=== PATIENT | female | born 1955 | race Caucasian/White ===

== ENCOUNTER 2018-01-30 14:08 | Observation (INO) | payer MEDICAID, SELFPAY ==
[2018-01-30] VITALS (10 sets, daily range): BP systolic 97–158; BP diastolic 57–87; PULSE 70–83; RESP 11–22; TEMP 36.6–36.7; O2SAT 92–98; BMI 33.7; BMI 33.8; BMI 35.2
--- NOTE | 2018-01-30 14:24 | EKG12_ITS ---
Test Reason : Blood Pressure : / mmHG Vent. Rate : 083 BPM Atrial Rate : 083 BPM P-R Int : 176 ms QRS Dur : 090 ms QT Int : 398 ms P-R-T Axes : 061 019 003 degrees QTc Int : 467 ms Normal sinus rhythm Normal ECG Confirmed by CESAR GRUBER, SHARAD ([id number]), restaurant expeditor TISHA SHIPMAN ([id number]) on 02/01/2018 3:20:39 PM Referred By: Symone Griffin Confirmed By:SHARAD GUERRERO MD
--- NOTE | 2018-01-30 14:24 | RAD_ITS ---
STUDY: X-RAY CHEST REASON FOR EXAM: Female, 62 years old. Chest pain. Shortness of breath. TECHNIQUE: Single AP portable view of the chest. COMPARISON: None. FINDINGS: EKG electrodes are seen. The lungs are clear and expanded. Scattered calcified granulomas. There is no demonstrated pleural abnormality. Normal size heart. Normal mediastinum and zion. Normal visualized pulmonary arteries. Normal visualized aortic arch and descending thoracic aorta. There are degenerative changes of the visualized thoracic spine. The patient is status post right reverse shoulder replacement. There is no demonstrated abnormality of the visualized soft tissue structures of the upper abdomen. RAD/Chest 1 View (Portable) IMPRESSION: No acute abnormality is seen. Electronically Signed: Royer Yan MD at 15:07 EDT Tel [phone], Service support ,
[2018-01-30] MEDS: Aspirin 81 MG TAB.CHEW 324 MG PO (14:51)
[2018-01-30] MEDS: Ondansetron 4 MG/2 ML Vial IV (15:17)
[2018-01-30] MEDS: 0.9% Normal Saline 1,000 ML 150 ML IV (15:18)
--- NOTE | 2018-01-30 15:31 | EKG12_ITS ---
Test Reason : CP Blood Pressure : / mmHG Vent. Rate : 079 BPM Atrial Rate : 079 BPM P-R Int : 160 ms QRS Dur : 088 ms QT Int : 390 ms P-R-T Axes : 056 025 006 degrees QTc Int : 447 ms Normal sinus rhythm Normal ECG Confirmed by CESAR GRUBER, SHARAD ([id number]), newspaper editor TISHA SHIPMAN ([id number]) on 02/01/2018 3:23:19 PM Referred By: Symone Griffin Confirmed By:SHARAD GUERRERO MD
[2018-01-30 16:04] LABS: Absolute Lymphocyte Count 2.32 X10^3/ul (0.83-4.51); Absolute Neutrophil Count 4.9 X10^3/uL (2.0-7.7); Basophil# 0.02 X10^3/uL; Basophil% 0.3 % (0-1); Eosinophil# 0.22 X10^3/uL; Eosinophils% 2.8 % (0-5); Hematocrit 37.4 % (37-47); Hemoglobin 11.3 g/dl (12.0-15.0); Lymphocyte # 2.32 X10^3/ul (4.0); Lymphocyte % 29.1 % (19-41); Mean Corp Hgb Conc 30.2 g/gl (32-36); Mean Corpuscular Hgb 26.4 pg (27.0-32.0); Mean Corpuscular Volume 87.4 fL (81-99); Mean Platelet Vol. 9.5 fl (6.2-12.0); Monocyte# 0.51 X10^3/uL; Monocyte% 6.4 % (0-10); Neutrophil # 4.87 X10^3/uL (2.7-7.7); Neutrophil % 61.1 % (47-70); POSITIVE COUNT NO; POSITIVE DIFFERENTIAL NO; POSITIVE MORPHOLOGY NO; Platelet Count 269 K/mm3 (150-450); RBC Distribution Width CV 16.4 % (11.6-14.6); RBC Distribution Width SD 52.2 fl (35.1-43.9); Red Blood Count 4.28 M/mm3 (4.2-5.4)
[2018-01-30 16:24] LABS: Anion Gap 6 (5-15); BUN 13 mg/dL (7-18); BUN/Creat Ratio 16.3 RATIO (10-20); Calcium,Total 8.4 mg/dL (8.5-10.1); Chloride 107 mmol/L (98-107); EST Glomerular Filtration Rate 77 mL/min (>60); Est Glom Filt Rate - Afr Amer 93 mL/min (>60); Glucose 88 mg/dL (74-106); Potassium 3.5 mmol/L (3.5-5.1); Sodium Level 141 mmol/L (136-145)
--- NOTE | 2018-01-30 17:05 | EKG12_ITS ---
Test Reason : Blood Pressure : / mmHG Vent. Rate : 076 BPM Atrial Rate : 076 BPM P-R Int : 170 ms QRS Dur : 088 ms QT Int : 406 ms P-R-T Axes : 053 019 012 degrees QTc Int : 456 ms Normal sinus rhythm Normal ECG Confirmed by CESAR GRUBER, SHARAD ([id number]), editorial specialist TISHA SHIPMAN ([id number]) on 02/01/2018 3:23:37 PM Referred By: Symone Griffin Confirmed By:SHARAD GUERRERO MD
--- NOTE | 2018-01-30 17:15 | ED.VISSUMM ---
- ER Visit Summary Date of Service: 01/30/18 Chief Complaint: Chest pain History of Present Illness: The patient is a 62 F who moved here from [place] approximately 1 month ago and is at [facility]. She is not established a local primary care physician. Her director of promotions in [place] was Dr. Hartmann. Patient reports that approximately 30 minutes ago while down in the first floor the hospital she developed a left-sided chest pressure and sharpness. She reports pain is 10 out of 10 at worst 910 currently. Is worsened by exertion or movement of her arm. She relieved by nothing. Reports made her nauseated, short of breath, diaphoretic. Patient is a poor informant. States this is similar when she has had an OH in the past. She reports that she last had a heart catheterization several years ago and that she did not require any stents. She states her last stress test was approximately 1 year ago. Physical Examination: Vitals: Stable. Afebrile. General: Well-nourished and well-developed. Head: Normocephalic atraumatic. Neck: Supple, no lymphadenopathy. No JVD. Nontender. Cardiovascular: Regular rate and rhythm. No murmurs. Respiratory: No respiratory distress. Clear to auscultation bilaterally. Abdominal: Soft, nontender, nondistended, normal bowel sounds. No guarding, rebound, or peritoneal signs. Back: Nontender. Extremities: Nontender, no edema. Skin: Normal color, no rash. Neurologic: Alert and oriented ?3. Cranial nerves II through XII are intact. Normal strength and sensation. Psych: Normal affect. Test Results: EKG is sinus at 79 with no ischemic changes. There is no old EKG for comparison. Repeat EKG is unchanged. Troponin is negative. Chem-7 is more for calcium of 8.4. CBC is marked for hemoglobin 11.3. Chest x-ray shows no acute disease. Emergency Department Course and Treatment: Patient is treated with aspirin and morphine. She is resting comfortably. She continues to complain of pain. Treatment Plan: Patient's pain is very atypical. I discussed the possibility of three-hour enzymes and discharge and the patient is very uncomfortable with this. Unfortunately, I do not have her old records to show with the heart catheter the recent stress test showed. Because of this she was discussed with Dr. Sebastian and will be admitted to the hospital for further relation and treatment. Disposition: Admitted in stable condition Impression: 1. Atypical chest pain. 2. JIMBO score of 1. This note was generated with [employer]endo dictation software. It may contain incorrect words, spelling, and punctuation that were not noted in review of the chart prior to signing ED Disposition - Plan for ED Patient: Chief Complaint: Chest Pain Referrals: Care Physician,No Primary [Primary Care Provider] -
--- NOTE | 2018-01-30 17:20 | ED.DCSUM_ITS ---
- ER Visit Summary Date of Service: 01/30/18 Chief Complaint: Chest pain History of Present Illness: The patient is a 62 F who moved here from [place] approximately 1 month ago and is at [facility]. She is not established a local primary care physician. Her activity therapist in [place] was Dr. Hartmann. Patient reports that approximately 30 minutes ago while down in the first floor the hospital she developed a left-sided chest pressure and sharpness. She reports pain is 10 out of 10 at worst 910 currently. Is worsened by exertion or movement of her arm. She relieved by nothing. Reports made her nauseated, short of breath, diaphoretic. Patient is a poor informant. States this is similar when she has had an MS in the past. She reports that she last had a heart catheterization several years ago and that she did not require any stents. She states her last stress test was approximately 1 year ago. Physical Examination: Vitals: Stable. Afebrile. General: Well-nourished and well-developed. Head: Normocephalic atraumatic. Neck: Supple, no lymphadenopathy. No JVD. Nontender. Cardiovascular: Regular rate and rhythm. No murmurs. Respiratory: No respiratory distress. Clear to auscultation bilaterally. Abdominal: Soft, nontender, nondistended, normal bowel sounds. No guarding, rebound, or peritoneal signs. Back: Nontender. Extremities: Nontender, no edema. Skin: Normal color, no rash. Neurologic: Alert and oriented ?3. Cranial nerves II through XII are intact. Normal strength and sensation. Psych: Normal affect. Test Results: EKG is sinus at 79 with no ischemic changes. There is no old EKG for comparison. Repeat EKG is unchanged. Troponin is negative. Chem-7 is more for calcium of 8.4. CBC is marked for hemoglobin 11.3. Chest x-ray shows no acute disease. Emergency Department Course and Treatment: Patient is treated with aspirin and morphine. She is resting comfortably. She continues to complain of pain. Treatment Plan: Patient's pain is very atypical. I discussed the possibility of three-hour enzymes and discharge and the patient is very uncomfortable with this. Unfortunately, I do not have her old records to show with the heart catheter the recent stress test showed. Because of this she was discussed with Dr. Sebastian and will be admitted to the hospital for further relation and treatment. Disposition: Admitted in stable condition Impression: 1. Atypical chest pain. 2. JIMBO score of 1. This note was generated with [place] ([employer]) dictation software. It may contain incorrect words, spelling, and punctuation that were not noted in review of the chart prior to signing ED Disposition - Plan for ED Patient: Chief Complaint: Chest Pain Referrals: Care Physician,No Primary [Primary Care Provider] -
--- NOTE | 2018-01-30 17:49 | HP.PCM_ITS ---
Problem List (1) Diabetes mellitus type 2 Status: Chronic (2) Atypical chest pain Status: Acute (3) History of [place] (myocardial infarction) Status: Chronic (4) Hypertension Status: Chronic (5) Anxiety and depression Status: Chronic (6) Chronic pain syndrome Status: Chronic (7) Dyslipidemia Status: Acute History of Present Illness Date of Admission: 01/30/18 Chief Complaint: Chest pain today The patient is a 62 year old F with history of multiple comorbidities as mentioned above had chest pain for which rapid response was called in afternoon today at registration counter. Patient complaint of sharp left-sided chest pain with radiation to left arm and finger with tingling sensation and neck and back. Patient also has some shortness of breath at that time. She still complaining of chest pain. Patient did not had cardiac STENT. Patient's ruby rails developer currently is Dr. Hartmann. Patient claims that she has [place] in 2007 2013 for which she had cardiac cath but no stent was placed. Patient also had stress test in [facility] about a year ago. She had 3 EKGs done in the ER and all are normal sinus rhythm with no ischemic changes. Patient complaint of pain over chest, neck and back and asking for IV morphine. Chest x-ray does not show acute disease. Past Medical History Past Medical History (Chronic Problems): Chronic Problems Diabetes mellitus type 2 (Chronic) History of [place] (myocardial infarction) (Chronic) Hypertension (Chronic) Anxiety and depression (Chronic) Chronic pain syndrome (Chronic) Allergies Penicillins Allergy (Verified 01/30/18 14:12) Rash Sulfa (Sulfonamide Antibiotics) Allergy (Verified 01/30/18 14:12) Rash Home Medications: Ambulatory Orders Medication Instructions Recorded ALPRAZolam [Xanax] 0.5 mg PO TID 01/30/18 Albuterol Inhaler [Ventolin Hfa 2 puff INHALATION Q6H PRN PRN 01/30/18 (SP)] Amlodipine [Norvasc] 5 mg PO DAILY 01/30/18 Aspirin [Aspirin, Baby] 81 mg PO DAILY@0800 01/30/18 Aspirin/Acetaminophen/Caffeine 1 each PO TID PRN PRN 01/30/18 [Excedrin Migraine Caplet] Atorvastatin Calcium [Lipitor] 20 mg PO QHS 01/30/18 B Complex with Vitamin C 1 tab PO DAILY 01/30/18 [B-Complex with C] BusPIRone [Buspar] 15 mg PO TID 01/30/18 Cetirizine HCl [All Day Allergy] 10 mg PO DAILY 01/30/18 Dicyclomine HCl [Bentyl] 10 mg PO 4X/DAY 01/30/18 Docusate Sodium [Colace] 100 mg PO DAILY PRN PRN 01/30/18 Duloxetine HCl 60 mg PO QHS 01/30/18 Estrogens, Conjugated [Premarin] 1 dose VAGINAL MOWEFR 01/30/18 Famotidine [Pepcid] 20 mg PO QHS 01/30/18 Ferrous Sulfate [Iron] 325 mg PO BID 01/30/18 Fluticasone 0.05% [Flonase Nasal 1 spray NASAL QHS 01/30/18 Denio] Gabapentin [Neurontin] 600 mg PO TID 01/30/18 Guaifenesin Dm [Robitussin Dm] 10 ml PO Q6H PRN PRN 01/30/18 Isosorbide Mononitrate [Isosorbide 120 mg PO DAILY 01/30/18 Mononitrate ER] Magnesium Oxide [Mag-Ox 400] 400 mg PO DAILY 01/30/18 Metformin HCl 1,000 mg PO BID 01/30/18 Metoprolol Succinate [Toprol Xl] 50 mg PO DAILY 01/30/18 Multivitamin [Multiple Vitamins] 1 each PO DAILY 01/30/18 Nitroglycerin [Nitrostat] 0.4 mg SL PRN PRN 01/30/18 Ondansetron HCl [Zofran] 4 mg PO Q4H PRN PRN 01/30/18 Prazosin HCl 3 mg PO QHS 01/30/18 ProMETHAzine [Phenergan] 25 mg PO Q6H PRN PRN 01/30/18 Pyridoxine HCl [Vitamin B-6] 100 mg PO DAILY 01/30/18 Quetiapine Fumarate [Seroquel] 200 mg PO QHS 01/30/18 Ropinirole HCl [Requip] 1 mg PO QHS 01/30/18 Sucralfate [Carafate] 1 gm PO 4X/DAY 01/30/18 Tiotropium [place] [Spiriva 18 MCG] 1 puff INHALATION DAILY 01/30/18 Topiramate [Topamax] 25 mg PO BID 03/12/18 TraMADol [Ultram (G)] 50 mg PO BID PRN PRN 01/30/18 Smoking Status: Former smoker - *Family History Paternal History Items: No pertinent history Review of Systems Constitutional: Denies: Chills, Fever, Weight Change HEENT: Denies: Head Aches, Sinus Congestion, Sinus Drainage Cardiovascular: Reports: Chest Pain. Denies: Palpitations Respiratory: Reports: Shortness of Breath. Denies: Cough, Shortness of breath at rest, Sputum production Gastrointestinal: Denies: Abdominal Pain, Nausea, Vomiting Genitourinary: Denies: Dysuria Musculoskeletal: Reports: Back Pain, Joint Pain, Joint stiffness, Joint swelling , Shoulder Pain. Denies: Joint Tenderness Skin: Denies: Rash, Wounds Neurological: Denies: Numbness, Tingling, Focal weakness Psychiatric: Reports: Anxiety, Depression. Denies: Homicidal Ideations, Suicidal Ideations Hematologic/ Lymphatic: Denies: Easy Bruising, Easy Bleeding VTE Information - Inpt Only VTE Present on Admission: No VTE Mechan Device Prophylaxis: SCD's VTE Pharm Prophylaxis ordered?: Yes Patient Problems: Active and Suspected Problems Atypical chest pain (Acute) Dyslipidemia (Acute) - Physical Exam General: Alert, Oriented x3, Cooperative HEENT: Atraumatic, PERRLA, EOMI, Normocephalic Neck: Supple, No JVD, Negative Carotid Bruits Lungs: Clear to auscultation, No rhonchi, No wheeze, No rales, Diminished Cardiovascular: Regular rate, Regular Rhythm, Normal S1, Normal S2, No murmurs Abdomen: Bowel Sounds Present, Soft, Non Tender, Non-Distended Extremities: No edema, Capillary Refill Less than 3 Seconds Skin: No rashes, No breakdown Musculoskeletal: No Tenderness to Palpation of Joints or Extremities, Arthritic Changes, Muscle Wasting Neurological: Cranial nerves II-XII grossly intact Psych/Mental Status: Normal Affect, Appropriate Vital Signs Temp Pulse Resp BP Pulse Ox 98.1 F 82 18 120/76 92 01/30/18 14:09 01/30/18 14:09 01/30/18 14:09 01/30/18 14:01/30/18 14:49 Oxygen Flow Rate (L/min) 2 Oxygen Delivery Method Nasal Cannula Weight: 173 lb Body Mass Index (BMI) 33.7 Laboratory Tests Past 24 Hrs 01/30/18 01/30/1801/30/18 15:57 15:57 17:25 WBC 8.0 RBC 4.28 Hgb 11.3 L Hct 37.4 MCV 87.4 MCH 26.4 L MCHC 30.2 L RDW 16.4 H RDW Differential 52.2 H Plt Count 269 MPV 9.5 Immature Gran % (Auto) 0.300 Neut % (Auto) 61.1 Lymph % (Auto) 29.1 Cobb % (Auto) 6.4 Eos % (Auto) 2.8 Baso % (Auto) 0.3 Absolute Neuts (auto) 4.9 Absolute Lymphs (auto) 2.32 Total Counted Not Reportable Sodium 141 Potassium 3.5 Chloride 107 Carbon Dioxide 28.0 Anion Gap 6 BUN 13 Creatinine 0.80 Estim Creat Clear Calc 51.70 Est GFR (MDRD) Af Amer 93 Est GFR (MDRD) Non-Af 77 BUN/Creatinine Ratio 16.3 Glucose 88 Calcium 8.4 L Troponin I < 0.02 Pending Assessment/Plan Active and Suspected Problems Atypical chest pain (Acute) Dyslipidemia (Acute) The patient is a 62 year old F with history of multiple comorbidities as mentioned above had chest pain for which rapid response was called in afternoon today at registration counter for her appointment with Dr. Griffin for chronic pain over back, neck and shoulder.. Patient complaint of sharp left-sided chest pain with radiation to left arm and finger with tingling sensation and neck and back. Patient also has some shortness of breath at that time. She still complaining of chest pain. Patient did not had cardiac STENT. Patient's ruby rails developer currently is Dr. Hartmann. Patient claims that she has [place] in 2007 2013 for which she had cardiac cath but no stent was placed. Patient also had stress test in [facility] about a year ago. She had 3 EKGs done in the ER and all are normal sinus rhythm with no ischemic changes. Patient complaint of pain over chest, neck and back and asking for IV morphine. Chest x-ray does not show acute disease. 1. Atypical chest pain with low suspicion of unstable angina: Chest pain is reproducible. Patient is being admitted on the PCU with ACS protocol. Serial cardiac enzymes. Lexiscan nuclear stress test tomorrow morning. Continue home medication including baby aspirin, Toprol XL, statin and isosorbide mononitrate. Nitroglycerin ointment as needed for chest pain. 2. History of [place], possible coronary artery disease: Patient does not have medical record over here. We will try to get old cardiac cath from [facility] and a stress test report. 3. Diabetes mellitus type II: On Accu-Chek before meals and at bedtime cover with NovoLog sliding scale. A1c tomorrow a.m. 4. COPD: Continue Spiriva and Advair. Albuterol inhaler as needed. 5. 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 This note was generated with [email or web address] software. Every effort was made to ensure accuracy, however computerized mannequin refinisher mistakes may persist. Code Visit OBSV E&M: 77521 Initial observation care L3
[2018-01-30 19:32] LABS: BNP,B-Type NATRIURETIC PEPTIDE 62.7 pg/mL (0-100)
[2018-01-30 20:31] LABS: Bedside Glucose 95 mg/dL (70-110)
[2018-01-30] MEDS: guaiFENesin Dm 10 ML UDC PO (20:53)
[2018-01-30] MEDS: Famotidine 20 MG Tablet PO (20:54)
[2018-01-30] MEDS: Sucralfate 1 GM Tablet PO (20:56)
[2018-01-30] MEDS: Atorvastatin Calcium 20 MG Tablet PO (20:56)
[2018-01-30] MEDS: Dicyclomine 10 MG Capsule PO (20:58)
[2018-01-30] MEDS: DULoxetine Hcl 60 MG Capsule PO (20:58)
[2018-01-30] MEDS: Pramipexole Di-HCl 0.5 MG Tablet PO (20:59)
[2018-01-30] MEDS: Doxazosin 1 MG Tablet 2.5 MG PO (20:59)
[2018-01-30] MEDS: QUEtiapine 100 MG Tablet 200 MG PO (21:00)
[2018-01-30] MEDS: Fluticasone 0.05% 1 SPRAY NASAL.SRY NASAL (21:00)
[2018-01-30] MEDS: Topiramate 25 MG Tablet PO (21:00)
[2018-01-30] MEDS: ALPRAZolam 0.5 MG Tablet PO (21:02)
[2018-01-30] MEDS: 0.9% Normal Saline 1,000 ML 75 ML IV (21:06)
[2018-01-30] MEDS: Ipratropium/Albuterol Sulfate 3 ML AMPUL.NEB INHALATION (22:21)
[2018-01-30] MEDS: Ketorolac 15 MG/ML Vial IV (22:54)
--- NOTE | 2018-01-30 23:13 | CPS ---
pt was painful, ended treatment early and did not want to finish it. RN notified of pain.
[2018-01-31] VITALS (8 sets, daily range): BP systolic 110–117; BP diastolic 70–84; PULSE 73–85; RESP 14–16; TEMP 36.9–37; O2SAT 86–97
--- NOTE | 2018-01-31 04:00 | EKG12_ITS ---
Test Reason : AM EKG Blood Pressure : / mmHG Vent. Rate : 073 BPM Atrial Rate : 073 BPM P-R Int : 176 ms QRS Dur : 090 ms QT Int : 430 ms P-R-T Axes : 062 021 -04 degrees QTc Int : 473 ms Normal sinus rhythm Normal ECG When compared with ECG of 30-JAN-2018 17:13, MANUAL COMPARISON REQUIRED, DATA IS UNCONFIRMED Confirmed by CESAR GRUBER, SHARAD ([id number]), news copy editor TISHA SHIPMAN ([id number]) on 02/03/2018 1:54:29 PM Referred By: DR PATRICK Confirmed By:SHARAD GUERRERO MD
[2018-01-31 04:28] LABS: Hematocrit 35.5 % (37-47); Hemoglobin 10.8 g/dl (12.0-15.0); Mean Corp Hgb Conc 30.4 g/gl (32-36); Mean Corpuscular Hgb 27.5 pg (27.0-32.0); Mean Corpuscular Volume 90.3 fL (81-99); Mean Platelet Vol. 9.6 fl (6.2-12.0); Platelet Count 257 K/mm3 (150-450); RBC Distribution Width CV 16.2 % (11.6-14.6); RBC Distribution Width SD 53.2 fl (35.1-43.9); Red Blood Count 3.93 M/mm3 (4.2-5.4); White Blood Count 6.6 K/mm3 (4.4-11.0)
[2018-01-31 04:33] LABS: International Normalized Ratio 1.3; Prothrombin Time (Protime)PT. 15.8 SECONDS (11.7-14.9)
[2018-01-31 04:34] LABS: Partial Thromboplast Time 31.2 Seconds (24.1-36.2)
[2018-01-31 04:39] LABS: Scan Indicated on CBC? Y/N NO
[2018-01-31 04:55] LABS: Anion Gap 10 (5-15); BUN 15 mg/dL (7-18); BUN/Creat Ratio 17.9 RATIO (10-20); Calcium,Total 8.5 mg/dL (8.5-10.1); Chloride 108 mmol/L (98-107); Cholesterol 93 mg/dL (200); Creatinine, Serum 0.84 mg/dL (0.55-1.02); EST Glomerular Filtration Rate 73 mL/min (>60); Est Glom Filt Rate - Afr Amer 88 mL/min (>60); Glucose 120 mg/dL (74-106); High Density Lipoprotein 23 mg/dL; Potassium 3.7 mmol/L (3.5-5.1); Sodium Level 144 mmol/L (136-145); Thyroid Stim Hormone (TSH) 0.98 uIU/mL (0.358-3.74); Triglycerides 184 mg/dL; Very Low Density Lipoprotein 37 mg/dL (5-40)
[2018-01-31] MEDS: Aspirin E.C. 81 MG Tablet PO (05:45)
[2018-01-31 06:01] LABS: Bedside Glucose 124 mg/dL (70-110)
[2018-01-31 07:06] LABS: Hemoglobin A1c 6.2 % (4.2-6.3)
[2018-01-31] MEDS: ALPRAZolam 0.5 MG Tablet PO ×2 (09:00→14:17)
[2018-01-31] MEDS: Sucralfate 1 GM Tablet PO ×2 (09:02→11:51)
[2018-01-31] MEDS: guaiFENesin Dm 10 ML UDC PO (09:02)
[2018-01-31] MEDS: Dicyclomine 10 MG Capsule PO ×2 (09:02→14:17)
[2018-01-31] MEDS: Gabapentin 600 MG Tablet PO ×2 (09:03→11:51)
--- NOTE | 2018-01-31 11:50 | NURSING ---
Patient agreeable to take 0800 and 1000 medications at this time. patient was previously refusing due to pain and nausea which she was medicated for. Patient denies other needs at this time.
[2018-01-31] MEDS: Topiramate 25 MG Tablet PO (11:52)
[2018-01-31] MEDS: Metoprolol(XL)Succ 50 MG Tablet PO (11:52)
[2018-01-31] MEDS: Ferrous Sulfate 325 MG Tablet PO (11:52)
[2018-01-31] MEDS: amLODIPine 5 MG Tablet PO (11:52)
[2018-01-31] MEDS: Magnesium Oxide 400 MG Tablet PO (11:52)
[2018-01-31] MEDS: Vitamin B Comp W-C Capsule 1 CAP PO (11:53)
[2018-01-31] MEDS: Acetaminophen/Butalbital/Caffe 1 Tablet PO (12:05)
[2018-01-31 12:20] LABS: Bedside Glucose 126 mg/dL (70-110)
--- NOTE | 2018-01-31 12:40 | CASEMGMT ---
SW received a voice mail from patient asking SW to stop by her room. SW went to patient's room and she said she is at [facility] assisted living. She said she does not like it there and wants to go somewhere else. She said she told her manager ecommerce from [facility]. His name is Deng. LATOSHA explained to her that LATOSHA is not going to be able to get her to a different assisted living and that this would have to go through her case reviewer. LATOSHA told her that LATOSHA will call Deng and let him know her concerns. She said when she is ready for d/c she will need a ride back. LATOSHA called [facility] and left a message on the coverage line asking to have Deng call LATOSHA. [facility] but no [facility] was available. [facility] [place]. Chela AGUILAR MSW
--- NOTE | 2018-01-31 12:44 | STRESSREP ---
Stress Test Report Pharmacologic myocardial perfusion stress test. 62-year-old lady with a history of chest pain. Stress protocol: Resting EKG demonstrates normal sinus rhythm with a rate of 81 bpm normal intervals are noted resting blood pressure is 122/80 mmHg. 0.4 mg of adenosine was infused per usual protocol followed by rapid intravenous saline flush injection. Continuous EKG monitoring was performed. At rest there were no ST or T-wave changes noted suggest abnormal flow reserve and at peak infusion no ST or T-wave changes were noted suggest abnormal flow reserve. The resting blood pressure was 122/80 mmHg and a final blood pressure 116/78 mmHg. Myocardial perfusion protocol: 14.1 mCi of technetium 99m sestamibi was injected at rest. 0.4 mg of adenosine was infused per usual protocol. At peak infusion 42.2 mCi of technetium 99m sestamibi was injected. Stress images were obtained. Stress and rest images were reconstructed and compared in the short axis vertical long and horizontal long axis. Gated images were also obtained. Perfusion SPECT analysis: Review of the stress images demonstrate normal uptake of tracer noted in all areas of the myocardium. The resting images similarly demonstrate normal uptake of tracer noted in all areas of the myocardium. No areas of reversibility are noted suggest ischemia. No previous infarct is noted. Gated SPECT analysis: The gated ejection fraction is noted to be 71%. No wall motion abnormalities are present. Conclusion: Normal pharmacologic myocardial perfusion stress test. Preserved ejection fraction.
--- NOTE | 2018-01-31 13:18 | PCM.DC.SUM ---
Discharge Date and Diagnosis Date of Admission: 01/30/18 Date of Discharge: 01/31/18 - Primary Discharge Diagnosis Active and Suspected Problems Atypical chest pain; most probably from chronic musculoskeletal pain - Secondary Discharge Diagnosis Chronic Problems Diabetes mellitus type 2 (Chronic) History of IN (myocardial infarction) (Chronic) Hypertension (Chronic) Anxiety and depression (Chronic) Chronic pain syndrome (Chronic) Hospital Course and Treatment Imaging Results: 01/31/18 05:55 Nuclear Stress Test - Chemical [NM] AM (NON MEDS) Summary of Care Provided: [] The patient is a 62 year old F with history of multiple comorbidities as mentioned above had chest pain for which rapid response was called in afternoon today at registration counter for her appointment with Dr. Griffin for chronic pain over back, neck and shoulder.. Patient complaint of sharp left-sided chest pain with radiation to left arm and finger with tingling sensation and neck and back. Patient also has some shortness of breath at that time. She still complaining of chest pain. Patient did not had cardiac STENT. Patient's domestic helper currently is Dr. Hartmann. Patient claims that she has IN in 2007 2013 for which she had cardiac cath but no stent was placed. Patient also had stress test in [facility] about a year ago. She had 3 EKGs done in the ER and all are normal sinus rhythm with no ischemic changes. Patient has chronic pain over chest, neck and back and asking for IV morphine. Chest x-ray does not show acute disease. General: Alert, Oriented x3, Cooperative HEENT: Atraumatic, PERRLA, EOMI, Normocephalic Neck: Supple, No JVD, Negative Carotid Bruits Lungs: Clear to auscultation, No rhonchi, No wheeze, No rales, Diminished Cardiovascular: Regular rate, Regular Rhythm, Normal S1, Normal S2, No murmurs Abdomen: Bowel Sounds Present, Soft, Non Tender, Non-Distended Extremities: No edema, Capillary Refill Less than 3 Seconds Skin: No rashes, No breakdown Musculoskeletal: No Tenderness to Palpation of Joints or Extremities, Arthritic Changes, Muscle Wasting Neurological: Cranial nerves II-XII grossly intact Psych/Mental Status: Normal Affect, Appropriate 1. Atypical chest pain; most probably from chronic musculoskeletal pain: Chest pain is reproducible. Patient was admitted on the PCU with ACS protocol. Serial cardiac enzymes came negative. Lexiscan nuclear stress was done and negative for stress-induced ischemia. No previous infarct noted. Continue home medication including baby aspirin, Toprol XL, statin and isosorbide mononitrate. Nitroglycerin ointment as needed for chest pain. 2. History of IN, possible coronary artery disease: On the Lexiscan myocardial perfusion test, there was no previous infarct noted. 3. Diabetes mellitus type II: On Accu-Chek before meals and at bedtime cover with NovoLog sliding scale. A1c tomorrow 6.2. Glucose is controlled well. 4. COPD: Continue Spiriva and Advair. Albuterol inhaler as needed. 5. 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 Discharge follow-up instructions completed. Stress test and imaging test and blood test discussed with the patient. Patient was advised to follow-up with PCP in Dr. Hernández, pain management doctor. This note was generated with Curb Call dictation software. Every effort was made to ensure accuracy, however computerized loom repairer mistakes may persist. Discharge Activity: May Not Drive Home Medications: Medications to take at Discharge ALPRAZolam [Xanax] 0.5 mg PO TID 01/30/18 Albuterol Inhaler [Ventolin Hfa] 2 puff INHALATION Q6H PRN PRN 01/30/18 Amlodipine [Norvasc] 5 mg PO DAILY 01/30/18 Aspirin [Aspirin, Baby] 81 mg PO DAILY@0800 01/30/18 Aspirin/Acetaminophen/Caffeine [Excedrin Migraine Caplet] 1 each PO TID PRN PRN 01/30/18 B Complex with Vitamin C [B-Complex with C] 1 tab PO DAILY 01/30/18 BusPIRone [Buspar] 15 mg PO TID 01/30/18 Dicyclomine HCl [Bentyl] 10 mg PO 4X/DAY 01/30/18 Docusate Sodium [Colace] 100 mg PO DAILY PRN PRN 01/30/18 Duloxetine HCl 60 mg PO QHS 01/30/18 Estrogens, Conjugated [Premarin] 1 dose VAGINAL MOWEFR 01/30/18 Famotidine [Pepcid] 20 mg PO QHS 01/30/18 Ferrous Sulfate [Iron] 325 mg PO BID 01/30/18 Fluticasone 0.05% [Flonase Nasal [place]] 1 spray NASAL QHS 01/30/18 Gabapentin [Neurontin] 600 mg PO DAILY 01/30/18 Guaifenesin Dm [Robitussin Dm] 10 ml PO Q6H PRN PRN 01/30/18 Isosorbide Mononitrate [Isosorbide Mononitrate ER] 120 mg PO DAILY 01/30/18 Magnesium Oxide [Mag-Ox 400] 400 mg PO DAILY 01/30/18 Metformin HCl 1,000 mg PO BID 01/30/18 Metoprolol Succinate [Toprol Xl] 50 mg PO DAILY 01/30/18 Multivitamin [Multiple Vitamins] 1 each PO DAILY 01/30/18 Nitroglycerin [Nitrostat] 0.4 mg SL PRN PRN 01/30/18 Ondansetron HCl [Zofran] 4 mg PO Q4H PRN PRN 01/30/18 Prazosin HCl 3 mg PO QHS 01/30/18 ProMETHAzine [Phenergan] 25 mg PO Q6H PRN PRN 01/30/18 Pyridoxine HCl [Vitamin B-6] 100 mg PO DAILY 01/30/18 Quetiapine Fumarate [Seroquel] 200 mg PO QHS 01/30/18 Ropinirole HCl [Requip] 1 mg PO QHS 01/30/18 Sucralfate [Carafate] 1 gm PO 4X/DAY 01/30/18 Tiotropium [place] [Spiriva 18 MCG] 1 puff INHALATION DAILY 01/30/18 Topiramate [Topamax] 25 mg PO BID 01/30/18 TraMADol [Ultram] 50 mg PO BID PRN PRN 01/30/18 Atorvastatin Calcium [Lipitor] 40 mg PO QHS #0 01/31/18 Cetirizine HCl [All Day Allergy] 10 mg PO DAILY PRN PRN #0 01/31/18 Primary Care Physician: Care Physician,No Primary [Primary Care Provider] - Please follow up with your Primary Care Physician in: [place] 2 weeks Please Follow Up With: Symone Griffin MD When: in 2 weeks Meaningful Use Info Meaningful Use Diagnoses (Choose all that apply): None applicable Code Visit OBSV E&M: 62177 Observation care discharge
[2018-01-31] MEDS: Ipratropium/Albuterol Sulfate 3 ML AMPUL.NEB INHALATION (13:41)
--- NOTE | 2018-01-31 13:43 | CASEMGMT ---
LATOSHA spoke with Sophia at [facility]. SW let her know patient will be returning today. LATOSHA asked if she would like SW to call back when a time has been set up. She said that is not necessary. LATOSHA then received a call from Shweta at [facility]. LATOSHA let her know patient will be returning today and will be on O2. She said that is fine. Once O2 is delivered LATOSHA will work on setting up transportation. Chela AGUILAR MSW
--- NOTE | 2018-01-31 13:45 | CASEMGMT ---
Addendum entered by Paula Mata 01/31/18 15:16: This RN CM received a call from [facility] and they are asking for oxygen script to be faxed so that they can set up for pt. This RN CM advised them that oxygen has already been set up for pt through [facility] and pt with be coming with information regarding concentrator set up, voice understanding. Mika GARCIA CM Original Note: Per Dimple GARCIA, pt qualified for home oxygen. This RN CM to room to speak with pt regarding DME preference and pt states no preference at this time. Pt informs this RN CM about circumstances that led her to be staying at [facility]. Emotional support provided. Pt states that she is in contact with her CM through Medicaid and this RN CM encouraged her to continue to f/u with him for any concerns, voices understanding. Referral to Iveth at [facility] for home oxygen at this time, voices understanding. Referral to be faxed to [facility]. Mika GARCIA CM
--- NOTE | 2018-01-31 14:06 | CASEMGMT ---
LATOSHA called [facility] and arranged for patient to get picked up at 3p via wc van. LATOSHA notified RN, manager animation, and patient. LATOSHA also let patient know SW has a call in to [facility]. Plan: d/c back to [facility] MSW
--- NOTE | 2018-01-31 14:48 | CASEMGMT ---
LATOSHA received a call from Deng at [facility]. LATOSHA let him know that patient is unhappy at [facility]. LATOSHA told him that LATOSHA told patient that LATOSHA will not be able to arrange for her to go somewhere else at d/c and she will have to follow up with Deng. LATOSHA told him she is being picked up at 3p and is now on oxygen. Plan: d/c back to [facility] RN CM set up home O2 through [employer]. Chela AGUILAR REPAIR DEPARTMENT MANAGER
== END 2018-01-31 15:12 | disposition home or self-care (01) ==
LOC: ED 16:58 → PCU 18:11
PROVIDERS: Admitting Provider Internal Medicine; Emergency Provider Emergency Medicine; Visit Provider Internal Medicine
DX: R07.89 Other chest pain (principal); R06.02 Shortness of breath; I25.2 Old myocardial infarction; R11.0 Nausea; E11.9 Type 2 diabetes mellitus without complications; I10 Essential (primary) hypertension; F41.9 Anxiety disorder, unspecified; F32.9 Major depressive disorder, single episode, unspecified; E78.5 Hyperlipidemia, unspecified; J96.11 Chronic respiratory failure with hypoxia; J44.9 Chronic obstructive pulmonary disease, unspecified; G89.4 Chronic pain syndrome; Z79.899 Other long term (current) drug therapy; Z79.82 Long term (current) use of aspirin; Z79.84 Long term (current) use of oral hypoglycemic drugs; Z79.51 Long term (current) use of inhaled steroids; Z87.891 Personal history of nicotine dependence
CPT/HCPCS: 36415; 71045; 78452; 80048; 80061; 82962; 83036; 83880; 84443; 84484; 85025; 85027; 85610; 85730; 93005; 93017; 94640; 96361; 96374; 96375; 99218; 99285; A9500; J7030; A4216; G0378; J2405; J2785

== ENCOUNTER 2018-09-14 11:04 | Emergency (ER) | payer MEDICAID, SELFPAY ==
[2018-09-14 11:05] VITALS: BP 123/80; PULSE 74; PULSE 77; RESP 18; TEMP 36.3; O2SAT 94; BMI 36.3
--- NOTE | 2018-09-14 11:31 | EKG12_ITS ---
Test Reason : Blood Pressure : / mmHG Vent. Rate : 073 BPM Atrial Rate : 073 BPM P-R Int : 160 ms QRS Dur : 090 ms QT Int : 414 ms P-R-T Axes : 059 030 001 degrees QTc Int : 456 ms Normal sinus rhythm Nonspecific T wave abnormality Abnormal ECG Confirmed by ZOILA DAUGHERTY ([id number]), editor department TISHA SHIPMAN ([id number] on 09/19/2018 8:57:32 AM Referred By: MARY Confirmed By:ZOILA DAUGHERTY
[2018-09-14 11:50] LABS: Absolute Lymphocyte Count 2.67 X10^3/ul (0.83-4.51); Absolute Neutrophil Count 3.6 X10^3/uL (2.0-7.7); Basophil# 0.02 X10^3/uL; Basophil% 0.3 % (0-1); Eosinophil# 0.23 X10^3/uL; Eosinophils% 3.3 % (0-5); Hematocrit 39.1 % (37-47); Hemoglobin 12.1 g/dl (12.0-15.0); Lymphocyte # 2.67 X10^3/ul (4.0); Lymphocyte % 38.5 % (19-41); Mean Corp Hgb Conc 30.9 g/gl (32-36); Mean Corpuscular Volume 93.8 fL (81-99); Mean Platelet Vol. 10.3 fl (6.2-12.0); Monocyte# 0.37 X10^3/uL; Monocyte% 5.3 % (0-10); Neutrophil # 3.63 X10^3/uL (2.7-7.7); Neutrophil % 52.3 % (47-70); POSITIVE COUNT NO; POSITIVE DIFFERENTIAL NO; POSITIVE MORPHOLOGY NO; Platelet Count 212 K/mm3 (150-450); RBC Distribution Width CV 14.4 % (11.6-14.6); RBC Distribution Width SD 48.8 fl (35.1-43.9); Red Blood Count 4.17 M/mm3 (4.2-5.4); White Blood Count 6.9 K/mm3 (4.4-11.0)
[2018-09-14 12:06] LABS: Anion Gap 4 (5-15); BUN 19 mg/dL (7-18); Chloride 106 mmol/L (98-107); Creatinine, Serum 0.95 mg/dL (0.55-1.02); EST Glomerular Filtration Rate 63 mL/min (>60); Est Glom Filt Rate - Afr Amer 76 mL/min (>60); Estimated Creatinine Clearance 42.97 ml/min; Glucose 89 mg/dL (74-106); Potassium 3.9 mmol/L (3.5-5.1); Sodium Level 142 mmol/L (136-145)
[2018-09-14] MEDS: Metoclopramide 10 MG/2 ML Vial 5 MG IV (12:08)
[2018-09-14 12:09] VITALS: BP 101/64; PULSE 80
--- NOTE | 2018-09-14 12:13 | ED.RN ---
PT STATES I NEED SOMETHING FOR PAIN AND NAUSEA. DR HERNANDEZ MADE AWARE, DR HERNANDEZ REPORTS THE NITRO IS TO ATTEMPT TO HELP WITH PAIN AND THAT THE PT WOULD NOT BE GETTING PHENERGAN. PT INFORMED OF PLAN OF CARE
[2018-09-14 12:26] VITALS: BP 98/63; PULSE 78
--- NOTE | 2018-09-14 12:27 | ED.RN ---
DR HERNANDEZ ALSO REPORTS THAT HE IS NOT GOING TO TREAT THE PT WITH MORPHINE FOR PAIN. PT MADE AWARE. PT STATES THE NITRO NEVER DOES ANYTHING FOR ME I JUST DON'T UNDERSTAND WHY I CAN'T JUST GET PAIN MEDICATION. AND THAT ZOFRAN NEVER WORKS EITHER, AND I ALWAYS GET THAT PHENERGAN. PT AGAIN INFORMED THAT SHE WOULD NOT BE RECEIVING THOSE TWO MEDICATIONS AT THIS TIME SHE THEN STATES WHAT IF I TAKE SOME OF THE NITRO AND IT DOESN'T WORK, THEN CAN I GET IT. I INFORMED PT THAT AT THIS POINT DR HERNANDEZ STATED THAT HE IS NOT GOING TO PRESCRIBE MORPHINE OR PHENERGAN.
[2018-09-14 12:30] VITALS: BP 98/63; PULSE 91; RESP 18; O2SAT 94
--- NOTE | 2018-09-14 12:47 | RAD_ITS ---
STUDY: X-RAY CHEST REASON FOR EXAM: Female, 63 years old. Chest pain with radiation to the left arm and jaw. TECHNIQUE: Single AP portable view of the chest. COMPARISON: Comparison is made with prior examination dated January 30, 2018. FINDINGS: EKG electrodes are seen. Mild degree of vascular congestion. Mild increased markings at the left lung base suggestive of scarring. Scattered calcified granulomas. There is no demonstrated pleural abnormality. Normal size heart. Normal mediastinum and zion. Normal visualized pulmonary arteries. There is atherosclerotic tortuosity of the aortic arch and descending thoracic aorta. There are diffuse degenerative changes of the visualized thoracic spine. The patient is status post right reverse shoulder replacement. There is no demonstrated abnormality of the visualized soft tissue structures of the upper abdomen. RAD/Chest 1 View (Portable) IMPRESSION: Findings suggestive of a mild degree of vascular congestion. Mild left basilar scarring. Electronically Signed: Royer Yan MD at 13:31 EDT Tel [phone], Service support ,
[2018-09-14 13:30] VITALS: BP 103/68; PULSE 79; RESP 14; O2SAT 98
[2018-09-14] MEDS: Ketorolac 15 MG/ML Vial IV (13:37)
--- NOTE | 2018-09-14 14:33 | ED.DCSUM_ITS ---
- ER Visit Summary Date of Service: 09/14/18 Chief Complaint: Chest pain History of Present Illness: The patient is a 63 F who presents with chest pain that started several hours prior to presentation. Pain started at rest. She describes as sharp dull tightness that was very mild in her chest and reported agonizing pain in her left upper extremity. It is not similar to the pain she had with reported ND. Matter fact, she states she had 2 MIs never required angioplasty, stenting or bypass surgery. Review of her records from the nursing facility indicates she has no history of coronary disease or ND. She also reports sore throat, dyspnea and nausea. She reports 2-3 pillow orthopnea, which is chronic. She denies fever, chills or night sweats. She denies weight gain or weight loss. She denies ocular, visual or auditory symptoms. She denies food intolerance. She denies back pain, flank pain or urologic symptoms. Physical Examination: Vital signs noted and normal. She is not hypoxic nor is she febrile. BMI is 36. Head is atraumatic normocephalic. Pupils are equal round reactive. Extraocular muscles are intact. TMs are pearly white with landmarks noted. Nares patent with no drainage. Posterior pharynx without erythema or exudate. Uvula is midline. There is no dysphonia or dysphasia. Trachea is midline. There is no stridor with auscultation of the neck. Heart is regular without murmur, gallop or rub. S1 and S2 are normal. Lungs are clear to auscultation with good movement of air bilaterally. There is reproducible chest pain. Abdomen is soft nontender. There is no palpable cell mass abdominal bruit. Lower extremity exam reveals 2-3+ edema, which is chronic. Difficult to assess pulses. There is no asymmetry, discoloration, leg vein distention, palpable coarseness on the distal recent deep venous system. Neuro exam is nonfocal. Please read written note. Test Results: EKG with pain reveals a sinus rhythm rate of 73 with mild abnormality noted in lead III. There is no prior for comparison. Portable chest x-ray reveals normal cardiac silhouette and mediastinum and osseous structures. Radiologist felt there was mild congestion. There is no curly B lines nor is or an effusion. Inspiratory volume is limited. CBC normal. Basic metabolic panel unremarkable. Troponin less than 0.015. Emergency Department Course and Treatment: Nitroglycerin was ordered. She refused. She specifically requested morphine and Phenergan IV. She was informed by me before I left the room that she would not receive this. The nurse informed me that she declined the nitroglycerin and requested specifically morphine and Phenergan. She was informed that she would not receive morphine or Phenergan. She then informed the nurse if she agreed to take the nitroglycerin could she received morphine and Phenergan. She is informed that I am not bartering with her and that she would not receive morphine or Phenergan. Treatment Plan: With no documented history to support diagnosis of coronary disease and the fact the patient specifically asked for morphine and Phenergan and refused nitroglycerin then attempted to negotiate to obtain morphine and Phenergan it is my opinion that this does not represent cardiac disease. Disposition: Discharge to nursing facility Impression: 1. Chest pain of unknown etiology 2. History of type 2 diabetes 3. History hypertension 4. History of hypercholesterolemia This note was generated with ScoreStreak dictation software. It may contain incorrect words, spelling, and punctuation that were not noted in review of the chart prior to signing ED Disposition - Plan for ED Patient: Disposition: Home or Assisted Living Chief Complaint: Chest Pain Instructions: ED Chest Pain Atypical Unkn Cause Referrals: Care Physician,No Primary [Primary Care Provider] - 3-5 Days if not improving
[2018-09-14 14:38] VITALS: BP 118/73; PULSE 80; RESP 16; O2SAT 97
== END 2018-09-14 15:53 | disposition home or self-care (01) ==
PROVIDERS: Emergency Provider Emergency Medicine
DX: R07.9 Chest pain, unspecified (principal); E11.9 Type 2 diabetes mellitus without complications; I10 Essential (primary) hypertension; E78.00 Pure hypercholesterolemia, unspecified; E66.9 Obesity, unspecified; Z68.36 Body mass index [BMI] 36.0-36.9, adult; R11.0 Nausea; R06.00 Dyspnea, unspecified; J02.9 Acute pharyngitis, unspecified; I25.10 Atherosclerotic heart disease of native coronary artery without angina pectoris
CPT/HCPCS: 71045; 80048; 84484; 85025; 93005; 96374; 96375; 99285; J7030; A4216

== ENCOUNTER → 2018-09-19 10:58 | Outpatient (CLI) | payer MEDICAID, SELFPAY ==
--- NOTE | 2018-09-19 11:03 | RAD_ITS ---
STUDY: X-RAY - CERVICAL SPINE REASON FOR EXAM: Female, 63 years old. CHRONIC NECK PAIN, NO RECENT INJURIES TECHNIQUE: 4 view(s) of the cervical spine were obtained. COMPARISON: None FINDINGS: Normal cervical lordosis. There is minimal multi-level endplate spondylosis. There is multi-level degenerative disc disease with multilevel disc space narrowing. The soft tissue structures are unremarkable. RAD/Cerv Spine 2 or 3 Views IMPRESSION: Minimal degenerative changes of the spine. Electronically Signed: Savanna Andersen MD at 8:44 EDT Tel , Service support ,
== END ==
PROVIDERS: Referring Provider Anesthesiology Pain Medicine; Visit Provider Anesthesiology Pain Medicine
DX: M54.2 Cervicalgia (principal)
CPT/HCPCS: 72040

== ENCOUNTER 2018-10-13 15:01 | Emergency (ER) | payer MEDICAID, SELFPAY ==
[2018-10-13] VITALS (9 sets, daily range): BP systolic 104–126; BP diastolic 61–88; PULSE 81–91; RESP 13–16; TEMP 36.6; O2SAT 90–98; BMI 35.9
--- NOTE | 2018-10-13 15:02 | ED.RN ---
PT ADMITS TO CONSTANT SUICIDAL THOUGHT THE PAST SEVERAL DAYS. HAS PLAN OF CUTTING HERSELF WITH KNIFE, HAS KNIVES BACK IN ROOM AT [facility]. PT HAS ATTEMPTED TO COMMIT SUICIDE BY THROWING HERSELF IN FRONT OF A CAR. PT RESIDES AT [facility], NOT HAPPY WITH LIVING SITUATION. THIS RN REMAINS WITH PT UNTIL 1:1 SITTER ASSIGNED AND IN ROOM.
--- NOTE | 2018-10-13 15:18 | EKG12_ITS ---
Test Reason : OTHER Blood Pressure : / mmHG Vent. Rate : 082 BPM Atrial Rate : 082 BPM P-R Int : 172 ms QRS Dur : 086 ms QT Int : 386 ms P-R-T Axes : 058 021 000 degrees QTc Int : 450 ms Normal sinus rhythm Normal ECG Confirmed by SHARAD GUERRERO MD ([id number]), video editor MAGALI JARQUIN ([id number]) on 10/16/2018 9:29:02 AM Referred By: ALF Confirmed By:SHARAD GUERRERO MD
--- NOTE | 2018-10-13 15:24 | ED.VISSUMM ---
- ER Visit Summary Date of Service: 10/13/18 Chief Complaint: Suicidal ideation, chest pain History of Present Illness: The patient is a 63 F who reports increased depression over the past 2 days secondary to the holidays. She is a plan to cut her wrist with a knife. She was last hospitalized for suicidal ideation approximate 5 years ago. Patient is also complaining of chest pain, worse with movement and deep breath with some radiation down her left arm. She states her pain is been constant over the past 24 hours and is worse with movement. She reports mild shortness of breath. She does have history of 2 prior MIs. The most recent was in 2011. She does not have any cardiac stents. Physical Examination: Vital signs are unremarkable. Patient sitting upright in bed no acute distress. Head and neck examination is unremarkable. Heart is regular rate and rhythm. Lung sounds are clear. She has reproducible anterior chest wall tenderness. There is no crepitus. Abdomen is soft and nontender. Extremity examination reveals strong pulses throughout. She has reproducible muscular tenderness throughout the left arm, but none noted to the right arm. Psychiatric evaluation reveals depressed affect with continued suicidal thoughts. Test Results: EKG is sinus 82 with no sign of acute ischemia. Portable chest x-ray shows mild vascular congestion. CBC and chemistry studies grossly unremarkable. LFTs reveal alk phos of 144, otherwise normal. Troponin is negative. D-dimer is unremarkable. Tox screen is positive for benzos. EtOH is negative. Emergency Department Course and Treatment: Patient received 3 baby aspirin on arrival as she already taken 81 mg this morning. She was given a dose of morphine and Zofran. On repeat evaluation patient is resting comfortably. I advised her that her cardiac evaluation is unremarkable and that with reproducible chest pain and arm pain, I feel this is musculoskeletal in nature. She states that she still feels suicidal. Patient was seen by staff from the counseling center. At this time we are anticipating transfer. Patient's normal evening medications were given to her. She did complain of worsening chest pain again. Repeat EKG is unchanged. Repeat troponin also remains unchanged. She is given Toradol for pain. I advised her that I could not continue to give her narcotics other than what she is prescribed on a regular basis. Treatment Plan: [] Disposition: Transfer Impression: 1. Chest wall pain 2. Suicidal ideation This note was generated with Intepat IP Servicesation software. It may contain incorrect words, spelling, and punctuation that were not noted in review of the chart prior to signing ED Disposition - Plan for ED Patient: Chief Complaint: Suicidal Referrals: Care Physician,No Primary [Primary Care Provider] -
--- NOTE | 2018-10-13 15:35 | RAD_ITS ---
STUDY: X-RAY CHEST REASON FOR EXAM: Female, 63 years old. Chest pain and nausea. TECHNIQUE: Single AP portable view of the chest. COMPARISON: Comparison is made with prior study September 14, 2018. FINDINGS: EKG electrodes are seen. There is a mild degree of vascular congestion. There is no demonstrated pleural abnormality. Normal size heart. Normal mediastinum and zion. Normal visualized pulmonary arteries. There is atherosclerotic tortuosity of the aortic arch and descending thoracic aorta. Normal visualized thoracic spine. Prior left shoulder replacement. There is no demonstrated abnormality of the visualized soft tissue structures of the upper abdomen. RAD/Chest 1 View (Portable) IMPRESSION: Findings in keeping with mild vascular congestion. Electronically Signed: Royer Yan MD at 15:51 EST Tel [phone], Service support ,
[2018-10-13] MEDS: Aspirin 81 MG TAB.CHEW 243 MG PO (15:46)
[2018-10-13] MEDS: 0.9% Normal Saline 1,000 ML 150 ML IV (15:47)
[2018-10-13 15:51] LABS: Absolute Lymphocyte Count 2.67 X10^3/ul (0.83-4.51); Absolute Neutrophil Count 4.3 X10^3/uL (2.0-7.7); Basophil# 0.02 X10^3/uL; Basophil% 0.3 % (0-1); Eosinophils% 2.6 % (0-5); Hematocrit 40.8 % (37-47); Hemoglobin 12.9 g/dl (12.0-15.0); Lymphocyte # 2.67 X10^3/ul (4.0); Lymphocyte % 34.9 % (19-41); Mean Corp Hgb Conc 31.6 g/gl (32-36); Mean Corpuscular Hgb 30.1 pg (27.0-32.0); Mean Corpuscular Volume 95.1 fL (81-99); Mean Platelet Vol. 10.3 fl (6.2-12.0); Monocyte# 0.38 X10^3/uL; Neutrophil # 4.33 X10^3/uL (2.7-7.7); Neutrophil % 56.7 % (47-70); Platelet Count 270 K/mm3 (150-450); RBC Distribution Width CV 14.5 % (11.6-14.6); RBC Distribution Width SD 48.5 fl (35.1-43.9); Red Blood Count 4.29 M/mm3 (4.2-5.4); White Blood Count 7.6 K/mm3 (4.4-11.0)
[2018-10-13 15:52] LABS: POSITIVE COUNT NO; POSITIVE DIFFERENTIAL NO; POSITIVE MORPHOLOGY NO
[2018-10-13 16:06] LABS: D-Dimer Quantitative (DVT/PE) 0.28 FEU/ug/m (0.27-0.49)
[2018-10-13] MEDS: Morphine 4 MG/ML Syringe IV (16:07)
[2018-10-13] MEDS: Ondansetron 4 MG/2 ML Vial IV ×2 (16:07→23:25)
[2018-10-13 16:15] LABS: AST(SGOT) 24 U/L (15-37); Alanine Aminotransfer ALT/SGPT 34 U/L (13-56); Albumin, Serum 3.9 g/dL (3.2-5.0); Alkaline Phosphatase 144 U/L (45-117); Anion Gap 8 (5-15); BUN 23 mg/dL (7-18); BUN/Creat Ratio 22.1 RATIO (10-20); Calcium,Total 9.1 mg/dL (8.5-10.1); Chloride 101 mmol/L (98-107); Creatinine, Serum 1.04 mg/dL (0.55-1.02); EST Glomerular Filtration Rate 57 mL/min (>60); Est Glom Filt Rate - Afr Amer 69 mL/min (>60); Estimated Creatinine Clearance 69.65 ml/min; Globulin 3.7 g/dL (2.2-4.2); Glucose 94 mg/dL (74-106); Potassium 3.8 mmol/L (3.5-5.1); Protein, Total 7.6 g/dL (6.4-8.2); Sodium Level 139 mmol/L (136-145)
[2018-10-13 16:43] LABS: Alcohol, Blood (Medical)-Serum < 3.0 mg/dL
--- NOTE | 2018-10-13 16:47 | ED.RN ---
[facility] NOTIFIED OF PT'S PRESENCE IN ER AND NEED FOR EVALUATION
[2018-10-13 17:03] LABS: Amphetamine Urine VISTA NEGATIVE (<1000 ng/mL); Barbiturate Urine VISTA NEGATIVE (< 200 ng/mL); Benzodiazepine Urine VISTA POSITIVE (< 200 ng/mL); Cocaine Urine VISTA NEGATIVE (< 300 ng/mL); Ecstacy Urine VISTA NEGATIVE (< 500 ng/mL); Methadone Urine VISTA NEGATIVE (< 300 ng/mL); PCP Urine VISTA NEGATIVE (< 25 ng/mL); THC Urine VISTA NEGATIVE (< 50 ng/mL); Vista UDS pH Range 6
--- NOTE | 2018-10-13 18:25 | ED.RN ---
CRISIS IS IN WITH THE PT
[2018-10-13] MEDS: Famotidine 20 MG Tablet PO (21:17)
[2018-10-13] MEDS: oxyCODONE 5 MG Tablet PO (21:17)
[2018-10-13] MEDS: ALPRAZolam 0.5 MG Tablet PO (21:59)
[2018-10-13] MEDS: Gabapentin 600 MG Tablet PO (22:00)
[2018-10-13] MEDS: Atorvastatin Calcium 20 MG Tablet PO (22:00)
[2018-10-13] MEDS: Sucralfate 1 GM Tablet PO (22:00)
[2018-10-13] MEDS: Topiramate 25 MG Tablet PO (22:00)
[2018-10-13] MEDS: metFORMIN HCl 1,000 MG Tablet 1000 MG PO (22:00)
[2018-10-13] MEDS: QUEtiapine 100 MG Tablet 200 MG PO (22:00)
[2018-10-13] MEDS: Pramipexole Di-HCl 0.5 MG Tablet PO (22:01)
[2018-10-13] MEDS: MELATONIN 10 MG TABLET 5 MG PO (22:01)
--- NOTE | 2018-10-13 23:54 | EKG12_ITS ---
Test Reason : CHEST PAIN Blood Pressure : / mmHG Vent. Rate : 098 BPM Atrial Rate : 098 BPM P-R Int : 164 ms QRS Dur : 082 ms QT Int : 364 ms P-R-T Axes : 069 043 -08 degrees QTc Int : 464 ms Normal sinus rhythm Normal ECG Confirmed by CESAR GRUBER, SHARAD ([id number]), staff editor MAGALI JARQUIN ([id number]) on 10/16/2018 2:15:15 PM Referred By: TERRANCE Confirmed By:SHARAD GUERRERO MD
[2018-10-14] VITALS (12 sets, daily range): BP systolic 104–151; BP diastolic 64–94; PULSE 79–95; RESP 11–18; TEMP 36.8; O2SAT 94–105
--- NOTE | 2018-10-14 00:15 | ED.RN ---
PT COMPLAINS OF CHEST PAIN AGAIN, MD NOTIFIED, EKG, CARDIAC ENZYMES ORDERED AGAIN.
[2018-10-14] MEDS: Ketorolac 15 MG/ML Vial IV (00:18)
[2018-10-14] MEDS: DiphenhydrAMINE 50 MG/ML Syringe 25 MG IV (01:24)
--- NOTE | 2018-10-14 07:31 | ED.RN ---
PT RESTING EYES CLOSED ON MONITOR, SITTER IN ROOM, MEAL AVAILABLE WHEN AWAKE.
[2018-10-14] MEDS: Ondansetron 4 MG/2 ML Vial IV ×2 (11:59→19:05)
--- NOTE | 2018-10-14 12:05 | ED.RN ---
pt complained of chest pain, physician advised, medication given repeat ecg done.
[2018-10-14] MEDS: Acetaminophen 500 MG Tablet 1000 MG PO (12:20)
--- NOTE | 2018-10-14 12:24 | EKG12_ITS ---
Test Reason : CP Blood Pressure : / mmHG Vent. Rate : 080 BPM Atrial Rate : 080 BPM P-R Int : 176 ms QRS Dur : 086 ms QT Int : 384 ms P-R-T Axes : 064 024 005 degrees QTc Int : 442 ms Normal sinus rhythm Normal ECG Confirmed by CESAR GRUBER, SHARAD ([id number]), production editor MAGALI JARQUIN ([id number]) on 10/16/2018 9:23:29 AM Referred By: SYDNEY Confirmed By:SHARAD GUERRERO MD
[2018-10-14] MEDS: proMETHazine 25 MG/ML Syringe 6.25 MG IV (13:46)
[2018-10-14] MEDS: Gabapentin 600 MG Tablet PO (15:52)
[2018-10-14] MEDS: Topiramate 25 MG Tablet PO (15:52)
[2018-10-14] MEDS: metFORMIN HCl 1,000 MG Tablet 1000 MG PO (15:52)
[2018-10-14] MEDS: Sucralfate 1 GM Tablet PO (15:53)
[2018-10-14] MEDS: oxyCODONE 5 MG Tablet PO (15:57)
[2018-10-14] MEDS: Famotidine 20 MG Tablet PO (15:57)
--- NOTE | 2018-10-14 17:04 | NURSING ---
ACCEPTED AT [facility]. CANNOT GIVE REPORT TIL 190. CAN'T ARRIVE BEFORE 1999
--- NOTE | 2018-10-14 17:47 | NURSING ---
CALLED [facility] FOR TRANSPORT. THEY WILL ARRIVE ABOUT 1929
== END 2018-10-14 19:18 ==
LOC: ED 15:43
PROVIDERS: Emergency Provider Emergency Medicine
DX: R07.89 Other chest pain (principal); R45.851 Suicidal ideations; F32.9 Major depressive disorder, single episode, unspecified; R06.00 Dyspnea, unspecified; E11.9 Type 2 diabetes mellitus without complications; I25.10 Atherosclerotic heart disease of native coronary artery without angina pectoris; I10 Essential (primary) hypertension; E78.00 Pure hypercholesterolemia, unspecified; I25.2 Old myocardial infarction
CPT/HCPCS: 71045; 80048; 80076; 80307; 80320; 84484; 85025; 85379; 93005; 96361; 96374; 96375; 96376; 99285; J7030; A4216; G0480; J2405

== ENCOUNTER 2018-11-05 00:10 | Emergency (ER) | payer MEDICAID, SELFPAY ==
[2018-10-13 15:01] VITALS: BMI 35.9
[2018-11-05] VITALS (8 sets, daily range): BP systolic 121–151; BP diastolic 78–93; PULSE 81–90; RESP 10–15; TEMP 36.4; O2SAT 92–98; BMI 33.9
--- NOTE | 2018-11-05 00:23 | ED.RN ---
CALLED FOR EKG, PULLED OLD EKGS FOR
--- NOTE | 2018-11-05 00:39 | CT_ITS ---
STUDY: CTA CHEST REASON FOR EXAM: Female, 63 years old. Chest pain radiating to left arm RADIATION DOSAGE (If Supplied By Facility): CTDIvol = ( 14.3 ) mGy, DLP = ( 882.29 ) mGycm TECHNIQUE: The examination was performed with the intravenous administration of 100ML ml of Isovue 370 contrast material. Post-processing of the angiographic images was performed, with multiplanar reformation and 3D reconstruction. Individualized dose optimization techniques were used for this CT. COMPARISON: None. FINDINGS: 14 mm partially calcified right thyroid nodule. Normal enhancement of the main pulmonary artery and right and left pulmonary arteries. Normal enhancement of the bilateral peripheral pulmonary arteries. There is no demonstrated pulmonary embolism. Normal thoracic aorta and visualized great vessels. There is no demonstrated aortic dissection. Normal heart and pericardium. Normal mediastinum. Normal hilar regions. Normal visualized trachea and bronchi. Mild left lower lobe alveolitis. Normal pleura. Normal chest wall structures. Right shoulder arthroplasty. Remote T12 compression deformity. CT/CTA Chest W/WO Contrast IMPRESSION: No pulmonary embolus. Mild left lower lobe alveolitis. Right thyroid nodule. Consider ultrasound follow-up. Electronically Signed: Obie Gaytan MD at 2:07 EST Tel , Service support ,
--- NOTE | 2018-11-05 00:39 | EKG12_ITS ---
Test Reason : CP Blood Pressure : / mmHG Vent. Rate : 089 BPM Atrial Rate : 089 BPM P-R Int : 144 ms QRS Dur : 088 ms QT Int : 370 ms P-R-T Axes : 070 024 018 degrees QTc Int : 450 ms Normal sinus rhythm Normal ECG Confirmed by CESAR GRUBER, SHARAD ([id number]), art editor TISHA SHIPMAN ([id number]) on 11/08/2018 3:29:01 PM Referred By: SILVESTRE Confirmed By:SHARAD GUERRERO MD
--- NOTE | 2018-11-05 00:40 | CT_ITS ---
CT ANGIOGRAM OF THE ABDOMEN WITH CONTRAST HISTORY: Chest pain radiating to left arm with back pain COMPARISON: None Technique: Axial CT angiogram images of the abdomen was performed after IV contrast administration of [ 100 ]cc of [ Isovue-370 ] followed by sagittal and coronal reconstructions. 3-D postprocessing was performed. Individualized dose optimization techniques were used for this CT. FINDINGS: There is no evidence of abdominal aortic dissection, occlusion, aneurysm, or stenosis. The abdominal aortic branch vessels are patent. Iliac arteries are patent. Liver, spleen, adrenal glands, kidneys, pancreas, and gallbladder are unremarkable. Constipation. Degenerative lumbar changes. CT/CTA Abdomen W/WO Contrast IMPRESSION: No evidence of abdominal aortic dissection. Electronically Signed: Obie Gaytan MD at 2:19 EST Tel , Service support ,
[2018-11-05 00:52] LABS: Absolute Lymphocyte Count 3.14 X10^3/ul (0.83-4.51); Absolute Neutrophil Count 8.9 X10^3/uL (2.0-7.7); Basophil# 0.05 X10^3/uL; Basophil% 0.4 % (0-1); Eosinophil# 0.07 X10^3/uL; Eosinophils% 0.5 % (0-5); Hematocrit 39.9 % (37-47); Lymphocyte # 3.14 X10^3/ul (4.0); Lymphocyte % 23.7 % (19-41); Mean Corp Hgb Conc 32.6 g/gl (32-36); Mean Corpuscular Hgb 30.1 pg (27.0-32.0); Mean Corpuscular Volume 92.4 fL (81-99); Mean Platelet Vol. 9.7 fl (6.2-12.0); Monocyte# 0.93 X10^3/uL; Neutrophil # 8.87 X10^3/uL (2.7-7.7); POSITIVE COUNT NO; POSITIVE DIFFERENTIAL NO; POSITIVE MORPHOLOGY NO; Platelet Count 299 K/mm3 (150-450); RBC Distribution Width SD 49.4 fl (35.1-43.9); Red Blood Count 4.32 M/mm3 (4.2-5.4); White Blood Count 13.3 K/mm3 (4.4-11.0)
[2018-11-05 01:05] LABS: Anion Gap 10 (5-15); BUN 27 mg/dL (7-18); BUN/Creat Ratio 24.8 RATIO (10-20); Calcium,Total 8.6 mg/dL (8.5-10.1); Chloride 105 mmol/L (98-107); Creatinine, Serum 1.09 mg/dL (0.55-1.02); EST Glomerular Filtration Rate 54 mL/min (>60); Est Glom Filt Rate - Afr Amer 65 mL/min (>60); Estimated Creatinine Clearance 62.73 ml/min; Glucose 154 mg/dL (74-106); Potassium 4.1 mmol/L (3.5-5.1); Sodium Level 136 mmol/L (136-145)
[2018-11-05] MEDS: Metoclopramide 10 MG/2 ML Vial IV (01:14)
[2018-11-05] MEDS: Morphine 4 MG/ML Syringe IV (01:15)
--- NOTE | 2018-11-05 03:06 | ED.VISSUMM ---
- ER Visit Summary Date of Service: 11/05/18 Chief Complaint: Chest pain History of Present Illness: The patient is a 63 F who presents with chest pain. She has had multiple visits for similar symptoms. She had a normal stress in January of this year. She states that about an hour before presentation she developed sharp mid chest pain and that it also feels like someone sitting on my chest. She complains of pain radiating to the back, down the left arm, into the jaw, and also pain in the left leg. She reports nausea without vomiting. She feels short of breath. No diaphoresis. She complains of feeling weak. Physical Examination: Afebrile vitals are normal Moist mucous membranes Skin warm and dry Heart regular rate and rhythm Lungs clear Abdomen soft nontender Extremities nontender with no edema 2+ radial and 2+ dorsalis pedis pulses which are symmetric Test Results: EKG shows normal sinus rhythm at a rate of 89. CTA of the chest and abdomen shows no dissection no pulmonary embolism there is a right thyroid nodule and mild left lower lobe alveolitis. Labs are notable for white blood cell count of 13.3. Troponin is negative. Emergency Department Course and Treatment: Patient reports prior history of [place] however this is not been verified on any records we have been able to obtain previously. He has had multiple prior normal stress test. She has never had any cardiac intervention such as bypass or stents. Although she complains of pain into the jaw and down the arm she has negative troponin and a normal EKG. She also reports cough. She has evidence of pneumonia on CT as well as a leukocytosis so I feel this is likely the cause of her pain. She was given a prescription for Levaquin and discharged home. Treatment Plan: [] Disposition: Discharge Impression: Community acquired pneumonia Chest pain This note was generated with [employer] dictation software. It may contain incorrect words, spelling, and punctuation that were not noted in review of the chart prior to signing ED Disposition - Plan for ED Patient: Chief Complaint: Chest Pain Referrals: Care Physician,No Primary [Primary Care Provider] -
--- NOTE | 2018-11-05 03:12 | ED.DCSUM_ITS ---
- ER Visit Summary Date of Service: 11/05/18 Chief Complaint: Chest pain History of Present Illness: The patient is a 63 F who presents with chest pain. She has had multiple visits for similar symptoms. She had a normal stress in January of this year. She states that about an hour before presentation she d eveloped sharp mid chest pain and that it also feels like someone sitting on my chest. She complains of pain radiating to the back, down the left arm, into the jaw, and also pain in the left leg. She reports nausea without vomiting. She feels short of breath. No diaphoresis. She complains of feeling weak. Physical Examination: Afebrile vitals are normal Moist mucous membranes Skin warm and dry Heart regular rate and rhythm Lungs clear Abdomen soft nontender Extremities nontender with no edema 2+ radial and 2+ dorsalis pedis pulses which are symmetric Test Results: EKG shows normal sinus rhythm at a rate of 89. CTA of the chest and abdomen shows no dissection no pulmonary embolism there is a right thyroid nodule and mild left lower lobe alveolitis. Labs are notable for white blood cell count of 13.3. Troponin is negative. Emergency Department Course and Treatment: Patient reports prior history of [place] however this is not been verified on any records we have been able to obtain previously. He has had multiple prior normal stress test. She has never had any cardiac intervention such as bypass or stents. Although she complains of pain into the jaw and down the arm she has negative troponin and a normal EKG. She also reports cough. She has evidence of pneumonia on CT as well as a leuk ocytosis so I feel this is likely the cause of her pain. She was given a prescription for Levaquin and discharged home. Treatment Plan: [] Disposition: Discharge Impression: Community acquired pneumonia Chest pain This note was generated with [employer] dictation software. It may contain incorrect words, spelling, and punctuation that were not noted in review of the chart prior to signing ED Disposition - Plan for ED Patient: Chief Complaint: Chest Pain Referrals: Care Physician,No Primary [Primary Care Provider] -
--- NOTE | 2018-11-05 03:12 | ED.DEP ---
ED Disposition - Plan for ED Patient: Chief Complaint: Chest Pain Instructions: ED Pneumonia Adult Prescriptions: levoFLOXacin tablet [Levaquin] 500 mg PO DAILY #7 tab Referrals: Care Physician,No Primary [Primary Care Provider] -
--- NOTE | 2018-11-05 07:45 | ED.RN ---
CONTINUING TO WAIT FOR TRANSPORTATION FOR PT.
--- NOTE | 2018-11-05 07:50 | NURSING ---
[facility]
--- NOTE | 2018-11-05 11:06 | NURSING ---
RADHA SAUNDERS, CALLED ASKING FOR DISCHARGE PAPERS WITH A DIAGNOSIS. I FAXED LABS, CT RESULTS AND DISCHARGE PAPERS [id number], [id number]. DIDN'T GO THROUGH. CALLED AND TALKED TO FLORIDALMA, USED A DIFFERENT NUMBER. FAXED AT [phone]. DIDN'T GO THROUGH.
== END 2018-11-05 08:30 | disposition home or self-care (01) ==
PROVIDERS: Emergency Provider Emergency Medicine
DX: J18.9 Pneumonia, unspecified organism (principal); R07.9 Chest pain, unspecified; E04.1 Nontoxic single thyroid nodule; K21.9 Gastro-esophageal reflux disease without esophagitis; E11.9 Type 2 diabetes mellitus without complications; I10 Essential (primary) hypertension; E78.00 Pure hypercholesterolemia, unspecified; J44.9 Chronic obstructive pulmonary disease, unspecified
CPT/HCPCS: 71275; 74175; 80048; 84484; 85025; 93005; 96372; 96374; 96375; 99285; Q9967; A4216

== ENCOUNTER → 2019-02-22 14:59 | Outpatient (CLI) | payer MEDICAID, SELFPAY ==
[2018-11-05 00:11] VITALS: BMI 33.9
--- NOTE | 2019-02-22 15:05 | RAD_ITS ---
STUDY: X-RAY - CERVICAL SPINE REASON FOR EXAM: Female, 63 years old. neck pain TECHNIQUE: 3 view(s) of the lumbar spine were obtained. COMPARISON: September 19, 2019 FINDINGS: Normal cervical lordosis. There is multi-level endplate spondylosis. There is multi-level degenerative disc disease with multilevel disc space narrowing. The soft tissue structures are unremarkable. RAD/Cerv Spine 2 or 3 Views IMPRESSION: Degenerative changes of the spine. Electronically Signed: Savanna Andersen MD at 8:28 EDT Tel , Service support ,
== END ==
PROVIDERS: Referring Provider Anesthesiology Pain Medicine; Visit Provider Anesthesiology Pain Medicine
DX: M54.2 Cervicalgia (principal)
CPT/HCPCS: 72040

== ENCOUNTER → 2019-03-27 11:47 | Outpatient (CLI) | payer MEDICAID, SELFPAY ==
[2018-11-05 00:11] VITALS: BMI 33.9
--- NOTE | 2019-03-27 11:52 | RAD_ITS ---
STUDY: X-RAY - RIGHT KNEE REASON FOR EXAM: Female, 63 years old. Right knee pain TECHNIQUE: 2 view(s) of the knee. COMPARISON: None. FINDINGS: Femoral intramedullary carissa is noted without evidence of hardware failure. Moderate medial compartment degenerative change with joint space height loss. Mild osteophytosis of the patellofemoral and lateral compartments. No significant joint effusion. No acute findings RAD/Knee 1 or 2 Views IMPRESSION: Degenerative changes as above Electronically Signed: Carlos Brantley DO at 11:42 EDT Tel , Service support ,
--- NOTE | 2019-03-27 12:02 | RAD_ITS ---
STUDY: X-RAY - LEFT KNEE REASON FOR EXAM: Female, 63 years old. Knee pain TECHNIQUE: 2 view(s) of the knee. COMPARISON: None. FINDINGS: Left knee arthroplasty is noted with tibial and femoral hardware shaft. No evidence of acute fracture or dislocation. Diffuse demineralization is noted. Hardware appears intact. RAD/Knee 1 or 2 Views IMPRESSION: Postsurgical changes without acute findings Electronically Signed: Carlos Brantley DO at 11:41 EDT Tel , Service support ,
== END ==
PROVIDERS: Referring Provider Anesthesiology Pain Medicine; Visit Provider Anesthesiology Pain Medicine
DX: M25.569 Pain in unspecified knee (principal)
CPT/HCPCS: 73560

== ENCOUNTER 2019-04-10 18:18 | Emergency (ER) | payer MEDICAID, SELFPAY ==
[2018-11-05 00:11] VITALS: BMI 33.9
[2019-04-10 18:19] VITALS: BP 107/72; PULSE 85; RESP 18; TEMP 36.6; O2SAT 96; BMI 37.6
--- NOTE | 2019-04-10 18:51 | EKG12_ITS ---
Test Reason : MHC Blood Pressure : / mmHG Vent. Rate : 083 BPM Atrial Rate : 083 BPM P-R Int : 160 ms QRS Dur : 092 ms QT Int : 410 ms P-R-T Axes : 057 016 022 degrees QTc Int : 481 ms Normal sinus rhythm Normal ECG Confirmed by ZOILA DAUGHERTY ([id number]), editor continuity and script MANISHA VELASCO ([id number]) on 04/19/2019 9:29:53 AM Referred By: MARKY Confirmed By:ZOILA DAUGHERTY
--- NOTE | 2019-04-10 19:09 | RAD_ITS ---
STUDY: X-RAY CHEST REASON FOR EXAM: Female, 63 years old. Chest pain. TECHNIQUE: Single AP portable view of the chest. COMPARISON: October 13, 2018. FINDINGS: The lungs are clear and expanded. There is no demonstrated pleural abnormality. Normal size heart. Normal mediastinum and zion. Normal visualized pulmonary arteries. There is atherosclerotic calcification of the aortic arch with tortuosity. There are degenerative changes and mild dextroscoliosis of the thoracic spine. Stable right artificial shoulder. There is no demonstrated abnormality of the visualized soft tissue structures of the upper abdomen. RAD/Chest 1 View (Portable) IMPRESSION: No acute cardiopulmonary disease. Electronically Signed: Km Maldonado DO at 19:35 EDT Tel [phone], Service support ,
--- NOTE | 2019-04-10 19:25 | ED.VISSUMM ---
- ER Visit Summary Date of Service: 04/10/19 Chief Complaint: Suicidal ideation History of Present Illness: The patient is a 63 F presenting with suicidal ideation. Patient states she has been depressed and suicidal for the past 2 days. She saw a counselor today who referred her to the ED. She says she has not been eating or sleeping well. She states her daughter is not talking to her and this is making her upset. She has plan to cut herself. She also states she has been having constant chest pain since yesterday. This is worsened with coughing. She denies other complaints. Physical Examination: Vitals are stable. Patient is afebrile. Alert no acute distress. HEENT exam is unremarkable. Neck is supple. Lungs are clear and equal bilaterally. Heart is regular rate and rhythm. Abdomen is soft nontender nondistended. Extremities are unremarkable. Skin is warm and dry. No focal neurologic deficit. Depressed affect, suicidal ideation Remainder of exam is unremarkable. Emergency Department Course and Treatment: EKG is sinus rate of 83 with no acute ischemic changes. Chest x-ray shows no acute process. CBC, chemistries unremarkable other than potassium 3.4, BUN 22. Troponin is negative. Delta troponin negative. Tox positive for benzos. Alcohol negative. Discussed with the counseling center for evaluation. Disposition: Transfer Impression: Suicidal ideation, atypical chest pain This note was generated with [employer] dictation software. It may contain incorrect words, spelling, and punctuation that were not noted in review of the chart prior to signing ED Disposition - Plan for ED Patient: Disposition: Home or Assisted Living Referrals: Care Physician,No Primary [Primary Care Provider] -
[2019-04-10 19:37] LABS: Absolute Lymphocyte Count 3.14 X10^3/ul (0.83-4.51); Absolute Neutrophil Count 5.9 X10^3/uL (2.0-7.7); Basophil# 0.04 X10^3/uL; Basophil% 0.4 % (0-1); Eosinophil# 0.16 X10^3/uL; Eosinophils% 1.6 % (0-5); Hematocrit 40.9 % (37-47); Hemoglobin 13.2 g/dl (12.0-15.0); Lymphocyte # 3.14 X10^3/ul (4.0); Lymphocyte % 31.5 % (19-41); Mean Corp Hgb Conc 32.3 g/gl (32-36); Mean Corpuscular Hgb 29.2 pg (27.0-32.0); Mean Corpuscular Volume 90.5 fL (81-99); Monocyte# 0.59 X10^3/uL; Monocyte% 5.9 % (0-10); Neutrophil # 5.86 X10^3/uL (2.7-7.7); Neutrophil % 58.7 % (47-70); Platelet Count 268 K/mm3 (150-450); RBC Distribution Width CV 14.5 % (11.6-14.6); RBC Distribution Width SD 47.1 fl (35.1-43.9); Red Blood Count 4.52 M/mm3 (4.2-5.4)
[2019-04-10 19:39] VITALS: PULSE 83; RESP 14
[2019-04-10 19:43] LABS: POSITIVE COUNT NO; POSITIVE DIFFERENTIAL NO; POSITIVE MORPHOLOGY NO
[2019-04-10 19:54] LABS: Anion Gap 7 (5-15); BUN 22 mg/dL (7-18); BUN/Creat Ratio 22.7 RATIO (10-20); Chloride 103 mmol/L (98-107); Creatinine, Serum 0.97 mg/dL (0.55-1.02); EST Glomerular Filtration Rate 61 mL/min (>60); Est Glom Filt Rate - Afr Amer 74 mL/min (>60); Estimated Creatinine Clearance 75.52 ml/min; Glucose 118 mg/dL (74-106); Potassium 3.4 mmol/L (3.5-5.1); Sodium Level 137 mmol/L (136-145)
[2019-04-10 20:00] VITALS: RESP 14
[2019-04-10 20:04] LABS: Alcohol, Blood (Medical)-Serum < 3.0 mg/dL
[2019-04-10 20:16] LABS: Amphetamine Urine VISTA NEGATIVE (<1000 ng/mL); Barbiturate Urine VISTA NEGATIVE (< 200 ng/mL); Benzodiazepine Urine VISTA POSITIVE (< 200 ng/mL); Cocaine Urine VISTA NEGATIVE (< 300 ng/mL); Ecstacy Urine VISTA NEGATIVE (< 500 ng/mL); Methadone Urine VISTA NEGATIVE (< 300 ng/mL); PCP Urine VISTA NEGATIVE (< 25 ng/mL); THC Urine VISTA NEGATIVE (< 50 ng/mL); Vista UDS pH Range 5
[2019-04-10] MEDS: Aspirin 325 MG Tablet PO (20:33)
[2019-04-10 22:04] VITALS: BP 91/60; PULSE 91; O2SAT 94
--- NOTE | 2019-04-10 22:22 | ED.RN ---
report called to ibis, nurse at [facility]. ibis aware that transport will not be til in the morning.
--- NOTE | 2019-04-10 22:34 | ED.RN ---
spoke with sally, nurse at [facility], informed her that transport will be at [facility].
--- NOTE | 2019-04-10 22:50 | ED.RN ---
spoke to lab regarding stat results of the troponin, per Dr. Olmstead.
[2019-04-10 23:28] VITALS: BP 108/56; PULSE 87; RESP 12; O2SAT 99
== END 2019-04-10 23:30 | disposition home or self-care (01) ==
LOC: ED 19:25
PROVIDERS: Emergency Provider Emergency Medicine
DX: R45.851 Suicidal ideations (principal); R07.89 Other chest pain; F32.9 Major depressive disorder, single episode, unspecified; F41.9 Anxiety disorder, unspecified; I50.9 Heart failure, unspecified
CPT/HCPCS: 71045; 80048; 80307; 80320; 84484; 85025; 93005; 99285; G0480

== ENCOUNTER 2019-05-03 22:26 | Emergency (ER) | payer MEDICAID, SELFPAY ==
[2019-05-03 22:27] VITALS: BP 134/94; PULSE 94; RESP 10; TEMP 36.8; O2SAT 97; BMI 39.4
--- NOTE | 2019-05-03 22:50 | ED.RN ---
RN CALLED FOR EKG, PULLED OLD EKGS FOR
--- NOTE | 2019-05-03 23:00 | RAD_ITS ---
STUDY: X-RAY CHEST REASON FOR EXAM: Female, 63 years old. Chest pain TECHNIQUE: Frontal and lateral views of the chest. COMPARISON: 04/10/2019 FINDINGS: The lungs are clear and expanded. There is no demonstrated pleural abnormality. Stable cardiomediastinal silhouette. Normal mediastinum and zion. Normal visualized pulmonary arteries. Normal visualized aortic arch and descending thoracic aorta. Remote lower thoracic compression deformity. Right shoulder arthroplasty. There is no demonstrated abnormality of the visualized soft tissue structures of the upper abdomen. RAD/Chest PA and Lateral IMPRESSION: No acute pulmonary findings. Electronically Signed: Obie Gaytan MD at 23:36 EDT Tel , Service support ,
--- NOTE | 2019-05-03 23:00 | EKG12_ITS ---
Test Reason : CP Blood Pressure : / mmHG Vent. Rate : 091 BPM Atrial Rate : 091 BPM P-R Int : 162 ms QRS Dur : 090 ms QT Int : 390 ms P-R-T Axes : 053 022 003 degrees QTc Int : 479 ms Normal sinus rhythm T wave abnormality, consider inferior ischemia Prolonged QT Abnormal ECG Confirmed by ZULEIKA LORENZANA ([id number]), commercial production editor JANE BURGOS ([id number]) on 05/07/2019 1:13:58 PM Referred By: Confirmed By:ANNALEE LORENZANA
[2019-05-03 23:12] LABS: Absolute Lymphocyte Count 2.81 X10^3/ul (0.83-4.51); Absolute Neutrophil Count 5.3 X10^3/uL (2.0-7.7); Basophil# 0.01 X10^3/uL; Basophil% 0.1 % (0-1); Eosinophil# 0.19 X10^3/uL; Hematocrit 39.8 % (37-47); Hemoglobin 12.6 g/dl (12.0-15.0); Lymphocyte # 2.81 X10^3/ul (4.0); Mean Corp Hgb Conc 31.7 g/gl (32-36); Mean Corpuscular Hgb 29.7 pg (27.0-32.0); Mean Corpuscular Volume 93.9 fL (81-99); Mean Platelet Vol. 10.4 fl (6.2-12.0); Monocyte# 0.98 X10^3/uL; Monocyte% 10.5 % (0-10); Neutrophil # 5.26 X10^3/uL (2.7-7.7); Neutrophil % 56.2 % (47-70); Platelet Count 210 K/mm3 (150-450); RBC Distribution Width CV 15.3 % (11.6-14.6); Red Blood Count 4.24 M/mm3 (4.2-5.4); White Blood Count 9.4 K/mm3 (4.4-11.0)
[2019-05-03 23:13] LABS: POSITIVE COUNT NO; POSITIVE DIFFERENTIAL NO; POSITIVE MORPHOLOGY NO
[2019-05-03 23:14] LABS: Mucous, Urine 0 SEEN /hpf (<or=2+); Red Blood Cells-Urine 0 SEEN /hpf (0-5)
[2019-05-03 23:16] LABS: Color, Urine Yellow (Yellow); Glucose, Dipstick Normal (Normal); Ketone-Dipstick Negative (Negative); Leukocyte Esterase-Dipstick 100 /ul (Negative); Nitrite-Dipstick Negative (Negative); Occult Blood-Urine Negative /ul (Negative); Protein-Dipstick Negative (Negative); Urine Bilirubin Dipstick Negative (Negative); Urine Clarity Sl. Cloudy (Clear); Urine Urobilinogen Normal (Normal)
[2019-05-03 23:22] LABS: Bacteria RARE /hpf (None Seen); White Blood Cells 0-5 SEEN /hpf (0-5)
[2019-05-03 23:23] LABS: Squamous Epithelial Cells - UA 0 SEEN /hpf (5-10)
[2019-05-03 23:26] LABS: Anion Gap 5 (5-15); BUN 16 mg/dL (7-18); BUN/Creat Ratio 13.8 RATIO (10-20); Calcium,Total 8.9 mg/dL (8.5-10.1); Chloride 104 mmol/L (98-107); Creatinine, Serum 1.16 mg/dL (0.55-1.02); EST Glomerular Filtration Rate 50 mL/min (>60); Est Glom Filt Rate - Afr Amer 60 mL/min (>60); Estimated Creatinine Clearance 66.21 ml/min; Glucose 124 mg/dL (74-106); Potassium 3.3 mmol/L (3.5-5.1); Sodium Level 136 mmol/L (136-145)
[2019-05-03] MEDS: Ondansetron ODT 4 MG Tablet PO (23:29)
[2019-05-03] MEDS: Acetaminophen 500 MG Tablet 1000 MG PO (23:35)
--- NOTE | 2019-05-03 23:39 | ED.VISSUMM ---
- ER Visit Summary Date of Service: 05/03/19 Chief Complaint: Multiple complaints History of Present Illness: The patient is a 63 F who presents with multiple complaints. She complains of chest pain which began suddenly about 7 hours ago. She also reports for the last week she has had intermittent nausea and vomiting. She also complains of headache and neck pain which began about a week ago and she is Rl been seen at [place] for this. She also has had a hoarse voice. She was recently started on Levaquin by her primary care physician for her hoarse voice and a chronic cough of one year. She also complains of fatigue and sleeping more. She also complains of dysuria. Patient reports that the pain is in her mid left chest with radiation down her left arm. Physical Examination: Afebrile vitals normal Most mucous membranes Heart regular rate and rhythm Lungs are clear Abdomen soft Alert Patient is slightly anxious Test Results: EKG shows sinus rhythm rate of 91. There is diffuse flattening with slight inversions in the inferior leads this is unchanged from prior. CBC BMP troponin notable only for potassium 3.3. Urinalysis shows 100 leukocyte esterase but no WBCs. This was sent for culture. Emergency Department Course and Treatment: Patient was repeatedly requesting pain medications. She states aspirin and nitroglycerin did not help her chest pain. She was also given Tylenol which she states will not help. She told the nurse that only Dilaudid helps. I explained to her on multiple occasions I did not see an indication for narcotic analgesics. Patient's work-up is unremarkable. She has undergone previous evaluations for chest pain with negative work-up. She complains of 7 hours of pain with an unchanged EKG and negative troponin. I do not believe this is due to cardiac ischemia. She was advised to follow-up with her primary care physician and was discharged home. Treatment Plan: [] Disposition: Discharge Impression: Chest pain Dysuria Sore throat Vomiting This note was generated with [employer] dictation software. It may contain incorrect words, spelling, and punctuation that were not noted in review of the chart prior to signing ED Disposition - Plan for ED Patient: Referrals: Care Physician,No Primary [Primary Care Provider] -
--- NOTE | 2019-05-03 23:42 | ED.DEP ---
ED Disposition - Plan for ED Patient: Instructions: ED Chest Pain NonCardiac Referrals: Care Physician,No Primary [Primary Care Provider] -
[2019-05-03 23:57] VITALS: BP 113/72
== END 2019-05-04 00:16 | disposition skilled nursing facility (03) ==
LOC: ED 23:04
PROVIDERS: Emergency Provider Emergency Medicine
DX: R07.9 Chest pain, unspecified (principal); J02.9 Acute pharyngitis, unspecified; R30.0 Dysuria; R11.2 Nausea with vomiting, unspecified; R51 Headache; R05 Cough; R49.0 Dysphonia; E11.9 Type 2 diabetes mellitus without complications; I10 Essential (primary) hypertension; E78.00 Pure hypercholesterolemia, unspecified
CPT/HCPCS: 71046; 80048; 81001; 84484; 85025; 87086; 87088; 93005; 99285; A4216

== ENCOUNTER 2019-05-11 18:33 | Emergency (ER) | payer MEDICAID, SELFPAY ==
[2019-05-11 18:35] VITALS: BP 135/79; PULSE 94; RESP 18; TEMP 37; O2SAT 96; BMI 39.9
--- NOTE | 2019-05-11 18:53 | EKG12_ITS ---
Test Reason : CP Blood Pressure : / mmHG Vent. Rate : 092 BPM Atrial Rate : 092 BPM P-R Int : 164 ms QRS Dur : 086 ms QT Int : 376 ms P-R-T Axes : 059 023 015 degrees QTc Int : 464 ms Normal sinus rhythm Normal ECG Confirmed by ZOILA DAUGHERTY ([id number]), online content editor JANE BURGOS ([id number]) on 05/16/2019 2:06:42 PM Referred By: DR GRIMES Confirmed By:ZOILA DAUGHERTY
--- NOTE | 2019-05-11 19:02 | RAD_ITS ---
STUDY: X-RAY CHEST REASON FOR EXAM: Female, 63 years old. Chest pain nausea TECHNIQUE: Frontal view of the chest was performed COMPARISON: 03 May 2019 FINDINGS: The lungs are clear and expanded. There is no demonstrated pleural abnormality. Normal size heart. Normal mediastinum and zion. Normal visualized pulmonary arteries. Normal visualized aortic arch and descending thoracic aorta. Normal visualized thoracic spine. There is remote right reverse total shoulder arthroplasty. There is no demonstrated abnormality of the visualized soft tissue structures of the upper abdomen. RAD/Chest 1 View (Portable) IMPRESSION: Normal x-ray examination of the chest. Electronically Signed: Jac aPn, at 19:27 EDT Tel , Service support ,
[2019-05-11 19:38] VITALS: BP 140/76; PULSE 90; RESP 16
[2019-05-11] MEDS: Aspirin 81 MG TAB.CHEW 324 MG PO (19:44)
[2019-05-11] MEDS: Metoclopramide 10 MG/2 ML Vial 5 MG IV ×2 (19:44→20:54)
[2019-05-11] MEDS: DiphenhydrAMINE 50 MG/ML Syringe 12.5 MG IV ×2 (19:44→20:55)
[2019-05-11 19:48] LABS: Absolute Lymphocyte Count 2.75 X10^3/ul (0.83-4.51); Absolute Neutrophil Count 4.5 X10^3/uL (2.0-7.7); Basophil# 0.03 X10^3/uL; Basophil% 0.3 % (0-1); Eosinophil# 0.18 X10^3/uL; Eosinophils% 2.1 % (0-5); Hematocrit 38.8 % (37-47); Hemoglobin 12.2 g/dl (12.0-15.0); Lymphocyte # 2.75 X10^3/ul (4.0); Mean Corp Hgb Conc 31.4 g/gl (32-36); Mean Corpuscular Hgb 29.3 pg (27.0-32.0); Mean Corpuscular Volume 93.3 fL (81-99); Mean Platelet Vol. 9.8 fl (6.2-12.0); Monocyte# 0.88 X10^3/uL; Monocyte% 10.2 % (0-10); Neutrophil # 4.54 X10^3/uL (2.7-7.7); Platelet Count 233 K/mm3 (150-450); RBC Distribution Width CV 15.2 % (11.6-14.6); RBC Distribution Width SD 50.3 fl (35.1-43.9); Red Blood Count 4.16 M/mm3 (4.2-5.4); White Blood Count 8.6 K/mm3 (4.4-11.0)
[2019-05-11 19:49] LABS: Differential Indicated SCAN CRITERIA MET; POSITIVE COUNT YES; POSITIVE DIFFERENTIAL NO; POSITIVE MORPHOLOGY YES
[2019-05-11 20:22] VITALS: BP 102/62; PULSE 88; RESP 12; O2SAT 97
[2019-05-11 20:25] LABS: Anion Gap 6 (5-15); BUN 10 mg/dL (7-18); BUN/Creat Ratio 10.3 RATIO (10-20); Calcium,Total 8.9 mg/dL (8.5-10.1); Chloride 102 mmol/L (98-107); Creatinine, Serum 0.97 mg/dL (0.55-1.02); EST Glomerular Filtration Rate 61 mL/min (>60); Est Glom Filt Rate - Afr Amer 74 mL/min (>60); Estimated Creatinine Clearance 80.29 ml/min; Glucose 101 mg/dL (74-106); Potassium 3.5 mmol/L (3.5-5.1); Sodium Level 138 mmol/L (136-145)
[2019-05-11 20:47] LABS: International Normalized Ratio 1.2; Prothrombin Time (Protime)PT. 14.9 SECONDS (11.7-14.9)
[2019-05-11 20:51] LABS: Anisocytosis 1+; Macrocytosis 1+; Platelet Estimate ADEQUATE (ADEQ)
[2019-05-11 20:51] LABS: BNP,B-Type NATRIURETIC PEPTIDE 62.3 pg/mL (0-100)
[2019-05-11] MEDS: Morphine 4 MG/ML Syringe IV (20:55)
[2019-05-11] MEDS: 0.9% Normal Saline 1,000 ML 15 ML IV (20:55)
[2019-05-11 21:02] VITALS: BP 119/74; PULSE 96; RESP 14; O2SAT 95
--- NOTE | 2019-05-11 21:49 | ED.RN ---
ATTEMPTED TO CALL DAUGHTER PER PT REQUEST, NO ANSWER
[2019-05-11 22:23] VITALS: BP 117/72; PULSE 91; RESP 14; O2SAT 95
--- NOTE | 2019-05-11 22:31 | ED.DCSUM_ITS ---
- ER Visit Summary Date of Service: 05/11/19 Chief Complaint: Chest pain History of Present Illness: The patient is a 63 F who presents with multiple complaints. She reports chest pain is been ongoing for at least a couple days but reported got worse an hour before arrival. She is complaining of abdominal pain, nausea, vomiting, shortness of breath. She has had a recent cough. She is complaining of bilateral leg swelling and was recently started on Lasix. Patient does have cardiac history with prior coronary disease and ID. She does not have stents. 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 Physical Examination: Vital signs unremarkable. Patient sitting upright in bed no acute distress. Heart is regular rate and rhythm. Lung sounds are clear. No reducible chest wall tenderness. Abdomen is soft and nontender. Active bowel sounds are noted throughout. Lower extremity edema is noted at 3+ and symmetric. No calf tenderness. No sign of cellulitis. Test Results: EKG is sinus at 92 with no sign of acute ischemia. Portable chest x-ray normal. CBC and chemistry studies normal. Troponin negative. BNP is 62. Emergency Department Course and Treatment: Patient received aspirin, Reglan, Benadryl on arrival. She then did receive a dose of morphine. Patient asked multiple times for pain medication. I did review her prior records. She was seen in the ER last week with the same symptoms and was noted to have multiple request for pain medication at that time as well. At this time this appears to be chronic ongoing symptoms with no acute changes noted in her blood work. She will be discharged back to her ECF and is referred to cardiology for follow-up. Treatment Plan: [] Disposition: Discharge Impression: Chronic chest pain This note was generated with [employer] dictation software. It may contain incorrect words, spelling, and punctuation that were not noted in review of the chart prior to signing ED Disposition - Plan for ED Patient: Disposition: Home or Assisted Living Instructions: CHEST PAIN, Uncertain Cause Prescriptions: Metoclopramide [Reglan] 10 mg PO 4X/DAY PRN #20 tab PRN Reason: Nausea Prescription Printed Referrals: Fidel Tipton MD [STAFF PHYSICIAN] - As Needed
[2019-05-11 23:00] VITALS: BP 116/66; PULSE 89; RESP 16; O2SAT 95
--- NOTE | 2019-05-11 23:15 | ED.RN ---
REPORT CALLED TO [facility]. PT AWAITING RIDE TO [facility].
--- NOTE | 2019-05-11 23:31 | ED.RN ---
BILATERAL LOWER EXTREMITIES WRAPPED WITH TERESA WRAPS VERBAL ORDER FROM DR. GRIMES.
[2019-05-14 14:25] LABS: Pathologist Review Reviewed
== END 2019-05-11 23:33 | disposition home or self-care (01) ==
PROVIDERS: Emergency Provider Emergency Medicine
DX: G89.29 Other chronic pain (principal); R07.9 Chest pain, unspecified; R60.0 Localized edema; R19.7 Diarrhea, unspecified; R11.0 Nausea; I25.10 Atherosclerotic heart disease of native coronary artery without angina pectoris; E11.9 Type 2 diabetes mellitus without complications; K21.9 Gastro-esophageal reflux disease without esophagitis; I10 Essential (primary) hypertension; E78.00 Pure hypercholesterolemia, unspecified; I50.9 Heart failure, unspecified; J44.9 Chronic obstructive pulmonary disease, unspecified; I25.2 Old myocardial infarction; Z86.73 Personal history of transient ischemic attack (TIA), and cerebral infarction without residual deficits; F41.9 Anxiety disorder, unspecified; F32.9 Major depressive disorder, single episode, unspecified
CPT/HCPCS: 36415; 71045; 80048; 83880; 84484; 85025; 85610; 93005; 96361; 96374; 96375; 96376; 99285; J7030; A4216

== ENCOUNTER 2019-06-03 16:47 | Emergency (ER) | payer MEDICAID, SELFPAY ==
[2019-06-03 16:48] VITALS: BP 133/70; PULSE 88; RESP 18; TEMP 37.1; O2SAT 96; BMI 38.9
--- NOTE | 2019-06-03 17:00 | RAD_ITS ---
HISTORY:CHEST PAIN THAT STARTED 45 MINUTES AGO. HX OF OR IN 2012, COPD, CHF, ASTHMA CHEST PAIN THAT STARTED 45 MINUTES AGO. HX OF OR IN 2012, COPD, CHF, ASTHMA EXAM: XR Chest 1 View: COMPARISON: May 11, 2019 FINDINGS: # of images incl. paperwork: 1 LINES/DEVICES: None. LUNGS: Minimal right basilar atelectasis. No consolidation, edema or effusion. No pneumothorax. MEDIASTINUM AND CARDIOVASCULAR STRUCTURES: Cardiac silhouette not enlarged. BONES AND SOFT TISSUES: Right reverse total shoulder arthroplasty RAD/Chest 1 View (Portable) IMPRESSION: Right basilar atelectasis Right reverse total shoulder arthroplasty at 1717 Reported and signed by: Alfreda Xavier DO Electronically Signed: Alfreda Xavier DO at 17:16 EDT Tel , Service support ,
--- NOTE | 2019-06-03 17:00 | EKG12_ITS ---
Test Reason : CP Blood Pressure : / mmHG Vent. Rate : 080 BPM Atrial Rate : 080 BPM P-R Int : 158 ms QRS Dur : 080 ms QT Int : 372 ms P-R-T Axes : 065 021 006 degrees QTc Int : 429 ms Normal sinus rhythm Nonspecific ST and T wave abnormality Abnormal ECG Confirmed by CESAR GRUBER, SHARAD ([id number]), production editor JANE BURGOS ([id number]) on 06/05/2019 1:53:56 PM Referred By: STEVE Confirmed By:SHARAD GUERRERO MD
--- NOTE | 2019-06-03 17:10 | ED.DCSUM_ITS ---
History of Present Illness Chief Complaint: Chest Pain Detail of Chief Complaint: Chest pain Informant: Patient Onset: Today Context: Sudden Onset Timing: Continuous Quality: Sharp Location: Mid chest Current Severity: Moderate Maximum Severity: Moderate Worsened by: Movement Relieved by: Nothing Associated Symptoms: Nausea, diaphoresis, shortness of breath and radiation to left jaw and left Narrative: Patient is a 63-year-old woman who has multiple risk factors for coronary disease and history of coronary disease well as chronic pain who presents with midsternal sharp discomfort associated with nausea, dyspnea, diaphoresis and radiation to the left side of her jaw and left upper extremity. Onset 45 minutes prior to presentation. She received aspirin in route. She states this is similar to the pain she had when she had an VA in 2012. She denies fever, chills night sweats. Denies ocular, visual auditory symptoms. She denies leg pain, swelling or discoloration. She denies history of PE or DVT. Prior similar symptoms: Yes Recent Illness/Hospitalization: Yes - Past Medical History (1) Atypical chest pain Status: Acute (2) Dyslipidemia Status: Acute (3) Anxiety and depression Status: Chronic (4) Chronic pain syndrome Status: Chronic (5) Diabetes mellitus type 2 Status: Chronic (6) History of VA (myocardial infarction) Status: Chronic (7) Hypertension Status: Chronic Past Medical History - Allergies and Home Meds Allergies/Adverse Reactions: Allergies Penicillins Allergy (Verified 06/03/19 16:52) Rash Sulfa (Sulfonamide Antibiotics) Allergy (Verified 06/03/19 16:52) Rash Primary Care Physician: Care Physician,No Primary [Primary Care Provider] - Prior records reviewed: Yes Lives: Alone Smoking Status: Never smoker Alcohol: None - Family History Paternal Family History: Reports: No pertinent history Review of Systems General: Denies: Chills, Fever, Sweats Eyes: Denies: Visual changes - bilaterally, Blurred Vision - bilaterally, Diplopia ENT: Denies: Bilateral ear pain, Rhinorrhea, Sore throat Cardiovascular: Reports: Chest pain. Denies: Palpitations, Heart racing Respiratory: Reports: Dyspnea. Denies: Cough, Dyspnea on exertion, Orthopnea, Paroxysmal nocturnal dyspnea Gastrointestinal: Reports: Nausea. Denies: Abdominal pain, Vomiting, Diarrhea, Melena, Hematochezia Genitourinary: Denies: Dysuria, Hematuria, Frequency Musculoskeletal: Denies: Back pain, Extremity Pain Skin: Denies: Rash, Wounds Neurological: Denies: Headache, Weakness, Numbness Hematologic: Denies: Easy bruising, Easy bleeding Allergy: Denies: Uticaria, Swelling of the mouth Physical Exam Vital Signs/Narrative: Vital Signs Temp Pulse Resp BP Pulse Ox 06/03/19 16:48 98.7 F 88 18 133/70 H 96 Inital Vital Signs reviewed: Yes General: Well nourished, Well developed, No Acute Distress Head: Normocephalic, Atraumatic Eyes: Perrl, EOMI ENT: Moist mucous membranes, No rhinorrhea Neck: Supple, Nontender Cardiovascular: Regular rate, Regular rhythm, No murmurs, Normal S1, Normal S2 Respiratory: No distress, CTA bilaterally, Chest nontender Abdomen: Soft, Nontender, Nondistended, Normal bowel sounds Back: Nontender, Normal Inspection Extremities: Nontender, No edema, - - There is no asymmetry, swelling, discoloration, leg vein distention, palpable cords or tenderness along the distribution of the deep venous system. Skin: Normal color, No rash Neurological: Alert, Oriented x3, Cranial nerves II-XII grossly intact, Normal Strength, Normal Sensation Psychological: Normal affect, Normal Mood Diagnostic/Tx/Re-eval Impressions Chest X-Ray 06/03/19 17:00 IMPRESSION: Right basilar atelectasis Right reverse total shoulder arthroplasty at 1717 Reported and signed by: Alfreda Xavier DO Electronically Signed: Alfreda Xavier DO at 17:16 EDT Tel , Service support , 06/03/19 17:00 Chest 1 View (Portable) [RAD] Stat Laboratory Results 06/03/19 06/03/19 06/03/19 17:30 17:30 19:55 WBC 8.5 RBC 4.02 L Hgb 11.8 L Hct 37.8 MCV 94.0 MCH 29.4 MCHC 31.2 L RDW 14.4 RDW Differential 49.6 H Plt Count 247 MPV 10.3 Immature Gran % (Auto) 0.400 Neut % (Auto) 56.1 Lymph % (Auto) 31.6 [place] % (Auto) 7.7 Eos % (Auto) 4.0 Baso % (Auto) 0.2 Absolute Neuts (auto) 4.7 Absolute Lymphs (auto) 2.67 Total Counted Not Reportable Sodium 140 Potassium 3.4 L Chloride 102 Carbon Dioxide 32.0 Anion Gap 6 BUN 13 Creatinine 1.07 H Estim Creat Clear Calc 70.77 Est GFR (MDRD) Af Amer 66 Est GFR (MDRD) Non-Af 55 L BUN/Creatinine Ratio 12.1 Glucose 102 Calcium 9.3 Troponin I < 0.015 < 0.015 - Rhythm Strip Rhythm Strip: Sinus Rhythm Rate: 77 Ectopy: None - EKG Initial EKG Interpretation: Sinus Rhythm - Ventricular rate is 80. Computer is reading ossific ST-T wave changes represent artifact. AL interval is 158 ms. QRS durations 80 ms. QT is 372 ms. [place] is normal. Follow-up EKG Interpretation: Sinus Rhythm - EKG is unchanged from initial. This performed at approximately 1999. - Medical Decision Making Chest pain order set was initiated. Since patient received aspirin prior to arrival the aspirin portion of the orders that was discontinued. Because she reports pain similar to when she had an VA and has associated symptoms will treat with nitroglycerin. With 2 normal EKGs, a delta of troponin of 0 will discharge to home to follow-up with her doctor. Patient does have known history of coronary disease. However she has had multiple visits for chest pain of unknown etiology. ED Disposition - Plan for ED Patient: Disposition: Home or Assisted Living Diagnosis: Central chest pain, Anxiety and depression, Diabetes mellitus type 2, History of VA (myocardial infarction), Chronic pain syndrome, Atypical chest pain Instructions: CHEST PAIN, Uncertain Cause Referrals: Care Physician,No Primary [Primary Care Provider] - 3-5 Days
[2019-06-03 17:38] VITALS: BP 117/92; PULSE 84; RESP 16; O2SAT 97
[2019-06-03] MEDS: Nitroglycerin SL (ED/IMG/CATH) 0.4 MG TABLET SUBLINGUAL ×2 (17:40→17:51)
[2019-06-03 17:49] VITALS: BP 116/64; PULSE 86; RESP 16; O2SAT 94
[2019-06-03 17:56] LABS: Absolute Lymphocyte Count 2.67 X10^3/ul (0.83-4.51); Absolute Neutrophil Count 4.7 X10^3/uL (2.0-7.7); Basophil# 0.02 X10^3/uL; Basophil% 0.2 % (0-1); Eosinophil# 0.34 X10^3/uL; Hematocrit 37.8 % (37-47); Hemoglobin 11.8 g/dl (12.0-15.0); Lymphocyte # 2.67 X10^3/ul (4.0); Lymphocyte % 31.6 % (19-41); Mean Corp Hgb Conc 31.2 g/gl (32-36); Mean Corpuscular Hgb 29.4 pg (27.0-32.0); Mean Platelet Vol. 10.3 fl (6.2-12.0); Monocyte# 0.65 X10^3/uL; Monocyte% 7.7 % (0-10); Neutrophil # 4.74 X10^3/uL (2.7-7.7); Neutrophil % 56.1 % (47-70); Platelet Count 247 K/mm3 (150-450); RBC Distribution Width CV 14.4 % (11.6-14.6); RBC Distribution Width SD 49.6 fl (35.1-43.9); Red Blood Count 4.02 M/mm3 (4.2-5.4); White Blood Count 8.5 K/mm3 (4.4-11.0)
[2019-06-03 17:57] LABS: POSITIVE COUNT NO; POSITIVE DIFFERENTIAL NO; POSITIVE MORPHOLOGY NO
[2019-06-03] MEDS: Ondansetron ODT 4 MG Tablet PO ×2 (18:05→19:51)
--- NOTE | 2019-06-03 18:05 | ED.RN ---
PT REFUSED 3/3 NTG SL AND STATES IT JUST DOESN'T WORK. MD HERNANDEZ NOTIFIED.
[2019-06-03 18:13] LABS: Anion Gap 6 (5-15); BUN 13 mg/dL (7-18); BUN/Creat Ratio 12.1 RATIO (10-20); Calcium,Total 9.3 mg/dL (8.5-10.1); Chloride 102 mmol/L (98-107); Creatinine, Serum 1.07 mg/dL (0.55-1.02); EST Glomerular Filtration Rate 55 mL/min (>60); Est Glom Filt Rate - Afr Amer 66 mL/min (>60); Estimated Creatinine Clearance 70.77 ml/min; Glucose 102 mg/dL (74-106); Potassium 3.4 mmol/L (3.5-5.1); Sodium Level 140 mmol/L (136-145)
[2019-06-03 18:22] VITALS: BP 123/86; PULSE 88; RESP 16; O2SAT 93
--- NOTE | 2019-06-03 18:22 | ED.RN ---
PT REFUSING TYLENOL FOR PAIN STATES IT'S NOT GOING TO WORK MD HERNANDEZ NOTIFIED.
[2019-06-03] MEDS: Acetaminophen 325 MG Tablet 650 MG PO (19:31)
[2019-06-03 19:32] VITALS: BP 118/77; PULSE 86; RESP 15; O2SAT 94
--- NOTE | 2019-06-03 20:04 | EKG12_ITS ---
Test Reason : CP Blood Pressure : / mmHG Vent. Rate : 086 BPM Atrial Rate : 086 BPM P-R Int : 174 ms QRS Dur : 084 ms QT Int : 390 ms P-R-T Axes : 063 023 007 degrees QTc Int : 466 ms Normal sinus rhythm Nonspecific T wave abnormality Abnormal ECG Confirmed by CESAR GRUBER, SHARAD ([id number]), associate editor JANE BURGOS ([id number]) on 06/05/2019 1:57:48 PM Referred By: STEVE Confirmed By:SHARAD GUERRERO MD
[2019-06-03 20:56] VITALS: BP 109/71; PULSE 89; PULSE 90; RESP 17; O2SAT 95; O2SAT 98
== END 2019-06-03 21:51 | disposition home or self-care (01) ==
PROVIDERS: Emergency Provider Emergency Medicine
DX: R07.89 Other chest pain (principal); F41.9 Anxiety disorder, unspecified; F32.9 Major depressive disorder, single episode, unspecified; E11.9 Type 2 diabetes mellitus without complications; I25.2 Old myocardial infarction; G89.4 Chronic pain syndrome; E78.5 Hyperlipidemia, unspecified; I10 Essential (primary) hypertension; J98.11 Atelectasis; I25.10 Atherosclerotic heart disease of native coronary artery without angina pectoris; Z79.84 Long term (current) use of oral hypoglycemic drugs; Z79.899 Other long term (current) drug therapy
CPT/HCPCS: 71045; 80048; 84484; 85025; 93005; 99285; A4216

== ENCOUNTER 2019-06-05 13:28 | Emergency (ER) | payer MEDICAID, SELFPAY ==
[2019-06-05 13:30] VITALS: BP 104/75; PULSE 89; RESP 18; TEMP 36.6; O2SAT 95; BMI 38.2
--- NOTE | 2019-06-05 13:56 | ED.VIS.GEN ---
History of Present Illness Chief Complaint: Weakness Informant: Patient Onset: - - Possibly couple days Timing: Intermittent Quality: Sleepy Location: Not applicable Current Severity: Mild Maximum Severity: Moderate Worsened by: Nothing to patient's knowledge Relieved by: Nothing Associated Symptoms: Continued chest pain since June 03, sleepiness, and generalized weakness Narrative: Patient is a 63-year-old woman who was seen on June 03 and had 2 normal EKGs and 2 normal troponins who was discharged home. She states she has had persistent pain since the . She was sent to the emergency room because a visiting nurse practitioner noted her blood pressure was low and concerned because of her voice. Her voice is normally raspy. She does complain of urinary symptoms. She denies fever or chills. She denies shortness of breath, dyspnea on exertion, orthopnea or PND. She does have a cough. The cough is nonproductive. She denies history of obstructive sleep apnea. She has no other complaints. Prior similar symptoms: Yes Recent Illness/Hospitalization: Yes - Past Medical History (1) Atypical chest pain Status: Acute (2) Dyslipidemia Status: Acute (3) Anxiety and depression Status: Chronic (4) Diabetes mellitus type 2 Status: Chronic (5) History of [place] (myocardial infarction) Status: Chronic (6) Hypertension Status: Chronic Past Medical History - Allergies and Home Meds Allergies/Adverse Reactions: Allergies Penicillins Allergy (Verified 06/05/19 13:38) Rash Sulfa (Sulfonamide Antibiotics) Allergy (Verified 06/05/19 13:38) Rash Primary Care Physician: Care Physician,No Primary [Primary Care Provider] - Prior records reviewed: Yes Past Medical History: None Lives: Alone Smoking Status: Never smoker Alcohol: None - Family History Paternal Family History: Reports: No pertinent history Review of Systems General: Reports: Malaise. Denies: Chills, Fever, Sweats Eyes: Denies: Visual changes - bilaterally, Blurred Vision - bilaterally, Diplopia ENT: Denies: Rhinorrhea, Sore throat Cardiovascular: Reports: Chest pain Respiratory: Denies: Dyspnea, Cough, Dyspnea on exertion Gastrointestinal: Denies: Abdominal pain, Nausea, Vomiting, Diarrhea, Melena, Hematochezia Genitourinary: Denies: Dysuria, Hematuria, Frequency Musculoskeletal: Denies: Myalgias, Arthralgias, Neck pain, Back pain, Extremity Pain Skin: Denies: Rash, Abscess, Abrasions, Wounds Neurological: Reports: Weakness. Denies: Headache, Numbness Psych: Reports: Depression, Anxiety Endocrine: Denies: Polyuria, Polydipsia Hematologic: Denies: Easy bruising, Easy bleeding Physical Exam Vital Signs/Narrative: Vital Signs Temp Pulse Resp BP Pulse Ox 06/05/19 13:30 97.8 F 89 18 104/75 95 Inital Vital Signs reviewed: Yes General: Well nourished, Well developed, No Acute Distress Head: Normocephalic, Atraumatic Eyes: Perrl, EOMI ENT: Moist mucous membranes, No rhinorrhea Neck: Supple, Nontender, No lymphadenopathy, No JVD, - - When the patient breathes out slowly or rapidly there is no abnormal breath sounds noted in the anterior neck. When she breathes out slowly there is a rumbling sound noted. Trachea is midline. Cardiovascular: Regular rate, Regular rhythm, No murmurs, Normal S1, Normal S2 Respiratory: No distress, CTA bilaterally, Chest nontender Abdomen: Soft, Nontender, Nondistended, Normal bowel sounds Back: Nontender, Normal Inspection Extremities: Nontender, No edema Skin: Normal color, No rash. Negative for: Cyanosis, Diaphoresis, Jaundice, No Trauma Neurological: Alert, Oriented x3, Cranial nerves II-XII grossly intact, Normal Strength, Normal Sensation, Normal DTR Psychological: Normal affect, Normal Mood Diagnostic/Tx/Re-eval Laboratory Results 06/05/19 06/05/19 06/05/19 15:19 15:19 15:25 WBC 7.5 RBC 4.02 L Hgb 12.0 Hct 39.1 MCV 97.3 MCH 29.9 MCHC 30.7 L RDW Std Deviation 50.3 H RDW Coeff of [place]et 14.0 Plt Count 211 MPV 10.5 Immature Gran % (Auto) 0.700 Neut % (Auto) 58.8 Lymph % (Auto) 28.2 [place] % (Auto) 7.0 Eos % (Auto) 4.8 Baso % (Auto) 0.5 Absolute Neuts (auto) 4.4 Absolute Lymphs (auto) 2.11 Absolute Nucleated RBC 0.00 Nucleated RBC % 0 Sodium 142 Potassium 3.9 Chloride 107 Carbon Dioxide 32.0 Anion Gap 3 L BUN 14 Creatinine 1.02 Estim Creat Clear Calc 72.92 Est GFR (MDRD) Af Amer 70 Est GFR (MDRD) Non-Af 58 L BUN/Creatinine Ratio 13.7 Glucose 86 Calcium 8.8 Urine Color Yellow Urine Clarity Clear Urine pH 5.0 Ur Specific [place] 1.015 Urine Protein Negative Urine Glucose (UA) Normal Urine Ketones Negative Urine Occult Blood Negative Urine Nitrite Negative Urine Bilirubin Negative Urine Urobilinogen Normal Ur Leukocyte Esterase 25 H - Medical Decision Making Is on continuous O2. Saturation 94%. She is alert oriented. She is no different than she was on June 03 when I last saw her. Because she complains of urinary symptoms UA was obtained. Because is concerned she is not able to give a clean-catch specimen a straight cath was ordered. CBC was ordered to assess for anemia. CBC is unremarkable. Elect light panel is unremarkable with a normal CO2. UA is unremarkable. Patient has not been hypotensive during her stay. There is no similar change since prior visit when I examined her. ED Disposition - Plan for ED Patient: Disposition: Home or Assisted Living Diagnosis: Generalized weakness, History of type 2 diabetes mellitus, History of hypertension Referrals: Care Physician,No Primary [Primary Care Provider] - Additional Instructions: Follow-up with your doctor as needed.
[2019-06-05 15:28] VITALS: BP 100/62; PULSE 88; RESP 16; O2SAT 93
[2019-06-05 15:29] LABS: Absolute Lymphocyte Count 2.11 X10^3/uL (0.83-4.51); Absolute Neutrophil Count 4.4 X10^3/uL (2.0-7.7); Basophil# 0.04 X10^3/uL; Basophil% 0.5 % (0-1); Eosinophil# 0.36 X10^3/uL; Eosinophils% 4.8 % (0-5); Hematocrit 39.1 % (37-47); Lymphocyte # 2.11 X10^3/ul (4.0); Lymphocyte % 28.2 % (19-41); Mean Corp Hgb Conc 30.7 g/dL (32-36); Mean Corpuscular Hgb 29.9 pg (27.0-32.0); Mean Corpuscular Volume 97.3 fL (81-99); Mean Platelet Vol. 10.5 fl (6.2-12.0); Monocyte# 0.52 X10^3/uL; NRBC Flagged by Analyzer 0 % (0-5); Neutrophil # 4.39 X10^3/uL (2.7-7.7); Neutrophil % 58.8 % (47-70); Platelet Count 211 K/mm3 (150-450); RBC Distribution Width SD 50.3 fl (35.1-43.9); Red Blood Count 4.02 M/mm3 (4.2-5.4); White Blood Count 7.5 K/mm3 (4.4-11.0)
[2019-06-05 15:36] LABS: Bacteria 0 SEEN /hpf (None Seen); Mucous, Urine 0 SEEN /hpf (<or=2+); Red Blood Cells-Urine 0 SEEN /hpf (0-5); White Blood Cells 0 SEEN /hpf (0-5)
[2019-06-05 15:40] LABS: Color, Urine Yellow (Yellow); Glucose, Dipstick Normal (Normal); Ketone-Dipstick Negative (Negative); Leukocyte Esterase-Dipstick 25 /ul (Negative); Nitrite-Dipstick Negative (Negative); Occult Blood-Urine Negative /ul (Negative); Protein-Dipstick Negative (Negative); Specific Gravity, Urine 1.015 (1.002-1.030); Urine Bilirubin Dipstick Negative (Negative); Urine Clarity Clear (Clear); Urine Urobilinogen Normal (Normal)
[2019-06-05 15:42] LABS: Anion Gap 3 (5-15); BUN 14 mg/dL (7-18); BUN/Creat Ratio 13.7 RATIO (10-20); Calcium,Total 8.8 mg/dL (8.5-10.1); Chloride 107 mmol/L (98-107); Creatinine, Serum 1.02 mg/dL (0.55-1.02); EST Glomerular Filtration Rate 58 mL/min (>60); Est Glom Filt Rate - Afr Amer 70 mL/min (>60); Estimated Creatinine Clearance 72.92 ml/min; Glucose 86 mg/dL (74-106); Potassium 3.9 mmol/L (3.5-5.1); Sodium Level 142 mmol/L (136-145)
--- NOTE | 2019-06-05 15:53 | EKG12_ITS ---
Test Reason : CP Blood Pressure : / mmHG Vent. Rate : 083 BPM Atrial Rate : 083 BPM P-R Int : 152 ms QRS Dur : 074 ms QT Int : 374 ms P-R-T Axes : 063 022 -14 degrees QTc Int : 439 ms Normal sinus rhythm Nonspecific ST and T wave abnormality Abnormal ECG Confirmed by IRENA GRUBER, KINGS ([id number]), editor trade journal TISHA SHIPMAN ([id number] on 06/07/2019 1:32:59 PM Referred By: MARY Confirmed By:KINGS OSBORN MD
--- NOTE | 2019-06-05 16:06 | ED.VISSUMM ---
- ER Visit Summary Date of Service: 06/05/19 Chief Complaint: [] History of Present Illness: The patient is a 63 F [] Physical Examination: [] Test Results: [] Emergency Department Course and Treatment: [] Treatment Plan: [] Disposition: [] Impression: [] This note was generated with [employer] dictation software. It may contain incorrect words, spelling, and punctuation that were not noted in review of the chart prior to signing ED Disposition - Plan for ED Patient: Disposition: Home or Assisted Living Diagnosis: Generalized weakness, History of type 2 diabetes mellitus, History of hypertension Instructions: WEAKNESS, Unk Cause Referrals: Care Physician,No Primary [Primary Care Provider] - Additional Instructions: Follow-up with your doctor as needed.
[2019-06-05 16:36] LABS: Hyaline Cast 0-5 SEEN /lpf (0-5)
[2019-06-05 16:37] LABS: Squamous Epithelial Cells - UA 0-5 SEEN /hpf (5-10)
[2019-06-05 16:57] VITALS: BP 95/71; PULSE 81; RESP 16; O2SAT 95
--- NOTE | 2019-06-05 17:08 | CM.ED ---
Addendum entered by Mena Bailey 06/05/19 19:44: Phone call was also placed to [facility] inquiring about further support for patient. Voicemail left. Original Note: Social Work Referral: Discharge Planning. Informant: Dr. Darnell. Met with patient in room. Patient reporting to currently live at the assisted living apartments in [facility]. Patient reporting to have a case manage through [facility]. Patient stating to have no concerns with returning to home and to have aides that can assist patient if needed. Patient reporting to want admitted to the hospital for the night. This director social welfare explaining that per Dr. Darnell patient does not meet criteria for admission to the hospital. Patient voicing understanding but still wanting to be placed. This director social welfare communicating that this director social welfare is not a doctor and is not able to admit patient but can look into options for further support in the community. Patient denies any needs. Amy Bailey MSW, JEFF
== END 2019-06-05 17:35 | disposition home or self-care (01) ==
PROVIDERS: Emergency Provider Emergency Medicine
DX: R53.1 Weakness (principal); E11.9 Type 2 diabetes mellitus without complications; I10 Essential (primary) hypertension; R05 Cough; R07.9 Chest pain, unspecified; E78.5 Hyperlipidemia, unspecified; F32.9 Major depressive disorder, single episode, unspecified; F41.9 Anxiety disorder, unspecified; I25.2 Old myocardial infarction; Z79.84 Long term (current) use of oral hypoglycemic drugs; Z79.899 Other long term (current) drug therapy
CPT/HCPCS: 36415; 80048; 81001; 85025; 93005; 99285; P9612; A4216

== ENCOUNTER 2019-06-10 10:51 | Observation (INO) | payer MEDICAID, SELFPAY ==
[2019-06-10] VITALS (12 sets, daily range): BP systolic 112–177; BP diastolic 71–97; PULSE 86–97; RESP 13–19; TEMP 36.1–37.4; O2SAT 94–97; BMI 38.9; BMI 36.8; BMI 36.9
--- NOTE | 2019-06-10 11:08 | CT_ITS ---
STUDY: CT BRAIN WITHOUT CONTRAST REASON FOR EXAM: Female, 63 years old. Fall RADIATION DOSAGE (If Supplied By Facility): CTDIvol = ( 44.99 ) mGy, DLP = ( 762.36 ) mGycm TECHNIQUE: Transaxial CT imaging of the brain was performed without administration of intravenous contrast material. Individualized dose optimization techniques were used for this CT. COMPARISON: None. FINDINGS: There is no acute bleed or infarct. There are normal white matter tracts. The ventricles are normal in configuration. There is no hydrocephalus. The visualized paranasal sinuses are clear. The mastoid air cells are well aerated. There is no skull fracture. CT/Brain/Head without Contrast IMPRESSION: No acute intracranial abnormality. Electronically Signed: Maverick Mendoza, at 12:11 EDT Tel , Service support ,
--- NOTE | 2019-06-10 11:08 | CT_ITS ---
STUDY: CT CERVICAL SPINE WITHOUT CONTRAST REASON FOR EXAM: Female, 63 years old. Fall RADIATION DOSAGE (If Supplied By Facility): CTDIvol = ( 25.91 ) mGy, DLP = ( 522.55 ) mGycm TECHNIQUE: High resolution transaxial imaging was performed without contrast material. Sagittal and coronal images were reconstructed. Individualized dose optimization techniques were used for this CT. COMPARISON: None available. FINDINGS: There is no evidence of fracture or dislocation in the cervical spine. The dens is intact. There is straightening of the normal cervical lordosis which may be due to paraspinal muscle spasm or may be positional in nature. The vertebral body heights and disc spaces are well-maintained. There are mild degenerative changes noted with disc space narrowing. This is most pronounced at C6/7. The visualized paraspinal soft tissues are within normal limits. CT/Spine Cervical without Contras IMPRESSION: No fracture or dislocation in the cervical spine. Mild degenerative change. Straightening of the normal cervical lordosis which may be due to paraspinal muscle spasm or may be positional in nature. Electronically Signed: Maverick Mendoza, at 12:16 EDT Tel , Service support ,
--- NOTE | 2019-06-10 11:08 | EKG12_ITS ---
Test Reason : Blood Pressure : / mmHG Vent. Rate : 091 BPM Atrial Rate : 091 BPM P-R Int : 158 ms QRS Dur : 092 ms QT Int : 404 ms P-R-T Axes : 062 023 007 degrees QTc Int : 496 ms Normal sinus rhythm Nonspecific ST abnormality Prolonged QT Abnormal ECG Confirmed by CESAR GRUBER, SHARAD ([id number]), scientific editor JANE BURGOS ([id number]) on 06/12/2019 1:45:42 PM Referred By: SIMON Confirmed By:SHARAD GUERRERO MD
[2019-06-10] MEDS: Ondansetron 4 MG/2 ML Vial IV (11:34)
[2019-06-10] MEDS: Morphine 4 MG/ML Syringe IV ×2 (11:34→13:30)
[2019-06-10 11:42] LABS: Absolute Lymphocyte Count 1.45 X10^3/uL (0.83-4.51); Absolute Neutrophil Count 9.5 X10^3/uL (2.0-7.7); Basophil# 0.04 X10^3/uL; Basophil% 0.3 % (0-1); Eosinophil# 0.18 X10^3/uL; Eosinophils% 1.5 % (0-5); Hematocrit 44.8 % (37-47); Hemoglobin 13.7 g/dL (12.0-15.0); Lymphocyte # 1.45 X10^3/ul (4.0); Lymphocyte % 11.9 % (19-41); Mean Corp Hgb Conc 30.6 g/dL (32-36); Mean Corpuscular Hgb 29.1 pg (27.0-32.0); Mean Corpuscular Volume 95.1 fL (81-99); Mean Platelet Vol. 10.5 fl (6.2-12.0); Monocyte% 7.4 % (0-10); NRBC Flagged by Analyzer 0 % (0-5); Neutrophil # 9.53 X10^3/uL (2.7-7.7); Neutrophil % 78.2 % (47-70); Platelet Count 209 K/mm3 (150-450); RBC Distribution Width CV 14.2 % (11.6-14.6); RBC Distribution Width SD 49.8 fl (35.1-43.9); Red Blood Count 4.71 M/mm3 (4.2-5.4); White Blood Count 12.2 K/mm3 (4.4-11.0)
--- NOTE | 2019-06-10 11:52 | RAD_ITS ---
STUDY: X-RAY CHEST REASON FOR EXAM: Female, 63 years old. Cough TECHNIQUE: Frontal and lateral views of the chest COMPARISON: 06/03/2019 FINDINGS: The lungs are clear. There are no pleural effusions. There is no pneumothorax. The heart is normal in size. There are stable postsurgical changes from prior right shoulder reverse arthroplasty. RAD/Chest PA and Lateral IMPRESSION: No acute thoracic pathology. Electronically Signed: Maverick Mendoza, at 12:23 EDT Tel , Service support ,
--- NOTE | 2019-06-10 11:52 | RAD_ITS ---
STUDY: X-RAY - LEFT ELBOW REASON FOR EXAM: Female, 63 years old. Fall. Pain. TECHNIQUE: 3 view(s) of the elbow. COMPARISON: None. FINDINGS: There is no evidence of fracture or dislocation. There are no significant degenerative changes. There are no radiodense foreign bodies. RAD/Elbow min 3 Views IMPRESSION: No fracture or dislocation. Electronically Signed: Maverick Mendoza, at 12:22 EDT Tel , Service support ,
--- NOTE | 2019-06-10 11:52 | RAD_ITS ---
STUDY: X-RAY - PELVIS AND LEFT HIP REASON FOR EXAM: Female, 63 years old. Fall. Pain. TECHNIQUE: 3 views of the pelvis and left hip. COMPARISON: None. FINDINGS: There is a right sided hip screw in place. There is an intramedullary carissa noted in the left mid to distal femur which is not fully visualized on this exam. There is no acute fracture or dislocation in the pelvis or left hip. There are mild degenerative changes in the left hip. RAD/HIP, UNI W/ Pelvis 2-3 Views IMPRESSION: No fracture or dislocation in the pelvis or left hip. Mild degenerative change. Electronically Signed: Maverick Mendoza, at 12:21 EDT Tel , Service support ,
[2019-06-10 11:58] LABS: Anion Gap 5 (5-15); BUN 16 mg/dL (7-18); BUN/Creat Ratio 12.5 RATIO (10-20); Calcium,Total 9.1 mg/dL (8.5-10.1); Chloride 103 mmol/L (98-107); Creatinine, Serum 1.28 mg/dL (0.55-1.02); EST Glomerular Filtration Rate 45 mL/min (>60); Est Glom Filt Rate - Afr Amer 54 mL/min (>60); Estimated Creatinine Clearance 59.23 ml/min; Glucose 104 mg/dL (74-106); Potassium 3.8 mmol/L (3.5-5.1); Sodium Level 139 mmol/L (136-145)
[2019-06-10 13:36] LABS: Valproic Acid (Depakene) Level 23 ug/mL (50-100)
--- NOTE | 2019-06-10 14:10 | ED.VISSUMM ---
- ER Visit Summary Date of Service: 06/10/19 Chief Complaint: Fall History of Present Illness: The patient is a 63 F from [facility]. She is a poor informant. Per patient she fell today. She is unsure why she fell. She does report she had a blow to the head and loss of consciousness. She complains of neck pain that is 8 out of 10 in severity. She denies shoulder pain. She has back pain that is chronic and unchanged. She has left elbow pain that stated 10 severity. She has left hip pain that is 8 out of 10 in severity. On review of systems patient complains of a cough for a while. She denies any fever, chills, or shortness of breath. She has chest pain that she states began this morning. Says sharp pain that is 8/10 severity. It is increased with turning. This began prior to her fall. She also reports that she is been nauseated and vomited 3 times today and had 3 episodes of diarrhea today. No blood in either. No melena. She reports that she kind of has a headache. Physical Examination: Vitals: Stable. Afebrile. General: Well-nourished and well-developed. Head: Normocephalic atraumatic. Neck: Supple, no lymphadenopathy. No JVD. Moderate effusion on palpation over her entire C-spine. There is no point tenderness. She has full range of motion without any difficulty.. Cardiovascular: Regular rate and rhythm. No murmurs. Respiratory: No respiratory distress. Clear to auscultation bilaterally. Abdominal: Soft, nontender, nondistended, normal bowel sounds. No guarding, rebound, or peritoneal signs. Back: Mild effusion on palpation over her entire lumbar spine and paraspinous musculature in this region. She has a negative straight leg raise bilaterally.. Extremities: Nontender, mild tenderness palpation over the posterior surface of her left elbow. No soft tissue swelling or contusion. She is neurovascular intact distal this. Mild tenderness palpation of her left greater trochanter. No pain with internal/external rotation of her leg. She is neurovascular intact distal to this. Skin: Normal color, no rash. Neurologic: Alert and oriented ?3. Cranial nerves II through XII are intact. Normal strength and sensation. Psych: Normal affect. Test Results: EKG is sinus at [address] changes. Her QTC is 496. This is the only change from last week. Initial troponin is 0.088. This had always been less than 0.02 previously. Chem-7 shows a creatinine 1.28. Depakote level is 23. CBC shows a white count of 12.2 with 78 segmented neutrophils and 12 lymphocytes. Clinical Impression(s) from Imaging Studies Brain CT 06/10/19 11:08 IMPRESSION: No acute intracranial abnormality. Electronically Signed: Maverick Mendoza, at 12:11 EDT Tel , Service support , Cervical Spine CT 06/10/19 11:08 IMPRESSION: No fracture or dislocation in the cervical spine. Mild degenerative change. Straightening of the normal cervical lordosis which may be due to paraspinal muscle spasm or may be positional in nature. Electronically Signed: Maverick Mendoza, at 12:16 EDT Tel , Service support , Chest X-Ray 06/10/19 11:52 IMPRESSION: No acute thoracic pathology. Electronically Signed: Maverick Mendoza, at 12:23 EDT Tel , Service support , Elbow X-Ray 06/10/19 11:52 IMPRESSION: No fracture or dislocation. Electronically Signed: Maverick Mendoza, at 12:22 EDT Tel , Service support , Hip/Pelvis X-Ray 06/10/19 11:52 IMPRESSION: No fracture or dislocation in the pelvis or left hip. Mild degenerative change. Electronically Signed: Maverick Mendoza, at 12:21 EDT Tel , Service support , Emergency Department Course and Treatment: I did consider the possibility of a PE in this patient. She reports that she does have a history of DVT. However, again she is not a reliable informant. I wrote for a CTA of the chest. However, the IV infiltrated when the dye during the testing for the dye. We were unable to obtain an appropriate IV. She was given a dose of Lovenox subcu. She had a pain treated with morphine and Zofran IV. Treatment Plan: Patient was discussed with . She will be admitted to the hospital for further evaluation and treatment. Disposition: Admitted in improved condition. Impression: 1. Chest pain. 2. Indeterminate troponin. 3. Fall. This note was generated with [employer] dictation software. It may contain incorrect words, spelling, and punctuation that were not noted in review of the chart prior to signing ED Disposition - Plan for ED Patient: Referrals: Care Physician,No Primary [Primary Care Provider] -
[2019-06-10] MEDS: Enoxaparin 80 MG/0.8 ML Syringe SC (14:42)
--- NOTE | 2019-06-10 14:49 | HP.PCM_ITS ---
<Izzy Berman - Last Filed: 06/10/19 15:36> Problem List (1) Diabetes mellitus type 2 Status: Chronic (2) History of IN (myocardial infarction) Status: Chronic (3) Hypertension Status: Chronic (4) Anxiety and depression Status: Chronic (5) Chronic pain syndrome Status: Chronic (6) Dyslipidemia Status: Chronic History of Present Illness Date of Admission: 06/10/19 Chief Complaint: Fall, generalized pain. The patient is a 63 year old F who presents to the emergency room with multiple complaints. She reports she lives alone and fell at home today and now has significant generalized pain. She reports she was on the floor for a couple hours before she was able to get help. She reports she had dizziness prior to fall. Denies chest pain, increased shortness of breath. She reports her lower extremities are more swollen than normal with increased redness. Denies fever, chills. Denies recent illness. During exam patient asks multiple times for Compazine and states that ER will not give her any. She appears comfortable and does not appear to be nauseous or painful. Patient falls asleep during interview. She has somewhat of a poor historian. She has a past medical history of CAD, chronic hypoxic respiratory failure secondary to chronic COPD, hypertension, hyperlipidemia, chronic pain syndrome, anxiety, depression, type 2 diabetes mellitus, GERD. Past Medical History Past Medical History (Chronic Problems): Chronic Problems Diabetes mellitus type 2 (Chronic) History of IN (myocardial infarction) (Chronic) Hypertension (Chronic) Anxiety and depression (Chronic) Chronic pain syndrome (Chronic) Dyslipidemia (Chronic) Allergies Penicillins Allergy (Verified 06/10/19 10:53) Rash Sulfa (Sulfonamide Antibiotics) Allergy (Verified 06/10/19 10:53) Rash Home Medications: Ambulatory Orders Medication Instructions Recorded ALPRAZolam [Xanax] 0.5 mg PO TID 01/30/18 Tiotropium [place] [Spiriva 18 MCG] 1 puff INHALATION DAILY 01/30/18 Amlodipine Besylate 2.5 mg PO DAILY 04/10/19 Quetiapine Fumarate 200 mg PO QHS 04/10/19 Acetaminophen [Tylenol Arthritis] 650 mg PO BID 05/03/19 Carvedilol 6.25 mg PO BID 05/03/19 Cetirizine HCl [Zyrtec] 10 mg PO DAILY 05/03/19 Dicyclomine HCl 10 mg PO 4X/DAY 05/03/19 Pantoprazole Sodium [Protonix] 40 mg PO DAILY 05/03/19 Pregabalin [Lyrica] 75 mg PO BID 05/03/19 Quetiapine Fumarate 50 mg PO DAILY 05/03/19 Ropinirole HCl 1 mg PO QHS 05/03/19 Ascorbic Acid [Vitamin C] 500 mg PO DAILY 06/03/19 Atorvastatin Calcium [Lipitor] 20 mg PO QHS 06/03/19 Dextromethorphan HBr [Tussin Cough] 15 mg PO Q4H PRN PRN 06/03/19 Divalproex Sodium [Depakote 125 mg PO BID 06/03/19 Sprinkle] Fluticasone 0.05% [Flonase Nasal 1 spray NASAL QHS 06/03/19 [place]] Furosemide [Lasix] 20 mg PO DAILY 06/03/19 Guaifenesin [Mucinex] 600 mg PO BID 06/03/19 Ibuprofen 600 mg PO TID 06/03/19 Isosorbide Mononitrate [Imdur] 60 mg PO DAILY 06/03/19 [place]-3 Fatty Acids/Fish Oil [Fish 1 ea PO BID 06/03/19 Oil 1,000 mg Capsule] Polyethylene Glycol 3350 [Miralax] 17 gm PO DAILY 06/03/19 Acetaminophen [Tylenol] 650 mg PO Q4H PRN PRN 06/05/19 Oxycodone Myristate [Xtampza ER] 13.5 mg PO BID 06/05/19 Prazosin HCl 1 mg PO QHS 06/05/19 Prazosin HCl 2 mg PO QHS 06/05/19 Topiramate [Topamax] 50 mg PO BID 06/05/19 metFORMIN HCl [Glucophage] 500 mg PO BIDCM 06/05/19 Aspirin/Acetaminophen/Caffeine 1 ea PO Q4H PRN PRN 06/10/19 [Excedrin Migraine Caplet] Cholecalciferol (VIT D3) [Vitamin 1,000 unit PO DAILY 06/10/19 D] Magnesium Hydroxide [Milk Of 30 ml PO DAILY PRN PRN 06/10/19 Magnesia] Melatonin 3 mg PO QHS PRN PRN 06/10/19 Ondansetron [Zofran Odt] 4 mg PO Q6H PRN PRN 06/10/19 Surgical History: - - Right shoulder surgery, hysterectomy, appendectomy. 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 Maternal History Items: - - Denies known maternal medical history including cardiac history. Review of Systems Constitutional: Denies: Chills, Fever, Weight Change HEENT: Denies: Head Aches, Sinus Congestion, Sinus Drainage Cardiovascular: Reports: Syncope. Denies: Chest Pain, Palpitations Respiratory: Denies: Cough, Shortness of breath at rest, Sputum production Gastrointestinal: Denies: Abdominal Pain, Diarrhea, Nausea, Vomiting Genitourinary: Denies: Dysuria Musculoskeletal: Denies: Joint Pain, Joint Tenderness Skin: Reports: - - Multiple abrasions bilateral feet, left elbow abrasion.. Denies: Rash Neurological: Denies: Numbness, Tingling, Focal weakness Psychiatric: Reports: Anxiety, Depression. Denies: Homicidal Ideations, Suicidal Ideations Hematologic/ Lymphatic: Denies: Easy Bruising, Easy Bleeding VTE Information - Inpt Only VTE Present on Admission: No VTE Mechan Device Prophylaxis: None VTE Pharm Prophylaxis ordered?: Yes - Physical Exam General: Alert, Oriented x3, Cooperative HEENT: Atraumatic, PERRLA, EOMI, Normocephalic Neck: Supple, No JVD, Negative Carotid Bruits Lungs: Clear to auscultation, Diminished Cardiovascular: Regular rate, Regular Rhythm, Normal S1, Normal S2, No murmurs Abdomen: Bowel Sounds Present, Soft, Non Tender, Non-Distended, Obese Extremities: No clubbing, No cyanosis, Capillary Refill Less than 3 Seconds, Edema - Nonpitting bilateral lower extremities Skin: No rashes, No breakdown, - - Chronic skin changes bilateral lower extremities. Wounds bilateral feet, do not appear infected. Musculoskeletal: No Tenderness to Palpation of Joints or Extremities Neurological: Cranial nerves II-XII grossly intact, Neuro grossly intact Psych/Mental Status: Normal Affect, Appropriate Vital Signs Temp Pulse Resp BP Pulse Ox 97 F L 90 15 112/78 97 06/10/19 14:36 06/10/19 14:36 06/10/19 14:36 06/10/19 14:36 06/10/19 14:36 Oxygen Flow Rate (L/min) 2 Oxygen Delivery Method Nasal Cannula Weight: 186 lb 4.65 oz Body Mass Index (BMI) 38.9 Laboratory Tests Past 24 Hrs 06/10/19 06/10/19 06/10/19 11:30 11:30 12:15 WBC 12.2 H RBC 4.71 Hgb 13.7 Hct 44.8 MCV 95.1 MCH 29.1 MCHC 30.6 L RDW Std Deviation 49.8 H RDW Coeff of Liset 14.2 Plt Count 209 MPV 10.5 Immature Gran % (Auto) 0.700 Neut % (Auto) 78.2 H Lymph % (Auto) 11.9 L [place] % (Auto) 7.4 Eos % (Auto) 1.5 Baso % (Auto) 0.3 Absolute Neuts (auto) 9.5 H Absolute Lymphs (auto) 1.45 Absolute Nucleated RBC 0.00 Nucleated RBC % 0 Sodium 139 Potassium 3.8 Chloride 103 Carbon Dioxide 31.0 Anion Gap 5 BUN 16 Creatinine 1.28 H Estim Creat Clear Calc 59.23 Est GFR (MDRD) Af Amer 54 L Est GFR (MDRD) Non-Af 45 L BUN/Creatinine Ratio 12.5 Glucose 104 Calcium 9.1 Troponin I 0.088 H Valproic Acid 23 L Assessment/Plan 1. Syncope with fall, abnormal troponin-patient reports she felt dizzy and fell onto the ground, reports she passed out. Trend enzymes. EKG without ST-T changes. Obtain echocardiogram. Fall precautions. PT/OT. Cervical spine CT shows no fracture or dislocation. Brain CT shows no acute intracranial abnormality. Chest x-ray shows no acute thoracic pathology. Left elbow x-ray shows no fracture or dislocation. Hip and pelvis x-ray shows no fracture or dislocation. Patient denies chest pain, reports pain all over. CTA of chest initially ordered on admission however was not completed given no appropriate IV access. Will reevaluate in a.m. if CTA is necessary. 2. Type 2 diabetes mellitus-hold home oral regimen. Accu-Cheks before meals at bedtime with sliding scale insulin. Check hemoglobin A 1C. Prior hemoglobin A1c in 2018 6.2%. 3. CAD?-Unclear history. Normal stress test in 2018. Continue carvedilol, Imdur, statin. 4. Chronic hypoxic respiratory failure secondary to chronic COPD-no acute exacerbation. On baseline home O2. 5. Chronic kidney disease stage III-at baseline, trend BMP. 6. Hypertension-stable, continue home amlodipine, carvedilol, isosorbide, Lasix regimen. 7. Hyperlipidemia-continue statin. 8. Chronic pain syndrome-reports she follows with pain management. Continue PRN pain regimen. PT/OT. 9. Physical debility with fall prior to admission, unable to get herself up- PT/OT. Requesting SNF at discharge. Case management consult. DVT prophylaxis- Lovenox sc This patient was seen by ARMAAN Alfonso under the supervision of Dr. Bray. <Girish Bray F - Last Filed: 06/10/19 15:46> History of Present Illness The patient is a 63 year old F [] Past Medical History Allergies Penicillins Allergy (Verified 06/10/19 10:53) Rash Sulfa (Sulfonamide Antibiotics) Allergy (Verified 06/10/19 10:53) Rash - Physical Exam Vital Signs Temp Pulse Resp BP Pulse Ox 97 F L 89 14 137/71 H 97 06/10/19 14:36 06/10/19 15:00 06/10/19 15:00 06/10/19 15:00 06/10/19 15:00 Oxygen Flow Rate (L/min) 2 Oxygen Delivery Method Nasal Cannula Weight: 186 lb 4.65 oz Body Mass Index (BMI) 38.9 Laboratory Tests Past 24 Hrs 06/10/19 06/10/19 06/10/19 11:30 11:30 12:15 WBC 12.2 H RBC 4.71 Hgb 13.7 Hct 44.8 MCV 95.1 MCH 29.1 MCHC 30.6 L RDW Std Deviation 49.8 H RDW Coeff of Liset 14.2 Plt Count 209 MPV 10.5 Immature Gran % (Auto) 0.700 Neut % (Auto) 78.2 H Lymph % (Auto) 11.9 L [place] % (Auto) 7.4 Eos % (Auto) 1.5 Baso % (Auto) 0.3 Absolute Neuts (auto) 9.5 H Absolute Lymphs (auto) 1.45 Absolute Nucleated RBC 0.00 Nucleated RBC % 0 Sodium 139 Potassium 3.8 Chloride 103 Carbon Dioxide 31.0 Anion Gap 5 BUN 16 Creatinine 1.28 H Estim Creat Clear Calc 59.23 Est GFR (MDRD) Af Amer 54 L Est GFR (MDRD) Non-Af 45 L BUN/Creatinine Ratio 12.5 Glucose 104 Calcium 9.1 Troponin I 0.088 H Valproic Acid 23 L Code Visit Addendum: Dr. Bray I personally examined the patient and reviewed the chart. I agree with the above. 63-year-old female who today said that she passed out after feeling dizzy. She said that she fell onto the ground and has some elbow pain and just generalized pain. She comes to the ED fairly frequently and is usually discharged home because nothing abnormal is found, however today she did have an elevated troponin II 0.088 with an unremarkable EKG. CT scan of her brain was normal as were x-rays of her hip, pelvis, and elbow. Right now we will treat as an NSTEMI and consult cardiology for evaluation. She did have a normal stress in 2018 however she is morbidly obese with high blood pressure and cholesterol and therefore does have risk factors for cardiac event. She received therapeutic Lovenox in the ER as well as a loading dose of aspirin, she was given a loading dose of Plavix on admission. Also a CT of her chest was obtained to rule out a PE however her IV infiltrated. She is not complaining of significant amount of shortness of breath and therefore I do not think that this is a PE. However if it still a concern I would recommend a VQ scan in the morning. Inpatient E&M: 11867 Init Hosp L3
--- NOTE | 2019-06-10 15:35 | ECHOCS_ITS ---
Reason For Study: SYNCOPE Procedure This was a 2D Doppler, Color Flow transthoracic echocardiogram. Pt scanned supine. Exam performed portable in patient room. Left Ventricle Normal LV size. Left ventricular systolic function is normal. The estimated ejection fraction is 65 %. No regional wall motion abnormalities noted. Right Ventricle Normal RV size. Normal systolic function. Atria Normal left atrium. Normal right atrium. Mitral Valve Normal mitral valve. Tricuspid Valve Normal tricuspid valve. Mild tricuspid valve insufficiency. Pulmonary artery systolic pressure is 33 mmHg. Aortic Valve Normal aortic valve. Pulmonic Valve Normal pulmonic valve. Great Vessels Normal aortic root. The pulmonary artery is normal size. Normal inferior vena cava. Pericardium/Pleural No pericardial effusion. Medication Diluted definity 2ml given slow IV push to enhance endocardial definition. MMode/2D Measurements & Calculations RVDd: 3.3 cm Ao root diam: 2.6 cm LA dimension(2D): 3.9 cm Time Measurements MV dec time: 0.22 sec Doppler Measurements & Calculations MV E max adriano: 124.7 cm/sec Lat Peak E' Adriano: 8.2 cm/sec Med Peak E' Adriano: 7.7 cm/sec MV A max adriano: 90.1 cm/sec E/E' lat: 15.2 E/E' med: 16.2 MV E/A: 1.4 MV V2 max: 107.4 cm/sec Ao V2 max: 183.8 cm/sec LV V1 max: 149.6 cm/sec MV max P.6 mmHg Ao max P.5 mmHg LV V1 max P.0 mmHg MV V2 mean: 84.3 cm/sec Ao V2 mean: 132.0 cm/sec LV V1 mean P.6 mmHg MV mean P.0 mmHg Ao mean P.5 mmHg LV V1 mean: 123.3 cm/sec MV V2 VTI: 22.9 cm Ao V2 VTI: 33.3 cm LV V1 VTI: 30.3 cm TR max adriano: 270.8 cm/sec MV P1/2t-pr_phl: 80.9 msec TR max P.4 mmHg Interpretation Summary Normal LV size. Left ventricular systolic function is normal. The estimated ejection fraction is 65 %. Normal tricuspid valve. Pulmonary artery systolic pressure is 33 mmHg. Contrast injection was performed. Ordering Physician: Izzy Berman Performed By: Aretha Presley RDCS, RVT
--- NOTE | 2019-06-10 15:45 | EKG12_ITS ---
Test Reason : CP ADMISSION Blood Pressure : / mmHG Vent. Rate : 093 BPM Atrial Rate : 093 BPM P-R Int : 156 ms QRS Dur : 086 ms QT Int : 394 ms P-R-T Axes : 072 022 012 degrees QTc Int : 489 ms Normal sinus rhythm Nonspecific ST and T wave abnormality Abnormal ECG When compared with ECG of 10-JUN-2019 11:20, MANUAL COMPARISON REQUIRED, DATA IS UNCONFIRMED Confirmed by CESAR GRUBER, SHARAD ([id number]), news video editor JANE BURGOS ([id number]) on 06/12/2019 1:56:29 PM Referred By: CHEPE Confirmed By:SHARAD GUERRERO MD
[2019-06-10] MEDS: Clopidogrel Bisulfate 300 MG Tablet 600 MG PO (16:28)
[2019-06-10] MEDS: 0.9% Normal Saline 1,000 ML 75 ML IV (16:28)
[2019-06-10 16:46] LABS: Bedside Glucose 99 mg/dL (70-110)
[2019-06-10] MEDS: oxyCODONE CR 15 MG Tablet PO (21:18)
[2019-06-10] MEDS: Dicyclomine 10 MG Capsule PO (21:19)
[2019-06-10] MEDS: Atorvastatin Calcium 20 MG Tablet PO (21:19)
[2019-06-10] MEDS: Topiramate 50 MG Tablet PO (21:19)
[2019-06-10] MEDS: QUEtiapine 100 MG Tablet 200 MG PO (21:19)
[2019-06-10] MEDS: Carvedilol 6.25 MG Tablet PO (21:20)
[2019-06-10] MEDS: Doxazosin 1 MG Tablet 2.5 MG PO (21:20)
[2019-06-10] MEDS: Divalproex Sodium 125 MG SPRINKLE PO (21:21)
[2019-06-10] MEDS: Pramipexole Di-HCl 0.5 MG Tablet PO (21:21)
[2019-06-10 22:05] LABS: Bedside Glucose 144 mg/dL (70-110)
[2019-06-11] VITALS (15 sets, daily range): BP systolic 84–141; BP diastolic 45–79; PULSE 75–87; RESP 16–18; TEMP 36.7–37.4; O2SAT 92–96
[2019-06-11] MEDS: Pregabalin 75 MG Capsule PO ×3 (00:07→22:11)
[2019-06-11] MEDS: 0.9% Normal Saline 1,000 ML 75 ML IV (05:28)
[2019-06-11] MEDS: Dicyclomine 10 MG Capsule PO ×4 (05:30→22:12)
[2019-06-11 05:56] LABS: Absolute Lymphocyte Count 2.02 X10^3/uL (0.83-4.51); Absolute Neutrophil Count 3.2 X10^3/uL (2.0-7.7); Basophil# 0.03 X10^3/uL; Basophil% 0.5 % (0-1); Eosinophil# 0.17 X10^3/uL; Eosinophils% 2.8 % (0-5); Hematocrit 37.2 % (37-47); Hemoglobin 11.3 g/dL (12.0-15.0); Lymphocyte # 2.02 X10^3/ul (4.0); Lymphocyte % 33.7 % (19-41); Mean Corp Hgb Conc 30.4 g/dL (32-36); Mean Corpuscular Volume 95.6 fL (81-99); Mean Platelet Vol. 10.7 fl (6.2-12.0); Monocyte# 0.54 X10^3/uL; NRBC Flagged by Analyzer 0 % (0-5); Neutrophil # 3.19 X10^3/uL (2.7-7.7); Neutrophil % 53.3 % (47-70); Platelet Count 198 K/mm3 (150-450); RBC Distribution Width CV 14.7 % (11.6-14.6); RBC Distribution Width SD 51.7 fl (35.1-43.9); Red Blood Count 3.89 M/mm3 (4.2-5.4)
[2019-06-11 06:15] LABS: Anion Gap 8 (5-15); BUN 14 mg/dL (7-18); BUN/Creat Ratio 17.2 RATIO (10-20); Calcium,Total 8.1 mg/dL (8.5-10.1); Chloride 106 mmol/L (98-107); Creatinine, Serum 0.81 mg/dL (0.55-1.02); EST Glomerular Filtration Rate 75 mL/min (>60); Est Glom Filt Rate - Afr Amer 91 mL/min (>60); Estimated Creatinine Clearance 88.73 ml/min; Glucose 85 mg/dL (74-106); Potassium 3.2 mmol/L (3.5-5.1); Sodium Level 147 mmol/L (136-145)
--- NOTE | 2019-06-11 06:56 | PCM.CONS.C ---
Reason for Consult Date of Consultation: 06/11/19 Reason for Consultation: Abnormal cardiac enzymes History of Present Illness: The patient is a 63 year old F who presented to the emergency room with multiple complaints. She reports she lives alone and fell at home yesterday and now has significant generalized pain. She reports she was on the floor for a couple hours before she was able to get help. She reports she had dizziness prior to fall. Denies chest pain, increased shortness of breath. She reports her lower extremities are more swollen than normal with increased redness. Denies fever, chills. Denies recent illness. She appears comfortable and does not appear to be nauseous or painful. Patient falls asleep during interview. She has somewhat of a poor historian. She has a past medical history of CAD-she apparently had a cardiac catheterization in 2007 as well as 2013 but no significant obstructive disease was noted. In addition she has chronic hypoxic respiratory failure secondary to chronic COPD, hypertension, hyperlipidemia, chronic pain syndrome, anxiety, depression, type 2 diabetes mellitus, GERD. Cardiac enzymes were obtained and were noted to be mildly abnormal and cardiology was consulted. At the moment she has no specific complaints. Past Medical History Allergies/Adverse Reactions: Allergies Penicillins Allergy (Verified 06/10/19 10:53) Rash Sulfa (Sulfonamide Antibiotics) Allergy (Verified 06/10/19 10:53) Rash Home Medications: Ambulatory Orders Medication Instructions Recorded ALPRAZolam [Xanax] 0.5 mg PO TID 01/30/18 Tiotropium [place] [Spiriva 18 MCG] 1 puff INHALATION DAILY 01/30/18 Amlodipine Besylate 2.5 mg PO DAILY 04/10/19 Quetiapine Fumarate 200 mg PO QHS 04/10/19 Acetaminophen [Tylenol Arthritis] 650 mg PO BID 05/03/19 Carvedilol 6.25 mg PO BID 05/03/19 Cetirizine HCl [Zyrtec] 10 mg PO DAILY 05/03/19 Dicyclomine HCl 10 mg PO 4X/DAY 05/03/19 Pantoprazole Sodium [Protonix] 40 mg PO DAILY 05/03/19 Pregabalin [Lyrica] 75 mg PO BID 05/03/19 Quetiapine Fumarate 50 mg PO DAILY 05/03/19 Ropinirole HCl 1 mg PO QHS 05/03/19 Ascorbic Acid [Vitamin C] 500 mg PO DAILY 06/03/19 Atorvastatin Calcium [Lipitor] 20 mg PO QHS 06/03/19 Dextromethorphan HBr [Tussin Cough] 15 mg PO Q4H PRN PRN 06/03/19 Divalproex Sodium [Depakote 125 mg PO BID 06/03/19 [place]] Fluticasone 0.05% [Flonase Nasal 1 spray NASAL QHS 06/03/19 [place]] Furosemide [Lasix] 20 mg PO DAILY 06/03/19 Guaifenesin [Mucinex] 600 mg PO BID 06/03/19 Ibuprofen 600 mg PO TID 06/03/19 Isosorbide Mononitrate [Imdur] 60 mg PO DAILY 06/03/19 [place]-3 Fatty Acids/Fish Oil [Fish 1 ea PO BID 06/03/19 Oil 1,000 mg Capsule] Polyethylene Glycol 3350 [Miralax] 17 gm PO DAILY 06/03/19 Acetaminophen [Tylenol] 650 mg PO Q4H PRN PRN 06/05/19 Oxycodone Myristate [Xtampza ER] 13.5 mg PO BID 06/05/19 Prazosin HCl 1 mg PO QHS 06/05/19 Prazosin HCl 2 mg PO QHS 06/05/19 Topiramate [Topamax] 50 mg PO BID 06/05/19 metFORMIN HCl [Glucophage] 500 mg PO BIDCM 06/05/19 Aspirin/Acetaminophen/Caffeine 1 ea PO Q4H PRN PRN 06/10/19 [Excedrin Migraine Caplet] Cholecalciferol (VIT D3) [Vitamin 1,000 unit PO DAILY 06/10/19 D] Magnesium Hydroxide [Milk Of 30 ml PO DAILY PRN PRN 06/10/19 Magnesia] Melatonin 3 mg PO QHS PRN PRN 06/10/19 Ondansetron [Zofran Odt] 4 mg PO Q6H PRN PRN 06/10/19 Past Medical History (Chronic Problems): Chronic Problems Diabetes mellitus type 2 (Chronic) History of [place] (myocardial infarction) (Chronic) Hypertension (Chronic) Anxiety and depression (Chronic) Chronic pain syndrome (Chronic) Dyslipidemia (Chronic) Surgical History: - - Right shoulder surgery, hysterectomy, appendectomy. 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 Maternal History Items: - - Denies known maternal medical history including cardiac history. Lives: Alone Smoking Status: Former smoker Tobacco Use: Non-smoker Alcohol: None Drugs: None Review of Systems - Review of Systems General: Denies: Fever, Night Sweats, Fatigue HEENT: Denies: Vision Change Cardiovascular: Denies: Chest Discomfort, Shortness of Breath, Orthopnea, PND, Peripheral Edema, Palpitations, Lightheadedness, Dizziness, Near Syncope, Syncope Respiratory: Denies: Cough, Sputum Production, Hemoptysis Gastrointestinal: Denies: Hematemesis, Hematochezia, Melena Genitourinary: Denies: Dysuria, Hematuria Skin: Denies: Rash Neurological: Denies: Dizziness Psychiatric: Reports: Anxiety Endocrine: Denies: Unexplained Weight Loss Hematologic/ Lymphatic: Denies: Anemia Subjectve: Mildly confused lady in no distress Objective: Vital Signs Temp Pulse Resp BP Pulse Ox 98.4 F 83 16 141/79 H 95 06/11/19 02:30 06/11/19 02:55 06/11/19 02:30 06/11/19 02:30 06/11/19 02:30 Oxygen Flow Rate (L/min) 2 Oxygen Delivery Method Nasal Cannula Weight: 176 lb 9.444 oz Body Mass Index (BMI) 36.8 Intake and Output for Last 24 Hours 06/09/19 06/10/19 06/11/19 23:59 23:59 23:59 Intake Total 240 / 960 1127 / 1127 Output Total 600 / 600 Balance 240 / 960 527 / 527 General: Awake, Alert, Disoriented HEENT: PERRL, EOMI, Sclera Non Icteric Neck: Supple, Good ROM, No Lymph Node Enlargement Lungs: Clear to auscultation Cardiovascular: Regular Rhythm, Normal S1, Normal S2, No Murmurs, No Rubs, No Gallops Vascular: No Carotid Bruits, Normal Femoral Pulses, Normal Radial Pulses, Normal Dorsalis Pedal Pulse, Normal Posterior Tibial Pulses Abdomen: Bowel Sounds Present, Soft, Non Tender, No HSM, No Organomegaly Extremities: No Cyanosis, No Clubbing, No edema Musculoskeletal: No Erythema Skin: No Rashes Lymphatic: No Lymph Node Enlargement Neurological: No Focal Motor or Sensory Deficit Psych/Mental Status: Inappropriate 06/10/19 11:30: WBC 12.2 H, RBC 4.71, Hgb 13.7, Hct 44.8, MCV 95.1, MCH 29.1, MCHC 30.6 L, Plt Count 209, MPV 10.5, Immature Gran % (Auto) 0.700, Neut % (Auto) 78.2 H, Lymph % (Auto) 11.9 L, [place] % (Auto) 7.4, Eos % (Auto) 1.5, Baso % (Auto) 0.3, Absolute Neuts (auto) 9.5 H, Nucleated RBC % 0 06/10/19 11:30: Sodium 139, Potassium 3.8, Chloride 103, Carbon Dioxide 31.0, Anion Gap 5, BUN 16, Creatinine 1.28 H, Est GFR (MDRD) Af Amer 54 L, Est GFR (MDRD) Non-Af 45 L, BUN/Creatinine Ratio 12.5, Glucose 104, Calcium 9.1, Troponin I 0.088 H 06/10/19 19:18: Troponin I 0.047 H 06/10/19 23:00: Troponin I 0.031 06/11/19 05:17: WBC 6.0, RBC 3.89 L, Hgb 11.3 L, Hct 37.2, MCV 95.6, MCH 29.0, MCHC 30.4 L, Plt Count 198, MPV 10.7, Immature Gran % (Auto) 0.700, Neut % (Auto) 53.3, Lymph % (Auto) 33.7, [place] % (Auto) 9.0, Eos % (Auto) 2.8, Baso % (Auto) 0.5, Absolute Neuts (auto) 3.2, Nucleated RBC % 0 06/11/19 05:17: Sodium 147 H, Potassium 3.2 L, Chloride 106, Carbon Dioxide 33.0 H, Anion Gap 8, BUN 14, Creatinine 0.81, Est GFR (MDRD) Af Amer 91, Est GFR (MDRD) Non-Af 75, BUN/Creatinine Ratio 17.2, Glucose 85, Calcium 8.1 L Rhythm: EKG: Normal sinus rhythm with nonspecific ST-T wave changes ECHO: Pending Assessment/Plan 1. Abnormal cardiac enzymes Patient presents with nonspecific complaints and is noted to have abnormal cardiac enzymes. The exact etiology is unclear. She likely has underlying coronary disease and this may be secondary to a demand ischemia. Recommendations at this time will be to obtain an echocardiogram to assess left ventricular function as well as a myocardial perfusion stress test. Unless there is significant ischemia noted medical therapy would be pursued. It is unclear whether there is a previous history of coronary artery disease. She did have a stress test which was normal in 2018. 2. Hypertension Good control at this particular time no other changes will be made. Continue current medical therapy. 3. Lipidemia We will continue with medium intensity statin. Thank you for allowing me to participate in the care of your patient. Please don't hesitate to call if any issues arise
[2019-06-11 07:01] LABS: Bedside Glucose 92 mg/dL (70-110)
[2019-06-11] MEDS: oxyCODONE CR 15 MG Tablet PO ×2 (09:41→22:11)
--- NOTE | 2019-06-11 09:48 | CASEMGMT ---
Patient is from [facility]. Per chart she was asking for half-way placement. SW met with patient, introduced self and role at [facility]. Patient said she is afraid she will lose her apartment. SW told her she would not lose her apartment. She was very insistent she will lose her apartment. SW told her SW will check on this for her. Await therapy evaluations. SW called [facility] and left a voice mail requesting a return call. Chela CELAYA
--- NOTE | 2019-06-11 10:14 | CASEMGMT ---
RN came to and said patient wants to call [facility] about going back there at d/c. will make contact with [facility]. Chela AGUILAR MSW
[2019-06-11] MEDS: Ondansetron 4 MG/2 ML Vial IV ×2 (10:27→20:14)
[2019-06-11 10:53] LABS: CPK Total, Creatine Kinase 461 U/L (26-192)
--- NOTE | 2019-06-11 10:55 | CASEMGMT ---
LATOSHA received a call from [facility] with [facility] and she said their phone are down. She received the fax regarding patient. She said they just discharged her about a week ago. They can take her whenever she is ready. LATOSHA told them LATOSHA will let them know when she is ready for discharge. Chela AGUILAR MSW
--- NOTE | 2019-06-11 11:52 | PN_ITS ---
<Izzy Breman - Last Filed: 06/11/19 12:08> Subjective: Patient seen and examined. Complains of generalized pain and nausea. Reports sharp consistent chest pain. Denies associated shortness of breath or other symptoms. - Physical Exam General: Alert, Oriented x3, Cooperative HEENT: Atraumatic, PERRLA, EOMI, Normocephalic Oral: Dry Mucosa Neck: Supple, No JVD, Negative Carotid Bruits Lungs: Clear to auscultation, Diminished Cardiovascular: Regular rate, Regular Rhythm, Normal S1, Normal S2, No murmurs Abdomen: Bowel Sounds Present, Soft, Non Tender, Non-Distended Extremities: No clubbing, No cyanosis, Capillary Refill Less than 3 Seconds, Edema - Nonpitting bilateral lower extremities Skin: No rashes, No breakdown, - - Chronic skin changes bilateral lower extremities. Multiple abrasions bilateral feet. Musculoskeletal: No Tenderness to Palpation of Joints or Extremities Neurological: Cranial nerves II-XII grossly intact, Neuro grossly intact Psych/Mental Status: Appropriate, Anxious Vital Signs Temp Pulse Resp BP Pulse Ox 98.1 F 86 18 104/65 92 06/11/19 09:30 06/11/19 09:30 06/11/19 09:30 06/11/19 09:30 06/11/19 09:30 Oxygen Flow Rate (L/min) 3 Oxygen Delivery Method Nasal Cannula Weight: 176 lb 9.444 oz Body Mass Index (BMI) 36.8 Intake and Output for Last 24 Hours 06/09/19 06/10/19 06/11/19 23:59 23:59 23:59 Intake Total 240 / 960 1127 / 1127 Output Total 600 / 600 Balance 240 / 960 527 / 527 Laboratory Tests Past 24 Hrs 06/10/19 06/10/19 06/10/19 11:30 12:15 19:18 WBC RBC Hgb Hct MCV MCH MCHC RDW Std Deviation RDW Coeff of Liset Plt Count MPV Immature Gran % (Auto) Neut % (Auto) Lymph % (Auto) [place] % (Auto) Eos % (Auto) Baso % (Auto) Absolute Neuts (auto) Absolute Lymphs (auto) Absolute Nucleated RBC Nucleated RBC % Sodium 139 Potassium 3.8 Chloride 103 Carbon Dioxide 31.0 Anion Gap 5 BUN 16 Creatinine 1.28 H Estim Creat Clear Calc 59.23 Est GFR (MDRD) Af Amer 54 L Est GFR (MDRD) Non-Af 45 L BUN/Creatinine Ratio 12.5 Glucose 104 Calcium 9.1 Total Creatine Kinase Troponin I 0.088 H 0.047 H Valproic Acid 23 L 06/10/19 06/11/19 06/11/19 23:00 05:17 05:17 WBC 6.0 RBC 3.89 L Hgb 11.3 L Hct 37.2 MCV 95.6 MCH 29.0 MCHC 30.4 L RDW Std Deviation 51.7 H RDW Coeff of Liset 14.7 H Plt Count 198 MPV 10.7 Immature Gran % (Auto) 0.700 Neut % (Auto) 53.3 Lymph % (Auto) 33.7 [place] % (Auto) 9.0 Eos % (Auto) 2.8 Baso % (Auto) 0.5 Absolute Neuts (auto) 3.2 Absolute Lymphs (auto) 2.02 Absolute Nucleated RBC 0.00 Nucleated RBC % 0 Sodium 147 H Potassium 3.2 L Chloride 106 Carbon Dioxide 33.0 H Anion Gap 8 BUN 14 Creatinine 0.81 Estim Creat Clear Calc 88.73 Est GFR (MDRD) Af Amer 91 Est GFR (MDRD) Non-Af 75 BUN/Creatinine Ratio 17.2 Glucose 85 Calcium 8.1 L Total Creatine Kinase Troponin I 0.031 Valproic Acid 06/11/19 05:17 WBC RBC Hgb Hct MCV MCH MCHC RDW Std Deviation RDW Coeff of Liset Plt Count MPV Immature Gran % (Auto) Neut % (Auto) Lymph % (Auto) [place] % (Auto) Eos % (Auto) Baso % (Auto) Absolute Neuts (auto) Absolute Lymphs (auto) Absolute Nucleated RBC Nucleated RBC % Sodium Potassium Chloride Carbon Dioxide Anion Gap BUN Creatinine Estim Creat Clear Calc Est GFR (MDRD) Af Amer Est GFR (MDRD) Non-Af BUN/Creatinine Ratio Glucose Calcium Total Creatine Kinase 461 H Troponin I Valproic Acid POC Glucose 06/11/19 06/10/19 06/10/19 06:24 21:25 16:33 POC Glucose 92 144 H 99 Medical Necessity - Tobacco Use Smoking Status: Former smoker Tobacco Use: Non-smoker Assessment/Plan 1. Syncope with fall, abnormal troponin-patient reports she felt dizzy and fell onto the ground, reports she passed out. Enzymes did not trend. EKG without ST-T changes. Fall precautions. PT/OT. Cervical spine CT shows no fracture or dislocation. Brain CT shows no acute intracranial abnormality. Chest x-ray shows no acute thoracic pathology. Left elbow x-ray shows no fracture or dislocation. Hip and pelvis x-ray shows no fracture or dislocation. Patient reports pain all over. Cardiology consulted. To undergo nuclear stress test and echocardiogram. 2. Type 2 diabetes mellitus-hold home oral regimen. Accu-Cheks before meals at bedtime with sliding scale insulin. Check hemoglobin A1C. Prior hemoglobin A1c in 2018 6.2%. 3. CAD?-Unclear history. Normal stress test in 2018. Continue carvedilol, Imdur, statin. Repeat stress test ordered as noted above. 4. Mild rhabdomyolysis, traumatic secondary to #1-CK 460. DC further IV fluids. 5. Chronic kidney disease stage III-at baseline, trend BMP. 6. Hypertension-stable, continue home amlodipine, carvedilol, isosorbide, Lasix regimen. 7. Hyperlipidemia-continue statin. 8. Chronic pain syndrome-reports she follows with pain management. Continue PRN pain regimen. PT/OT. 9. Physical debility with fall prior to admission, unable to get herself up- PT/OT. Requesting SNF at discharge. Case management consult. 10. Chronic hypoxic respiratory failure secondary to chronic COPD-no acute exacerbation. On baseline home O2. DVT prophylaxis- Lovenox sc Discharge planning: Anticipate SNF pending pre-cert. This patient was seen by ARMAAN Alfonso under the supervision of Dr. Tejeda. <Pattie Tejeda - Last Filed: 06/11/19 15:25> - Physical Exam Vital Signs Temp Pulse Resp BP Pulse Ox 98.3 F 76 18 106/61 93 06/11/19 13:20 06/11/19 13:20 06/11/19 13:20 06/11/19 13:20 06/11/19 13:20 Oxygen Flow Rate (L/min) 3 Oxygen Delivery Method Nasal Cannula Weight: 80.1 kg Body Mass Index (BMI) 36.8 Intake and Output for Last 24 Hours 06/09/19 06/10/19 06/11/19 23:59 23:59 23:59 Intake Total 240 / 960 1458 / 1458 Output Total 600 / 600 Balance 240 / 960 858 / 858 Laboratory Tests Past 24 Hrs 06/10/19 06/10/19 06/11/19 19:18 23:00 05:17 WBC 6.0 RBC 3.89 L Hgb 11.3 L Hct 37.2 MCV 95.6 MCH 29.0 MCHC 30.4 L RDW Std Deviation 51.7 H RDW Coeff of Liset 14.7 H Plt Count 198 MPV 10.7 Immature Gran % (Auto) 0.700 Neut % (Auto) 53.3 Lymph % (Auto) 33.7 [place] % (Auto) 9.0 Eos % (Auto) 2.8 Baso % (Auto) 0.5 Absolute Neuts (auto) 3.2 Absolute Lymphs (auto) 2.02 Absolute Nucleated RBC 0.00 Nucleated RBC % 0 Sodium Potassium Chloride Carbon Dioxide Anion Gap BUN Creatinine Estim Creat Clear Calc Est GFR (MDRD) Af Amer Est GFR (MDRD) Non-Af BUN/Creatinine Ratio Glucose Hemoglobin A1c Calcium Total Creatine Kinase Troponin I 0.047 H 0.031 06/11/19 06/11/19 06/11/19 05:17 05:17 05:17 WBC RBC Hgb Hct MCV MCH MCHC RDW Std Deviation RDW Coeff of Liset Plt Count MPV Immature Gran % (Auto) Neut % (Auto) Lymph % (Auto) [place] % (Auto) Eos % (Auto) Baso % (Auto) Absolute Neuts (auto) Absolute Lymphs (auto) Absolute Nucleated RBC Nucleated RBC % Sodium 147 H Potassium 3.2 L Chloride 106 Carbon Dioxide 33.0 H Anion Gap 8 BUN 14 Creatinine 0.81 Estim Creat Clear Calc 88.73 Est GFR (MDRD) Af Amer 91 Est GFR (MDRD) Non-Af 75 BUN/Creatinine Ratio 17.2 Glucose 85 Hemoglobin A1c 6.1 Calcium 8.1 L Total Creatine Kinase 461 H Troponin I POC Glucose 06/11/19 06/11/19 06/10/19 12:58 06:24 21:25 POC Glucose 113 H 92 144 H 06/10/19 16:33 POC Glucose 99 Assessment/Plan This patient was seen in conjunction with Izzy Berman NP. I have i ndependently interviewed and examined the patient and reviewed pertinent historical, laboratory, and other data. Please refer to her note for patient's presentation, findings, and recommendations. Patient was seen and examined. She complains of persistent chest pain that is reproducible. Denied any dizziness or shortness of breath. Underwent stress test that was negative. No acute events overnight. Vitals were reviewed -stable Physical Exam: Gen: Obese, not pale, not jaundiced, alert oriented x3 CVS:HS I +II, regular, no murmurs RESP: Clinically clear to auscultation GI: BS present and normal, nontender, no palpable organs EXT:No edema ASSESSMENT: 1. Syncope/fall, likely secondary to component of polypharmacy 2. Elevated troponin likely secondary to demand ischemia/Type 2 NSTEMI, stress test negative 3. Type II DM 4. CKD stage III 5. Hypertension 6. Hyperlipidemia 7. Chronic pain syndrome 8. Chronic hypoxic respiratory failure secondary to COPD 9. Debility related to above Plan: We will discontinue amlodipine as blood pressures have been unable to actively low Decrease Xanax to 0.5 mg twice daily Discontinue melatonin Social work assisting with discharge to nursing home facility Code Visit Inpatient E&M: 94361 Subs Hosp L2
--- NOTE | 2019-06-11 12:56 | PCM.EXTCARCO ---
- Diet 06/11/19 08:31 Diet: Cardiac, carb controlled - Routine Orders/Code Status Enema Type: Fleetz Enema Frequency: Daily PRN Suppository Type: Dulcolax 10mg Suppository Frequency: Daily PRN O2 Liters per Minute: 2-3 O2 Frequency: Continuous Keep PO Greater than or Equal to (%): 90 Routine Lab Work: - - CBC, BMP Q Week - Wound(s) LEFT ELBOW Wound Type: Skin Tear - Suggestions for Active Care Change Position every (hours): 2 Times a day to sit in chair: 3 - Therapies Physical Therapy: Eval and Treat Occupational Therapy: Eval and Treat - Problem/Diagnosis (1) Diabetes mellitus type 2 Status: Chronic Current Visit: No (2) History of CO (myocardial infarction) Status: Chronic Current Visit: No (3) Hypertension Status: Chronic Current Visit: No (4) Anxiety and depression Status: Chronic Current Visit: No (5) Chronic pain syndrome Status: Chronic Current Visit: No (6) Dyslipidemia Status: Chronic Current Visit: No - Allergies/Procedures Done in Hospital Allergies/Adverse Reactions: Allergies Penicillins Allergy (Verified 06/10/19 10:53) Rash Sulfa (Sulfonamide Antibiotics) Allergy (Verified 06/10/19 10:53) Rash Procedures: 2-D Echocardiogram, Stress Test - Type of Care/Length of Stay Estimated LOS: Convalescent Care Less Than 30 days Type of Care Needed: Skilled Rehab Potential: Fair Prognosis: Fair - Additional Orders/Day of Discharge H&P will serve as current which was dated: 06/11/19 Day of Discharge: 06/12/19 - Follow Up Care Primary Care Physician: Care Physician,No Primary [Primary Care Provider] - Please follow up with your Primary Care Physician in: 1 Week Please Follow Up With: Andres Alcantar DO When: As scheduled, 06/25/2019
[2019-06-11 13:11] LABS: Bedside Glucose 113 mg/dL (70-110)
[2019-06-11 13:16] LABS: Hemoglobin A1c 6.1 % (4.2-6.3)
--- NOTE | 2019-06-11 13:17 | STRESSREP ---
Stress Test Report Pharmacologic myocardial perfusion stress test. 63-year-old lady with a history of abnormal troponin. Stress protocol: Resting EKG demonstrates normal sinus rhythm with a rate of 80 bpm normal intervals are noted resting blood pressures 100/60 meters of mercury. 0.4 mg of regadenoson was infused per usual protocol followed by rapid intravenous saline flush injection continuous EKG monitoring was performed. The maximum heart rate attained was 100 bpm which was 64% of maximum predicted heart rate and maximum workload was 1 metabolic equivalent. At rest there were no ST or T wave changes noted suggest abnormal flow reserve at peak infusion nonspecific ST-T wave changes were noted we do not suggest ischemia. No clinical angina was noted. The resting blood pressure was 100/60 mmHg. Myocardial perfusion protocol. 10.0 mCi of technetium 99m sestamibi was injected at rest. 0.4 mg of regadenoson was infused per usual protocol. At peak infusion 32.3 mCi of technetium 99m sestamibi was injected stress images were obtained stress and rest images were reconstructed and compared in the short axis vertical and horizontal long axis. Gated images were also obtained per Perfusion SPECT analysis: Review of the stress images demonstrate normal uptake of tracer noted in all areas of myocardium the resting images similarly demonstrate normal uptake of tracer noted in all areas of the myocardium. No obvious areas of reversibility are noted suggest ischemia. Gated SPECT analysis: Gated images could not be obtained. Conclusion: Normal pharmacologic myocardial perfusion stress test.
[2019-06-11] MEDS: Acetaminophen 325 MG Tablet 650 MG PO ×2 (13:26→20:12)
[2019-06-11] MEDS: amLODIPine 2.5 MG Tablet PO (13:27)
[2019-06-11] MEDS: Pantoprazole Sodium 40 MG Tablet PO (13:27)
[2019-06-11] MEDS: QUEtiapine 25 MG Tablet 50 MG PO (13:27)
[2019-06-11] MEDS: Carvedilol 6.25 MG Tablet PO (13:28)
[2019-06-11] MEDS: Loratadine 10 MG Tablet PO (13:28)
[2019-06-11] MEDS: Divalproex Sodium 125 MG SPRINKLE PO ×2 (13:28→22:16)
[2019-06-11] MEDS: Isosorbide Mononitrate 60 MG Tablet PO (13:29)
[2019-06-11] MEDS: Furosemide 20 MG Tablet PO (13:29)
[2019-06-11] MEDS: Topiramate 50 MG Tablet PO ×2 (13:29→22:13)
[2019-06-11] MEDS: Enoxaparin 40 MG/0.4 ML Syringe SC (13:30)
--- NOTE | 2019-06-11 13:50 | CASEMGMT ---
SW submitted all necessary information to [facility] in order to obtain a level of care. LATOSHA also spoke with Hope at [facility] and she said patient will not lose her apartment unless she is at [facility] longer than 90 days. SW will let patient know [facility] can take her and that she will not lose her apartment. Plan: [facility] under intermediate level of care pending receipt of level of care from [facility]. Chela AGUILAR MSW
[2019-06-11 16:30] LABS: Bedside Glucose 146 mg/dL (70-110)
[2019-06-11] MEDS: Lactated Ringers 1,000 ML 100 ML IV (17:05)
[2019-06-11] MEDS: 0.9% NaCl Peripheral Flush Adult/Peds IV (20:14)
[2019-06-11] MEDS: ALPRAZolam 0.5 MG Tablet PO (22:11)
[2019-06-11] MEDS: QUEtiapine 100 MG Tablet 200 MG PO (22:13)
[2019-06-11] MEDS: Atorvastatin Calcium 20 MG Tablet PO (22:15)
[2019-06-11] MEDS: Pramipexole Di-HCl 0.5 MG Tablet PO (22:16)
[2019-06-11] MEDS: Fluticasone 0.05% 1 SPRAY NASAL.SRY NASAL (22:18)
[2019-06-11 22:55] LABS: Bedside Glucose 114 mg/dL (70-110)
[2019-06-12] VITALS (8 sets, daily range): BP systolic 88–117; BP diastolic 55–65; PULSE 74–95; RESP 14–18; TEMP 36.9–37.8; O2SAT 90–95
[2019-06-12] MEDS: Lactated Ringers 1,000 ML 100 ML IV (03:30)
[2019-06-12 06:00] LABS: Hematocrit 35.6 % (37-47); Mean Corp Hgb Conc 30.9 g/dL (32-36); Mean Corpuscular Hgb 30.1 pg (27.0-32.0); Mean Corpuscular Volume 97.5 fL (81-99); Mean Platelet Vol. 10.8 fl (6.2-12.0); Platelet Count 187 K/mm3 (150-450); RBC Distribution Width CV 14.6 % (11.6-14.6); RBC Distribution Width SD 51.8 fl (35.1-43.9); Red Blood Count 3.65 M/mm3 (4.2-5.4); White Blood Count 5.7 K/mm3 (4.4-11.0)
[2019-06-12 06:21] LABS: Anion Gap 6 (5-15); BUN 12 mg/dL (7-18); BUN/Creat Ratio 16.5 RATIO (10-20); Calcium,Total 8.2 mg/dL (8.5-10.1); Chloride 107 mmol/L (98-107); Creatinine, Serum 0.73 mg/dL (0.55-1.02); EST Glomerular Filtration Rate 85 mL/min (>60); Est Glom Filt Rate - Afr Amer 103 mL/min (>60); Estimated Creatinine Clearance 98.45 ml/min; Glucose 86 mg/dL (74-106); Potassium 3.7 mmol/L (3.5-5.1); Sodium Level 145 mmol/L (136-145)
[2019-06-12] MEDS: Dicyclomine 10 MG Capsule PO (07:12)
[2019-06-12 07:20] LABS: Bedside Glucose 108 mg/dL (70-110)
[2019-06-12] MEDS: Ondansetron 4 MG/2 ML Vial IV (08:42)
[2019-06-12] MEDS: Acetaminophen 325 MG Tablet 650 MG PO (08:42)
[2019-06-12] MEDS: ALPRAZolam 0.5 MG Tablet PO (09:18)
[2019-06-12] MEDS: Enoxaparin 40 MG/0.4 ML Syringe SC (09:19)
[2019-06-12] MEDS: Topiramate 50 MG Tablet PO (09:19)
[2019-06-12] MEDS: Carvedilol 6.25 MG Tablet PO (09:19)
[2019-06-12] MEDS: Furosemide 20 MG Tablet PO (09:19)
[2019-06-12] MEDS: Pregabalin 75 MG Capsule PO (09:19)
[2019-06-12] MEDS: Loratadine 10 MG Tablet PO (09:19)
[2019-06-12] MEDS: Divalproex Sodium 125 MG SPRINKLE PO (09:19)
[2019-06-12] MEDS: Isosorbide Mononitrate 60 MG Tablet PO (09:19)
[2019-06-12] MEDS: QUEtiapine 25 MG Tablet 50 MG PO (09:19)
[2019-06-12] MEDS: oxyCODONE CR 15 MG Tablet PO (09:20)
--- NOTE | 2019-06-12 09:58 | CASEMGMT ---
Received level of care from [facility]. LATOSHA faxed orders to [facility] including level of care. Convalescent was completed on [facility]. Patient wanted to talk with LATOSHA. She said she thinks she will give it one more try at [facility]. LATOSHA told her the discharge plan has already been finalized according to what she originally asked for which is to go to [facility]. She said she needs her glasses and money her mom sent to her. LATOSHA told her SW will check with [facility] to see if they can bring her this stuff. LATOSHA spoke with Zulema at [facility] and Hope brought patient's glasses in yesterday and gave them to the nurse. After awhile we were able to figure out her glasses were dropped off at the [facility] front end [facility]. LATOSHA gave them to RN who then gave them to patient. They will bring her whatever else she needs later on today as they have meetings all morning. LATOSHA let patient know this information. LATOSHA called [facility] and arranged for patient to get picked up at 1030a via cot. LATOSHA notified RN, unit secretary, and patient. LATOSHA left a message for Melissa with [facility] on her cell phone as their regular phones are down. Plan: d/c to [facility] under intermediate level of care on a convalescent stay. [facility] transported her via cot as patient could not or would not stand and pivot or walk for staff. Chela AGUILAR MSW
--- NOTE | 2019-06-12 10:00 | NURSING ---
report called to [place]
--- NOTE | 2019-06-12 10:29 | PCM.DC.SUM ---
<Izzy Berman - Last Filed: 06/12/19 10:49> Discharge Date and Diagnosis Date of Admission: 06/10/19 Date of Discharge: 06/12/19 - Primary Discharge Diagnosis 1. Syncope with fall, abnormal troponin-ACS ruled out. 2. Type 2 diabetes mellitus 3. CAD 4. Mild rhabdomyolysis, traumatic secondary to #1 5. Chronic kidney disease stage III 6. Hypertension 7. Hyperlipidemia 8. Chronic pain syndrome 9. Physical debility with fall prior to admission 10. Chronic hypoxic respiratory failure secondary to chronic COPD 11. Anxiety 12. Polypharmacy - Secondary Discharge Diagnosis Chronic Problems Diabetes mellitus type 2 (Chronic) History of MN (myocardial infarction) (Chronic) Hypertension (Chronic) Anxiety and depression (Chronic) Chronic pain syndrome (Chronic) Dyslipidemia (Chronic) Hospital Course and Treatment Imaging Results: Diagnostic Data Brain CT 06/10/19 11:08 IMPRESSION: No acute intracranial abnormality. Electronically Signed: Maverick Mendoza, at 12:11 EDT Tel , Service support , Cervical Spine CT 06/10/19 11:08 IMPRESSION: No fracture or dislocation in the cervical spine. Mild degenerative change. Straightening of the normal cervical lordosis which may be due to paraspinal muscle spasm or may be positional in nature. Electronically Signed: Maverick Mendoza, at 12:16 EDT Tel , Service support , Chest X-Ray 06/10/19 11:52 IMPRESSION: No acute thoracic pathology. Electronically Signed: Maverick Mendoza, at 12:23 EDT Tel , Service support , Elbow X-Ray 06/10/19 11:52 IMPRESSION: No fracture or dislocation. Electronically Signed: Maverick Mendoza, at 12:22 EDT Tel , Service support , Hip/Pelvis X-Ray 06/10/19 11:52 IMPRESSION: No fracture or dislocation in the pelvis or left hip. Mild degenerative change. Electronically Signed: Maverick Mendoza, at 12:21 EDT Tel , Service support , Consultations 06/10/19 16:04 Consult: Onc/Wound/collateral clerk Routine Comment: Reason for Consult:: BL feet wounds Dr. Funez/Dr. Vazquez- Cardiology Operations: None Procedures: 2-D Echocardiogram, Stress test Summary of Care Provided: The patient is a 63 year old F admitted 06/10/2019 due to fall and generalized pain. 1. Syncope with fall, abnormal troponin-ACS ruled out. Patient reports she felt dizzy and fell onto the ground, reports she passed out. Enzymes did not trend. EKG without ST-T changes. Cervical spine CT shows no fracture or dislocation. Brain CT shows no acute intracranial abnormality. Chest x-ray shows no acute thoracic pathology. Left elbow x-ray shows no fracture or dislocation. Hip and pelvis x-ray shows no fracture or dislocation. Cardiology consulted. Echocardiogram showed an EF of 65%, pulmonary artery systolic pressure 33 mmHg. Patient underwent nuclear stress test which was negative for ischemia. Follow-up with primary care provider in 1 week. 2. Type 2 diabetes mellitus-continue home regimen. Hemoglobin A1c 6.1%. 3. CAD?-Unclear history. Normal stress test as noted above. Continue carvedilol, Imdur, statin. 4. Mild rhabdomyolysis, traumatic secondary to #1-CK 460. DC further IV fluids. 5. Chronic kidney disease stage III-at baseline. 6. Hypertension-stable, continue home amlodipine, carvedilol, isosorbide, Lasix regimen. 7. Hyperlipidemia-continue statin. 8. Chronic pain syndrome-reports she follows with pain management. 9. Physical debility with fall prior to admission, unable to get herself up-PT/OT. SNF at discharge. 10. Chronic hypoxic respiratory failure secondary to chronic COPD-no acute exacerbation. On baseline home O2. Patient follows with Dr. Alcantar, continue routine follow-up. 11. Anxiety-recommend slowly tapering off of benzodiazepines as this can be contributing to patient's falls. 12. Polypharmacy-patient is on many medications which can be contributed to frequent falls. Recommend reviewing list with primary care provider and reducing medications, tapering benzodiazepines and narcotic regimen. General: Alert, Oriented x3, Cooperative HEENT: Atraumatic, PERRLA, EOMI, Normocephalic Oral: Dry Mucosa Neck: Supple, No JVD, Negative Carotid Bruits Lungs: Clear to auscultation, Diminished Cardiovascular: Regular rate, Regular Rhythm, Normal S1, Normal S2, No murmurs Abdomen: Bowel Sounds Present, Soft, Non Tender, Non-Distended Extremities: No clubbing, No cyanosis, Capillary Refill Less than 3 Seconds, Edema - Nonpitting bilateral lower extremities Skin: No rashes, No breakdown, - - Chronic skin changes bilateral lower extremities. Multiple abrasions bilateral feet. Musculoskeletal: No Tenderness to Palpation of Joints or Extremities Neurological: Cranial nerves II-XII grossly intact, Neuro grossly intact Psych/Mental Status: Appropriate, Anxious Patient seen and examined prior to discharge. Physical assessment as noted above. Patient is stable for discharge with follow up recommendations as noted above. This patient was seen by ARMAAN Alfonso under the supervision of Dr. Tejeda. - Physical Exam Vital Signs Temp Pulse Resp BP Pulse Ox 100.1 F H 95 14 117/65 95 06/12/19 08:34 06/12/19 08:34 06/12/19 08:34 06/12/19 08:34 06/12/19 08:34 Oxygen Flow Rate (L/min) 3.5 Oxygen Delivery Method Nasal Cannula Weight: 176 lb 9.444 oz Body Mass Index (BMI) 36.8 Intake and Output for Last 24 Hours 06/10/19 06/11/19 06/12/19 23:59 23:59 23:59 Intake Total 240 / 960 1458 / 1458 1751 / 1751 Output Total 600 / 600 675 / 675 Balance 240 / 960 858 / 858 1076 / 1076 Laboratory Tests Past 24 Hrs 06/11/19 06/11/19 06/12/19 05:17 05:17 05:20 WBC 5.7 RBC 3.65 L Hgb 11.0 L Hct 35.6 L MCV 97.5 MCH 30.1 MCHC 30.9 L RDW Std Deviation 51.8 H RDW Coeff of Liset 14.6 Plt Count 187 MPV 10.8 Sodium Potassium Chloride Carbon Dioxide Anion Gap BUN Creatinine Estim Creat Clear Calc Est GFR (MDRD) Af Amer Est GFR (MDRD) Non-Af BUN/Creatinine Ratio Glucose Hemoglobin A1c 6.1 Calcium Total Creatine Kinase 461 H 06/12/19 05:20 WBC RBC Hgb Hct MCV MCH MCHC RDW Std Deviation RDW Coeff of Liset Plt Count MPV Sodium 145 Potassium 3.7 Chloride 107 Carbon Dioxide 32.0 Anion Gap 6 BUN 12 Creatinine 0.73 Estim Creat Clear Calc 98.45 Est GFR (MDRD) Af Amer 103 Est GFR (MDRD) Non-Af 85 BUN/Creatinine Ratio 16.5 Glucose 86 Hemoglobin A1c Calcium 8.2 L Total Creatine Kinase POC Glucose 06/12/19 06/11/19 06/11/19 07:13 22:23 16:04 POC Glucose 108 114 H 146 H 06/11/19 12:58 POC Glucose 113 H Home Medications: Medications to take at Discharge Tiotropium [place] [Spiriva 18 MCG] 1 puff INHALATION DAILY 01/30/18 Amlodipine Besylate 2.5 mg PO DAILY 04/10/19 Quetiapine Fumarate 200 mg PO QHS 04/10/19 Acetaminophen [Tylenol Arthritis] 650 mg PO BID 05/03/19 Carvedilol 6.25 mg PO BID 05/03/19 Cetirizine HCl [Zyrtec] 10 mg PO DAILY 05/03/19 Dicyclomine HCl 10 mg PO 4X/DAY 05/03/19 Pantoprazole Sodium [Protonix] 40 mg PO DAILY 05/03/19 Pregabalin [Lyrica] 75 mg PO BID 05/03/19 Quetiapine Fumarate 50 mg PO DAILY 05/03/19 Ropinirole HCl 1 mg PO QHS 05/03/19 Ascorbic Acid [Vitamin C] 500 mg PO DAILY 06/03/19 Atorvastatin Calcium [Lipitor] 20 mg PO QHS 06/03/19 Dextromethorphan HBr [Tussin Cough] 15 mg PO Q4H PRN PRN 06/03/19 Divalproex Sodium [Depakote Sprinkle] 125 mg PO BID 06/03/19 Fluticasone 0.05% [Flonase Nasal [place]] 1 spray NASAL QHS 06/03/19 Furosemide [Lasix] 20 mg PO DAILY 06/03/19 Guaifenesin [Mucinex] 600 mg PO BID 06/03/19 Ibuprofen 600 mg PO TID 06/03/19 Isosorbide Mononitrate [Imdur] 60 mg PO DAILY 06/03/19 Puposky-3 Fatty Acids/Fish Oil [Fish Oil 1,000 mg Capsule] 1 ea PO BID 06/03/19 Polyethylene Glycol 3350 [Miralax] 17 gm PO DAILY 06/03/19 Acetaminophen [Tylenol] 650 mg PO Q4H PRN PRN 06/05/19 Prazosin HCl 1 mg PO QHS 06/05/19 Prazosin HCl 2 mg PO QHS 06/05/19 Topiramate [Topamax] 50 mg PO BID 06/05/19 metFORMIN HCl [Glucophage] 500 mg PO BIDCM 06/05/19 Aspirin/Acetaminophen/Caffeine [Excedrin Migraine Caplet] 1 ea PO Q4H PRN PRN 06/10/19 Cholecalciferol (VIT D3) [Vitamin D3] 1,000 unit PO DAILY 06/10/19 Magnesium Hydroxide [Milk Of Magnesia] 30 ml PO DAILY PRN PRN 06/10/19 Melatonin 3 mg PO QHS PRN PRN 06/10/19 Ondansetron [Zofran Odt] 4 mg PO Q6H PRN PRN 06/10/19 ALPRAZolam [Xanax] 0.5 mg PO TID #6 tab 06/11/19 Oxycodone Myristate [Xtampza ER] 13.5 mg PO BID #4 cap.spr.12 06/11/19 Following Prescrptions Were Given to Patient: ALPRAZolam [Xanax] 0.5 mg PO TID #6 tab Prescription Printed Oxycodone Myristate [Xtampza ER] 13.5 mg PO BID #4 cap.spr.12 Prescription Printed Primary Care Physician: Care Physician,No Primary [Primary Care Provider] - Please follow up with your Primary Care Physician in: 1 Week Please Follow Up With: Andres Alcantar DO When: As scheduled, 06/25/2019 Disposition: Assisted facility Minutes spent on discharge:: 35 Patient Condition:: Stable Medical Necessity - Tobacco Use Smoking Status: Former smoker Tobacco Use: Non-smoker Meaningful Use Info Meaningful Use Diagnoses (Choose all that apply): None applicable <[place] - Last Filed: 06/13/19 07:29> Discharge Date and Diagnosis - Secondary Discharge Diagnosis Chronic Problems Diabetes mellitus type 2 (Chronic) History of MN (myocardial infarction) (Chronic) Hypertension (Chronic) Anxiety and depression (Chronic) Chronic pain syndrome (Chronic) Dyslipidemia (Chronic) Hospital Course and Treatment Consultations 06/10/19 16:04 Consult: Onc/Wound/collateral clerk Routine Comment: Reason for Consult:: BL feet wounds Summary of Care Provided: This patient was seen in conjunction with Izzy Berman NP. I have independently interviewed and examined the patient and reviewed pertinent historical, laboratory, and other data. Please refer to her note for patient's presentation, findings, and recommendations. 63-year-old female with multiple comorbidities who comes in after a fall and syncope. Patient admitting EKG showed no acute ST-T changes. Imaging of the head, neck, elbow, hip and pelvis showed no fractures or dislocation. Patient had a 2D echo done which showed an EF of 65%. She had slight elevation in her troponin and cardiology was consulted. Stress test was done and was unremarkable. She was seen by physical and occupational therapy and skilled for subacute care. On the day of discharge, patient denied any new complaints, she feels the same. She complains of multiple nonspecific symptoms. Physical Exam: Gen: Obese, comfortable, not pale, not jaundiced, alert oriented x3 CVS:HS I +II, regular, no murmurs RESP: CTA GI: BS present and normal, nontender, no palpable organs EXT:No edema ASSESSMENT: 1. Syncope/fall, likely secondary to component of polypharmacy 2. Elevated troponin likely secondary to demand ischemia/Type 2 NSTEMI, stress test negative 3. Type II DM 4. CKD stage III 5. Hypertension 6. Hyperlipidemia 7. Chronic pain syndrome 8. Chronic hypoxic respiratory failure secondary to COPD 9. Debility related to above - Physical Exam Vital Signs Temp Pulse Resp BP Pulse Ox 100.1 F H 95 14 117/65 95 06/12/19 08:34 06/12/19 08:34 06/12/19 08:34 06/12/19 08:34 06/12/19 08:34 Oxygen Flow Rate (L/min) 3.5 Oxygen Delivery Method Nasal Cannula Weight: 80.1 kg Body Mass Index (BMI) 36.8 Intake and Output for Last 24 Hours 06/11/19 06/12/19 06/13/19 23:59 23:59 23:59 Intake Total 1458 / 1458 1751 / 1751 Output Total 600 / 600 675 / 675 Balance 858 / 858 1076 / 1076 Code Visit Inpatient E&M: 88472 Disch Hosp
== END 2019-06-12 10:24 | disposition intermediate care facility (04) | DRG 204 ==
LOC: ED 11:41 → PCU 06-11 07:01
PROVIDERS: Internal Medicine; Nurse Practitioner Family; Admitting Provider Family Medicine; Emergency Provider Emergency Medicine; Visit Provider Student in an Organized Health Care Education/Training Program
DX: R55 Syncope and collapse (principal); J96.11 Chronic respiratory failure with hypoxia; E11.22 Type 2 diabetes mellitus with diabetic chronic kidney disease; T79.6XXA Traumatic ischemia of muscle, initial encounter; N18.3 Chronic kidney disease, stage 3 (moderate); T50.905A Adverse effect of unspecified drugs, medicaments and biological substances, initial encounter; E78.5 Hyperlipidemia, unspecified; G89.4 Chronic pain syndrome; R53.81 Other malaise; Z99.81 Dependence on supplemental oxygen; I25.10 Atherosclerotic heart disease of native coronary artery without angina pectoris; Z87.891 Personal history of nicotine dependence; W18.30XA Fall on same level, unspecified, initial encounter; Y92.099 Unspecified place in other non-institutional residence as the place of occurrence of the external cause; Z79.84 Long term (current) use of oral hypoglycemic drugs; I12.9 Hypertensive chronic kidney disease with stage 1 through stage 4 chronic kidney disease, or unspecified chronic kidney disease; F41.9 Anxiety disorder, unspecified; I25.2 Old myocardial infarction; R79.89 Other specified abnormal findings of blood chemistry; Z79.899 Other long term (current) drug therapy; Z79.51 Long term (current) use of inhaled steroids
CPT/HCPCS: 36415; 70450; 71046; 72125; 73080; 73502; 78452; 80048; 80164; 82550; 82962; 83036; 84484; 85025; 85027; 93005; 93017; 93306; 96372; 96374; 96375; 96376; 99218; 99285; A9500; J7030; J7120; Q9957; A4216; C8929; G0378; J2405; J2785

== ENCOUNTER 2019-06-26 17:53 | Emergency (ER) | payer MEDICAID, SELFPAY ==
[2019-06-25 07:48] VITALS: BMI 38.9
[2019-06-26 17:53] VITALS: BP 146/83; PULSE 89; RESP 14; TEMP 36.7; O2SAT 99; BMI 36.6
--- NOTE | 2019-06-26 17:59 | EKG12_ITS ---
Test Reason : CP Blood Pressure : / mmHG Vent. Rate : 078 BPM Atrial Rate : 078 BPM P-R Int : 168 ms QRS Dur : 088 ms QT Int : 400 ms P-R-T Axes : 061 024 015 degrees QTc Int : 456 ms Normal sinus rhythm Nonspecific T wave abnormality Abnormal ECG Confirmed by ZOILA DAUGHERTY ([id number]), editorial project manager MANISHA VELASCO ([id number]) on 07/02/2019 1:13:37 PM Referred By: CITLALY
[2019-06-26 18:00] VITALS: O2SAT 100
--- NOTE | 2019-06-26 18:00 | RAD_ITS ---
STUDY: X-RAY CHEST REASON FOR EXAM: Female, 63 years old. Chest pain TECHNIQUE: Frontal view of the chest COMPARISON: X-ray chest June 10, 2019 FINDINGS: The lungs are clear. There are no pleural effusions. There is no pneumothorax. The heart is normal in size. The visualized osseous structures are within normal limits. Right shoulder arthroplasty is in place. RAD/Chest 1 View (Portable) IMPRESSION: No acute thoracic pathology. Electronically Signed: Johan Gutierrez, at 18:20 EDT Tel , Service support ,
[2019-06-26 19:02] LABS: Anion Gap 8 (5-15); BUN 13 mg/dL (7-18); BUN/Creat Ratio 14.1 RATIO (10-20); Calcium,Total 9.2 mg/dL (8.5-10.1); Chloride 105 mmol/L (98-107); Creatinine, Serum 0.92 mg/dL (0.55-1.02); EST Glomerular Filtration Rate 65 mL/min (>60); Est Glom Filt Rate - Afr Amer 78 mL/min (>60); Estimated Creatinine Clearance 77.63 ml/min; Glucose 93 mg/dL (74-106); Potassium 3.4 mmol/L (3.5-5.1); Sodium Level 139 mmol/L (136-145)
[2019-06-26] MEDS: Ondansetron 4 MG/2 ML Vial IV (19:05)
[2019-06-26] MEDS: Nitroglycerin SL (ED/IMG/CATH) 0.4 MG TABLET SUBLINGUAL (19:15)
[2019-06-26 19:16] VITALS: BP 136/80; PULSE 92; RESP 18; O2SAT 99
[2019-06-26 19:21] VITALS: BP 109/78; PULSE 89; RESP 18; O2SAT 99
--- NOTE | 2019-06-26 19:23 | ED.RN ---
PT REFUSES ANY MORE NITRO STATES NITRO DOESN'T DO ANYTHING FOR ME AND NEITHER DOES ZOFRAN, ASK THE DOCTOR FOR MORPHINE AND PHENERGAN. DR. ORTEGA MADE AWARE, NO FURTHER ORDERS AT THIS TIME, WILL CONTINUE TO MONITOR THE PT.
[2019-06-26 19:24] LABS: Absolute Lymphocyte Count 2.46 X10^3/uL (0.83-4.51); Absolute Neutrophil Count 6.4 X10^3/uL (2.0-7.7); Basophil# 0.05 X10^3/uL; Basophil% 0.5 % (0-1); Eosinophil# 0.09 X10^3/uL; Eosinophils% 0.9 % (0-5); Hematocrit 40.1 % (37-47); Hemoglobin 12.8 g/dL (12.0-15.0); Lymphocyte # 2.46 X10^3/ul (4.0); Lymphocyte % 25.2 % (19-41); Mean Corp Hgb Conc 31.9 g/dL (32-36); Mean Corpuscular Volume 93.9 fL (81-99); Mean Platelet Vol. 10.1 fl (6.2-12.0); Monocyte# 0.69 X10^3/uL; Monocyte% 7.1 % (0-10); NRBC Flagged by Analyzer 0 % (0-5); Neutrophil % 65.7 % (47-70); Platelet Count 306 K/mm3 (150-450); RBC Distribution Width CV 14.3 % (11.6-14.6); RBC Distribution Width SD 48.5 fl (35.1-43.9); Red Blood Count 4.27 M/mm3 (4.2-5.4); White Blood Count 9.8 K/mm3 (4.4-11.0)
[2019-06-26 19:33] LABS: International Normalized Ratio 1.2; Prothrombin Time (Protime)PT. 14.9 SECONDS (11.7-14.9)
--- NOTE | 2019-06-26 19:46 | ED.RN ---
PT HAS CALLED OUT MULTIPLE TIMES FOR MEDICATIONS, DR. ORTEGA MADE AWARE NO FURTHER ORDERS AT THIS TIME. THIS NURSE EXPLAINED TO THE PT THAT THERE ARE NO ORDERS AT THIS TIME, REPOSITIONED PT, TURNED UP THE HEAT, GAVE BLANKETS, TURNED DOWN THE LIGHTS PER PT REQUEST. PT CONTINUES TO VOCALIZE DISPLEASURE. WILL CONTINUE TO MONITOR THE PT.
[2019-06-26 20:00] VITALS: BP 115/81; PULSE 90; RESP 16; O2SAT 98
--- NOTE | 2019-06-26 20:09 | ED.DCSUM_ITS ---
- ER Visit Summary Date of Service: 06/26/19 Chief Complaint: Chest pain History of Present Illness: The patient is a 63 F who presents with chest pain that began approxi-2 hours prior to arrival. Patient states the pain is over the left chest and radiates to her left arm and left leg. Patient states the pain is worse with movement and with deep breathing. Patient states nothing seems to help with the pain. Patient states she is out of her pain medication from her pain management physician and is not due for refill until 06/29/2019. Patient denies any nausea or vomiting. Patient does admit to some shortness of breath. Patient admits to subjective fevers and a cough. Patient states she is coughing up some yellow sputum. Patient does have a history of hypertension and diabetes. Physical Examination: Vital signs are stable. Patient is afebrile. Patient is in no acute distress. Oral mucosa is pink and moist. Neck is supple. Trachea is midline. There is no JVD noted. Heart was regular rate and rhythm. Lungs are clear and equal bilateral. Abdomen is soft. Bowel sounds are normal. There is no tenderness. There is no guarding noted. Skin is warm dry. Cranial nerves II through XII are intact. There are no focal motor or sensory deficits noted. The remaining physical exam is within normal limits. Test Results: EKG showed a normal sinus rhythm with a rate of 87. There are no acute ST or T wave changes noted. CBC, basic metabolic profile, and troponin were obtained and were normal. Portable chest x-ray does not show any acute cardiopulmonary process. Emergency Department Course and Treatment: Patient was given nitroglycerin and Zofran. Patient states she had no improvement of her symptoms with this. Patient was given 1 dose of morphine and Phenergan here. Patient was instructed to follow-up with her primary care physician in 2 to 3 days for reevaluation. Review of her recent stress test on 06/11/2019 showed that there was no ischemic changes. This was a normal stress test. Patient has a HEART score of 3. Patient was advised that this is low risk for acute cardiac event. Patient understood and was agreeable with the plan. Plan to the patient being discharged she stated to nursing staff that she was suicidal. Patient states that if she was discharged home she would go and cut her wrist. Crisis counselor was asked to evaluate the patient. She feels the patient would benefit from inpatient treatment. She is attempting to place the patient in a psychiatric facility. Disposition: Transfer to psychiatric facility Impression: 1. Depression with suicidal ideation 2. Chest pain of uncertain etiology This note was generated with [employer] dictation software. It may contain incorrect words, spelling, and punctuation that were not noted in review of the chart prior to signing ED Disposition - Plan for ED Patient: Disposition: Home or Assisted Living Diagnosis: Chest pain of uncertain etiology, Chronic pain syndrome, Depression with suicidal ideation Instructions: CHEST PAIN, Uncertain Cause
[2019-06-26] MEDS: proMETHazine 25 MG/ML Syringe 6.25 MG IV (20:15)
[2019-06-26] MEDS: Morphine 2 MG/ML Syringe IV ×2 (20:16→23:29)
--- NOTE | 2019-06-26 20:25 | ED.RN ---
PT STATED TO THIS NURSE THAT SHE IS SUICIDAL AND HAS A PLAN TO SLIT HER WRISTS AT THE GROUP HOME.
--- NOTE | 2019-06-26 20:38 | CM.ED ---
SOCIAL WORK UPDATED BY NURSING, PATIENT STATING SUICIDAL IDEATION. EXHAUSTER ENGINEER, LISA HERE TO EVALUATE PATIENT. SHAISTA SLAUGHTER, RAILWAY SIGNAL TECHNICIAN, SQL DATABASE DEVELOPER.
--- NOTE | 2019-06-26 20:39 | ED.RN ---
PER DR. ORTEGA [facility] WAS CALLED AND A SITTER IS AT BEDSIDE, SUICIDE PRECAUTIONS INITIATED AT 2019
--- NOTE | 2019-06-26 20:49 | ED.RN ---
PER DR. ORTEGA PT IS TO HAVE A SITTER NOW THAT SHE REPORTS SI. SITTER AT BEDSIDE. [facility] CONTACTED REGARDING PT NEEDING TO BE SEEN.
[2019-06-26 21:50] LABS: Amphetamine Urine VISTA NEGATIVE (<1000 ng/mL); Barbiturate Urine VISTA NEGATIVE (< 200 ng/mL); Benzodiazepine Urine VISTA POSITIVE (< 200 ng/mL); Cocaine Urine VISTA NEGATIVE (< 300 ng/mL); Ecstacy Urine VISTA NEGATIVE (< 500 ng/mL); Methadone Urine VISTA NEGATIVE (< 300 ng/mL); PCP Urine VISTA NEGATIVE (< 25 ng/mL); THC Urine VISTA NEGATIVE (< 50 ng/mL); Vista UDS pH Range 7
--- NOTE | 2019-06-26 21:50 | ED.RN ---
[facility] UPDATED ON PT STATUS.)
[2019-06-26 23:08] LABS: Bacteria 0 SEEN /hpf (None Seen); Mucous, Urine 0 SEEN /hpf (<or=2+); Red Blood Cells-Urine 0 SEEN /hpf (0-5); Squamous Epithelial Cells - UA 0 SEEN /hpf (5-10); White Blood Cells 0 SEEN /hpf (0-5)
[2019-06-26 23:11] LABS: Color, Urine Yellow (Yellow); Glucose, Dipstick Normal (Normal); Ketone-Dipstick Negative (Negative); Leukocyte Esterase-Dipstick Negative /ul (Negative); Nitrite-Dipstick Negative (Negative); Occult Blood-Urine Negative /ul (Negative); Protein-Dipstick Negative (Negative); Specific Gravity, Urine 1.005 (1.002-1.030); Urine Bilirubin Dipstick Negative (Negative); Urine Clarity Clear (Clear); Urine Urobilinogen Normal (Normal)
[2019-06-26] MEDS: Doxazosin 1 MG Tablet 2.5 MG PO (23:31)
[2019-06-26] MEDS: ALPRAZolam 0.5 MG Tablet PO (23:32)
[2019-06-26] MEDS: Pramipexole Di-HCl 0.5 MG Tablet PO (23:32)
[2019-06-26] MEDS: DiphenhydrAMINE 25 MG Capsule PO (23:32)
[2019-06-26] MEDS: QUEtiapine 100 MG Tablet PO (23:32)
[2019-06-26 23:34] VITALS: BP 132/73; PULSE 91; RESP 16; O2SAT 94
[2019-06-27] VITALS (18 sets, daily range): BP systolic 117–145; BP diastolic 45–88; PULSE 75–93; RESP 14–22; O2SAT 94–98
[2019-06-27] MEDS: Acetaminophen 500 MG Tablet 1000 MG PO (05:36)
[2019-06-27] MEDS: oxyCODONE 5 MG Tablet PO (06:05)
[2019-06-27] MEDS: ALPRAZolam 0.5 MG Tablet PO ×2 (06:05→23:48)
[2019-06-27] MEDS: Pregabalin 75 MG Capsule PO ×2 (06:05→22:47)
[2019-06-27] MEDS: Carvedilol 6.25 MG Tablet PO ×2 (07:33→17:35)
[2019-06-27] MEDS: Divalproex Sodium 125 MG SPRINKLE PO ×2 (07:33→17:35)
[2019-06-27] MEDS: metFORMIN HCl 500 MG Tablet PO ×2 (07:33→17:35)
[2019-06-27] MEDS: Ondansetron 4 MG/2 ML Vial IV ×3 (08:05→20:56)
--- NOTE | 2019-06-27 08:19 | ED.RN ---
PER AUGUSTO SCHMITT THEY ARE DECLINING PT DUE TO HER ACUITY LEVEL
--- NOTE | 2019-06-27 08:21 | NURSING ---
VITOR WITH [facility]IS AWARE THAT PT IS DECLINED AT [facility]
--- NOTE | 2019-06-27 09:36 | ED.RN ---
[facility] IS WAITING ON A RESPONSE FROM [facility]
[2019-06-27] MEDS: Isosorbide Mononitrate 60 MG Tablet PO (09:53)
[2019-06-27] MEDS: Furosemide 20 MG Tablet PO (09:53)
[2019-06-27] MEDS: Loratadine 10 MG Tablet PO (09:53)
[2019-06-27] MEDS: Pantoprazole Sodium 40 MG Tablet PO (09:53)
[2019-06-27] MEDS: Topiramate 50 MG Tablet PO ×2 (09:54→22:47)
[2019-06-27] MEDS: QUEtiapine 25 MG Tablet 50 MG PO (09:54)
[2019-06-27] MEDS: Morphine 4 MG/ML Syringe IV (09:55)
--- NOTE | 2019-06-27 10:37 | EKG12_ITS ---
Test Reason : CP Blood Pressure : / mmHG Vent. Rate : 087 BPM Atrial Rate : 087 BPM P-R Int : 154 ms QRS Dur : 090 ms QT Int : 382 ms P-R-T Axes : 061 034 033 degrees QTc Int : 459 ms Normal sinus rhythm Normal ECG Confirmed by ZOILA DAUGHERTY ([id number]), video effects editor MANISHA VELASCO ([id number]) on 07/02/2019 1:13:54 PM Referred By: KARISSA Confirmed By:ZOILA DAUGHERTY
--- NOTE | 2019-06-27 10:38 | ED.RN ---
PT WITH C/O PAIN TO CHEST, DR BOUCHER NOTIFIED, EKG ORDERED
[2019-06-27] MEDS: proMETHazine 25 MG/ML Syringe 12.5 MG IV (13:05)
[2019-06-27] MEDS: LORazepam 1 MG Tablet PO (14:13)
[2019-06-27 17:15] LABS: Bedside Glucose 117 mg/dL (70-110)
[2019-06-27] MEDS: Mag Hydrox/Al Hydrox/Simeth 30 ML UDC 15 ML PO (17:38)
--- NOTE | 2019-06-27 18:09 | ED.RN ---
PT CONTINUES TO YELL OUT AND C/O NEEDING PAIN MEDICATION. PT HAS BEEN EXPLAINED TO MANY TIMES SHE IS UNABLE TO HAVE PAIN MEDICATION AT THIS TIME.
[2019-06-27 20:18] LABS: Alcohol, Blood (Medical)-Serum < 3.0 mg/dL
[2019-06-27 20:19] LABS: AST(SGOT) 9 U/L (15-37); Alanine Aminotransfer ALT/SGPT 11 U/L (13-56); Albumin, Serum 3.1 g/dL (3.2-5.0); Alkaline Phosphatase 129 U/L (45-117); Bilirubin, Direct 0.09 mg/dL (0.00-0.30); Globulin 3.8 g/dL (2.2-4.2); Protein, Total 6.9 g/dL (6.4-8.2)
[2019-06-27] MEDS: Pramipexole Di-HCl 0.5 MG Tablet PO (22:47)
[2019-06-27] MEDS: Doxazosin 1 MG Tablet 2.5 MG PO (23:05)
--- NOTE | 2019-06-27 23:12 | ED.RN ---
PT REQUESTING IV BENADRYL AND DEMANDING OTHER NARCOTIC MEDICATIONS FROM THIS RN. PT EDUCATED THAT RNS ARE UNABLE TO ORDER MEDICATION. DR. BUNN INFORMED OF PT MANY REQUESTS VARIOUS MEDICATIONS. PT SHOUTING, HOW AM I GOING TO SLEEP TONIGHT I WANT IV BENADRLY AND WHERE ARE ALL MY OTHER PILLS. PT PLACED IN POSITION OF COMFORT. PRIMARY RN INFORMED OF PT REQUESTS.
[2019-06-27] MEDS: QUEtiapine 100 MG Tablet PO (23:48)
[2019-06-28] VITALS (18 sets, daily range): BP systolic 124–159; BP diastolic 74–89; PULSE 68–94; RESP 14–21; TEMP 36.7; O2SAT 92–98
[2019-06-28] MEDS: Carvedilol 6.25 MG Tablet PO ×2 (08:27→16:54)
[2019-06-28] MEDS: metFORMIN HCl 500 MG Tablet PO ×2 (08:27→16:54)
--- NOTE | 2019-06-28 08:37 | ED.RN ---
pt refuses depakote. wants pain medicine. aware she is not getting narcotics. offered to get irma
[2019-06-28] MEDS: Ibuprofen 200 MG Tablet 400 MG PO (08:44)
[2019-06-28] MEDS: Ondansetron ODT 4 MG Tablet PO (08:45)
--- NOTE | 2019-06-28 08:50 | ED.RN ---
iv dc'd.area red and slightly swollen. tolerated well
--- NOTE | 2019-06-28 09:53 | ED.RN ---
pt yelling at staff. pt adcised that yelling was not appropriate at any time towards staff. pt voices understanding. pt aware behavior will not be tolerated
--- NOTE | 2019-06-28 10:02 | ED.RN ---
pt given blistex and brush from purse. also given toothbrush and toothpaste to freshen up
--- NOTE | 2019-06-28 10:03 | NURSING ---
CALLED [facility], TALKED TO TRACEY. WAITING ON [facility]
--- NOTE | 2019-06-28 10:08 | NURSING ---
TYRONE WEBB, CALLED BACK. HE LEFT A MESSAGE ON [facility]'S PHONE. HE WILL STAY ON TOP OF IT.
--- NOTE | 2019-06-28 10:41 | ED.RN ---
pt complaines of chest pain. aware and believes may be anxiety related.ekg ordered. dr melton
--- NOTE | 2019-06-28 10:54 | EKG12_ITS ---
Test Reason : MHC Blood Pressure : / mmHG Vent. Rate : 083 BPM Atrial Rate : 083 BPM P-R Int : 158 ms QRS Dur : 092 ms QT Int : 396 ms P-R-T Axes : 063 018 015 degrees QTc Int : 465 ms Normal sinus rhythm Normal ECG Confirmed by ZOILA DAUGHERTY ([id number]), photograph editor MANISHA VELASCO ([id number]) on 07/02/2019 2:14:54 PM Referred By: ELIZABETH Confirmed By:ZOILA DAUGHERTY
[2019-06-28] MEDS: Pantoprazole Sodium 40 MG Tablet PO (11:02)
[2019-06-28] MEDS: Loratadine 10 MG Tablet PO (11:02)
[2019-06-28] MEDS: QUEtiapine 25 MG Tablet 50 MG PO (11:02)
[2019-06-28] MEDS: Pregabalin 75 MG Capsule PO ×2 (11:03→22:25)
[2019-06-28] MEDS: Furosemide 20 MG Tablet PO (11:03)
[2019-06-28] MEDS: Isosorbide Mononitrate 60 MG Tablet PO (11:03)
[2019-06-28] MEDS: Topiramate 50 MG Tablet PO ×2 (11:04→22:57)
--- NOTE | 2019-06-28 11:13 | ED.RN ---
VITOR FROM CRISIS CALLED AND INFORMED US THAT THE PT IS ACCEPTED AT [facility] BUT IS CURRENTLY ON A WAIT LIST FOR A ROOM AND IT IS UNKNOWN WHAT TIME SHE WILL HAVE A BED.
--- NOTE | 2019-06-28 11:27 | ED.RN ---
pt again yelling at staff. pt told again not to yell.ptaware if yelling again her remote will be taken away
--- NOTE | 2019-06-28 13:18 | ED.RN ---
pt sleeping. resp easy and unlabored. not woken yp
--- NOTE | 2019-06-28 15:04 | NURSING ---
CALLED [facility]. TALKED TO TRACEY. HE CALLED [facility], BUT GOT AN ANSWERING PHONE.
--- NOTE | 2019-06-28 15:16 | NURSING ---
TYRONE WEBB, SAID PATIENT WAS ACCEPTED ABOUT 1030 PER VITOR.
--- NOTE | 2019-06-28 15:17 | ED.RN ---
pt makes statement to this nurse that she is not suicidal anymore. 20 minutes later pt states to sitter that she just wants to . she is tired of life
[2019-06-28] MEDS: Mag Hydrox/Al Hydrox/Simeth 30 ML UDC 15 ML PO (15:19)
[2019-06-28] MEDS: Acetaminophen 325 MG Tablet 650 MG PO (15:19)
[2019-06-28] MEDS: Divalproex Sodium 125 MG SPRINKLE PO (16:54)
--- NOTE | 2019-06-28 17:38 | NURSING ---
CALLED [facility]. TALKED TO VITOR. TRACEY CALLED AT 1700 BEFORE HE LEFT. ALL THEY CAN DO IS LEAVE MESSAGES. THEY ARE NOT TALKING TO A REAL PERSON
--- NOTE | 2019-06-28 17:41 | NURSING ---
VITOR, [facility], CALLED. PATIENT IS ACCEPTED, BUT 4TH ON THE LIST. PROBABLY BE TOMORROW BEFORE TRANSFERRED
[2019-06-28] MEDS: guaiFENesin 10 ML UDC (200MG/10ML) PO (17:52)
[2019-06-28] MEDS: hydrOXYzine PAM 25 MG Capsule PO (20:18)
[2019-06-28] MEDS: Dicyclomine 10 MG Capsule 20 MG PO (20:18)
[2019-06-28] MEDS: QUEtiapine 100 MG Tablet PO (22:25)
[2019-06-28] MEDS: Doxazosin 1 MG Tablet 2.5 MG PO (22:25)
[2019-06-28] MEDS: Pramipexole Di-HCl 0.5 MG Tablet PO (22:25)
[2019-06-29] VITALS (7 sets, daily range): BP systolic 128–163; BP diastolic 77–91; PULSE 67–92; RESP 15–20; O2SAT 95–98
[2019-06-29] MEDS: Ibuprofen 200 MG Tablet 400 MG PO (05:05)
[2019-06-29] MEDS: Carvedilol 6.25 MG Tablet PO (08:38)
[2019-06-29] MEDS: metFORMIN HCl 500 MG Tablet PO (08:38)
== END 2019-06-29 08:41 ==
PROVIDERS: Emergency Medicine; Emergency Provider Emergency Medicine
DX: F32.9 Major depressive disorder, single episode, unspecified (principal); R07.9 Chest pain, unspecified; G89.4 Chronic pain syndrome; R45.851 Suicidal ideations; R05 Cough; I10 Essential (primary) hypertension; E11.9 Type 2 diabetes mellitus without complications; J44.9 Chronic obstructive pulmonary disease, unspecified
CPT/HCPCS: 36415; 71045; 80048; 80076; 80307; 80320; 81001; 82962; 84484; 85025; 85610; 93005; 96374; 96375; 96376; 99285; A4216; G0480; J2405

== ENCOUNTER 2019-07-09 23:16 | Emergency (ER) | payer MEDICARE, MEDICAID, SELFPAY ==
[2019-07-09 23:17] VITALS: BP 119/79; PULSE 92; RESP 18; TEMP 37; O2SAT 93; BMI 33.1
--- NOTE | 2019-07-09 23:35 | EKG12_ITS ---
Test Reason : CP Blood Pressure : / mmHG Vent. Rate : 088 BPM Atrial Rate : 088 BPM P-R Int : 158 ms QRS Dur : 088 ms QT Int : 384 ms P-R-T Axes : 052 019 040 degrees QTc Int : 464 ms Normal sinus rhythm Normal ECG Confirmed by IRENA GRUBER, KINGS ([id number]), editor producer MANISHA VELASCO ([id number]) on 07/12/2019 1:04:08 PM Referred By: CP Confirmed By:KIGNS OSBORN MD
--- NOTE | 2019-07-09 23:35 | ED.VIS.GEN ---
History of Present Illness Chief Complaint: Chest Pain Informant: Patient Narrative: Presents with chest pain for the last hour. She describes as substernal tightness. EMS gave her a dose of aspirin. Comes in for further evaluation. She has a history of frequent chest pain. She was recently just seen and ruled out. She has had a recent negative stress test as well. Patient stated she has some mild nausea. The similar complaints earlier in the month. She does have frequent visits for other related illness as well. - Past Medical History (1) Anxiety and depression Status: Chronic (2) Chronic pain syndrome Status: Chronic (3) Diabetes mellitus type 2 Status: Chronic (4) Dyslipidemia Status: Chronic (5) History of RI (myocardial infarction) Status: Chronic (6) Hypertension Status: Chronic Past Medical History - Allergies and Home Meds Allergies/Adverse Reactions: Allergies Penicillins Allergy (Verified 07/09/19 23:24) Rash Sulfa (Sulfonamide Antibiotics) Allergy (Verified 07/09/19 23:24) Rash Primary Care Physician: Care Physician,No Primary [Primary Care Provider] - Prior records reviewed: Yes Past Medical History: - - See problem list Surgical History: - - Right shoulder surgery, hysterectomy, appendectomy. Smoking Status: Never smoker Alcohol: None Drugs: None - Family History Paternal Family History: Reports: - - Denies known paternal medical history including cardiac history. Maternal Family History: Reports: - - Denies known maternal medical history including cardiac history. Review of Systems General: Denies: Chills, Fever, Sweats Eyes: Denies: Visual changes - bilaterally, Diplopia ENT: Denies: Rhinorrhea, Sore throat Cardiovascular: Reports: Chest pain. Denies: Palpitations Respiratory: Denies: Dyspnea, Cough, Dyspnea on exertion Gastrointestinal: Reports: Nausea, Vomiting. Denies: Abdominal pain, Diarrhea, Melena, Hematochezia Genitourinary: Denies: Dysuria, Hematuria, Frequency Musculoskeletal: Denies: Back pain, Extremity Pain Skin: Denies: Rash, Wounds Neurological: Denies: Headache, Weakness, Numbness Physical Exam Vital Signs/Narrative: Vital Signs Temp Pulse Resp BP Pulse Ox 07/09/19 23:17 98.6 F 92 18 119/79 93 General: Well nourished, Well developed, No Acute Distress Head: Normocephalic, Atraumatic Eyes: Perrl, EOMI ENT: Moist mucous membranes, No rhinorrhea Neck: Supple, Nontender Cardiovascular: Regular rate, Regular rhythm, No murmurs Respiratory: No distress, CTA bilaterally, Chest nontender Abdomen: Soft, Nontender, Nondistended, Normal bowel sounds Back: Nontender, Normal Inspection Extremities: Nontender, No edema Skin: Normal color, No rash Neurological: Alert, Oriented x3, Cranial nerves II-XII grossly intact, Normal Strength, Normal Sensation Psychological: Normal affect, Normal Mood Diagnostic/Tx/Re-eval - Medical Decision Making EKG showed normal sinus rhythm without acute ischemia. She given a dose of Phenergan. Asked repeatedly for education. I do not feel this is indicated at this time. She has oxycodone at the facility that she lives in. Troponin negative. At this time I do not feel the patient needs pain medicine. She is repeatedly asked for narcotics. I do not feel this is indicated. I do not think she is having acute coronary syndrome. I am concerned that she may be narcotic seeking. I feel she can be discharged to follow-up as an outpatient. I do not feel she needs chest x-ray or other work-up ED Disposition - Plan for ED Patient: Disposition: Home or Assisted Living Diagnosis: Chest pain at rest, Nausea Instructions: CHEST PAIN, NonCardiac Referrals: Care Physician,No Primary [Primary Care Provider] -
[2019-07-09] MEDS: proMETHazine 25 MG Tablet 12.5 MG PO (23:48)
[2019-07-10 00:17] VITALS: BP 103/61; PULSE 61; RESP 18; O2SAT 95
== END 2019-07-10 00:40 | disposition home or self-care (01) ==
PROVIDERS: Emergency Provider Emergency Medicine
DX: R07.9 Chest pain, unspecified (principal); R11.0 Nausea; Z88.2 Allergy status to sulfonamides; Z88.0 Allergy status to penicillin; I10 Essential (primary) hypertension; F41.9 Anxiety disorder, unspecified; F32.9 Major depressive disorder, single episode, unspecified; E11.9 Type 2 diabetes mellitus without complications; E78.5 Hyperlipidemia, unspecified; I25.2 Old myocardial infarction; G89.4 Chronic pain syndrome
CPT/HCPCS: 84484; 93005; 99284; A4216

== ENCOUNTER 2019-07-25 20:42 | Emergency (ER) | payer MEDICARE, MEDICAID, SELFPAY ==
[2019-07-18 11:29] VITALS: BMI 36.6
[2019-07-25 20:43] VITALS: BP 121/89; PULSE 84; RESP 13; TEMP 36.4; O2SAT 96; BMI 35.3
--- NOTE | 2019-07-25 21:01 | ED.RN ---
NIH completed on pt. notified Dr. Olmstead and Dr. Mcgill. No stroke team called that this time.
--- NOTE | 2019-07-25 21:02 | EKG12_ITS ---
Test Reason : CP Blood Pressure : / mmHG Vent. Rate : 076 BPM Atrial Rate : 076 BPM P-R Int : 164 ms QRS Dur : 086 ms QT Int : 398 ms P-R-T Axes : 053 015 016 degrees QTc Int : 447 ms Normal sinus rhythm Possible Left atrial enlargement Septal infarct , age undetermined Abnormal ECG Confirmed by ZOILA DAUGHERTY ([id number]), video effects editor JANE BURGOS ([id number]) on 07/30/2019 2:41:59 PM Referred By: Confirmed By:ZOILA DAUGHERTY
--- NOTE | 2019-07-25 21:04 | RAD_ITS ---
STUDY: X-RAY CHEST REASON FOR EXAM: Female, 64 years old. Chest pain TECHNIQUE: Single AP portable view of the chest. COMPARISON: 06/26/2019 FINDINGS: Right shoulder arthroplasty is stable The lungs are clear and expanded. There is no demonstrated pleural abnormality. Normal size heart. Normal mediastinum and izon. Normal visualized pulmonary arteries. Normal visualized aortic arch and descending thoracic aorta. Normal visualized thoracic spine. There is no demonstrated abnormality of the visualized soft tissue structures of the upper abdomen. RAD/Chest 1 View (Portable) IMPRESSION: Normal x-ray examination of the chest. Electronically Signed: Carlos Brantley DO at 21:41 EDT Tel , Service support ,
[2019-07-25 21:05] VITALS: BP 115/60; PULSE 84; RESP 12; O2SAT 95; O2SAT 96
[2019-07-25 21:06] LABS: Bedside Glucose 201 mg/dL (70-110)
[2019-07-25 21:12] LABS: Absolute Lymphocyte Count 1.48 X10^3/uL (0.83-4.51); Absolute Neutrophil Count 7.1 X10^3/uL (2.0-7.7); Basophil# 0.02 X10^3/uL; Basophil% 0.2 % (0-1); Eosinophil# 0.02 X10^3/uL; Eosinophils% 0.2 % (0-5); Hematocrit 37.8 % (37-47); Hemoglobin 11.6 g/dL (12.0-15.0); Lymphocyte # 1.48 X10^3/ul (4.0); Lymphocyte % 16.1 % (19-41); Mean Corp Hgb Conc 30.7 g/dL (32-36); Mean Corpuscular Hgb 29.1 pg (27.0-32.0); Mean Platelet Vol. 10.2 fl (6.2-12.0); Monocyte# 0.42 X10^3/uL; Monocyte% 4.6 % (0-10); NRBC Flagged by Analyzer 0 % (0-5); Neutrophil # 7.09 X10^3/uL (2.7-7.7); Neutrophil % 77.4 % (47-70); Platelet Count 348 K/mm3 (150-450); RBC Distribution Width CV 13.7 % (11.6-14.6); RBC Distribution Width SD 47.8 fl (35.1-43.9); Red Blood Count 3.98 M/mm3 (4.2-5.4); White Blood Count 9.2 K/mm3 (4.4-11.0)
[2019-07-25 21:20] LABS: International Normalized Ratio 1.2; Prothrombin Time (Protime)PT. 15.1 SECONDS (11.7-14.9)
[2019-07-25 21:21] LABS: Partial Thromboplast Time 30.7 Seconds (24.1-36.2)
[2019-07-25 21:30] LABS: Anion Gap 4 (5-15); BUN 16 mg/dL (7-18); BUN/Creat Ratio 14.2 RATIO (10-20); Calcium,Total 8.7 mg/dL (8.5-10.1); Chloride 102 mmol/L (98-107); Creatinine, Serum 1.13 mg/dL (0.55-1.02); EST Glomerular Filtration Rate 51 mL/min (>60); Est Glom Filt Rate - Afr Amer 62 mL/min (>60); Estimated Creatinine Clearance 60.06 ml/min; Glucose 196 mg/dL (74-106); Potassium 3.5 mmol/L (3.5-5.1); Sodium Level 138 mmol/L (136-145)
[2019-07-25 21:32] VITALS: BP 108/71; PULSE 83; RESP 12; O2SAT 95
--- NOTE | 2019-07-25 21:45 | CT_ITS ---
HISTORY:PT STATED WEAKNESS, HX OF TIA PT STATED WEAKNESS, HX OF TIA TECHNIQUE: Multiple axial images were obtained of the brain without intravenous contrast. A radiation dose optimization technique was used for this scan. IV Contrast dosage and agent: None. COMPARISON: June 10, 2019 FINDINGS: # of images incl. paperwork: 229 INFARCT: None HEMORRHAGE: None PARENCHYMAL ATTENUATION:Periventricular white matter low density compatible with. This is progressive when compared to the prior study MASS: None MIDLINE SHIFT: None BASAL CISTERNS: Patent VENTRICLES: Normal in size and configuration for age PARANASAL SINUSES:Mucosal thickeningin the right maxillary sinus similar to prior study MASTOID AIR CELLS: Clear ORBITS:No acute pathology CALVARIUM: No acute pathology OTHER TISSUES: No acute pathology ASPECTS Score for Acute Strokes: 10 CT/Brain/Head without Contrast IMPRESSION: No acute intracranial pathology. Chronic small vessel ischemic change If symptoms persist consider mri for further evaluation if clinically indicated. Individualized dose optimization techniques were used for this CT. at 2232 Reported and signed by: Alfreda Xavier DO Electronically Signed: Alfreda Xavier DO at 22:30 EDT Tel , Service support ,
[2019-07-25 22:02] VITALS: BP 106/90; PULSE 75; RESP 12; O2SAT 93
--- NOTE | 2019-07-25 22:32 | ED.RN ---
PER MARGARITA VENTURA TO D/C [facility] ASSESSMENT.
[2019-07-25] MEDS: proMETHazine 25 MG/ML Syringe 6.25 MG IV (22:37)
[2019-07-25] MEDS: Nitroglycerin SL (ED/IMG/CATH) 0.4 MG TABLET SUBLINGUAL (22:39)
--- NOTE | 2019-07-25 22:42 | ED.VISSUMM ---
- ER Visit Summary Date of Service: 07/25/19 Chief Complaint: Chest pain History of Present Illness: The patient is a 64 F who presents with chest pain that began today. Patient states the pain is sharp and over the left side of her chest. Patient states pain radiates to her left arm and into her left jaw. Patient also admits to an episode of right arm numbness and slurred speech proximately 2 hours prior to arrival. Patient states she had blurred vision with this. Patient states she has been dropping things with her right hand recently. Patient states she had a nerve block done yesterday of her lower lumbar area by Dr. Griffin. Patient does admit to some shortness of breath. Patient admits to some nausea and vomiting. Patient states she has chronic neck and back pain. Physical Examination: Vital signs are stable. Patient is afebrile. Patient is in no acute distress. Cranial nerves II through XII are intact. Strength is 5/5 bilaterally in the upper and lower extremities. There are no sensory deficits noted. Oral mucosa is pink and moist. Neck is supple. Trachea is midline. There is no JVD noted. Heart was regular rate and rhythm. Lungs are clear and equal bilaterally. Abdomen is soft and nontender. Test Results: EKG showed normal sinus rhythm with a rate of 76. There are no acute ST or T wave changes. CBC, basic metabolic profile, and troponin were obtained and were all within normal limits. CT scan of the brain was obtained. There is no acute intracranial abnormality. Portable chest x-ray does not show any acute cardiopulmonary process. Emergency Department Course and Treatment: Patient was ordered aspirin but she refused stating that she had already taken aspirin earlier today. Patient was given sublingual nitroglycerin. Patient had a normal stress test done on 06/11/2019. Her chest pain is unlikely to be cardiac given that she had a normal stress test 6 weeks ago and her EKG is unchanged. Patient was instructed to follow-up with her primary care physician in 3 to 5 days. Patient understood and was agreeable with the plan. All questions were answered. Disposition: Discharge home Impression: Chest pain This note was generated with [employer] dictation software. It may contain incorrect words, spelling, and punctuation that were not noted in review of the chart prior to signing ED Disposition - Plan for ED Patient: Disposition: Home or Assisted Living Diagnosis: Chest pain Instructions: CHEST PAIN, Uncertain Cause Referrals: Care Physician,No Primary [Primary Care Provider] -
--- NOTE | 2019-07-25 22:52 | ED.RN ---
REASSESSMENT OF PAIN AFTER 1 NITRO. PT WAS ASLEEP, BP 108/81, P 78. PT NOT AWAKEN.
[2019-07-25 22:57] VITALS: BP 121/93; PULSE 77; RESP 15
[2019-07-26] MEDS: Acetaminophen 500 MG Tablet 1000 MG PO (00:09)
== END 2019-07-26 00:27 | disposition home or self-care (01) ==
PROVIDERS: Emergency Provider Emergency Medicine
DX: R07.9 Chest pain, unspecified (principal); R20.0 Anesthesia of skin; R06.02 Shortness of breath; G89.29 Other chronic pain; M54.9 Dorsalgia, unspecified; M54.2 Cervicalgia; R11.2 Nausea with vomiting, unspecified; R47.81 Slurred speech; Z86.73 Personal history of transient ischemic attack (TIA), and cerebral infarction without residual deficits; E11.9 Type 2 diabetes mellitus without complications; J45.909 Unspecified asthma, uncomplicated
CPT/HCPCS: 70450; 71045; 80048; 82962; 84484; 85025; 85610; 85730; 93005; 99285; A4216

== ENCOUNTER 2019-08-18 20:19 | Emergency (ER) | payer MEDICARE, MEDICAID, SELFPAY ==
[2019-08-18 20:28] VITALS: BP 124/80; PULSE 80; RESP 16; TEMP 36.4; O2SAT 95; BMI 37.4
--- NOTE | 2019-08-18 20:52 | EKG12_ITS ---
Test Reason : CP Blood Pressure : / mmHG Vent. Rate : 078 BPM Atrial Rate : 078 BPM P-R Int : 160 ms QRS Dur : 096 ms QT Int : 414 ms P-R-T Axes : 058 025 024 degrees QTc Int : 471 ms Normal sinus rhythm Normal ECG Confirmed by IRENA GRUBER, KINGS ([id number]), assignment editor JANE BURGOS ([id number]) on 08/22/2019 12:11:52 PM Referred By: BB Confirmed By:KINGS OSBORN MD
--- NOTE | 2019-08-18 20:53 | RAD_ITS ---
STUDY: X-RAY CHEST REASON FOR EXAM: Female, 64 years old. Chest pain. TECHNIQUE: Single frontal view of the chest. COMPARISON: July 25, 2019 FINDINGS: There is no new focal consolidation. Normal size heart. Normal mediastinum and zion. Normal visualized pulmonary arteries. Normal visualized aortic arch and descending thoracic aorta. Normal visualized thoracic spine. There is a right shoulder arthroplasty in place. There is no demonstrated abnormality of the visualized soft tissue structures of the upper abdomen. RAD/Chest 1 View (Portable) IMPRESSION: No acute cardiopulmonary process. Electronically Signed: Susan Dunbar MD at 21:43 EDT Tel , Service support ,
[2019-08-18 21:33] LABS: Anion Gap 4 (5-15); BUN 14 mg/dL (7-18); BUN/Creat Ratio 15.6 RATIO (10-20); Calcium,Total 8.9 mg/dL (8.5-10.1); Chloride 105 mmol/L (98-107); EST Glomerular Filtration Rate 67 mL/min (>60); Est Glom Filt Rate - Afr Amer 81 mL/min (>60); Estimated Creatinine Clearance 79.88 ml/min; Glucose 153 mg/dL (74-106); Potassium 3.1 mmol/L (3.5-5.1); Sodium Level 141 mmol/L (136-145)
[2019-08-18 21:34] LABS: Absolute Lymphocyte Count 1.84 X10^3/uL (0.83-4.51); Absolute Neutrophil Count 4.5 X10^3/uL (2.0-7.7); Basophil# 0.04 X10^3/uL; Basophil% 0.6 % (0-1); Eosinophil# 0.21 X10^3/uL; Eosinophils% 2.9 % (0-5); Hematocrit 36.3 % (37-47); Lymphocyte # 1.84 X10^3/ul (4.0); Lymphocyte % 25.8 % (19-41); Mean Corp Hgb Conc 30.3 g/dL (32-36); Mean Corpuscular Hgb 28.6 pg (27.0-32.0); Mean Corpuscular Volume 94.3 fL (81-99); Mean Platelet Vol. 10.4 fl (6.2-12.0); Monocyte# 0.43 X10^3/uL; NRBC Flagged by Analyzer 0 % (0-5); Neutrophil # 4.54 X10^3/uL (2.7-7.7); Neutrophil % 63.9 % (47-70); Platelet Count 231 K/mm3 (150-450); RBC Distribution Width CV 14.3 % (11.6-14.6); RBC Distribution Width SD 49.1 fl (35.1-43.9); Red Blood Count 3.85 M/mm3 (4.2-5.4); White Blood Count 7.1 K/mm3 (4.4-11.0)
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
--- NOTE | 2019-08-18 22:00 | CM.ED ---
SOCIAL WORK CALL TO [facility] WHO REPORTS IS IN NETWORK WITH PATIENT'S INSURANCE SHE IS AGE 64. REQUESTING REFERRAL BE FAXED ONCE ALL LABS COMPLETED AND PATIENT IS MEDICALLY CLEARED. SHAISTA SLAUGHTER, BOBBIN LOOSE END FINDER, JACKSCREW WORKER.
[2019-08-18 22:02] LABS: Amphetamine Urine VISTA NEGATIVE (<1000 ng/mL); Barbiturate Urine VISTA NEGATIVE (< 200 ng/mL); Benzodiazepine Urine VISTA POSITIVE (< 200 ng/mL); Cocaine Urine VISTA NEGATIVE (< 300 ng/mL); Ecstacy Urine VISTA NEGATIVE (< 500 ng/mL); Methadone Urine VISTA NEGATIVE (< 300 ng/mL); PCP Urine VISTA NEGATIVE (< 25 ng/mL); THC Urine VISTA NEGATIVE (< 50 ng/mL); Vista UDS pH Range 7
--- NOTE | 2019-08-18 22:42 | ED.VISSUMM ---
- ER Visit Summary Date of Service: 08/18/19 Chief Complaint: Depressed and suicidal History of Present Illness: The patient is a 64 F history of prior TIA, CAD, depression, CHF and diabetes. Patient states that she has been depressed and suicidal today. Gradual in onset. Recently her mom . She has been admitted to a psychiatric hospital within the past year. Patient also has many other complaints including atypical nonexertional chest pain. Physical Examination: Older female no acute distress. Vital signs are stable afebrile. Pulse ox 95% on room air no hypoxia. No distress. HEENT exam unremarkable. Neck nontender. Lungs clear to auscultation bilaterally. Heart regular rate and rhythm no murmur. Rate about 80. She does have reproducible anterior chest wall tenderness. There is no ecchymosis or bruising no subcu air crepitance. Abdomen is soft and nontender. Normal bowel sounds no peritoneal signs. Extremities moves all 4. Calves are nontender without edema. Neurologically she is awake and alert with no focal motor deficits. Test Results: CBC showed white count of 7. Hemoglobin 11 which is her baseline. No bands. Electrolytes unremarkable normal creatinine and gap. Potassium 3.1. Troponin normal. Chest x-ray portable one view showed no acute abnormality chronic changes with a prior right hip prosthesis. No acute process. One view read by myself and the radiologist. EKG sinus rhythm rate of 78 no acute signs of ID or ischemia. Emergency Department Course and Treatment: Repeat exam the patient is resting comfortably at 10:40 PM. She is requesting Benadryl to help her sleep. Social workers have been consulted for placement of the psychiatric facility for depression and suicidal ideation. She has been medically cleared. Treatment Plan: Attempting placement at a psychiatric facility. Disposition: Transfer to a psychiatric facility once placement occurs. Impression: Acute depression with suicidal ideation Chest wall pain History of diabetes This note was generated with [employer] dictation software. It may contain incorrect words, spelling, and punctuation that were not noted in review of the chart prior to signing ED Disposition - Plan for ED Patient: Referrals: Care Physician,No Primary [Primary Care Provider] -
--- NOTE | 2019-08-18 23:17 | CM.ED ---
SOCIAL WORK RECEIVED CALL FROM TOM AT [facility] WHO REPORTS WISHES TO SPEAK WITH PAINT SPRAY INSPECTOR AT [facility] TO VERIFY WILL ACCEPT PATIENT BACK UPON D/C FROM [facility]. CONTACT NUMBER PROVIDED FOR [facility]. AWAITING ACCEPTANCE AT THIS TIME. SHAISTA SLAUGHTER, SILVERWARE SUPERVISOR, HEALTHCARE CONSULTANT.
--- NOTE | 2019-08-18 23:44 | CM.ED ---
SOCIAL WORK CALL TO [facility] TO INQUIRE ABOUT REFERRAL, SPOKE WITH TOM. TOM STATES STILL COMPLETING THINGS FOR REFERRAL AND ANTICIPATES ACCEPTANCE. WILL CALL BACK TO EMERGENCY DEPT WITH ACCEPTING INFORMATION ONCE COMPLETED. STAFF UPDATED. SHAISTA SLAUGHTER, INSTALLER MOLDING AND TRIM, SHIFT SUPERVISOR.
[2019-08-19] VITALS (9 sets, daily range): BP systolic 89–126; BP diastolic 61–90; PULSE 69–83; RESP 10–17; O2SAT 92–95
--- NOTE | 2019-08-19 06:51 | ED.RN ---
DR GRIMES AWARE OF PT'S REQUEST FOR PAIN MEDS AND CREAM FOR HER BUTTOCKS.
[2019-08-19] MEDS: Acetaminophen 500 MG Tablet 1000 MG PO (06:59)
--- NOTE | 2019-08-19 07:28 | ED.RN ---
CALLED [facility] TO GIVE REPORT, NO ANSWER, LT MESSAGE TO CALL ED.
--- NOTE | 2019-08-19 07:35 | ED.RN ---
2ND ATTEMPT TO CALL REPORT TO [facility].
[2019-08-19] MEDS: Ibuprofen 600 MG Tablet PO (07:37)
--- NOTE | 2019-08-19 08:45 | ED.RN ---
REPORT CALLED TO [facility] TO [facility] WITH NO QUESTIONS VOICED. PT WITH NUMEROUS C/O AND YELLING OUT BEING DISRUPTIVE. PT NOW NOT WANTING TO GO IN [facility] AND BECOMING MORE DISRUPTIVE WHILE AWAITS RIDE.
== END 2019-08-19 08:53 ==
PROVIDERS: Emergency Provider Emergency Medicine
DX: F32.9 Major depressive disorder, single episode, unspecified (principal); R45.851 Suicidal ideations; R07.89 Other chest pain; E11.9 Type 2 diabetes mellitus without complications; I25.10 Atherosclerotic heart disease of native coronary artery without angina pectoris; I50.9 Heart failure, unspecified; Z86.73 Personal history of transient ischemic attack (TIA), and cerebral infarction without residual deficits; Z86.718 Personal history of other venous thrombosis and embolism
CPT/HCPCS: 36415; 71045; 80048; 80307; 80320; 84484; 85025; 93005; 99285; G0480

== ENCOUNTER 2019-08-26 23:58 | Emergency (ER) | payer MEDICARE, MEDICAID, SELFPAY ==
[2019-08-26 23:59] VITALS: BP 147/93; PULSE 88; RESP 16; TEMP 37.1; O2SAT 99; BMI 33.3
--- NOTE | 2019-08-27 00:06 | EKG12_ITS ---
Test Reason : CP Blood Pressure : / mmHG Vent. Rate : 079 BPM Atrial Rate : 079 BPM P-R Int : 156 ms QRS Dur : 090 ms QT Int : 418 ms P-R-T Axes : 058 020 034 degrees QTc Int : 479 ms Normal sinus rhythm Nonspecific T-wave Abnormality Confirmed by IRENA GRUBER, KINGS ([id number]), newspaper copy editor JANE BURGOS ([id number]) on 08/29/2019 1:44:19 PM Referred By: JORDAN Confirmed By:KINGS OSBORN MD
--- NOTE | 2019-08-27 00:15 | RAD_ITS ---
STUDY: X-RAY CHEST REASON FOR EXAM: Female, 64 years old. Chest pain TECHNIQUE: Single AP portable view of the chest. COMPARISON: None. FINDINGS: The lungs are clear and expanded. There is no demonstrated pleural abnormality. Normal size heart. Normal mediastinum and zion. Normal visualized pulmonary arteries. Normal visualized aortic arch and descending thoracic aorta. There is a dextroscoliosis of the thoracic spine. 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 There is a right shoulder arthroplasty. There is no demonstrated abnormality of the visualized soft tissue structures of the upper abdomen. RAD/Chest 1 View (Portable) IMPRESSION: Degenerative changes, as described above. No demonstrated acute cardiopulmonary process. Electronically Signed: Aron Jara, at 1:18 EDT Tel , Service support ,
[2019-08-27 01:11] LABS: Absolute Lymphocyte Count 2.66 X10^3/uL (0.83-4.51); Absolute Neutrophil Count 6.2 X10^3/uL (2.0-7.7); Basophil# 0.05 X10^3/uL; Basophil% 0.5 % (0-1); Hematocrit 43.6 % (37-47); Hemoglobin 13.8 g/dL (12.0-15.0); Lymphocyte # 2.66 X10^3/ul (4.0); Lymphocyte % 27.6 % (19-41); Mean Corp Hgb Conc 31.7 g/dL (32-36); Mean Corpuscular Hgb 28.3 pg (27.0-32.0); Mean Corpuscular Volume 89.5 fL (81-99); Monocyte# 0.58 X10^3/uL; NRBC Flagged by Analyzer 0 % (0-5); Neutrophil # 6.15 X10^3/uL (2.7-7.7); Platelet Count 329 K/mm3 (150-450); RBC Distribution Width CV 14.1 % (11.6-14.6); RBC Distribution Width SD 46.3 fl (35.1-43.9); Red Blood Count 4.87 M/mm3 (4.2-5.4); White Blood Count 9.6 K/mm3 (4.4-11.0)
[2019-08-27 01:22] LABS: Anion Gap 7 (5-15); BUN 11 mg/dL (7-18); BUN/Creat Ratio 13.2 RATIO (10-20); Calcium,Total 9.6 mg/dL (8.5-10.1); Chloride 105 mmol/L (98-107); Creatinine, Serum 0.83 mg/dL (0.55-1.02); EST Glomerular Filtration Rate 73 mL/min (>60); Est Glom Filt Rate - Afr Amer 88 mL/min (>60); Estimated Creatinine Clearance 77.02 ml/min; Glucose 127 mg/dL (74-106); Potassium 2.9 mmol/L (3.5-5.1); Sodium Level 140 mmol/L (136-145)
[2019-08-27] MEDS: Morphine 4 MG/ML Syringe IV (01:47)
[2019-08-27] MEDS: Ondansetron 4 MG/2 ML Vial IV (01:47)
--- NOTE | 2019-08-27 02:29 | ED.VISSUMM ---
- ER Visit Summary Date of Service: 08/27/19 Chief Complaint: Chest pain, nausea, vomiting, diarrhea History of Present Illness: The patient is a 64 F who presents with chest pain, nausea, vomiting, and diarrhea that began today. Patient states her pain began while she was watching TV approximately 1 hour prior to arrival. Patient describes the pain as sharp. Patient states the pain radiates to her left arm, jaw, and back. Patient states her pain is worse with movement and with breathing. Patient admits to nausea, vomiting, and diarrhea for the past day. Patient states she is unable to keep anything down. Patient denies any melena or hematochezia. Patient states her diarrhea is watery. Patient denies any urinary complaints. Physical Examination: Vital signs are stable. Patient is afebrile. Patient is in no acute distress. Oral mucosa is pink and moist. Neck is supple. Trachea is midline. There is no JVD noted. Heart was regular rate and rhythm. Lungs are clear and equal bilaterally. Abdomen is soft. Bowel sounds are normal. There is mild diffuse tenderness. There is no rebound or guarding noted. Cranial nerves II through XII are intact. There are no focal motor or sensory deficits noted. Test Results: EKG showed normal sinus rhythm with a rate of 79. There are no acute ST or T wave changes. CBC was normal. Basic metabolic profile showed a mild hypokalemia of 2.9. Troponin was less than 0.015. Portable chest x-ray showed evidence of chronic changes but no acute cardiopulmonary process. Emergency Department Course and Treatment: Patient was given aspirin and morphine here. Patient was also given Zofran. Patient was given oral potassium. Patient was instructed to drink small amounts of fluids more frequently. Patient was instructed to follow-up with her primary care physician in 5 to 7 days. She was given a prescription for Phenergan suppositories. Patient understood and was agreeable with the plan. All questions were answered. Disposition: Discharge home Impression: 1. Chest pain 2. Nausea vomiting and diarrhea This note was generated with [employer] dictation software. It may contain incorrect words, spelling, and punctuation that were not noted in review of the chart prior to signing ED Disposition - Plan for ED Patient: Disposition: Home or Assisted Living Diagnosis: Chest pain of uncertain etiology, Nausea vomiting and diarrhea Instructions: CHEST PAIN, Uncertain Cause, DIET, Vomiting or Diarrhea [6yr-Adult] Prescriptions: proMETHazine suppository [Phenergan] 12.5 mg RECTAL Q6H PRN PRN #12 suppos. PRN Reason: Vomiting Prescription Printed Referrals: Care Physician,No Primary [Primary Care Provider] - 3-5 Days
[2019-08-27 02:59] VITALS: BP 153/91; PULSE 81; RESP 13; O2SAT 98
[2019-08-27] MEDS: proMETHazine 12.5 MG Suppos. RECTAL (03:03)
--- NOTE | 2019-08-27 03:21 | ED.RN ---
THIS RN CALLED [facility] AT [phone] TO OBTAIN A RIDE FOR HER. THE MSW IS TO PICK PT UP SHORTLY AFTER 7
--- NOTE | 2019-08-27 06:20 | ED.RN ---
PT STATES NOW THAT HER RIDE WILL BE HERE IN 30 MIN THAT SHE IS SUICIDAL WITH A PLAN TO CUT HERSELF. SHE STATES i DON'T WANNA GO BACK TO WHERE I'M AT BECAUSE I AM FRIGHTENED, YOU KNOW WHAT I'M SAYING. I STATED THAT I DID NOT UNDERSTAND WHAT SHE WAS SAYING SINCE SHE STATED MORE THAN 6 HOURS AGO WHEN SHE FIRST ARRIVED THAT SHE WAS NOT SUICIDAL. SHE JUST KEEPS REPEATING YOU KNOW WHAT I'M SAYING.
--- NOTE | 2019-08-27 06:32 | ED.RN ---
CRISIS NOTIFIED PT NEEDS EVALUATED
== END 2019-08-27 08:04 | disposition home or self-care (01) ==
PROVIDERS: Emergency Provider Emergency Medicine
DX: R07.9 Chest pain, unspecified (principal); R11.2 Nausea with vomiting, unspecified; R19.7 Diarrhea, unspecified; E87.6 Hypokalemia; H53.8 Other visual disturbances; R06.00 Dyspnea, unspecified; R05 Cough; R10.9 Unspecified abdominal pain; M54.2 Cervicalgia; M54.9 Dorsalgia, unspecified; R61 Generalized hyperhidrosis; R42 Dizziness and giddiness; E11.40 Type 2 diabetes mellitus with diabetic neuropathy, unspecified; Z85.828 Personal history of other malignant neoplasm of skin; Z79.899 Other long term (current) drug therapy
CPT/HCPCS: 71045; 80048; 84484; 85025; 93005; 96374; 96375; 99285; A4216; J2405

== ENCOUNTER 2019-09-09 18:57 | Emergency (ER) | payer MEDICARE, MEDICAID, SELFPAY ==
[2019-09-09 18:58] VITALS: BP 174/97; PULSE 83; RESP 16; TEMP 37; O2SAT 92; BMI 37.4
--- NOTE | 2019-09-09 19:31 | EKG12_ITS ---
Test Reason : CP Blood Pressure : / mmHG Vent. Rate : 075 BPM Atrial Rate : 075 BPM P-R Int : 180 ms QRS Dur : 088 ms QT Int : 410 ms P-R-T Axes : 058 026 020 degrees QTc Int : 457 ms Normal sinus rhythm Normal ECG Confirmed by SHARAD GUERRERO MD ([id number]), associate editor TISHA SHIPMAN ([id number]) on 09/14/2019 10:25:13 AM Referred By: MANUEL Confirmed By:SHARAD GUERRERO MD
[2019-09-09] MEDS: Ipratropium/Albuterol Sulfate 3 ML AMPUL.NEB INHALATION (19:37)
[2019-09-09] MEDS: Albuterol 2.5 MG/3 ML VIAL.NEB. INHALATION (19:37)
[2019-09-09 19:39] VITALS: PULSE 76; RESP 17
[2019-09-09 19:55] VITALS: PULSE 80; RESP 18; O2SAT 96
[2019-09-09 20:02] LABS: Absolute Neutrophil Count 4.4 X10^3/uL (2.0-7.7); Basophil# 0.04 X10^3/uL; Basophil% 0.5 % (0-1); Eosinophil# 0.29 X10^3/uL; Eosinophils% 3.7 % (0-5); Hematocrit 40.6 % (37-47); Hemoglobin 12.1 g/dL (12.0-15.0); Lymphocyte % 32.8 % (19-41); Mean Corp Hgb Conc 29.8 g/dL (32-36); Mean Corpuscular Hgb 27.4 pg (27.0-32.0); Mean Corpuscular Volume 91.9 fL (81-99); Mean Platelet Vol. 10.3 fl (6.2-12.0); Monocyte# 0.44 X10^3/uL; Monocyte% 5.5 % (0-10); NRBC Flagged by Analyzer 0 % (0-5); Neutrophil # 4.43 X10^3/uL (2.7-7.7); Neutrophil % 55.9 % (47-70); Platelet Count 252 K/mm3 (150-450); RBC Distribution Width CV 14.6 % (11.6-14.6); RBC Distribution Width SD 49.1 fl (35.1-43.9); Red Blood Count 4.42 M/mm3 (4.2-5.4); White Blood Count 7.9 K/mm3 (4.4-11.0)
--- NOTE | 2019-09-09 20:10 | RAD_ITS ---
STUDY: X-RAY CHEST REASON FOR EXAM: Female, 64 years old. Chest pain TECHNIQUE: Frontal and lateral views of the chest COMPARISON: 08/27/2019 FINDINGS: The lungs are clear. There are no pleural effusions. There is no pneumothorax. The heart is stable in size. There are stable postsurgical changes noted in the right shoulder. RAD/Chest PA and Lateral IMPRESSION: No acute thoracic pathology. Electronically Signed: Maverick Mendoza, at 20:54 EDT Tel , Service support ,
[2019-09-09 20:18] LABS: Anion Gap 4 (5-15); BUN 12 mg/dL (7-18); BUN/Creat Ratio 12.7 RATIO (10-20); Calcium,Total 8.7 mg/dL (8.5-10.1); Chloride 102 mmol/L (98-107); Creatinine, Serum 0.94 mg/dL (0.55-1.02); EST Glomerular Filtration Rate 63 mL/min (>60); Est Glom Filt Rate - Afr Amer 77 mL/min (>60); Estimated Creatinine Clearance 76.48 ml/min; Glucose 126 mg/dL (74-106); Potassium 3.4 mmol/L (3.5-5.1); Sodium Level 139 mmol/L (136-145)
[2019-09-09] MEDS: 0.9% Normal Saline 1,000 ML 150 ML IV (20:24)
[2019-09-09] MEDS: proMETHazine 25 MG/ML Syringe 12.5 MG IV (20:24)
[2019-09-09 20:33] VITALS: BP 126/79; PULSE 80; RESP 25; O2SAT 97
[2019-09-09 21:04] LABS: Amphetamine Urine VISTA NEGATIVE (<1000 ng/mL); Barbiturate Urine VISTA NEGATIVE (< 200 ng/mL); Benzodiazepine Urine VISTA POSITIVE (< 200 ng/mL); Cocaine Urine VISTA NEGATIVE (< 300 ng/mL); Ecstacy Urine VISTA NEGATIVE (< 500 ng/mL); Methadone Urine VISTA NEGATIVE (< 300 ng/mL); PCP Urine VISTA NEGATIVE (< 25 ng/mL); THC Urine VISTA NEGATIVE (< 50 ng/mL); Vista UDS pH Range 6
[2019-09-09 21:07] VITALS: BP 115/71; PULSE 79; RESP 16; O2SAT 94
--- NOTE | 2019-09-09 21:18 | ED.DCSUM_ITS ---
History of Present Illness Chief Complaint: Chest Pain Informant: Patient Onset: Days Context: Gradual Onset Timing: Continuous Current Severity: Moderate Maximum Severity: Moderate Narrative: The patient presents to the emergency department with cough and chest pain. The patient does have history of remote OR. She is currently at a skilled facility. She states that she feels like she is being bullied at the facility. Today, she had worsening chest pain when she was stressed. She states been constant for the past 8 hours. She also had a scant cough and is felt more short of breath. She states that she will feel like this when she gets anxious also. She denies being suicidal or homicidal. She does feel safe. Prior similar symptoms: Yes Recent Illness/Hospitalization: No Past Medical History - Allergies and Home Meds Allergies/Adverse Reactions: Allergies Penicillins Allergy (Verified 09/09/19 18:58) Rash Sulfa (Sulfonamide Antibiotics) Allergy (Verified 09/09/19 18:58) Rash Primary Care Physician: Care Physician,No Primary [Primary Care Provider] - Prior records reviewed: Yes Past Medical History: - Surgical History: - - Right shoulder surgery, hysterectomy, appendectomy. Lives: [facility] Smoking Status: Never smoker - Family History Paternal Family History: Reports: - - Denies known paternal medical history including cardiac history. Maternal Family History: Reports: - - Denies known maternal medical history including cardiac history. Review of Systems General: Denies: Chills, Fever, Sweats Eyes: Denies: Visual changes - bilaterally, Diplopia ENT: Denies: Rhinorrhea, Sore throat Cardiovascular: Reports: Chest pain. Denies: Palpitations Respiratory: Reports: Cough. Denies: Dyspnea, Dyspnea on exertion Gastrointestinal: Denies: Abdominal pain, Nausea, Vomiting, Diarrhea, Melena, Hematochezia Genitourinary: Denies: Dysuria, Hematuria, Frequency Musculoskeletal: Denies: Back pain, Extremity Pain Skin: Denies: Rash, Wounds Neurological: Denies: Headache, Weakness, Numbness Physical Exam Vital Signs/Narrative: Vital Signs Temp Pulse Resp BP Pulse Ox 09/09/19 21:07 79 16 115/71 94 09/09/19 20:33 80 25 H 126/79 H 97 09/09/19 19:55 80 18 96 09/09/19 19:39 76 17 09/09/19 18:58 98.6 F 83 16 174/97 H 92 Inital Vital Signs reviewed: Yes General: Well nourished, Well developed, No Acute Distress Head: Normocephalic, Atraumatic Eyes: Perrl, EOMI ENT: Moist mucous membranes, No rhinorrhea Neck: Supple, Nontender Cardiovascular: Regular rate, Regular rhythm, No murmurs Respiratory: No distress, Chest nontender, Wheezing Abdomen: Soft, Nontender, Nondistended, Normal bowel sounds Back: Nontender, Normal Inspection Extremities: Nontender, No edema Skin: Normal color, No rash Neurological: Alert, Oriented x3, Cranial nerves II-XII grossly intact, Normal Strength, Normal Sensation Psychological: Normal affect, Normal Mood Diagnostic/Tx/Re-eval Chest X-Ray - ED: 2 View, Normal, Heart, Lungs, Mediastinum Clinical Impression(s) from Imaging Studies Chest X-Ray 09/09/19 20:10 IMPRESSION: No acute thoracic pathology. Electronically Signed: Maverick Mendoza, at 20:54 EDT Tel , Service support , Abnormal Lab Results 09/09/19 09/09/19 09/09/19 19:50 19:50 19:50 WBC 7.9 RBC 4.42 Hgb 12.1 Hct 40.6 MCV 91.9 MCH 27.4 MCHC 29.8 L RDW Std Deviation 49.1 H RDW Coeff of Liset 14.6 Plt Count 252 MPV 10.3 Immature Gran % (Auto) 1.600 H Neut % (Auto) 55.9 Lymph % (Auto) 32.8 [place] % (Auto) 5.5 Eos % (Auto) 3.7 Baso % (Auto) 0.5 Absolute Neuts (auto) 4.4 Absolute Lymphs (auto) 2.60 Nucleated RBC % 0 Sodium 139 Potassium 3.4 L Chloride 102 Carbon Dioxide 33.0 H Anion Gap 4 L BUN 12 Creatinine 0.94 Estim Creat Clear Calc 76.48 Est GFR (MDRD) Af Amer 77 Est GFR (MDRD) Non-Af 63 BUN/Creatinine Ratio 12.7 Glucose 126 H Calcium 8.7 Troponin I < 0.015 Urine Opiates Screen Urine Methadone Screen Ur Barbiturates Screen Ur Phencyclidine Scrn Ur Amphetamines Screen U Methamphetamin-MDMA U Benzodiazepines Scrn Urine Cocaine Screen U Cannabinoids Screen Ur Drug Screen Comment Ethyl Alcohol 5.0 09/09/19 20:34 WBC RBC Hgb Hct MCV MCH MCHC RDW Std Deviation RDW Coeff of Liset Plt Count MPV Immature Gran % (Auto) Neut % (Auto) Lymph % (Auto) [place] % (Auto) Eos % (Auto) Baso % (Auto) Absolute Neuts (auto) Absolute Lymphs (auto) Nucleated RBC % Sodium Potassium Chloride Carbon Dioxide Anion Gap BUN Creatinine Estim Creat Clear Calc Est GFR (MDRD) Af Amer Est GFR (MDRD) Non-Af BUN/Creatinine Ratio Glucose Calcium Troponin I Urine Opiates Screen NEGATIVE Urine Methadone Screen NEGATIVE Ur Barbiturates Screen NEGATIVE Ur Phencyclidine Scrn NEGATIVE Ur Amphetamines Screen NEGATIVE U Methamphetamin-MDMA NEGATIVE U Benzodiazepines Scrn POSITIVE H Urine Cocaine Screen NEGATIVE U Cannabinoids Screen NEGATIVE Ur Drug Screen Comment Ethyl Alcohol - Rhythm Strip Rhythm Strip: Sinus Rhythm Rate: 80 Ectopy: None - EKG Initial EKG Interpretation: Sinus Rhythm, No Acute Injury Pattern Prior: Unchanged - Medical Decision Making The patient presents with anxiety and chest pain. Her chest pain is entirely reproducible. EKG was obtained which showed no acute ischemia. Her cardiac enzymes are normal. Patient was given Phenergan for nausea. She was sleeping comfortably. She was given a nebulized breathing treatment. X-ray shows no focal infiltrate. Her lab work is unremarkable. At this point, I do feel this is more of a stress reaction. I do feel that she is safe for outpatient therapy. Impression 1. Noncardiac chest pain ED Disposition - Plan for ED Patient: Instructions: CHEST PAIN, NonCardiac Referrals: Care Physician,No Primary [Primary Care Provider] -
[2019-09-09 21:44] VITALS: BP 121/82; PULSE 80; RESP 14; O2SAT 96
== END 2019-09-09 22:09 | disposition home or self-care (01) ==
LOC: ED 20:05
PROVIDERS: Emergency Provider Emergency Medicine
DX: R07.89 Other chest pain (principal); R05 Cough; I25.2 Old myocardial infarction; Z88.0 Allergy status to penicillin; Z88.2 Allergy status to sulfonamides; Z90.710 Acquired absence of both cervix and uterus; Z79.899 Other long term (current) drug therapy
CPT/HCPCS: 71046; 80048; 80307; 80320; 84484; 85025; 93005; 94640; 96361; 96374; 99285; J7030; A4216; G0480

== ENCOUNTER 2019-09-27 21:17 | Observation (INO) | payer MEDICARE, MEDICAID, SELFPAY ==
[2019-09-12 06:11] VITALS: BMI 36.8
[2019-09-27 21:20] VITALS: BP 127/72; PULSE 90; RESP 14; TEMP 36.6; O2SAT 94; BMI 35.8
--- NOTE | 2019-09-27 21:35 | EKG12_ITS ---
Test Reason : CP Blood Pressure : / mmHG Vent. Rate : 088 BPM Atrial Rate : 088 BPM P-R Int : 154 ms QRS Dur : 084 ms QT Int : 378 ms P-R-T Axes : 052 026 025 degrees QTc Int : 457 ms Normal sinus rhythm Nonspecific T wave abnormality Abnormal ECG Confirmed by CESAR GRUBER, SHARAD ([id number]), publication editor JANE BURGOS ([id number]) on 10/02/2019 2:11:36 PM Referred By: AMA Confirmed By:SHARAD GUERRERO MD
--- NOTE | 2019-09-27 21:36 | ED.DCSUM_ITS ---
History of Present Illness Chief Complaint: Chest Pain Informant: Patient, EMS Onset: Today, Hours - 1 Activity at onset: Rest Timing: Continuous Quality: Sharp Location: Right Parasternal Current Severity: Moderate Maximum Severity: Moderate Worsened By: Breathing Relieved By: Nothing - but hasn't tried anything Associated Symptoms: Dyspnea, Cough. Negative for: Nausea, Vomiting, Diaphoresis, Fever, Lightheadedness, Palpitations Narrative: Patient states he started getting chest discomfort an hour ago while sitting in her room at assisted living, it radiates down her left arm, and up to her left neck, and her mid upper back. There is a pleuritic component. She has had cough and congestion along with increased wheezing/COPD symptoms for the last few days. No fevers. She is chronic abdominal pain, states that is no different than usual, states that she has had some black stools but no blood. No urinary symptoms. States she had some heart attacks in the past but no stents or CABG. Prior Similar Symptoms: Yes, - - unknown - Past Medical History (1) Dyslipidemia Status: Chronic (2) Essential (primary) hypertension Status: Chronic Past Medical History - Allergies and Home Meds Allergies/Adverse Reactions: Allergies Penicillins Allergy (Verified 09/27/19 21:24) Rash Sulfa (Sulfonamide Antibiotics) Allergy (Verified 09/27/19 21:24) Rash Primary Care Physician: Care Physician,No Primary [Primary Care Provider] - Surgical History: - - Right shoulder surgery, hysterectomy, appendectomy. Lives: [facility] - Assisted living Smoking Status: Never smoker Drugs: None - Family History Paternal Family History: Reports: - - Denies known paternal medical history including cardiac history. Maternal Family History: Reports: - - Denies known maternal medical history including cardiac history. Review of Systems General: Denies: Chills, Fever, Sweats Eyes: Denies: Visual changes - bilaterally, Diplopia ENT: Reports: Rhinorrhea - And congestion. Denies: Bilateral ear pain, Sore throat Cardiovascular: Reports: Chest pain. Denies: Palpitations Respiratory: Reports: Dyspnea, Cough, Dyspnea on exertion. Denies: Sputum, Orthopnea Gastrointestinal: Reports: Abdominal pain, Melena. Denies: Nausea, Vomiting, Diarrhea, Hematochezia Genitourinary: Denies: Dysuria, Hematuria, Frequency Musculoskeletal: Reports: Neck pain, Back pain, Extremity Pain - Left upper extremity. Denies: Swelling Skin: Denies: Rash, Wounds Neurological: Denies: Headache, Weakness, Numbness Physical Exam Vital Signs/Narrative: Vital Signs Temp Pulse Resp BP Pulse Ox 09/27/19 21:20 97.8 F 90 14 127/72 H 94 Inital Vital Signs reviewed: Yes General: Well nourished, Well developed, No Acute Distress Head: Normocephalic, Atraumatic Eyes: Perrl, EOMI ENT: Moist mucous membranes, No rhinorrhea, - - POP clear Neck: Supple, Nontender, No lymphadenopathy, No JVD Cardiovascular: Regular rate, Regular rhythm, No murmurs, - - Equal bilateral 2+/4 pulses radial Respiratory: No distress, CTA bilaterally, Chest nontender Abdomen: Soft, Nontender, Nondistended, Normal bowel sounds Back: Nontender, Normal Inspection Extremities: Nontender, Edema - 1+ bilateral lower extremity edema, symmetric, with mild nontender erythema both shins distally. Negative for: Calf Tenderness Skin: Normal color, No Trauma, Rash - Erythema both lower legs, see above Neurological: Alert, Oriented x3, Cranial nerves II-XII grossly intact, Normal Strength, Normal Sensation Psychological: Normal Mood, - - Anxious Diagnostic/Tx/Re-eval Impressions Chest X-Ray 09/27/19 21:37 IMPRESSION: Calcified plaques of the aortic arch. Status post total right shoulder replacement changes are noted. No acute cardiopulmonary disease process is seen. Electronically Signed: Suraj Muniz MD at 21:55 EST , Service support , Chest CTA 09/27/19 22:51 IMPRESSION: Normal CTA chest examination, without a demonstrated pulmonary embolism or arterial dissection. There is mild dilatation of the main pulmonary artery measuring up to 3.1 cm in diameter. This may be associated with pulmonary hypertension. There is minimal calcification of the posterior pericardium. There is mild diffuse bronchial wall thickening which may be associated with COPD. Electronically Signed: Suraj Muniz MD at 23:50 EST , Service support , 09/27/19 21:37 Chest 1 View (Portable) [RAD] Stat 09/27/19 22:51 CTA Chest W/WO Contrast [CT] Stat Laboratory Results 09/27/19 09/27/19 09/27/19 21:20 21:20 21:20 WBC 10.0 RBC 5.00 Hgb 13.5 Hct 44.0 MCV 88.0 MCH 27.0 MCHC 30.7 L RDW Std Deviation 48.7 H RDW Coeff of Liset 15.3 H Plt Count 248 MPV 10.7 Immature Gran % (Auto) 1.100 H Neut % (Auto) 50.6 Lymph % (Auto) 37.1 [place] % (Auto) 7.4 Eos % (Auto) 3.3 Baso % (Auto) 0.5 Absolute Neuts (auto) 5.1 Absolute Lymphs (auto) 3.72 Nucleated RBC % 0 Differential Comment SCANNED PT Cancelled INR Cancelled APTT Cancelled D-Dimer Quant (PE/DVT) Cancelled Sodium Cancelled Potassium Cancelled Chloride Cancelled Carbon Dioxide Cancelled Anion Gap Cancelled BUN Cancelled Creatinine Cancelled Estim Creat Clear Calc Cancelled Est GFR (MDRD) Af Amer Cancelled Est GFR (MDRD) Non-Af Cancelled BUN/Creatinine Ratio Cancelled Glucose Cancelled Calcium Cancelled Troponin I Cancelled 09/27/19 09/27/19 22:15 22:15 WBC RBC Hgb Hct MCV MCH MCHC RDW Std Deviation RDW Coeff of Liset Plt Count MPV Immature Gran % (Auto) Neut % (Auto) Lymph % (Auto) [place] % (Auto) Eos % (Auto) Baso % (Auto) Absolute Neuts (auto) Absolute Lymphs (auto) Nucleated RBC % Differential Comment PT 15.9 H INR 1.3 APTT 29.2 D-Dimer Quant (PE/DVT) 2.18 H* Sodium 140 Potassium 3.3 L Chloride 105 Carbon Dioxide 26.0 Anion Gap 9 BUN 18 Creatinine 0.92 Estim Creat Clear Calc 74.78 Est GFR (MDRD) Af Amer 79 Est GFR (MDRD) Non-Af 65 BUN/Creatinine Ratio 19.6 Glucose 159 H Calcium 8.9 Troponin I < 0.015 - Rhythm Strip Rhythm Strip: Sinus Rhythm Rate: 88 Ectopy: None - EKG Initial EKG Interpretation: Sinus Rhythm, No Acute Injury Pattern, Non-Specific ST Changes - T wave flattening inferolaterally Prior: Unchanged Treatment: Aspirin, NTG SL - initially refused, GI Cocktail - Medical Decision Making Patient still having chest discomfort after GI cocktail and nitroglycerin. She really wants narcotics, however that is the case often with visit here and I do not know that that is appropriate at this time. My concern is that she is having unstable angina and I feel it is appropriate to admit her to rule that out. With the pleuritic component that she was having, I obtained a d-dimer but it was significantly elevated so CT angiography was performed followed by IV fluids, it shows no dissection or pulmonary embolus and some bronchial thickening consistent with her COPD. She is having symptoms of an exacerbation, however I do not think her chest discomfort is necessarily related to her COPD. Since she is at a higher risk of pulmonary embolus, we ruled that out. Her breathing is better after nebulizer treatments. She was treated with Solu- Medrol. There is no evidence of pneumonia on x-ray or CT, so we can hold on antibiotics at this time. With regards to the black stools she was having, she refuses rectal exam, but her hemoglobin is not low and her BUN is not elevated so chances of an acute upper GI bleed are very low at this time. She states she had a heart attack in the past, but all I see record of in our EMR is a nuclear stress test earlier in the year that is negative. Plan is for admission to rule out acute coronary syndrome. ED Disposition - Plan for ED Patient: Disposition: [facility] Diagnosis: Chest pain, unspecified, COPD with exacerbation Referrals: Care Physician,No Primary [Primary Care Provider] -
--- NOTE | 2019-09-27 21:37 | RAD_ITS ---
STUDY: X-RAY CHEST REASON FOR EXAM: Female, 64 years old. Chest pain x1 hour TECHNIQUE: Single AP portable view of the chest. COMPARISON: Prior study of 09/09/2019 FINDINGS: surveillance system monitor leads are present. The lungs are clear and expanded. There is no demonstrated pleural abnormality. Normal size heart. Normal mediastinum and zion. Normal visualized pulmonary arteries. There are calcified plaques of the aortic arch. Normal visualized thoracic spine. Status post total right shoulder replacement changes are noted. There is no demonstrated abnormality of the visualized soft tissue structures of the upper abdomen. RAD/Chest 1 View (Portable) IMPRESSION: Calcified plaques of the aortic arch. Status post total right shoulder replacement changes are noted. No acute cardiopulmonary disease process is seen. Electronically Signed: Suraj Muniz MD at 21:55 EST , Service support ,
[2019-09-27 21:57] LABS: Absolute Lymphocyte Count 3.72 X10^3/uL (0.83-4.51); Absolute Neutrophil Count 5.1 X10^3/uL (2.0-7.7); Basophil# 0.05 X10^3/uL; Basophil% 0.5 % (0-1); Eosinophil# 0.33 X10^3/uL; Eosinophils% 3.3 % (0-5); Hemoglobin 13.5 g/dL (12.0-15.0); Lymphocyte # 3.72 X10^3/ul (4.0); Lymphocyte % 37.1 % (19-41); Mean Corp Hgb Conc 30.7 g/dL (32-36); Mean Platelet Vol. 10.7 fl (6.2-12.0); Monocyte# 0.74 X10^3/uL; Monocyte% 7.4 % (0-10); NRBC Flagged by Analyzer 0 % (0-5); Neutrophil # 5.07 X10^3/uL (2.7-7.7); Neutrophil % 50.6 % (47-70); POSITIVE COUNT YES; Platelet Count 248 K/mm3 (150-450); RBC Distribution Width CV 15.3 % (11.6-14.6); RBC Distribution Width SD 48.7 fl (35.1-43.9)
[2019-09-27] MEDS: 0.9% Normal Saline 1,000 ML 250 ML IV (22:09)
[2019-09-27] MEDS: Mag Hydrox/Al Hydrox/Simeth 30 ML UDC PO (22:10)
[2019-09-27 22:13] LABS: Differential Indicated SCAN CRITERIA MET
[2019-09-27] MEDS: proMETHazine 25 MG/ML Syringe 12.5 MG IV (22:14)
[2019-09-27 22:30] VITALS: PULSE 90; RESP 16
[2019-09-27] MEDS: Ipratropium/Albuterol Sulfate 3 ML AMPUL.NEB INHALATION (22:30)
[2019-09-27] MEDS: Albuterol 2.5 MG/3 ML VIAL.NEB. INHALATION (22:30)
[2019-09-27 22:37] LABS: Differential Comment SCANNED
[2019-09-27 22:41] LABS: Anion Gap 9 (5-15); BUN 18 mg/dL (7-18); BUN/Creat Ratio 19.6 RATIO (10-20); Calcium,Total 8.9 mg/dL (8.5-10.1); Chloride 105 mmol/L (98-107); Creatinine, Serum 0.92 mg/dL (0.55-1.02); EST Glomerular Filtration Rate 65 mL/min (>60); Est Glom Filt Rate - Afr Amer 79 mL/min (>60); Estimated Creatinine Clearance 74.78 ml/min; Glucose 159 mg/dL (74-106); Potassium 3.3 mmol/L (3.5-5.1); Sodium Level 140 mmol/L (136-145)
[2019-09-27 22:42] LABS: International Normalized Ratio 1.3; Prothrombin Time (Protime)PT. 15.9 SECONDS (11.7-14.9)
[2019-09-27 22:43] LABS: Partial Thromboplast Time 29.2 Seconds (24.1-36.2)
[2019-09-27 22:48] LABS: D-Dimer Quantitative (DVT/PE) 2.18 FEU/ug/m (0.27-0.49)
--- NOTE | 2019-09-27 22:48 | ED.RN ---
lab called with critical lab results. d dimer 2.18. Dr. Delgado made aware
--- NOTE | 2019-09-27 22:51 | CT_ITS ---
STUDY: CTA CHEST REASON FOR EXAM: Female, 64 years old. Chest pain, elevated d-dimer RADIATION DOSAGE (If Supplied By Facility): CTDIvol = ( 14.02 ) mGy, DLP = ( 462.72 ) mGycm TECHNIQUE: The examination was performed with the intravenous administration of IV Isovue 300 75ML. Post-processing of the angiographic images was performed, with multiplanar reformation and 3D reconstruction. Individualized dose optimization techniques were used for this CT. COMPARISON: Previous study of 11/05/2018 FINDINGS: Normal enhancement of the main pulmonary artery and right and left pulmonary arteries. Normal enhancement of the bilateral peripheral pulmonary arteries. There is no demonstrated pulmonary embolism. There is dilatation of the main pulmonary artery measuring up to 3.1 cm in diameter. Normal thoracic aorta and visualized great vessels. There is no demonstrated aortic dissection. The heart size is within normal limits. There is minimal calcification of the posterior pericardium. Normal mediastinum. Normal hilar regions. There is mild diffuse bronchial wall thickening. The trachea appears normal. The lungs are well expanded. Normal pulmonary parenchyma. Normal pleura. Normal chest wall structures. Status post total right shoulder replacement changes are noted. There are degenerative changes of the thoracolumbar junction. There are old compression deformities of T12 and L1. Normal visualized upper abdomen. CT/CTA Chest W/WO Contrast IMPRESSION: Normal CTA chest examination, without a demonstrated pulmonary embolism or arterial dissection. There is mild dilatation of the main pulmonary artery measuring up to 3.1 cm in diameter. This may be associated with pulmonary hypertension. There is minimal calcification of the posterior pericardium. There is mild diffuse bronchial wall thickening which may be associated with COPD. Electronically Signed: Suraj Muniz MD at 23:50 EST , Service support ,
[2019-09-27 23:34] VITALS: BP 105/66; PULSE 84; RESP 12; O2SAT 95
[2019-09-28] VITALS (25 sets, daily range): BP systolic 102–161; BP diastolic 62–97; PULSE 78–94; RESP 11–20; TEMP 36.4–37.1; O2SAT 92–98; BMI 34.9; BMI 35.8
--- NOTE | 2019-09-28 00:04 | PCM.HP.STD ---
Problem List (1) Chest pain, unspecified Status: Acute (2) COPD with exacerbation Status: Chronic (3) Dyspnea Status: Acute Qualifiers: Dyspnea type: dyspnea on exertion Qualified Code(s): R06.09 - Other forms of dyspnea (4) Polypharmacy Status: Chronic (5) Essential (primary) hypertension Status: Chronic (6) Dyslipidemia Status: Chronic History of Present Illness Date of Admission: 09/28/19 Chief Complaint: chest pain The patient is a 64 year old F with a significant history of CKD stage III; chronic pain syndrome; COPD; hypertension and polypharmacy who presented to emergency department with left-sided chest pain that started few hours before presentation. She rated her pain as 9 on a scale of 1-10. Her pain is sharp. Her chest pain radiates to her left jaw; left arm; her mid back and her neck. Associated with symptoms is nausea vomiting; and diaphoresis. She reports runny nose; productive cough with greenish sputum; as well as ear pain and teary eyes. Past Medical History Past Medical History (Chronic Problems): Chronic Problems (Last Reviewed 09/28/19 @ 01:30 by Fam Krishnamurthy MD) COPD with exacerbation (Chronic) Polypharmacy (Chronic) Essential (primary) hypertension (Chronic) Dyslipidemia (Chronic) Medical History: Medical History (Last Reviewed 09/28/19 @ 01:30 by Fam Krishnamurthy MD) Polypharmacy (Chronic) Z79.899 Essential (primary) hypertension (Chronic) I10 Dyslipidemia (Chronic) E78.5 Anxiety and depression F41.9, F32.9 COPD (chronic obstructive pulmonary disease) J44.9 Chronic kidney disease, stage 3 N18.3 Chronic pain syndrome G89.4 Frequent falls R29.6 GERD (gastroesophageal reflux disease) K21.9 Obesity E66.9 Type 2 diabetes mellitus E11.9 Rhabdomyolysis M62.82 Allergies Penicillins Allergy (Verified 09/27/19 21:24) Rash Sulfa (Sulfonamide Antibiotics) Allergy (Verified 09/27/19 21:24) Rash Home Medications: Ambulatory Orders Medication Instructions Recorded Pantoprazole Sodium [Protonix] 40 mg PO DAILY 05/03/19 Pregabalin [Lyrica] 100 mg PO TID 05/03/19 Ropinirole HCl 1 mg PO QHS 05/03/19 Atorvastatin Calcium [Lipitor] 20 mg PO QHS 06/03/19 Furosemide [Lasix] 20 mg PO DAILY 06/03/19 Isosorbide Mononitrate [Imdur] 60 mg PO DAILY 06/03/19 Prazosin HCl 2 mg PO QHS 06/05/19 Topiramate [Topamax] 50 mg PO QHS 06/05/19 Cetirizine HCl 10 mg PO DAILY 06/26/19 Sertraline HCl 100 mg PO DAILY 07/09/19 proMETHazine suppository 12.5 mg RECTAL Q6H PRN PRN #12 08/27/19 [Phenergan] suppos. ALPRAZolam [Xanax] 0.25 mg PO BID 09/27/19 Dicyclomine HCl 10 mg PO BID PRN 09/27/19 Doxycycline Hyclate 100 mg PO BID 09/27/19 Furosemide [Lasix] 20 mg PO DAILY 09/27/19 Mirtazapine 15 mg PO QHS 09/27/19 Morphine Sulfate [Morphabond ER] 15 mg PO BID 09/27/19 Sodium Chloride 0.65% [[place] Nasal 2 spr NASAL BID 09/27/19 [place]] Surgical History: Surgical History (Last Reviewed 09/28/19 @ 01:30 by Fam Krishnamurthy MD) History of appendectomy Z90.49 History of hysterectomy Z90.710 History of left heart catheterization Onset Date: 05/09/09 Z98.890 Surgical History: - - Right shoulder surgery, hysterectomy, appendectomy. 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 Maternal History Items: - - Denies known maternal medical history including cardiac history. Review of Systems Constitutional: Denies: Chills, Fever, Weight Change HEENT: Denies: Head Aches, Sinus Congestion, Sinus Drainage Cardiovascular: Reports: Chest Pain. Denies: Palpitations Respiratory: Reports: Cough, Shortness of Breath, Wheezing. Denies: Sputum production Gastrointestinal: Reports: Nausea, Vomiting. Denies: Abdominal Pain Genitourinary: Denies: Dysuria Musculoskeletal: Reports: Back Pain, Neck Pain. Denies: Joint Pain, Joint Tenderness Skin: Denies: Rash, Wounds Neurological: Denies: Numbness, Tingling, Focal weakness Psychiatric: Denies: Anxiety, Depression, Homicidal Ideations, Suicidal Ideations Hematologic/ Lymphatic: Denies: Easy Bruising, Easy Bleeding VTE Information - Inpt Only VTE Present on Admission: No VTE Mechan Device Prophylaxis: None VTE Pharm Prophylaxis ordered?: Yes Patient Problems: Active and Suspected Problems (Last Reviewed 09/28/19 @ 01:30 by Fam Krishnamurthy MD) Chest pain, unspecified (Acute) - Physical Exam Vitals/I&O's: Vital Signs Temp Pulse Resp BP Pulse Ox 97.8 F 84 12 105/66 95 09/27/19 21:20 09/27/19 23:34 09/27/19 23:34 09/27/19 23:34 09/27/19 23:34 Oxygen Flow Rate (L/min) 2 Oxygen Delivery Method Nasal Cannula Weight: 77.7 kg Body Mass Index (BMI) 35.8 Finger Stick Blood Glucose 201 General: Alert, Oriented x3, Cooperative HEENT: Atraumatic, PERRLA, EOMI, Normocephalic Neck: Supple, No JVD, Negative Carotid Bruits Lungs: Rhonchi, Wheezes Cardiovascular: Regular rate, No murmurs Abdomen: Bowel Sounds Present, Soft, Non Tender Extremities: No edema, Capillary Refill Less than 3 Seconds Skin: No rashes, No breakdown Musculoskeletal: No Tenderness to Palpation of Joints or Extremities Neurological: Cranial nerves II-XII grossly intact Psych/Mental Status: Anxious Laboratory Results 09/27/19 21:20: WBC 10.0, RBC 5.00, Hgb 13.5, Hct 44.0, MCV 88.0, MCH 27.0, MCHC 30.7 L, RDW Std Deviation 48.7 H, RDW Coeff of Liset 15.3 H, Plt Count 248, MPV 10.7, Immature Gran % (Auto) 1.100 H, Neut % (Auto) 50.6, Lymph % (Auto) 37.1, [place] % (Auto) 7.4, Eos % (Auto) 3.3, Baso % (Auto) 0.5, Absolute Neuts (auto) 5.1, Absolute Lymphs (auto) 3.72, Nucleated RBC % 0, Differential Comment SCANNED 09/27/19 21:20: PT Cancelled, INR Cancelled, APTT Cancelled, D-Dimer Quant (PE/DVT) Cancelled 09/27/19 21:20: Sodium Cancelled, Potassium Cancelled, Chloride Cancelled, Carbon Dioxide Cancelled, Anion Gap Cancelled, BUN Cancelled, Creatinine Cancelled, Estim Creat Clear Calc Cancelled, Est GFR (MDRD) Af Amer Cancelled, Est GFR (MDRD) Non-Af Cancelled, BUN/Creatinine Ratio Cancelled, Glucose Cancelled, Calcium Cancelled, Troponin I Cancelled 09/27/19 22:15: Sodium 140, Potassium 3.3 L, Chloride 105, Carbon Dioxide 26.0, Anion Gap 9, BUN 18, Creatinine 0.92, Estim Creat Clear Calc 74.78, Est GFR (MDRD) Af Amer 79, Est GFR (MDRD) Non-Af 65, BUN/Creatinine Ratio 19.6, Glucose 159 H, Calcium 8.9, Troponin I < 0.015 09/27/19 22:15: PT 15.9 H, INR 1.3, APTT 29.2, D-Dimer Quant (PE/DVT) 2.18 H* Current Medications Sodium Chloride () 1,000 mls @ 250 mls/hr IV .Q4H ARTHUR Last Admin: 09/27/19 22:09 Dose: 250 mls/hr Documented by: Nitroglycerin (Nitrostat) 0.4 mg SUBLINGUAL Q5M PRN PRN Reason: Chest pain Assessment/Plan All Active Problems (Last Reviewed 09/28/19 @ 01:30 by Fam Krishnamurthy MD) Chest pain, unspecified (Acute) Dyspnea (Acute) The patient is a 64 year old F with a significant history of CKD stage III; chronic pain syndrome; COPD; hypertension and polypharmacy who presented to emergency department with left-sided chest pain; URI and bronchitis. Chest pain Per cardiology notes patient had 2 previous cardiac catheterization in 2007 and in 2013 with no obstructive coronary disease. In May 2019 to myocardial perfusion stress test was unremarkable. Place on a monitored bed at [facility] Her d-dimer was elevated so chest CT was done. Chest CT was unremarkable. EKG was nonspecific. ASA 81 mg p.o. daily SL NTG 0.4 mg prn as needed for chest pain Home statin continued Serial cardiac enzymes Stat EKG as needed for chest pain Since her last stress test was in the last 3 to 4 months we will not order stress test at this time. Will consult cardiology. Acute URI and COPD exacerbation Patient received Solu-Medrol emergency department with Medrol continued. Also she received DuoNeb by the emergency department. We will continue DuoNeb and PRN albuterol. She was prescribed doxycycline outpatient but she could not start it. Will start patient on the cycle while inpatient. Mucinex prn ordered Diabetes Mellitus On presentation her blood glucose was within goal. Calorie restriction of 1800KCAL Insomnia Patient requesting IV Benadryl. After much discussion she will accept 50mg benadryl po . Cerumen in left ear Debrox prescribed Chronic pain syndrome Morphine continued Neuropathy Lyrica continued DVT prophylaxis Subcutaneous heparin ordered Code Visit OBSV E&M: [id number] Initial observation care L3
[2019-09-28] MEDS: MethylPREDNISolone 125 MG/2 ML Vial IV (00:29)
[2019-09-28] MEDS: Potassium Chloride 10mEq/100mL 10 MEQ/100 ML IV.SOLN. 100 MEQ IV BOLUS (00:33)
--- NOTE | 2019-09-28 02:05 | EKG12_ITS ---
Test Reason : CP ADMIT Blood Pressure : / mmHG Vent. Rate : 081 BPM Atrial Rate : 081 BPM P-R Int : 162 ms QRS Dur : 084 ms QT Int : 430 ms P-R-T Axes : 062 031 033 degrees QTc Int : 499 ms Normal sinus rhythm Prolonged QT Abnormal ECG When compared with ECG of 27-SEP-2019 21:24, MANUAL COMPARISON REQUIRED, DATA IS UNCONFIRMED Confirmed by CESAR GRUBER, SHARAD ([id number]), department editor JANE BURGOS ([id number]) on 10/02/2019 3:05:59 PM Referred By: DR AGUERO Confirmed By:SHARAD GUERRERO MD
[2019-09-28] MEDS: DiphenhydrAMINE 25 MG Capsule 50 MG PO ×2 (02:32→21:30)
[2019-09-28] MEDS: Ondansetron 4 MG/2 ML Vial IV ×3 (02:32→18:48)
[2019-09-28] MEDS: Doxycycline 100 MG CAPSULE PO ×3 (02:33→21:31)
[2019-09-28] MEDS: Carbamide Peroxide 15 ML Bottle 5 DRP OTIC (02:33)
[2019-09-28] MEDS: 0.9% Saline Lock 10 ML Syringe IV ×4 (02:39→22:58)
[2019-09-28] MEDS: Ipratropium/Albuterol Sulfate 3 ML AMPUL.NEB INHALATION ×5 (03:31→19:01)
[2019-09-28] MEDS: proMETHazine 12.5 MG Suppos. RECTAL ×2 (06:06→16:13)
[2019-09-28] MEDS: Pregabalin 50 MG Capsule 100 MG PO ×3 (06:16→21:30)
[2019-09-28] MEDS: guaiFENesin 10 ML UDC (200MG/10ML) PO ×4 (06:16→21:43)
[2019-09-28] MEDS: Heparin Injection (Vial) 5,000 UNIT/ML VIAL 5000 UNIT SC ×2 (06:16→21:31)
--- NOTE | 2019-09-28 08:08 | NURSING ---
Dr. Sargent and this nurse walked in the room together and talked with pt. Pt is now agreeable to have stress test now and not refuse it after Dr. Sargent talked with her.
--- NOTE | 2019-09-28 08:45 | CON.PCM_ITS ---
Reason for Consult Date of Consultation: 09/28/19 Reason for Consultation: Chest pain. History of Present Illness: The patient is a 64 year old F with a history of multiple complaints who presented to the emergency room with complaints of chest discomfort. She describes these as sharp and otherwise dull. There is also occasional radiation to the left shoulder. You do remember that she had presented with a similar episode in May 2019. She had been complaining of palpitations as well as chest discomfort. She also recently underwent stress testing which was noted to be normal. She has had 2 previous cardiac catheterizations in 2007, in 2013 with no obstructive coronary disease. She does have a history of hypertension, hyperlipidemia, chronic pain syndrome, anxiety, and palpitations. Cardiology was called to see her a pharmacologic myocardial perfusion stress test demonstrated no evidence of ischemia and ejection fraction was also noted to be normal. She presents here today for a follow-up visit. Her physical exam demonstrates clear lung cano regular rate and rhythm no pedal edema. She continues to complain of palpitations. Past Medical History Allergies/Adverse Reactions: Allergies Penicillins Allergy (Verified 09/27/19 21:24) Rash Sulfa (Sulfonamide Antibiotics) Allergy (Verified 09/27/19 21:24) Rash Home Medications: Ambulatory Orders Medication Instructions Recorded Pantoprazole Sodium [Protonix] 40 mg PO DAILY 05/03/19 Pregabalin [Lyrica] 100 mg PO TID 05/03/19 Ropinirole HCl 1 mg PO QHS 05/03/19 Atorvastatin Calcium [Lipitor] 20 mg PO QHS 06/03/19 Furosemide [Lasix] 20 mg PO DAILY 06/03/19 Isosorbide Mononitrate [Imdur] 60 mg PO DAILY 06/03/19 Prazosin HCl 2 mg PO QHS 06/05/19 Topiramate [Topamax] 50 mg PO QHS 06/05/19 Cetirizine HCl 10 mg PO DAILY 06/26/19 Sertraline HCl 100 mg PO DAILY 07/09/19 proMETHazine suppository 12.5 mg RECTAL Q6H PRN PRN #12 08/27/19 [Phenergan] suppos. ALPRAZolam [Xanax] 0.25 mg PO BID 09/27/19 Dicyclomine HCl 10 mg PO BID PRN 09/27/19 Doxycycline Hyclate 100 mg PO BID 09/27/19 Furosemide [Lasix] 20 mg PO DAILY 09/27/19 Mirtazapine 15 mg PO QHS 09/27/19 Morphine Sulfate [Morphabond ER] 15 mg PO BID 09/27/19 Sodium Chloride 0.65% [[place] Nasal 2 spr NASAL BID 09/27/19 [place]] Past Medical History (Chronic Problems): Chronic Problems (Last Reviewed 09/28/19 @ 01:30 by Fam Krishnamurthy MD) COPD with exacerbation (Chronic) Polypharmacy (Chronic) Essential (primary) hypertension (Chronic) Dyslipidemia (Chronic) Surgical History: - - Right shoulder surgery, hysterectomy, appendectomy. 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 Maternal History Items: - - Denies known maternal medical history including cardiac history. Lives: [facility] - Assisted living Smoking Status: Never smoker Drugs: None Review of Systems - Review of Systems General: Denies: Fever, Night Sweats, Fatigue HEENT: Denies: Vision Change Cardiovascular: Reports: Chest Discomfort. Denies: Shortness of Breath, Orthopnea, PND, Peripheral Edema, Palpitations, Lightheadedness, Dizziness, Near Syncope, Syncope Respiratory: Denies: Cough, Sputum Production, Hemoptysis Gastrointestinal: Denies: Hematemesis, Hematochezia, Melena Genitourinary: Denies: Dysuria, Hematuria Muscoloskeletal: Denies: Myalgias Skin: Denies: Rash Neurological: Denies: Dizziness Psychiatric: Denies: Anxiety Endocrine: Denies: Excessive Sweating Hematologic/ Lymphatic: Denies: Anemia Objective: Vital Signs Temp Pulse Resp BP Pulse Ox 97.8 F 89 18 140/85 H 96 09/28/19 06:25 09/28/19 07:25 09/28/19 07:25 09/28/19 06:25 09/28/19 08:17 Oxygen Flow Rate (L/min) 3 Oxygen Delivery Method Nasal Cannula Weight: 167 lb Body Mass Index (BMI) 34.9 Finger Stick Blood Glucose 201 Intake and Output for Last 24 Hours 09/26/19 09/27/19 09/28/19 23:59 23:59 23:59 Intake Total 1342.5 / 1342.5 Balance 1342.5 / 1342.5 09/27/19 21:20: WBC 10.0, RBC 5.00, Hgb 13.5, Hct 44.0, MCV 88.0, MCH 27.0, MCHC 30.7 L, Plt Count 248, MPV 10.7, Immature Gran % (Auto) 1.100 H, Neut % (Auto) 50.6, Lymph % (Auto) 37.1, [place] % (Auto) 7.4, Eos % (Auto) 3.3, Baso % (Auto) 0.5, Absolute Neuts (auto) 5.1, Nucleated RBC % 0 09/27/19 21:20: PT Cancelled, INR Cancelled, APTT Cancelled, D-Dimer Quant (PE/DVT) Cancelled 09/27/19 21:20: Sodium Cancelled, Potassium Cancelled, Chloride Cancelled, Carbon Dioxide Cancelled, Anion Gap Cancelled, BUN Cancelled, Creatinine Cancelled, Est GFR (MDRD) Af Amer Cancelled, Est GFR (MDRD) Non-Af Cancelled, BUN/Creatinine Ratio Cancelled, Glucose Cancelled, Calcium Cancelled, Troponin I Cancelled 09/27/19 22:15: Sodium 140, Potassium 3.3 L, Chloride 105, Carbon Dioxide 26.0, Anion Gap 9, BUN 18, Creatinine 0.92, Est GFR (MDRD) Af Amer 79, Est GFR (MDRD) Non-Af 65, BUN/Creatinine Ratio 19.6, Glucose 159 H, Calcium 8.9, Troponin I < 0.015 09/27/19 22:15: PT 15.9 H, INR 1.3, APTT 29.2, D-Dimer Quant (PE/DVT) 2.18 H* 09/28/19 02:05: Troponin I < 0.015 09/28/19 05:20: Troponin I < 0.015 Rhythm: EKG: Normal sinus rhythm with a rate of [address]-T wave changes noted ECHO: Stress Test: Cardiac Cath: PCI: CT Surgery: Holter monitor: EPS: PPM: CXR: Chest CT Scan: Assessment/Plan 1. Chest pain * Patient presents with recurrent chest discomfort. Patient has had stress testing in the past which has not demonstrated any obvious ischemia and has undergone 2 cardiac catheterizations in the last 5 years. It appears from the character of the chest discomfort, the negative troponin, the EKG that it is unlikely that this is coronary in origin. However the patient's continued insistence as well as the chest discomfort it may be prudent to reevaluate her coronary anatomy. If the above is negative I would suggest evaluating a GI cause for her chest discomfort. The risk benefits alternatives been explained to her she understands and agrees to proceed. * 2. Hypertension * Her blood pressure is not very well controlled. I would recommend that in addition to what she is taking she should be put on Toprol-XL 50 mg a day. * Addendum: Patient underwent cardiac catheterization with demonstrated no obstructive coronary disease. My recommendation at this time is that her chest discomfort is noncardiac. Better control of her hypertension has been advocated as above. Patient insists that she wants to be on a baby aspirin though there is no in dication. My standpoint the patient can be discharged for outpatient follow-up with her primary physician.
[2019-09-28] MEDS: ALPRAZolam 0.25 MG Tablet PO ×2 (08:47→21:43)
[2019-09-28] MEDS: morphine SR 15 MG Tablet PO ×2 (08:47→21:43)
--- NOTE | 2019-09-28 08:48 | NURSING ---
Dr. Vazquez in to see pt., taking pt to oil laboratory analyst. Dr. Vazquez told pt and this nurse that it was okay to give her her scheduled Xanax and Ms Contin or pt would refuse procedure. Pt is being taking down to section laborer by Ramírez Rn via bed. He stated they would give ASA, Brillanta and Imdur and prep her over there.
--- NOTE | 2019-09-28 09:57 | CL.D_ITS ---
Patient Name: DEREK WRIGHT Study Date: 09/28/2019 Performing: Allan Vazquez MD Ht: 58 inches 147 cm : 1955 Wt: 167.8 lbs 76 kg Age: 64 Gender: female BSA: 1.69 PROCEDURE(S) PERFORMED [id number]/COR/LV CLINICAL PROFILE AND INDICATIONS Indications: Suspected CAD Heart Failure: None Stress/Imaging Stress/Image Study Performed: No CAD Presentations: Symptom unlikely to be ischemic. CONCLUSIONS Normal coronary arteries Normal LV size, wall motion,and systolic function RECOMMENDATIONS Medical therapy DESCRIPTION OF PROCEDURE The patient arrived to the procedure lab. The risks and benefits of the procedure as well as a full d escription of our services here and current unavailability of surgical backup were fully explained to the patient and/or their significant other prior to the catheterization. The Timeout was completed, verifying the correct patient and procedure. The patient's procedural site was prepped and draped in the usual fashion. Local anesthetic was given subcutaneously to right groin region with Lidocaine 2%. Using a modified Seldinger technique, arterial access was obtained via the right femoral artery, a 5 Fr sheath was inserted. Left Coronary Artery selective angiography was performed in multiple views u sing a 5 Fr. JL4 catheter. Right Coronary Artery selective angiography was then performed in multiple views using a 5 Fr. 3DRC (Mina) catheter. Left Ventriculography was performed in GONZALES projection using a 5 Fr. Pigtail catheter. LV to AO pullback pressures were then recorded.The arterial sheath was pulled and a Mynx closure device was deployed for hemostasis CORONARY ANGIOGRAPHY DOMINANCE: Right Dominant LEFT HEART ASSESSMENT Left Ventricular Ejection Fraction: by LV Gram 65 % Normal LV wall motion Normal Left Ventricular systolic function Normal Left Ventricular systolic function LEFT MAIN: Angiographically normal LEFT ANTERIOR DESCENDING ARTERY: Angiographically normal CIRCUMFLEX ARTERY: Angiographically normal RIGHT CORONARY ARTERY: Angiographically normal COMPLICATIONS No Complications PROCEDURE MEDICATIONS Versed 1 mg IV Versed 1 mg IV Versed 1 mg IV Oxygen: 2 L/min via nasal cannula Brilinta 180 mg PO 09/28/2019 09:05:38 Baby Aspirin (81mg) 1 Tabs PO @ 09/28/2019 09:05:58 SUMMARY OF HEMODYNAMIC DATA Time AIR REST ECG 09:02:38 AO 150/95 (120) SA 09:23:58 LV 159/1, 09:29:49 LV 155/-4, 09:29:56 LV 157/0, 09:30:42 LVp 157/1, 09:30:48 AOp 153/87 (116) 09:30:53 Signed By Allan Vazquez MD On 09/28/2019 09:56:15 Allan Vazquez MD
[2019-09-28] MEDS: 0.9% Normal Saline 1,000 ML 75 ML IV ×2 (10:27→22:58)
[2019-09-28] MEDS: Sertraline 100 MG Tablet PO (11:04)
[2019-09-28] MEDS: Pantoprazole Sodium 40 MG Tablet PO (11:04)
[2019-09-28] MEDS: Furosemide 20 MG Tablet PO (11:05)
[2019-09-28] MEDS: Aspirin E.C. 81 MG Tablet PO (11:05)
[2019-09-28] MEDS: Aspirin 81 MG TAB.CHEW PO (11:06)
[2019-09-28] MEDS: Loratadine 10 MG Tablet PO (11:06)
[2019-09-28] MEDS: Metoprolol(XL)Succ 50 MG Tablet PO (11:09)
[2019-09-28] MEDS: Lisinopril 10 MG Tablet PO (11:09)
[2019-09-28] MEDS: Sodium Chloride 0.65% 1 SPRAY SPRAY.BTL 2 SPRAY NASAL ×2 (11:10→21:33)
--- NOTE | 2019-09-28 11:33 | PCM.PN.HOSP ---
Patient Problems: Active and Suspected Problems (Last Reviewed 09/28/19 @ 01:30 by Fam Krishnamurthy MD) Chest pain, unspecified (Acute) Subjective: Patient seen and examined. She was admitted with a complaint of chest pain. Pain was left-sided and started a few hours prior to admission and radiated to her left jaw and left arm as well as her mid back. She had assisted nausea and vomiting and diaphoresis. She also complained of runny nose and a productive cough with greenish sputum. She was admitted to be managed for chest pain rule out ACS. Patient seen this morning. She was still complaining of chest pain. Patient refused to have stress test because she said she had one a few months ago and was negative. She denied any lightheadedness or dizziness, palpitations, diarrhea vomiting. Review of systems otherwise negative. Discussed with cardiology and decision see patient for cardiac cath today. Vitals/I&O's: Vital Signs Temp Pulse Resp BP Pulse Ox 97.5 F L 86 16 161/95 H 97 09/28/19 08:25 09/28/19 11:09 09/28/19 11:00 09/28/19 11:00 09/28/19 11:00 Oxygen Flow Rate (L/min) 2 Oxygen Delivery Method Nasal Cannula Weight: 167 lb Body Mass Index (BMI) 34.9 Finger Stick Blood Glucose 201 Intake and Output for Last 24 Hours 09/26/19 09/27/19 09/28/19 23:59 23:59 23:59 Intake Total 1342.5 / 1342.5 Balance 1342.5 / 1342.5 General: Alert, Oriented x3, Cooperative, No apparent distress HEENT: Atraumatic, PERRLA, EOMI, Normocephalic Oral: Moist Mucosa Neck: Supple, No JVD, Negative Carotid Bruits Lungs: Clear to auscultation, Normal air movement, No rhonchi, No wheeze Cardiovascular: Regular rate, Regular Rhythm, Normal S1, Normal S2, No murmurs Abdomen: Bowel Sounds Present, Soft, Non Tender, Non-Distended, No Hepato-splenomegaly Extremities: No edema, Capillary Refill Less than 3 Seconds Skin: No rashes, No breakdown Musculoskeletal: No Tenderness to Palpation of Joints or Extremities Lymphatic: No Cervical, Supraclavicular, or Inguinal Adenopathy Neurological: Cranial nerves II-XII grossly intact, Neuro grossly intact, Motor Exam 5/5 strength throughout Psych/Mental Status: Agitated, Alert and oriented to time, place, person, mood and affect Laboratory Results 09/27/19 21:20: WBC 10.0, RBC 5.00, Hgb 13.5, Hct 44.0, MCV 88.0, MCH 27.0, MCHC 30.7 L, RDW Std Deviation 48.7 H, RDW Coeff of Liset 15.3 H, Plt Count 248, MPV 10.7, Immature Gran % (Auto) 1.100 H, Neut % (Auto) 50.6, Lymph % (Auto) 37.1, [place] % (Auto) 7.4, Eos % (Auto) 3.3, Baso % (Auto) 0.5, Absolute Neuts (auto) 5.1, Absolute Lymphs (auto) 3.72, Nucleated RBC % 0, Differential Comment SCANNED 09/27/19 21:20: PT Cancelled, INR Cancelled, APTT Cancelled, D-Dimer Quant (PE/DVT) Cancelled 09/27/19 21:20: Sodium Cancelled, Potassium Cancelled, Chloride Cancelled, Carbon Dioxide Cancelled, Anion Gap Cancelled, BUN Cancelled, Creatinine Cancelled, Estim Creat Clear Calc Cancelled, Est GFR (MDRD) Af Amer Cancelled, Est GFR (MDRD) Non-Af Cancelled, BUN/Creatinine Ratio Cancelled, Glucose Cancelled, Calcium Cancelled, Troponin I Cancelled 09/27/19 22:15: Sodium 140, Potassium 3.3 L, Chloride 105, Carbon Dioxide 26.0, Anion Gap 9, BUN 18, Creatinine 0.92, Estim Creat Clear Calc 74.78, Est GFR (MDRD) Af Amer 79, Est GFR (MDRD) Non-Af 65, BUN/Creatinine Ratio 19.6, Glucose 159 H, Calcium 8.9, Troponin I < 0.015 09/27/19 22:15: PT 15.9 H, INR 1.3, APTT 29.2, D-Dimer Quant (PE/DVT) 2.18 H* 09/28/19 02:05: Troponin I < 0.015 09/28/19 05:20: Troponin I < 0.015 Diagnostic Data Chest X-Ray 09/27/19 21:37 IMPRESSION: Calcified plaques of the aortic arch. Status post total right shoulder replacement changes are noted. No acute cardiopulmonary disease process is seen. Electronically Signed: Suraj Muniz MD at 21:55 EST , Service support , Chest CTA 09/27/19 22:51 IMPRESSION: Normal CTA chest examination, without a demonstrated pulmonary embolism or arterial dissection. There is mild dilatation of the main pulmonary artery measuring up to 3.1 cm in diameter. This may be associated with pulmonary hypertension. There is minimal calcification of the posterior pericardium. There is mild diffuse bronchial wall thickening which may be associated with COPD. Electronically Signed: Suraj Muniz MD at 23:50 EST , Service support , Current Medications Acetaminophen (Tylenol) 650 mg PO Q6H PRN PRN PRN Reason: Pain Score 1-3/Temp > 100.7 F Albuterol Sulfate (Ventolin Aerosols) 2.5 mg INHALATION Q2H PRN PRN PRN Reason: SOB/Wheezing Albuterol/Ipratropium (Duoneb) 3 ml INHALATION Q4HWA.RT [facility] Last Admin: 09/28/19 11:17 Dose: 3 ml Documented by: Alprazolam (Xanax) 0.25 mg PO BID [facility] Last Admin: 09/28/19 08:47 Dose: 0.25 mg Documented by: Aspirin (Ecotrin) 81 mg PO DAILY@0800 [facility] Last Admin: 09/28/19 11:06 Dose: Not Given Documented by: Atorvastatin Calcium (Lipitor) 20 mg PO QHS [facility] Dextrose (D50w Syringe) 0 gm IV X1 PRN; Protocol PRN Reason: Hypoglycemia Dicyclomine HCl (Bentyl) 10 mg PO BID PRN PRN PRN Reason: Cramp Diphenhydramine HCl (Benadryl) 50 mg PO QHS PRN PRN PRN Reason: INSOMNIA Last Admin: 09/28/19 02:32 Dose: 50 mg Documented by: Doxazosin Mesylate (Cardura) 1.5 mg PO QHS [facility] Doxycycline Monohydrate (Doxycycline) 100 mg PO BID [facility] Last Admin: 09/28/19 11:04 Dose: 100 mg Documented by: Furosemide (Lasix) 20 mg PO DAILY [facility] Last Admin: 09/28/19 11:05 Dose: 20 mg Documented by: Glucagon () 1 mg IM .X1 PRN PRN Reason: Hypoglycemia Guaifenesin (Robitussin) 10 ml PO Q4H PRN PRN PRN Reason: COUGH Last Admin: 09/28/19 06:16 Dose: 10 ml Documented by: Heparin Sodium (Porcine) (Heparin Na) 5,000 unit SC Q8 [facility] Last Admin: 09/28/19 06:16 Dose: 5,000 unit Documented by: Sodium Chloride () 250 mls @ 15 mls/hr IV .[id number] PRN PRN Reason: Saline Flush Sodium Chloride () 1,000 mls @ 15 mls/hr IV .Q48H [facility] Last Admin: 09/28/19 10:21 Dose: Not Given Documented by: Sodium Chloride () 1,000 mls @ 75 mls/hr IV .[id number] [facility] Last Admin: 09/28/19 10:27 Dose: 75 mls/hr Documented by: Lisinopril (Zestril) 10 mg PO DAILY [facility] Last Admin: 09/28/19 11:09 Dose: 10 mg Documented by: Loratadine (Claritin) 10 mg PO DAILY [facility] Last Admin: 09/28/19 11:06 Dose: 10 mg Documented by: Melatonin (Melatonin) 3 mg PO QHS PRN PRN PRN Reason: INSOMNIA Methylprednisolone (Solu-Medrol) 40 mg IV Q8 [facility] Last Admin: 09/28/19 06:16 Dose: 40 mg Documented by: Metoprolol Succinate (Toprol Xl (Beta Narciso)) 50 mg PO DAILY [facility] Last Admin: 09/28/19 11:09 Dose: 50 mg Documented by: Mirtazapine (Remeron) 15 mg PO QHS [facility] Morphine Sulfate (Ms Contin) 15 mg PO BID [facility] Last Admin: 09/28/19 08:47 Dose: 15 mg Documented by: Nitroglycerin (Nitrostat) 0.4 mg SUBLINGUAL Q5M PRN PRN Reason: Chest pain Nutritional Formula (Lactose Free) (Glucerna Shake) 120 ml PO 4X/DAY [facility] Last Admin: 09/28/19 11:05 Dose: Not Given Documented by: Ondansetron HCl (Zofran) 4 mg IV Q8H PRN PRN PRN Reason: NAUSEA/VOMITING Last Admin: 09/28/19 10:32 Dose: 4 mg Documented by: Pantoprazole Sodium (Protonix) 40 mg PO DAILY [facility] Last Admin: 09/28/19 11:04 Dose: 40 mg Documented by: Pramipexole Dihydrochloride (Mirapex) 0.5 mg PO QHS [facility] Pregabalin (Lyrica) 100 mg PO TID [facility] Last Admin: 09/28/19 06:16 Dose: 100 mg Documented by: Promethazine HCl (Phenergan Suppository) 12.5 mg RECTAL Q6H PRN PRN PRN Reason: VOMITING Last Admin: 09/28/19 06:06 Dose: 12.5 mg Documented by: Sertraline HCl (Zoloft) 100 mg PO DAILY [facility] Last Admin: 09/28/19 11:04 Dose: 100 mg Documented by: Sodium Chloride () 10 - 40 ml IV UD PRN PRN Reason: SALINE FLUSH Last Admin: 09/28/19 06:23 Dose: 10 ml Documented by: Sodium Chloride ([place] Nasal [place]) 2 spray NASAL BID [facility] Last Admin: 09/28/19 11:10 Dose: 2 spray Documented by: Topiramate (Topamax) 50 mg PO QHS [facility] STROKE Vital Signs/Narrative: Vital Signs Temp Pulse Resp BP Pulse Ox 09/28/19 11:09 86 09/28/19 11:00 86 16 161/95 H 97 09/28/19 10:45 81 16 157/85 H 95 09/28/19 10:30 86 16 151/93 H 97 09/28/19 10:15 83 16 142/87 H 96 09/28/19 10:00 88 16 140/83 H 97 09/28/19 08:25 97.5 F L 90 20 H 140/85 H 96 09/28/19 08:17 96 Medical Necessity - Tobacco Use Smoking Status: Never smoker Assessment/Plan All Active Problems (Last Reviewed 09/28/19 @ 01:30 by Fam Krishnamurthy MD) Chest pain, unspecified (Acute) Dyspnea (Acute) 1. Chest pain troponins x 3 were negative. Patient still complaining of chest pain this morning EKG showed no acute ST changes had a stress test in May 2019 which was negative cardiology consulted: patient had cardiac cath this morning which showed clean coronaries on aspirin and SL nitroglycerin as well as statin 2. Hypokalemia: K was 3.3 on admission. will replace and monitor 3. COPD exacerbation due to URTI complains of cough productive of greenish sputum on breathing treatments and duonebs as well as PO doxycycline 4. type 2 diabetes mellitus with neuropathy: ISS. Accdrake BLUNT. On lyrica 5. Chronic pain syndrome: on Morphine and MS contin DVT prophylaxis: lovenox Code Visit OBSV E&M: [id number] Subsequent observation care L2
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
--- NOTE | 2019-09-28 12:56 | CASEMGMT ---
LATOSHA received a call from Jada at [facility]. She said patient's employment evaluator/case manager called them and they told her they do not have any assisted living rooms available. Jada also said she is not sure they would take her back as they had some issues with her last time. She told SW to let her know. LATOSHA did leave a message for patient's employment evaluator/case manager, Ashley Carranza requesting a return call. LATOSHA let patient know above. LATOSHA asked if she would be willing to go anywhere else. LATOSHA offered a list, but she declined stating she is too tired to look at a list. LATOSHA told her that the doctor would like to discharge her tomorrow so LATOSHA needs to work on a referral. She asked SW to name the nursing homes in the area. She picked [facility]. LATOSHA told her SW will work on the referral. Chela AGUILAR MSW
[2019-09-28] MEDS: Dicyclomine 10 MG Capsule PO (13:33)
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
[2019-09-28] MEDS: Ibuprofen 400 MG Tablet PO (15:35)
--- NOTE | 2019-09-28 16:51 | CASEMGMT ---
LATOSHA spoke with therapy and patient does not meet intermediate level of care criteria. LATOSHA spoke with patient and let her know this information. She was not happy and said she will talk with her employment case manager. LATOSHA talked with Nichelle and let her know patient will not be coming as she does not meet intermediate level of care criteria. LATOSHA also notified Ashley at [facility] and she agrees. She will call patient and let her know she will need to go back to [facility]. LATOSHA also notified Patricia, the nurse at [facility] that patient will probably be returning tomorrow. Patient then asked for LATOSHA. LATOSHA spoke with her and she said she will go back to [facility], but she will need a ride. LATOSHA told her we will figure something out. LATOSHA notified hemodialysis charge nurse that [facility] will likely need to pay for a cab for patient to return to [facility] tomorrow. Plan: d/c back to [facility]INEY. Chela CELAYA
[2019-09-28] MEDS: Acetaminophen 325 MG Tablet 650 MG PO (21:30)
[2019-09-28] MEDS: Doxazosin 1 MG Tablet 1.5 MG PO (21:30)
[2019-09-28] MEDS: Pramipexole Di-HCl 0.5 MG Tablet PO (21:31)
[2019-09-28] MEDS: Atorvastatin Calcium 20 MG Tablet PO (21:32)
[2019-09-28] MEDS: Topiramate 50 MG Tablet PO (21:33)
[2019-09-28] MEDS: Mirtazapine 15 MG Tablet PO (21:33)
--- NOTE | 2019-09-28 22:39 | NURSING ---
Was notified by Lashon Culp that pt was not feeling well. This RN went and assessed the pt. Pt stated that she is feeling down, depressed, anxious, and does not want to wake up in the morning. Pt stated that she is upset with the timing of her medications at the hospital because it is different than her normal schedule. The pt is upset with having to go back to [facility] when she leaves the hospital. Pt stated that she called her counselor and that she needs someone to talk to. This RN asked the pt if she has any current suicide thought or plan to harm herself. Pt denied suicide thought or plan to harm herself. Crisis called the floor and this RN told crisis what the pt said. Crisis was transfered back to pt room.
[2019-09-28] MEDS: Glycerin/Hypromellose/PEG400 15 ml Bottle 1 DRP EACH EYE (22:50)
[2019-09-28] MEDS: MELATONIN 3 MG TABLET PO (22:51)
[2019-09-29 03:00] VITALS: PULSE 71
[2019-09-29 03:20] VITALS: BP 134/82; PULSE 85; RESP 18; TEMP 36.4; O2SAT 93
[2019-09-29] MEDS: Pregabalin 50 MG Capsule 100 MG PO (05:21)
[2019-09-29] MEDS: Heparin Injection (Vial) 5,000 UNIT/ML VIAL 5000 UNIT SC (05:21)
[2019-09-29 06:24] LABS: Absolute Lymphocyte Count 1.26 X10^3/uL (0.83-4.51); Basophil# 0.02 X10^3/uL; Basophil% 0.2 % (0-1); Hematocrit 41.5 % (37-47); Hemoglobin 12.6 g/dL (12.0-15.0); Lymphocyte # 1.26 X10^3/ul (4.0); Lymphocyte % 13.1 % (19-41); Mean Corp Hgb Conc 30.4 g/dL (32-36); Mean Corpuscular Hgb 26.9 pg (27.0-32.0); Mean Corpuscular Volume 88.7 fL (81-99); Monocyte# 0.28 X10^3/uL; Monocyte% 2.9 % (0-10); NRBC Flagged by Analyzer 0 % (0-5); Neutrophil # 7.97 X10^3/uL (2.7-7.7); Platelet Count 290 K/mm3 (150-450); RBC Distribution Width CV 15.3 % (11.6-14.6); RBC Distribution Width SD 49.7 fl (35.1-43.9); Red Blood Count 4.68 M/mm3 (4.2-5.4); White Blood Count 9.6 K/mm3 (4.4-11.0)
[2019-09-29 06:49] LABS: Anion Gap 9 (5-15); BUN 22 mg/dL (7-18); BUN/Creat Ratio 24.8 RATIO (10-20); Calcium,Total 8.7 mg/dL (8.5-10.1); Chloride 108 mmol/L (98-107); Creatinine, Serum 0.89 mg/dL (0.55-1.02); EST Glomerular Filtration Rate 68 mL/min (>60); Est Glom Filt Rate - Afr Amer 82 mL/min (>60); Estimated Creatinine Clearance 75.36 ml/min; Glucose 176 mg/dL (74-106); Potassium 4.3 mmol/L (3.5-5.1); Sodium Level 142 mmol/L (136-145)
[2019-09-29] MEDS: Glycerin/Hypromellose/PEG400 15 ml Bottle 1 DRP EACH EYE (06:51)
[2019-09-29] MEDS: guaiFENesin 10 ML UDC (200MG/10ML) PO (06:51)
[2019-09-29 06:54] VITALS: PULSE 89; RESP 20; O2SAT 95
[2019-09-29] MEDS: Ipratropium/Albuterol Sulfate 3 ML AMPUL.NEB INHALATION (06:54)
--- NOTE | 2019-09-29 08:06 | NURSING ---
crisis called this RN to speak about plan of care for pt. this RN explained the patient does not meet criteria for a care home facility and pt is to return to [facility] on discharge. no current suicide ideations or thought of self harm. crisis aware and will be available if pt needs them
[2019-09-29] MEDS: Lisinopril 10 MG Tablet PO (08:18)
[2019-09-29] MEDS: Furosemide 20 MG Tablet PO (08:18)
[2019-09-29] MEDS: Sertraline 100 MG Tablet PO (08:18)
[2019-09-29 08:19] VITALS: PULSE 89
[2019-09-29] MEDS: Metoprolol(XL)Succ 50 MG Tablet PO (08:19)
[2019-09-29] MEDS: Pantoprazole Sodium 40 MG Tablet PO (08:19)
[2019-09-29] MEDS: Doxycycline 100 MG CAPSULE PO (08:19)
[2019-09-29] MEDS: Loratadine 10 MG Tablet PO (08:19)
[2019-09-29] MEDS: Glucerna Shake 120 ML LIQUID PO (08:20)
[2019-09-29] MEDS: morphine SR 15 MG Tablet PO (08:22)
[2019-09-29] MEDS: ALPRAZolam 0.25 MG Tablet PO (08:22)
--- NOTE | 2019-09-29 09:03 | DCINST_ITS ---
- Discharge Diagnoses Current Active Problems: Current Active and Chronic Problems (Last Reviewed 09/28/19 @ 01:30 by Fam Krishnamurthy MD) Chest pain, unspecified (Acute) COPD with exacerbation (Chronic) You will use the following diet at home:: Calorie/Carbohydrate Controlled (specify 1200, 1400, etc) Discharge Activity: Return to Normal Activity Call your doctor if you observe: Shortness of breath, Dizziness, Fainting spells, Chest pain Allergies/Adverse Reactions: Allergies Penicillins Allergy (Verified 09/27/19 21:24) Rash Sulfa (Sulfonamide Antibiotics) Allergy (Verified 09/27/19 21:24) Rash Medications to take at Discharge Pantoprazole Sodium [Protonix] 40 mg PO DAILY 05/03/19 Pregabalin [Lyrica] 100 mg PO TID 05/03/19 Ropinirole HCl 1 mg PO QHS 05/03/19 Atorvastatin Calcium [Lipitor] 20 mg PO QHS 06/03/19 Furosemide [Lasix] 20 mg PO DAILY 06/03/19 Prazosin HCl 2 mg PO QHS 06/05/19 Topiramate [Topamax] 50 mg PO QHS 06/05/19 Cetirizine HCl 10 mg PO DAILY 06/26/19 Sertraline HCl 100 mg PO DAILY 07/09/19 proMETHazine suppository [Phenergan Suppository] 12.5 mg RECTAL Q6H PRN PRN #12 suppos. 08/27/19 ALPRAZolam [Xanax] 0.25 mg PO BID 09/27/19 Dicyclomine HCl 10 mg PO BID PRN 09/27/19 Doxycycline Hyclate 100 mg PO BID 09/27/19 Furosemide [Lasix] 20 mg PO DAILY 09/27/19 Mirtazapine 15 mg PO QHS 09/27/19 Morphine Sulfate [Morphabond ER] 15 mg PO BID 09/27/19 Sodium Chloride 0.65% [[place] Nasal [place]] 2 spr NASAL BID 09/27/19 Albuterol Inhaler [Ventolin Hfa] 1 - 2 puff INHALATION Q4H PRN PRN #1 inhaler 09/29/19 Lisinopril [Zestril] 10 mg PO DAILY #30 tab 09/29/19 Metoprolol(XL)Succ [Toprol Xl (Beta Narciso)] 50 mg PO DAILY #30 tab 09/29/19 Prednisone See Taper PO DAILY #30 tab 09/29/19 The following prescriptions were given: Prednisone See Taper PO DAILY #30 tab Transmission Status: Pending to [facility] Metoprolol(XL)Succ [Toprol Xl (Beta Narciso)] 50 mg PO DAILY #30 tab Transmission Status: Pending to [facility] Albuterol Inhaler [Ventolin Hfa] 1 - 2 puff INHALATION Q4H PRN PRN #1 inhaler PRN Reason: Shortness Of Breath Transmission Status: Pending to [facility] Lisinopril [Zestril] 10 mg PO DAILY #30 tab Transmission Status: Pending to [facility] Primary Care Physician: Care Physician,No Primary [Primary Care Provider] - Please follow up with your Primary Care Physician in: 1 Week Test Results: Test results from this visit will be discussed in further detail at your follow- up appointment, if applicable. Please Follow Up With: Jaycee Platt NP-C When: As scheduled, 11/19/19 Proposed Discharge Date: 09/29/19
--- NOTE | 2019-09-29 09:06 | PCM.DC.SUM ---
<Izzy Berman - Last Filed: 09/29/19 09:56> Discharge Date and Diagnosis Date of Admission: 09/28/19 Date of Discharge: 09/29/19 - Primary Discharge Diagnosis Active and Suspected Problems (Last Reviewed 09/28/19 @ 01:30 by Fam Krishnamurthy MD) 1. Noncardiac chest pain 2. Hypokalemia 3. Acute exacerbation of COPD with chronic hypoxic respiratory failure 4. Type 2 diabetes mellitus 5. Chronic kidney disease stage III 6. Hypertension 7. Hyperlipidemia 8. Chronic pain syndrome 9. Anxiety 10. Polypharmacy - Secondary Discharge Diagnosis Chronic Problems (Last Reviewed 09/28/19 @ 01:30 by Fam Krishnamurthy MD) COPD with exacerbation (Chronic) Polypharmacy (Chronic) Essential (primary) hypertension (Chronic) Dyslipidemia (Chronic) Hospital Course and Treatment Imaging Results: Diagnostic Data Chest X-Ray 09/27/19 21:37 IMPRESSION: Calcified plaques of the aortic arch. Status post total right shoulder replacement changes are noted. No acute cardiopulmonary disease process is seen. Electronically Signed: Suraj Muniz MD at 21:55 EST , Service support , Chest CTA 09/27/19 22:51 IMPRESSION: Normal CTA chest examination, without a demonstrated pulmonary embolism or arterial dissection. There is mild dilatation of the main pulmonary artery measuring up to 3.1 cm in diameter. This may be associated with pulmonary hypertension. There is minimal calcification of the posterior pericardium. There is mild diffuse bronchial wall thickening which may be associated with COPD. Electronically Signed: Suraj Muniz MD at 23:50 EST , Service support , Dr. Vazquez- Cardiology Operations: None Procedures: Cardiac catheterization Summary of Care Provided: The patient is a 64 year old F admitted 09/28/2019 due to chest pain. 1. Noncardiac chest pain-cardiology consulted. Troponin negative. EKG without ischemia. Patient underwent cardiac catheterization which demonstrated normal coronary arteries. Follow-up with primary care provider in 1 week. 2. Hypokalemia-resolved. 3. Acute exacerbation of COPD with chronic hypoxic respiratory failure-continue previously prescribed doxycycline regimen. Discharged on as needed albuterol inhaler as well as prednisone taper. 4. Type 2 diabetes mellitus-hemoglobin A1c May 2018 6.1%. On Lyrica for neuropathy. 5. Chronic kidney disease stage III-stable. 6. Hypertension-Home isosorbide regimen discontinued. Initiated on lisinopril 10 mg daily. Continue home Lasix regimen. Also initiated on metoprolol XL 50 mg daily. 7. Hyperlipidemia-continue statin. 8. Chronic pain syndrome-reports she follows with pain management. 9. Anxiety-on Xanax, sertraline, mirtazapine. 10. Polypharmacy-patient is on multiple sedating medications including Xanax, dicyclomine, Lyrica, morphine. Recommend evaluation by PCP. General: Alert, Oriented x3, Cooperative HEENT: Atraumatic, PERRLA, EOMI, Normocephalic Oral: Moist Mucosa Neck: Supple, No JVD, Negative Carotid Bruits Lungs: Clear to auscultation, Diminished Cardiovascular: Regular rate, Regular Rhythm, Normal S1, Normal S2, No murmurs Abdomen: Bowel Sounds Present, Soft, Non Tender, Non-Distended Extremities: No clubbing, No cyanosis, Capillary Refill Less than 3 Seconds, No Edema Skin: No rashes, No breakdown, Chronic skin changes bilateral lower extremities. Musculoskeletal: No Tenderness to Palpation of Joints or Extremities Neurological: Cranial nerves II-XII grossly intact, Neuro grossly intact Psych/Mental Status: Anxious, impulsive Patient seen and examined prior to discharge. Physical assessment as noted above. Patient is stable for discharge with follow up recommendations as noted above. This patient was seen by ARMAAN Alfonso under the supervision of Dr. Sargent. - Physical Exam Vitals/I&O's: Vital Signs Temp Pulse Resp BP Pulse Ox 97.5 F L 89 20 H 134/82 H 95 09/29/19 03:20 09/29/19 08:19 09/29/19 06:54 09/29/19 03:20 09/29/19 06:54 Oxygen Flow Rate (L/min) 1 Oxygen Delivery Method Room Air Weight: 167 lb Body Mass Index (BMI) 34.9 Finger Stick Blood Glucose 201 Intake and Output for Last 24 Hours 09/27/19 09/28/19 09/29/19 23:59 23:59 23:59 Intake Total 2341.25 / 2341.25 718.75 / 718.75 Balance 2341.25 / 2341.25 718.75 / 718.75 Laboratory Results 09/29/19 05:58: WBC 9.6, RBC 4.68, Hgb 12.6, Hct 41.5, MCV 88.7, MCH 26.9 L, MCHC 30.4 L, RDW Std Deviation 49.7 H, RDW Coeff of Liset 15.3 H, Plt Count 290, MPV 11.0, Immature Gran % (Auto) 0.800, Neut % (Auto) 83.0 H, Lymph % (Auto) 13.1 L, [place] % (Auto) 2.9, Eos % (Auto) 0.0, Baso % (Auto) 0.2, Absolute Neuts (auto) 8.0 H, Absolute Lymphs (auto) 1.26, Nucleated RBC % 0 09/29/19 05:58: Sodium 142, Potassium 4.3, Chloride 108 H, Carbon Dioxide 25.0, Anion Gap 9, BUN 22 H, Creatinine 0.89, Estim Creat Clear Calc 75.36, Est GFR (MDRD) Af Amer 82, Est GFR (MDRD) Non-Af 68, BUN/Creatinine Ratio 24.8 H, Glucose 176 H, Calcium 8.7 Current Medications Acetaminophen (Tylenol) 650 mg PO Q6H PRN PRN PRN Reason: Pain Score 1-3/Temp > 100.7 F Last Admin: 09/28/19 21:30 Dose: 650 mg Documented by: Albuterol Sulfate (Ventolin Aerosols) 2.5 mg INHALATION Q2H PRN PRN PRN Reason: SOB/Wheezing Albuterol/Ipratropium (Duoneb) 3 ml INHALATION Q4HWA.RT [facility] Last Admin: 09/29/19 06:54 Dose: 3 ml Documented by: Alprazolam (Xanax) 0.25 mg PO BID [facility] Last Admin: 09/29/19 08:22 Dose: 0.25 mg Documented by: Aspirin (Ecotrin) 81 mg PO DAILY@0800 [facility] Last Admin: 09/28/19 11:06 Dose: Not Given Documented by: Atorvastatin Calcium (Lipitor) 20 mg PO QHS [facility] Last Admin: 09/28/19 21:32 Dose: 20 mg Documented by: Dextrose (D50w Syringe) 0 gm IV X1 PRN; Protocol PRN Reason: Hypoglycemia Dicyclomine HCl (Bentyl) 10 mg PO BID PRN PRN PRN Reason: Cramp Last Admin: 09/28/19 13:33 Dose: 10 mg Documented by: Diphenhydramine HCl (Benadryl) 50 mg PO QHS PRN PRN PRN Reason: INSOMNIA Last Admin: 09/28/19 21:30 Dose: 50 mg Documented by: Doxazosin Mesylate (Cardura) 1.5 mg PO QHS [facility] Last Admin: 09/28/19 21:30 Dose: 1.5 mg Documented by: Doxycycline Monohydrate (Doxycycline) 100 mg PO BID [facility] Last Admin: 09/29/19 08:19 Dose: 100 mg Documented by: Furosemide (Lasix) 20 mg PO DAILY [facility] Last Admin: 09/29/19 08:18 Dose: 20 mg Documented by: Glucagon () 1 mg IM .X1 PRN PRN Reason: Hypoglycemia Guaifenesin (Robitussin) 10 ml PO Q4H PRN PRN PRN Reason: COUGH Last Admin: 09/29/19 06:51 Dose: 10 ml Documented by: Heparin Sodium (Porcine) (Heparin Na) 5,000 unit SC Q8 [facility] Last Admin: 09/29/19 05:21 Dose: 5,000 unit Documented by: Sodium Chloride () 250 mls @ 15 mls/hr IV .[id number] PRN PRN Reason: Saline Flush Sodium Chloride () 1,000 mls @ 15 mls/hr IV .Q48H [facility] Last Admin: 09/28/19 10:21 Dose: Not Given Documented by: Sodium Chloride () 1,000 mls @ 75 mls/hr IV .[id number] [facility] Last Infusion: 09/29/19 06:07 Dose: Infused Documented by: Lisinopril (Zestril) 10 mg PO DAILY [facility] Last Admin: 09/29/19 08:18 Dose: 10 mg Documented by: Loratadine (Claritin) 10 mg PO DAILY [facility] Last Admin: 09/29/19 08:19 Dose: 10 mg Documented by: Melatonin (Melatonin) 3 mg PO QHS PRN PRN PRN Reason: INSOMNIA Last Admin: 09/28/19 22:51 Dose: 3 mg Documented by: Methylprednisolone (Solu-Medrol) 40 mg IV Q8 [facility] Last Admin: 09/29/19 05:21 Dose: 40 mg Documented by: Metoprolol Succinate (Toprol Xl (Beta Narciso)) 50 mg PO DAILY [facility] Last Admin: 09/29/19 08:19 Dose: 50 mg Documented by: Mirtazapine (Remeron) 15 mg PO QHS [facility] Last Admin: 09/28/19 21:33 Dose: 15 mg Documented by: Morphine Sulfate (Ms Contin) 15 mg PO BID [facility] Last Admin: 09/29/19 08:22 Dose: 15 mg Documented by: Nitroglycerin (Nitrostat) 0.4 mg SUBLINGUAL Q5M PRN PRN Reason: Chest pain Nutritional Formula (Lactose Free) (Glucerna Shake) 120 ml PO 4X/DAY [facility] Last Admin: 09/29/19 08:20 Dose: 120 ml Documented by: Ondansetron HCl (Zofran) 4 mg IV Q8H PRN PRN PRN Reason: NAUSEA/VOMITING Last Admin: 09/28/19 18:48 Dose: 4 mg Documented by: Pantoprazole Sodium (Protonix) 40 mg PO DAILY [facility] Last Admin: 09/29/19 08:19 Dose: 40 mg Documented by: Pramipexole Dihydrochloride (Mirapex) 0.5 mg PO QHS [facility] Last Admin: 09/28/19 21:31 Dose: 0.5 mg Documented by: Pregabalin (Lyrica) 100 mg PO TID [facility] Last Admin: 09/29/19 05:21 Dose: 100 mg Documented by: Promethazine HCl (Phenergan Suppository) 12.5 mg RECTAL Q6H PRN PRN PRN Reason: VOMITING Last Admin: 09/28/19 16:13 Dose: 12.5 mg Documented by: Sertraline HCl (Zoloft) 100 mg PO DAILY [facility] Last Admin: 09/29/19 08:18 Dose: 100 mg Documented by: Sodium Chloride () 10 - 40 ml IV UD PRN PRN Reason: SALINE FLUSH Last Admin: 09/28/19 22:58 Dose: 10 ml Documented by: Sodium Chloride ([place]) 2 spray NASAL BID [facility] Last Admin: 09/28/19 21:33 Dose: 2 spray Documented by: Topiramate (Topamax) 50 mg PO QHS [facility] Last Admin: 09/28/19 21:33 Dose: 50 mg Documented by: Discharge Diet: Low fat/ Low Cholesterol, Carb Control Diet Discharge Activity: Return to Normal Activity Call your doctor if you observe: Shortness of breath, Dizziness, Fainting spells, Chest pain Home Medications: Medications to take at Discharge Pantoprazole Sodium [Protonix] 40 mg PO DAILY 05/03/19 Pregabalin [Lyrica] 100 mg PO TID 05/03/19 Ropinirole HCl 1 mg PO QHS 05/03/19 Atorvastatin Calcium [Lipitor] 20 mg PO QHS 06/03/19 Furosemide [Lasix] 20 mg PO DAILY 06/03/19 Prazosin HCl 2 mg PO QHS 06/05/19 Topiramate [Topamax] 50 mg PO QHS 06/05/19 Cetirizine HCl 10 mg PO DAILY 06/26/19 Sertraline HCl 100 mg PO DAILY 07/09/19 proMETHazine suppository [Phenergan Suppository] 12.5 mg RECTAL Q6H PRN PRN #12 suppos. 08/27/19 ALPRAZolam [Xanax] 0.25 mg PO BID 09/27/19 Dicyclomine HCl 10 mg PO BID PRN 09/27/19 Doxycycline Hyclate 100 mg PO BID 09/27/19 Furosemide [Lasix] 20 mg PO DAILY 09/27/19 Mirtazapine 15 mg PO QHS 09/27/19 Morphine Sulfate [Morphabond ER] 15 mg PO BID 09/27/19 Sodium Chloride 0.65% [[place]] 2 spr NASAL BID 09/27/19 Albuterol Inhaler [Ventolin Hfa] 1 - 2 puff INHALATION Q4H PRN PRN #1 inhaler 09/29/19 Lisinopril [Zestril] 10 mg PO DAILY #30 tab 09/29/19 Metoprolol(XL)Succ [Toprol Xl (Beta Narciso)] 50 mg PO DAILY #30 tab 09/29/19 Prednisone See Taper PO DAILY #30 tab 09/29/19 Following Prescrptions Were Given to Patient: Prednisone See Taper PO DAILY #30 tab Transmission Status: Received by [facility] Metoprolol(XL)Succ [Toprol Xl (Beta Narciso)] 50 mg PO DAILY #30 tab Transmission Status: Received by [facility] Albuterol Inhaler [Ventolin Hfa] 1 - 2 puff INHALATION Q4H PRN PRN #1 inhaler PRN Reason: Shortness Of Breath Transmission Status: Received by [facility] Lisinopril [Zestril] 10 mg PO DAILY #30 tab Transmission Status: Received by [facility] Primary Care Physician: Care Physician,No Primary [Primary Care Provider] - Please follow up with your Primary Care Physician in: 1 Week Please Follow Up With: Jaycee Platt NP-C When: As scheduled, 11/19/19 Disposition: Asstd Living/Non-Skill NH Minutes spent on discharge:: 35 Patient Condition:: Stable Medical Necessity - Tobacco Use Smoking Status: Never smoker Meaningful Use Info Meaningful Use Diagnoses (Choose all that apply): None applicable <Evelyn Sargent - Last Filed: 09/29/19 12:23> Discharge Date and Diagnosis - Secondary Discharge Diagnosis Chronic Problems (Last Reviewed 09/28/19 @ 01:30 by Fam Krishnamurthy MD) COPD with exacerbation (Chronic) Polypharmacy (Chronic) Essential (primary) hypertension (Chronic) Dyslipidemia (Chronic) Hospital Course and Treatment Summary of Care Provided: Patient seen by Izzy CROOK under my supervision Patient is a 64-year-old lady with a past medical history as listed was admitted through the ED with a complaint of left-sided chest pain was started a few hours prior to admission and radiated to his left jaw, left arm and mid neck. She had assisted nausea, vomiting diaphoresis. EKG done showed no acute ST changes and troponins x3 were negative. However in light of patient recently having had a stress test on account of similar chest pain cardiology was consulted and she had a cardiac cath on 09/28/2019. Cardiac cath showed clean coronaries. Patient remained stable and was discharged back to assisted living facility on 09/29/2019 Patient seen and examined prior to discharge. Patient was very difficult and verbally abusive to hospitalist because she says she did not think she was ready to be discharged to assisted living facility. Patient stated that she had been threatening her assisted living facility and so did not want to go back today. Hospitalist was informed by case management yesterday that patient was willing to go back to her assisted living facility despite stated initially that she wanted to go to another long-term. Patient then told hospitalist that she had been assessed by physical therapy and was deemed to need long-term long-term care. Hospitalist informed patient that this could be discussed with case management later in the day so that efforts will be made to find a new long-term for patient. However shortly after review, patient decided that she wanted to go back to her assisted living facility and did not want to go to any other long-term. o/e: Vital Signs Height 4 ft 10 in Weight: 167 lb Weight in Pounds 167.0 lbs Pulse Ox 97 Temperature 98.4 F Pulse Rate 79 Respiratory Rate 18 Blood Pressure 131/82 Blood Pressure Position Semi-Fowlers General: Alert, Oriented x3, Cooperative, No apparent distress HEENT: Atraumatic, PERRLA, EOMI, Normocephalic Oral: Moist Mucosa Neck: Supple, No JVD, Negative Carotid Bruits Lungs: Clear to auscultation, Normal air movement, No rhonchi, No wheeze Cardiovascular: Regular rate, Regular Rhythm, Normal S1, Normal S2, No murmurs Abdomen: Bowel Sounds Present, Soft, Non Tender, Non-Distended, No Hepato-splenomegaly Extremities: No edema, Capillary Refill Less than 3 Seconds Skin: No rashes, No breakdown Musculoskeletal: No Tenderness to Palpation of Joints or Extremities Lymphatic: No Cervical, Supraclavicular, or Inguinal Adenopathy Neurological: Cranial nerves II-XII grossly intact, Neuro grossly intact, Motor Exam 5/5 strength throughout Psych/Mental Status: Agitated, Alert and oriented to time, place, person, mood and affect Patient discharged to her assisted living facility. Rest as per Izzy Berman KNUCKLE [employer]AP SEWER-C's note, which I have reviewed and endorsed. - Physical Exam Vitals/I&O's: Vital Signs Temp Pulse Resp BP Pulse Ox 98.4 F 79 18 131/82 H 97 09/29/19 09:20 09/29/19 09:20 09/29/19 09:20 09/29/19 09:20 09/29/19 09:20 Oxygen Flow Rate (L/min) 1 Oxygen Delivery Method Room Air Weight: 167 lb Body Mass Index (BMI) 34.9 Finger Stick Blood Glucose 201 Intake and Output for Last 24 Hours 09/27/19 09/28/19 09/29/19 23:59 23:59 23:59 Intake Total 2341.25 / 2341.25 718.75 / 718.75 Balance 2341.25 / 2341.25 718.75 / 718.75 Laboratory Results 09/29/19 05:58: WBC 9.6, RBC 4.68, Hgb 12.6, Hct 41.5, MCV 88.7, MCH 26.9 L, MCHC 30.4 L, RDW Std Deviation 49.7 H, RDW Coeff of Liset 15.3 H, Plt Count 290, MPV 11.0, Immature Gran % (Auto) 0.800, Neut % (Auto) 83.0 H, Lymph % (Auto) 13.1 L, [place] % (Auto) 2.9, Eos % (Auto) 0.0, Baso % (Auto) 0.2, Absolute Neuts (auto) 8.0 H, Absolute Lymphs (auto) 1.26, Nucleated RBC % 0 09/29/19 05:58: Sodium 142, Potassium 4.3, Chloride 108 H, Carbon Dioxide 25.0, Anion Gap 9, BUN 22 H, Creatinine 0.89, Estim Creat Clear Calc 75.36, Est GFR (MDRD) Af Amer 82, Est GFR (MDRD) Non-Af 68, BUN/Creatinine Ratio 24.8 H, Glucose 176 H, Calcium 8.7 Code Visit OBSV E&M: 77030 Observation care discharge
[2019-09-29 09:20] VITALS: BP 131/82; PULSE 79; RESP 18; TEMP 36.9; O2SAT 97
== END 2019-09-29 09:47 | disposition home or self-care (01) ==
LOC: ED 23:56 → PCU 09-28 00:47
PROVIDERS: Admitting Provider Hospitalist; Emergency Provider Emergency Medicine; Visit Provider Student in an Organized Health Care Education/Training Program
DX: R07.89 Other chest pain (principal); E87.6 Hypokalemia; J44.1 Chronic obstructive pulmonary disease with (acute) exacerbation; J96.11 Chronic respiratory failure with hypoxia; E11.40 Type 2 diabetes mellitus with diabetic neuropathy, unspecified; I12.9 Hypertensive chronic kidney disease with stage 1 through stage 4 chronic kidney disease, or unspecified chronic kidney disease; E11.22 Type 2 diabetes mellitus with diabetic chronic kidney disease; N18.3 Chronic kidney disease, stage 3 (moderate); E78.5 Hyperlipidemia, unspecified; G89.4 Chronic pain syndrome; F41.9 Anxiety disorder, unspecified; F32.9 Major depressive disorder, single episode, unspecified; K21.9 Gastro-esophageal reflux disease without esophagitis; E66.9 Obesity, unspecified; Z68.34 Body mass index [BMI] 34.0-34.9, adult; Z79.899 Other long term (current) drug therapy; Z71.3 Dietary counseling and surveillance
CPT/HCPCS: 36415; 71045; 71275; 80048; 84484; 85025; 85379; 85610; 85730; 93005; 93458; 94640; 96361; 96372; 96374; 96375; 96376; 97162; 97166; 99152; 99153; 99218; 99285; C1760; J7030; J7040; Q9967; A4216; C1769; G0378; J2405

== ENCOUNTER → 2019-10-01 10:41 | Outpatient (CLI) | payer MEDICARE, MEDICAID, SELFPAY ==
[2019-09-28 01:30] VITALS: BMI 34.9
[2019-10-01 11:00] VITALS: PULSE 81; PULSE 84; PULSE 87; PULSE 88; PULSE 89; PULSE 91; PULSE 92; PULSE 95; O2SAT 86; O2SAT 87; O2SAT 90; O2SAT 93; O2SAT 96; O2SAT 98
--- NOTE | 2019-10-01 13:10 | CPS ---
Patient came in by wheelchair for testing. When this RT brought patient down saenz she stated that she has a not eaten anything today and she has an MRI at noon. This RT stated that there is a cafeteria downstairs that she can grab something after her testing. She stated,I don't have any money, I'm in assisted living. Call a social group worker so I can get a coupon for food. This RT said that she hadn't heard of that before, and insisted that she began her test, she said she needed to have a voucher. This RT gave her a voucher for [employer] from the PSN department. As the walk began her SpO2 dropped at the 2 min evaristo to 87%, 2L was applied. After the 2L was applied the patient stated that she was unable to walk anymore. I told her that we needed her to walk some in order to make sure she was on the right liter flow of O2. The patient walked until the 4 min evaristo and sat down. The patient finished the test on 2L. Mary was called, and Yesenia Platt as well. After the test the patient stated that she felt so horribly that she needed to go to ER. This RT told her I would wheel her over. Then the patient refused to go because she stated that she wouldn't have a ride home. This RT insured her that she would but the patient refused. As the patient was waiting for [employer], the patient demanded she go down to [employer] because she was so hungry. This RT stated that she needed to stay up here because [employer] was coming to deliver her oxygen. She got upset because she was going to be unable to eat before her MRI. This RT got her a Diet Coke and Eduardo Crackers but was still unsatisfied. The patient began yelling at this RT because she wanted [employer] not the pop and crackers. [employer] then arrived and showed her how to use the oxygen. Then this RT wheeled her down to MRI. While letting the MRI techs know she was here. I was informed that she was severely SOB and wanted to go to ER. This RT wheeled her to ER. Charisse JEONG
--- NOTE | 2019-10-01 13:33 | MRI_ITS ---
STUDY: MRI CERVICAL SPINE WITHOUT CONTRAST REASON FOR EXAM: Female, 64 years old. The patient presents with a history of neck pain. TECHNIQUE: Standardized fat and water weighted pulse sequences were obtained in the sagittal and axial planes. COMPARISON: CT CERVICAL SPINE-June 10, 2019 FINDINGS: There is significant patient motion artifact which has produced spatial mis-registration and anatomic blurring, however there is significant information provided by this examination. There is limited demonstration of the brain however there is diffuse cerebral atrophy with sulcal prominence and mild ventricular enlargement. Craniovertebral Junction Foramen Magnum: Normal. Brainstem Cervical Cord Junction: Normal. Atlanto-Occipital Articulation: Normal. 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 Odontoid Process: Normal. Vertebrae, Alignment and Perivertebral Spaces: Vertebrae: Normal. Curvature: Normal. Alignment: Normal. Prevertebral Space: Normal. Prevertebral Muscles: Normal. Disc Space Levels N.B., Normal level statement indicates: Normal endplates; disc height, signal and morphology; facet joints; central canal, lateral recesses, and intervertebral neuroformina. C2-3: There is disc desiccation with preservation of the disc height. There is no disc displacement. Normal central canal and intervertebral neural foramina. C3-4: There is disc desiccation, preservation disc height without disc displacement. Normal central canal. There is mild left-sided foraminal stenosis secondary to uncovertebral and apophyseal joint arthroses C4-5: There is disc desiccation with preservation of the disc height. There is no disc displacement. Normal central canal and intervertebral neural foramina. C5-6: There is disc desiccation with preservation of the disc height. There is no disc displacement. Normal central canal and intervertebral neural foramina. C6-7: There is disc desiccation, preservation disc height with minimal endplate spondylosis. Normal central canal and intervertebral neural foramina. C7-T1: There is disc desiccation with preservation of the disc height. There is no disc displacement. Normal central canal and intervertebral neural foramina. Cervical / Thoracic (Visualized) Cord Cervical Cord: Normal. Soft Tissue Neck Masses: None. Lymphadenopathy: None. MRI/Spine Cervical (Routine) IMPRESSION: 1. Limited demonstration of a brain demonstrates diffuse cerebral atrophy with sulcal prominence. 2. 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 3. Multilevel degenerative disc disease with multilevel disc desiccation but without a disc herniation. Electronically Signed: Narinder John DO at 10:13 EST Tel , Service support ,
--- NOTE | 2019-10-01 13:33 | MRI_ITS ---
STUDY: MRI LUMBAR SPINE WITHOUT CONTRAST REASON FOR EXAM: Female, 64 years old. The patient presents with a history of low back pain with bilateral leg pain with numbness. TECHNIQUE: Standardized fat and water weighted pulse sequences were obtained in the sagittal and axial planes. COMPARISON: No relevant priors. FINDINGS: Vertebrae, Alignment and Curvature Vertebrae: There are six non-rib bearing lumbar-like vertebra. For the purpose of this report, the most caudal non-rib bearing vertebra is considered to represent the S1 vertebra, consistent with lumbarization of the S1 vertebra. Plain film x-ray examination of the lumbar spine would be necessary for level verification prior to instrumentation, or surgery, based on the findings of this report. There are remote compression fractures of the T12 and L1 vertebra. T12: There is a 50% loss of the vertical height of the anterior column of the T12 vertebra with a 40% loss of vertical height of the central aspect of vertebral body. There is an estimated 20% loss of vertical height of the middle column. L1: There is a central concave impaction deformity of the superior inferior endplates of the L1 vertebra with an estimated 25% loss of vertical height of the central aspect of vertebral body. There is prominent anterior endplate spondylotic spur formation of the T12 and L1 vertebra. There is a 10 mm vertebral body hemangioma involving the L3 vertebra (sagittal T1 series 5, image 9; sagittal T2 series 4, image 9). There is a 7 mm vertebral body hemangioma the S1 vertebra (sagittal T1 series 5, image 6; sagittal T2 series 4, image 6). Alignment: There is mild retrolisthesis of the L1 vertebra relationship to the L2 vertebra with a mild L5 anterolisthesis relationship to the S1 vertebra, further discussed below. Curvature: Exaggerated cervical lordosis. No scoliosis. Thoracic Cord (visualized distal) / Conus Medullaris Normal. Terminates at the inferior endplate of the L1 vertebra. Disc Space Levels N.B.: Normal level statement indicates: Normal endplates; disc height, signal and morphology; facet joints; central canal, lateral recesses, and intervertebral neuroformina. T12-L1: (Imaged only in the sagittal plane). There is disc desiccation, moderate enlargement of the intervertebral disc secondary to the concave impaction deformity of the superior endplate of L1 vertebra with prominent anterior endplate spondylotic spur formation. Normal central canal with mild bilateral foraminal stenosis but without neural impingement. L1-L2: (Imaged only in the sagittal plane). There is disc desiccation, enlargement of the intervertebral disc secondary to the inferior endplate compression deformity with a 4 mm L1 retrolisthesis in relationship to the L2 vertebra with diffuse uncovering the annulus. There remains a normal central canal with mild bilateral foraminal stenosis but without demonstrated neural impingement. L2-L3: Normal. L3-L4: Normal. L4-L5: Normal. L5-S1: There is disc desiccation, preservation of the disc height with severe bilateral hypertrophic facet arthroses with osseous hypertrophy and bilateral facet effusions (axial T2 series 7, image 8). There is a 4 mm L5 anterolisthesis in relationship to the S1 vertebra with uncovering the annulus. There is mild bilateral foraminal stenosis however perineural adipose tissue remains present surrounding the exiting L5 nerve roots without neural impingement (sagittal T1 series 5, images 4 and 11; axial T1 series 8, image 5). There is bilateral subarticular lateral recess stenoses with neural impingement upon the bilateral descending S1 nerve roots (axial T2 series 7, image 8). There is a small central canal measuring 7 mm consistent with moderate central canal stenosis. S1-2: There is lumbarization the S1 vertebra with a normal hydrated S1-2 intervertebral disc. There is moderate bilateral facet arthrosis (axial T2 series 7, image 5). There is no demonstrated foraminal neural impingement upon the exiting S1 nerve roots. Sacral Alae: Normal. Retroperitoneum and Paraspinal Structures Kidneys: Partially imaged with no demonstrated abnormality. Aorta: Normal. Inferior Vena Cava: Normal. Lymph Nodes: None visualized. Muscles (Paraspinal): Normal. MRI/Spine Lumbar (Routine) IMPRESSION: 1. There are six non-rib bearing lumbar-like vertebra. For the purpose of this report, the most caudal non-rib bearing vertebra is considered to represent the S1 vertebra, consistent with lumbarization of the S1 vertebra. Plain film x-ray examination of the lumbar spine would be necessary for level verification prior to instrumentation, or surgery, based on the findings of this report. 2. Remote compression fractures of the T12 and L1 vertebra. 3. Minimal L1 retrolisthesis with uncovering of the L1-2 annulus but without neural impingement. 4. L5-S1 degenerative disc disease with severe bilateral facet arthroses and aL5 retrolisthesis with moderate central canal and bilateral subarticular lateral recess stenoses with neural impingement upon the bilateral descending S1 nerve roots. 5. Lumbarization of the S1 vertebra with moderate S1-2 facet arthrosis. 6. 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 Electronically Signed: Narinder John DO at 10:27 EST Tel , Service support ,
--- NOTE | 2019-10-01 14:22 | PCM.PSN.6M ---
PSN 6 Minute Walk Test - 6 Minute Walk Test 6 Minute Walk Test: 6 Minute Walk Test PSN:6-Minute Walk Test Start: 10/01/19 11:41 Freq: Status: Active Protocol: [id number].6MINW Document 10/01/19 11:00 CHRISTINE (Rec: 10/01/19 13:10 JLA [id number]) 6 Minute Walk Test Date Performed 10/01/19 Time Performed 11:00 Height 4 ft 10 in Weight: 75.75 kg Weight in Pounds 167.[address]: Devendra Thompson Assistive device used: Walker Pre-test Oxygen Delivery Method Room Air Pulse Ox (%) 93 Pulse Rate (60-100 beats/min) 84 Dyspnea Saba Scale (0-10) 5 Exertion Saba Scale (6-20) 6 1st minute Oxygen Delivery Method Room Air Pulse Ox (%) 90 Pulse Rate (60-100 beats/min) 92 2nd minute Oxygen Delivery Method Room Air Pulse Ox (%) 87 Pulse Rate (60-100 beats/min) 95 3rd minute Oxygen Flow Rate (L/min) (L/min) 2 Oxygen Delivery Method Nasal Cannula Pulse Ox (%) 98 Pulse Rate (60-100 beats/min) 88 4th minute Oxygen Flow Rate (L/min) (L/min) 2 Oxygen Delivery Method Nasal Cannula Pulse Ox (%) 96 Pulse Rate (60-100 beats/min) 91 5th minute Oxygen Flow Rate (L/min) (L/min) 2 Oxygen Delivery Method Nasal Cannula Pulse Ox (%) 86 Pulse Rate (60-100 beats/min) 87 Reported Symptoms Dizziness 6th minute Oxygen Flow Rate (L/min) (L/min) 2 Oxygen Delivery Method Nasal Cannula Pulse Ox (%) 96 Pulse Rate (60-100 beats/min) 89 Dyspnea Saba Scale (0-10) 5 Exertion Asba Scale (6-20) 13 Reported Symptoms Dizziness Post-test Oxygen Flow Rate (L/min) (L/min) 2 Oxygen Delivery Method Nasal Cannula Pulse Ox (%) 98 Pulse Rate (60-100 beats/min) 81 Full Laps Walked 8 Partial Lap, Number of Tiles Walked 0 Total Distance Walked (ft) 472 - Interpretation Interpretation: The patient was noted to be 93% on room air, but desaturated in the second minute to 87%. The patient was placed on 2 L nasal cannula and was able to complete ambulation. In total, patient traveled 472 feet over the course of 6 minutes on room air with the assistance of a walker and one break. These findings are consistent with a respiratory limitation exercise tolerance. - Recommendations Recommendations: No supplemental oxygen is indicated at rest, but patient should be using 2 L nasal cannula oxygen with any exertion.
== END ==
PROVIDERS: Referring Provider Internal Medicine Critical Care Medicine; Visit Provider Internal Medicine Critical Care Medicine
DX: M54.16 Radiculopathy, lumbar region (principal); M54.2 Cervicalgia
CPT/HCPCS: 72141; 72148; 94618

== ENCOUNTER 2019-10-01 12:04 | Emergency (ER) | payer MEDICARE, MEDICAID, SELFPAY ==
[2019-09-28 01:30] VITALS: BMI 34.9
[2019-10-01 12:05] VITALS: BP 83/50; PULSE 82; RESP 20; TEMP 36.6; O2SAT 93; BMI 34.9
--- NOTE | 2019-10-01 12:29 | EKG12_ITS ---
Test Reason : SOB/CP Blood Pressure : / mmHG Vent. Rate : 076 BPM Atrial Rate : 076 BPM P-R Int : 154 ms QRS Dur : 090 ms QT Int : 408 ms P-R-T Axes : 062 023 031 degrees QTc Int : 459 ms Normal sinus rhythm Normal ECG Confirmed by CESAR GRUBER, SHARAD ([id number]), image editor JANE BURGOS ([id number]) on 10/02/2019 1:53:47 PM Referred By: Devendra Thompson Confirmed By:SHARAD GUERRERO MD
--- NOTE | 2019-10-01 12:34 | ED.DCSUM_ITS ---
- ER Visit Summary Date of Service: 10/01/19 Chief Complaint: Multiple complaints History of Present Illness: The patient is a 64 F who has multiple complaints including weakness, paresthesias, near syncope. Patient just finished her 6- minute walk to assess for home oxygen. She did qualify. She was taken to MRI for outpatient studies when she felt like she was going to pass out. She then yelled at the nursing staff that she wanted to go to the ER. Now that she is here she complains of generalized weakness, facial paresthesias, chronic back pain. The patient just left the hospital 2 days ago after a cardiac evaluation. She had a negative cardiac catheterization. Laboratory studies were drawn 2 days ago and were normal as well. Physical Examination: Vital signs reviewed. HEENT exam unremarkable. Heart is regular rate and rhythm without murmurs. Lungs are clear to auscultation. Abdomen is soft and nontender. Extremities reveal no edema. Skin exam normal. Neurologic exam normal with distraction. When you mention her numbness she complains of it on her face and right side but when distracted her sensation is normal. Test Results: EKG is sinus with a rate of 76. No ST changes. Emergency Department Course and Treatment: Patient was given oxycodone and Zofran. Her exam is nonfocal. She complains of various symptoms at times. I do not feel she needs any further work-up as she was just admitted to the hospital. Patient will be discharged to go back down to MRI to have her scans completed. Treatment Plan: [] Disposition: Discharge Impression: Generalized weakness This note was generated with [employer] dictation software. It may contain incorrect words, spelling, and punctuation that were not noted in review of the chart prior to signing ED Disposition - Plan for ED Patient: Referrals: Care Physician,No Primary [Primary Care Provider] -
[2019-10-01] MEDS: Ondansetron ODT 4 MG Tablet 8 MG PO (12:35)
[2019-10-01] MEDS: oxyCODONE 5 MG Tablet PO (12:44)
--- NOTE | 2019-10-01 12:57 | ED.DEP ---
ED Disposition - Plan for ED Patient: Disposition: Home or Assisted Living Instructions: WEAKNESS, Unk Cause Referrals: Care Physician,No Primary [Primary Care Provider] -
[2019-10-01 13:23] VITALS: BP 91/60; PULSE 78; RESP 16; O2SAT 98
--- NOTE | 2019-10-05 16:56 | CM.ED ---
Social Work ED Care Plan approved my multidisciplinary team. ED Care Plan entered in this visit and patient special indicator for care plan initiated. Patient noted to have discharged from ICU on 10/05/19 to a senior living setting. Will continue to watch case and if patient would discharge to community then proceed with contacting patient about ED Care Plan and educating patient on process. Amy Bailey MSW, JEFF
== END 2019-10-01 13:23 | disposition home or self-care (01) ==
PROVIDERS: Emergency Provider Emergency Medicine
DX: R53.1 Weakness (principal); G89.29 Other chronic pain; R20.2 Paresthesia of skin; M54.9 Dorsalgia, unspecified; R55 Syncope and collapse; Z86.73 Personal history of transient ischemic attack (TIA), and cerebral infarction without residual deficits
CPT/HCPCS: 72141; 72148; 93005; 94618; 99282

== ENCOUNTER 2019-10-03 12:37 | Inpatient (IN) | payer MEDICARE, MEDICAID, SELFPAY ==
[2019-10-03] VITALS (23 sets, daily range): BP systolic 59–112; BP diastolic 44–77; PULSE 61–91; RESP 12–114; TEMP 35.8–37.7; O2SAT 92–100; BMI 36.6; BMI 35.5
--- NOTE | 2019-10-03 12:55 | EKG12_ITS ---
Test Reason : WEAKNESS Blood Pressure : / mmHG Vent. Rate : 070 BPM Atrial Rate : 070 BPM P-R Int : 172 ms QRS Dur : 092 ms QT Int : 444 ms P-R-T Axes : 057 024 016 degrees QTc Int : 479 ms Sinus rhythm with Premature atrial complexes Otherwise normal ECG Confirmed by SALOMÓN GRUBER, ZULEIKA ([id number]), restaurant expeditor TISHA SHIPMAN ([id number]) on 10/09/2019 1:10:31 PM Referred By: AMA Confirmed By:ANNALEE LORENZANA MD
--- NOTE | 2019-10-03 12:55 | RAD_ITS ---
STUDY: X-RAY CHEST REASON FOR EXAM: Female, 64 years old. Cough and weakness. Back pain. TECHNIQUE: Single AP portable view of the chest. COMPARISON: Comparison is made with prior examination dated September 27, 2019. FINDINGS: EKG electrodes are seen. The lungs are clear and expanded. Scattered calcified granulomas. There is no demonstrated pleural abnormality. Normal size heart. Normal mediastinum and zion. Normal visualized pulmonary arteries. Normal visualized aortic arch and descending thoracic aorta. Normal visualized thoracic spine. The patient is status post right shoulder replacement. There is no demonstrated abnormality of the visualized soft tissue structures of the upper abdomen. RAD/Chest 1 View (Portable) IMPRESSION: No acute abnormality is seen. Electronically Signed: Royer Yan, at 15:16 EST , Service support ,
--- NOTE | 2019-10-03 12:56 | ED.VIS.GEN ---
History of Present Illness Chief Complaint: Weakness Informant: Patient Onset: Yesterday Context: Gradual Onset Timing: Continuous Quality: tired, generally weak Location: all over Current Severity: Severe Maximum Severity: Severe Narrative: Patient recently admitted and had a heart cath, she states she does not know the result. She has been seen here several times in the ER since then. States currently being treated for a COPD flareup. More coughing and short of breath recently, feeling very fatigued and tired. Currently has chest pain that has been there for several hours, it has been off and on for an unknown period of time. Very poor informant at this time. - Past Medical History (1) COPD (chronic obstructive pulmonary disease) Status: Chronic (2) Chronic low back pain Status: Chronic (3) Dyslipidemia Status: Chronic (4) Essential (primary) hypertension Status: Chronic Past Medical History - Allergies and Home Meds Allergies/Adverse Reactions: Allergies Penicillins Allergy (Verified 10/03/19 12:38) Rash Sulfa (Sulfonamide Antibiotics) Allergy (Verified 10/03/19 12:38) Rash Primary Care Physician: Madisyn Perez NP-C [Primary Care Provider] - Surgical History: - - Right shoulder surgery, hysterectomy, appendectomy. Smoking Status: Never smoker - Family History Paternal Family History: Reports: - - Denies known paternal medical history including cardiac history. Maternal Family History: Reports: - - Denies known maternal medical history including cardiac history. Review of Systems General: Reports: Malaise, - - near-syncope. Denies: Chills, Fever, Sweats Eyes: Denies: Visual changes - bilaterally, Diplopia ENT: Denies: Rhinorrhea, Sore throat Cardiovascular: Reports: Chest pain - substernal. Denies: Palpitations, Heart racing Respiratory: Reports: Dyspnea, Cough, Sputum. Denies: Dyspnea on exertion Gastrointestinal: Reports: Abdominal pain, Constipation. Denies: Nausea, Vomiting, Diarrhea, Melena, Hematochezia Genitourinary: Denies: Dysuria, Hematuria, Frequency Musculoskeletal: Reports: Back pain - chronic, worse; diffuse. Denies: Swelling, Extremity Pain Skin: Denies: Rash, Wounds Neurological: Denies: Headache, Weakness, Numbness Physical Exam Vital Signs/Narrative: Vital Signs Temp Pulse Resp BP Pulse Ox 10/03/19 12:50 72 14 78/46 L 93 10/03/19 12:39 98.1 F 70 114 H 69/54 L 95 10/03/19 12:38 98.1 F 67 12 82/70 L 93 Inital Vital Signs reviewed: Yes General: Well nourished, Well developed, No Acute Distress - awake, ill-appearing Head: Normocephalic, Atraumatic Eyes: Perrl, EOMI ENT: Moist mucous membranes, No rhinorrhea. Negative for: Nasal congestion, Sinus tenderness Neck: Supple, Nontender, No lymphadenopathy Cardiovascular: Regular rate, Regular rhythm, No murmurs, Normal S1, Normal S2 Respiratory: No distress, CTA bilaterally, Chest nontender Abdomen: Soft, Nondistended, Normal bowel sounds, Tender - mostly RLQ. Negative for: Guarding, Rebound tenderness, Pulsatile mass Back: Normal Inspection, - - diffusely tender, mostly lower back; no rash Extremities: Nontender, No edema. Negative for: Calf Tenderness Skin: Normal color, No rash, No Trauma Neurological: Alert, Oriented x3, Cranial nerves II-XII grossly intact, Normal Strength, Normal Sensation Psychological: Normal affect, Normal Mood Diagnostic/Tx/Re-eval Impressions Chest X-Ray 10/03/19 12:55 IMPRESSION: No acute abnormality is seen. Electronically Signed: Royer Farrah, at 15:16 EST , Service support , Abdomen/Pelvis CT 10/03/19 12:57 IMPRESSION: Moderate amount of fecal material is seen in the colon. No acute abnormality is seen. Electronically Signed: Royer Yan, at 15:21 EST , Service support , 10/03/19 12:55 Chest 1 View (Portable) [RAD] Stat 10/03/19 12:57 CT Abd [Abdomen/Pelvis without Cont] [CT] Stat Laboratory Results 10/03/19 10/03/19 10/03/19 13:10 14:05 14:05 WBC 12.9 H RBC 4.14 L Hgb 11.1 L Hct 36.9 L MCV 89.1 MCH 26.8 L MCHC 30.1 L RDW Std Deviation 51.8 H RDW Coeff of Liset 15.7 H Plt Count 295 MPV 10.9 Immature Gran % (Auto) 1.300 H Neut % (Auto) 57.6 Lymph % (Auto) 33.9 [place] % (Auto) 5.6 Eos % (Auto) 1.4 Baso % (Auto) 0.2 Absolute Neuts (auto) 7.4 Absolute Lymphs (auto) 4.37 Nucleated RBC % 0 Differential Comment Not Reportable PT 15.6 H INR 1.3 APTT 26.5 Sodium Potassium Chloride Carbon Dioxide Anion Gap BUN Creatinine Estim Creat Clear Calc Est GFR (MDRD) Af Amer Est GFR (MDRD) Non-Af BUN/Creatinine Ratio Glucose Lactic Acid Calcium Total Bilirubin AST ALT Alkaline Phosphatase Troponin I Total Protein Albumin Globulin Albumin/Globulin Ratio Urine Color Yellow Urine Clarity Sl. Cloudy Urine pH 5.0 Ur Specific [place] 1.020 Urine Protein Negative Urine Glucose (UA) Normal Urine Ketones Negative Urine Occult Blood Negative Urine Nitrite Negative Urine Bilirubin Negative Urine Urobilinogen Normal Ur Leukocyte Esterase 25 H Urine RBC 0-5 SEEN Urine WBC 0-5 SEEN Ur Squamous Epith Cells 5-10 SEEN Urine Bacteria 1+ Urine Mucus 1+ 10/03/19 10/03/19 14:05 14:05 WBC RBC Hgb Hct MCV MCH MCHC RDW Std Deviation RDW Coeff of Liset Plt Count MPV Immature Gran % (Auto) Neut % (Auto) Lymph % (Auto) [place] % (Auto) Eos % (Auto) Baso % (Auto) Absolute Neuts (auto) Absolute Lymphs (auto) Nucleated RBC % Differential Comment PT INR APTT Sodium 136 Potassium 4.3 Chloride 100 Carbon Dioxide 27.0 Anion Gap 9 BUN 90 H Creatinine 2.63 H Estim Creat Clear Calc 26.80 Est GFR (MDRD) Af Amer 23 L Est GFR (MDRD) Non-Af 19 L BUN/Creatinine Ratio 34.2 H Glucose 117 H Lactic Acid 1.1 Calcium 8.0 L Total Bilirubin 0.40 AST 8 L ALT 12 L Alkaline Phosphatase 159 H Troponin I < 0.015 Total Protein 6.5 Albumin 3.1 L Globulin 3.4 Albumin/Globulin Ratio 0.9 Urine Color Urine Clarity Urine pH Ur Specific [place] Urine Protein Urine Glucose (UA) Urine Ketones Urine Occult Blood Urine Nitrite Urine Bilirubin Urine Urobilinogen Ur Leukocyte Esterase Urine RBC Urine WBC Ur Squamous Epith Cells Urine Bacteria Urine Mucus - Rhythm Strip Rhythm Strip: Sinus Rhythm Rate: 70 Ectopy: PAC(s) - EKG Initial EKG Interpretation: Sinus Rhythm, No Acute Injury Pattern, - Prior: Unchanged - Medical Decision Making Patient's pressure extremely low upon initial evaluation, so 30 cc/kg of IV fluid bolus was ordered. She was still hypotensive afterwards, so in addition to admitting her to the ICU, central line was placed. Her work-up does not show the obvious cause of this except for renal failure, she has significant JOAO with a normal creatinine now well above 2 and her BUN at 90. For that reason I did a rectal exam to rule out GI bleeding, there was no specimen in the rectal vault, no tenderness or abscess, no blood. CT of the abdomen and pelvis shows constipation, she frequently requests narcotics while here in the emergency department, however before the central line it did give her a dose of fentanyl 25 mcg, only a small dose because she is very somnolent, she alerts to voice. We have her in Trendelenburg positioning. Blood cultures were obtained. Her lactate is within normal limits. Unknown if there is infection or not; with a lactate negative, and high BUN, if she does not have occult GI bleeding, as she has had none of that here in the ER and no symptoms of bleeding or hematemesis, she may simply be severely dehydrated and need more fluids. I see no infection to treat at this time. She is on no inotropic's, is not tachycardic, she is frequently here for chest pain recently, I do not think this is acute large pulmonary embolus. Patient is currently on doxycycline, so an additional antibiotic was not added at this time. Also, patient is currently on prednisone, she is in the middle of the taper and today received 30 mg. Therefore, random cortisol will likely be an accurate, and adrenal insufficiency less likely. Central line was placed, and the last bit of fluid went in to give her blood pressure 112 systolic after 3500 cc. We will decrease her fluid rate. Her ABG does show hypercapnia and acidosis, since her lactate returned negative, it is more likely to be acutely respiratory. Since she is still lethargic after IV fluids and improving her blood pressure, will place BiPAP before admitting to ICU. - Critical Care Time Critical care time (excluding procedures): 30-74 minutes - 40 minutes, not including procedures, including time spent discussing with patient, consultants, arranging admission, and performing direct patient care at the bedside Procedures Procedure(s): Central line for shock. Discussed pros and cons with the patient she was comfortable with this, and not able to sign, however this was an emergent situation of an shock and lethargy. The right upper chest was prepped and draped in a sterile fashion, with chlorhexidine. Anesthetized with a total of 8 cc of plain 1% lidocaine. Finder needle found the subclavian vein on the first attempt, and a 20 cm triple-lumen catheter was placed via modified Seldinger technique without any complications. Patient tolerated well. Sutured in place. All 3 ports shari back dark red nonpulsatile blood and flushed easily. Placement verified by portal chest x-ray. ED Disposition - Plan for ED Patient: Disposition: Acute Care [facility], [place] Diagnosis: Shock, Constipation, COPD with exacerbation, Chest pain, unspecified, Acute hypercapnic respiratory failure Referrals: Madisyn Perez NP-C [Primary Care Provider] -
--- NOTE | 2019-10-03 12:57 | CT_ITS ---
STUDY: CT ABDOMEN AND PELVIS WITHOUT CONTRAST REASON FOR EXAM: Female, 64 years old. Right-sided pain and tenderness. Hypertension. RADIATION DOSAGE (If Supplied By Facility): CTDIvol = ( 23.93 ) mGy, DLP = ( 1037.35 ) mGycm TECHNIQUE: Transaxial images were obtained from the dome of the diaphragm to the symphysis pubis without oral contrast, and without intravenous contrast. Sagittal and coronal images were reconstructed. Individualized dose optimization techniques were used for this CT. COMPARISON: None. FINDINGS: Minimal increased markings in the posterior aspect of the lingular segment of the left upper lobe. This may represent atelectasis. Minimal pericardial thickening posteriorly on the left side. Surgical clips are seen at that level. Normal liver. Normal gallbladder and extrahepatic biliary system. Normal spleen. Normal pancreas. Normal bilateral adrenal glands. Normal right kidney. Normal left kidney. There is a small hiatal hernia. Normal small intestine. Moderate amount of fecal material is seen in the colon. The appendix is visualized and appears normal. Normal abdominal aorta. Normal inferior vena cava. There is borderline retroperitoneal lymphadenopathy with enlarged nodes no greater than 10mm in the short axis diameter. Normal urinary bladder. Normal abdominal wall. There are diffuse degenerative changes of the visualized lumbar spine. Evidence of prior right femoral pinning. Almost complete collapse of the T11 vertebrae. Mild deformity of the T12 vertebrae. CT/Abdomen/Pelvis without Cont IMPRESSION: Moderate amount of fecal material is seen in the colon. No acute abnormality is seen. Electronically Signed: Royer Yan, at 15:21 EST , Service support ,
--- NOTE | 2019-10-03 13:10 | ED.RN ---
Addendum entered by Dominique Webber 10/03/19 15:05: PURE-WICK PLACED. Original Note: UNABLE TO PLACE WRIGHT CATHETER, PATIENT WAS STRAIGHT CATH'ED FOR URINE SPECIMEN.
[2019-10-03 13:54] LABS: Color, Urine Yellow (Yellow); Glucose, Dipstick Normal (Normal); Ketone-Dipstick Negative (Negative); Leukocyte Esterase-Dipstick 25 /ul (Negative); Nitrite-Dipstick Negative (Negative); Occult Blood-Urine Negative /ul (Negative); Protein-Dipstick Negative (Negative); Urine Bilirubin Dipstick Negative (Negative); Urine Clarity Sl. Cloudy (Clear); Urine Urobilinogen Normal (Normal)
[2019-10-03 13:57] LABS: Bacteria 1+ /hpf (None Seen); Mucous, Urine 1+ /hpf (<or=2+); Red Blood Cells-Urine 0-5 SEEN /hpf (0-5); Squamous Epithelial Cells - UA 5-10 SEEN /hpf (5-10); White Blood Cells 0-5 SEEN /hpf (0-5)
--- NOTE | 2019-10-03 13:59 | CPS ---
critical value read to
[2019-10-03] MEDS: 0.9% Normal Saline 1,000 ML 999 ML IV ×4 (14:09→16:54)
[2019-10-03 14:13] LABS: Absolute Lymphocyte Count 4.37 X10^3/uL (0.83-4.51); Absolute Neutrophil Count 7.4 X10^3/uL (2.0-7.7); Basophil# 0.03 X10^3/uL; Basophil% 0.2 % (0-1); Eosinophil# 0.18 X10^3/uL; Eosinophils% 1.4 % (0-5); Hematocrit 36.9 % (37-47); Hemoglobin 11.1 g/dL (12.0-15.0); Lymphocyte # 4.37 X10^3/ul (4.0); Lymphocyte % 33.9 % (19-41); Mean Corp Hgb Conc 30.1 g/dL (32-36); Mean Corpuscular Hgb 26.8 pg (27.0-32.0); Mean Corpuscular Volume 89.1 fL (81-99); Mean Platelet Vol. 10.9 fl (6.2-12.0); Monocyte# 0.72 X10^3/uL; Monocyte% 5.6 % (0-10); NRBC Flagged by Analyzer 0 % (0-5); Neutrophil # 7.42 X10^3/uL (2.7-7.7); Neutrophil % 57.6 % (47-70); Platelet Count 295 K/mm3 (150-450); RBC Distribution Width CV 15.7 % (11.6-14.6); RBC Distribution Width SD 51.8 fl (35.1-43.9); Red Blood Count 4.14 M/mm3 (4.2-5.4); White Blood Count 12.9 K/mm3 (4.4-11.0)
[2019-10-03 14:23] LABS: International Normalized Ratio 1.3; Prothrombin Time (Protime)PT. 15.6 SECONDS (11.7-14.9)
[2019-10-03 14:24] LABS: Partial Thromboplast Time 26.5 Seconds (24.1-36.2)
[2019-10-03 14:30] LABS: ALB/GLOB Ratio 0.9 RATIO (0.9-2.4); AST(SGOT) 8 U/L (15-37); Alanine Aminotransfer ALT/SGPT 12 U/L (13-56); Albumin, Serum 3.1 g/dL (3.2-5.0); Alkaline Phosphatase 159 U/L (45-117); Anion Gap 9 (5-15); BUN 90 mg/dL (7-18); BUN/Creat Ratio 34.2 RATIO (10-20); Chloride 100 mmol/L (98-107); Creatinine, Serum 2.63 mg/dL (0.55-1.02); EST Glomerular Filtration Rate 19 mL/min (>60); Est Glom Filt Rate - Afr Amer 23 mL/min (>60); Globulin 3.4 g/dL (2.2-4.2); Glucose 117 mg/dL (74-106); Potassium 4.3 mmol/L (3.5-5.1); Protein, Total 6.5 g/dL (6.4-8.2); Sodium Level 136 mmol/L (136-145)
[2019-10-03 14:31] LABS: Lactic Acid 1.1 mmol/L (0.4-2.0)
[2019-10-03] MEDS: fentaNYL 100 MCG/2 ML Ampul 25 MCG IV (17:22)
--- NOTE | 2019-10-03 17:24 | ED.RN ---
CENTRAL LINE SETUP AT BEDSIDE.
--- NOTE | 2019-10-03 17:54 | NURSING ---
ICU 5 TERELETSKY SHOCK, COPD EXAC, CP
--- NOTE | 2019-10-03 18:15 | RAD_ITS ---
STUDY: X-RAY CHEST REASON FOR EXAM: Female, 64 years old. Central line placement. TECHNIQUE: Single frontal view of the chest. COMPARISON: October 03, 2019 and 2:32 PM. FINDINGS: There is a new right-sided central venous catheter in place terminating within the expected region of the right atrium. There is no new focal consolidation. Normal size heart. Normal mediastinum and zion. Normal visualized pulmonary arteries. Normal visualized aortic arch and descending thoracic aorta. There are diffuse degenerative changes of the visualized thoracic spine. There is a right shoulder arthroplasty. There is no demonstrated abnormality of the visualized soft tissue structures of the upper abdomen. RAD/CXR for Line Placement IMPRESSION: Right central venous catheter terminating within the expected region of the right atrium, recommend retracting the catheter by approximately 3 cm. Electronically Signed: Susan Dunbar MD at 18:35 EST Tel , Service support ,
--- NOTE | 2019-10-03 18:25 | HP.PCM_ITS ---
Problem List (1) Generalized weakness Status: Acute (2) Shortness of breath Status: Acute History of Present Illness Date of Admission: 10/03/19 Chief Complaint: Generalized weakness, shortness of breath The patient is a 64 year old F who was seen in the emergency room at [facility] after being transported in by squad for evaluation of generalized weakness and shortness of breath. Patient has a history of COPD and is on chronic oxygen at 2 L/min via nasal cannula at assisted living where she resides. Patient denied any fever or chills, she denied any diaphoresis. Also denied any dysuria. Patient complained of intermittent chest pain-this is been a chronic complaint according to the emergency room physician and the patient recently underwent a cardiac catheterization for [id number] catheterization showed normal left ventricular ejection fraction at 65%, normal wall motion, and all coronary arteries were angiographically normal. The date of this study was 09/28/2019. Evaluation in the emergency room today revealed the patient to be hypotensive- her blood pressure initially was 82/70, patient required 4 L of oxygen via nasal cannula to maintain her pulse ox above 90%. Labs were obtained: Her creatinine was elevated at 2.63, BUN was 90, glucose was 117, troponin was unremarkable, patient's alkaline phosphatase was elevated at 159, and her lactic acid was normal at 1.1. Patient's white blood cell count was elevated at 12.9, hemoglobin was 11.1. Patient's chest x-ray was unremarkable, urinalysis revealed +1 bacteria, 0-5 RBCs, 0-5 WBCs, and 25 leukocyte Estrace. Arterial blood gases were obtained, patient's pH was 7.26 with an elevated PCO2. Patient was placed on BiPAP due to some lethargy. Patient underwent administration of several fluid boluses with minimal effect on the patient's blood pressure, the emergency room physician inserted a central IV for further care of the patient. Pulmonary medicine was contacted, patient will be admitted to ICU for hypotension-etiology unclear, renal failure, and combined respiratory failure. Past Medical History Past Medical History (Chronic Problems): Chronic Problems (Last Reviewed 09/28/19 @ 01:30 by Fam Krishnamurthy MD) COPD (chronic obstructive pulmonary disease) (Chronic) Chronic low back pain (Chronic) Chest pain, unspecified (Chronic) Polypharmacy (Chronic) Essential (primary) hypertension (Chronic) Dyslipidemia (Chronic) Medical History: Medical History (Last Reviewed 09/28/19 @ 01:30 by Fam Krishnamurthy MD) Polypharmacy (Chronic) Z79.899 Essential (primary) hypertension (Chronic) I10 Dyslipidemia (Chronic) E78.5 Anxiety and depression F41.9, F32.9 COPD (chronic obstructive pulmonary disease) J44.9 Chronic kidney disease, stage 3 N18.3 Chronic pain syndrome G89.4 Frequent falls R29.6 GERD (gastroesophageal reflux disease) K21.9 Obesity E66.9 Type 2 diabetes mellitus E11.9 Rhabdomyolysis M62.82 Allergies Penicillins Allergy (Verified 10/03/19 12:38) Rash Sulfa (Sulfonamide Antibiotics) Allergy (Verified 10/03/19 12:38) Rash Home Medications: Ambulatory Orders Medication Instructions Recorded Pantoprazole Sodium [Protonix] 40 mg PO DAILY 05/03/19 Pregabalin [Lyrica] 100 mg PO TID 05/03/19 Ropinirole HCl 1 mg PO QHS 05/03/19 Atorvastatin Calcium [Lipitor] 20 mg PO QHS 06/03/19 Furosemide [Lasix] 20 mg PO DAILY 06/03/19 Prazosin HCl 2 mg PO QHS 06/05/19 Topiramate [Topamax] 50 mg PO QHS 06/05/19 Cetirizine HCl 10 mg PO DAILY 06/26/19 ALPRAZolam [Xanax] 0.25 mg PO BID 09/27/19 Mirtazapine 15 mg PO QHS 09/27/19 Morphine Sulfate [Morphabond ER] 15 mg PO BID 09/27/19 Sodium Chloride 0.65% [[place] Nasal 2 spr NASAL BID 09/27/19 [place]] Dicyclomine HCl 10 mg PO BID PRN PRN 10/03/19 Guaifenesin [Tussin] 1 dose PO Q4H PRN PRN 10/03/19 Ibuprofen [Motrin] 400 mg PO BID PRN PRN 10/03/19 Isosorbide Mononitrate [Imdur] 60 mg PO DAILY 10/03/19 Ondansetron HCl 4 mg PO Q8H PRN PRN 10/03/19 Sertraline HCl [Zoloft] 100 mg PO DAILY 10/03/19 Surgical History: Surgical History (Last Updated 09/28/19 @ 13:47 by Lacy Fisher) History of appendectomy Z90.49 History of hysterectomy Z90.710 History of left heart catheterization Onset Date: 09/28/19 Z98.890 04/2009, 09/28/19 Surgical History: - - Right shoulder surgery, hysterectomy, appendectomy. 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 Maternal History Items: - - Denies known maternal medical history including cardiac history. Review of Systems Constitutional: Reports: Weakness. Denies: Anorexia, Chills, Fever, Night Sweats, Weight Change Eyes: Denies: Cataracts, Conjunctivae Inflammation, Double vision, Drainage, Redness, Vision Change HEENT: Denies: Difficulty Swallowing, Dysphasia, Ear Pain, Eye Pain, Hearing Changes, Nasal bleeding, Nasal Congestion, Post Nasal Drip Cardiovascular: Reports: Chest Pain. Denies: Claudication, Chest Pressure, Chest Tightness, Edema, Orthopnea, Palpitations, Paroxysmal Noc. Dyspnea Respiratory: Reports: Cough, Shortness of Breath, Shortness of breath at rest, Shortness of breath upon exertion. Denies: Hemoptysis, Pleuritic Pain, Sputum production, Wheezing Gastrointestinal: Denies: Abdominal Pain, Constipation, Diarrhea, Hematemesis, Hematochezia, Nausea, Melena, Vomiting Genitourinary: Denies: Dysuria, Frequency, Hematuria, Hesitancy, Urgency Gynecological: Denies: Breast symptoms Musculoskeletal: Denies: Foot Pain, Hand Pain, Joint Pain, Joint stiffness, Joint swelling, Joint Tenderness, Leg Pain Skin: Denies: Dryness, Pruritis, Rash Neurological: Denies: Blurred vision, Double vision, Change in Speech, Slurred speech, Difficulty swallowing, Focal weakness, Headaches, Incoordination, Numbness, Tingling Psychiatric: Denies: Anxiety, Depression, Homicidal Ideations, Suicidal Ideations Endocrine: Denies: Change in Body Habitus, Heat/ Cold Intolerance, Polydipsia, Polyuria Hematologic/ Lymphatic: Denies: Adenopathy, Anemia, Easy Bruising, Easy Bleeding, Petechiae, Purpura VTE Information - Inpt Only VTE Present on Admission: No VTE Mechan Device Prophylaxis: None VTE Pharm Prophylaxis ordered?: Yes Patient Problems: Active and Suspected Problems (Last Reviewed 09/28/19 @ 01:30 by Fam Krishnamurthy MD) Shock (Acute) Constipation (Acute) Acute hypercapnic respiratory failure (Acute) Generalized weakness (Acute) Shortness of breath (Acute) - Physical Exam Vitals/I&O's: Vital Signs Temp Pulse Resp BP Pulse Ox 96.4 F L 79 12 112/57 L 97 10/03/19 17:42 10/03/19 17:29 10/03/19 17:29 10/03/19 17:29 10/03/19 17:29 Oxygen Flow Rate (L/min) 4 Oxygen Delivery Method Nasal Cannula Weight: 79.6 kg Body Mass Index (BMI) 36.6 Finger Stick Blood Glucose 144 Intake and Output for Last 24 Hours 10/01/19 10/02/19 10/03/19 23:59 23:59 23:59 Intake Total 2516.65 / 2516.65 Balance 2516.65 / 2516.65 General: Oriented x3, Cooperative, No apparent distress, Well developed, Well nourished, Lethargic HEENT: Atraumatic, PERRLA, EOMI, Normocephalic Oral: Moist Mucosa Neck: Supple, No JVD, Negative Carotid Bruits, No Nuchal Rigidity, Trachea Midline, Thyroid Normal Size and Texture Lungs: Clear to auscultation, Normal air movement, No rhonchi, No wheeze, No rales Cardiovascular: Regular rate, Regular Rhythm, Normal S1, Normal S2, No murmurs Abdomen: Bowel Sounds Present, Soft, Non Tender, Non-Distended, No hernias noted Extremities: No clubbing, No cyanosis, No edema, Capillary Refill Less than 3 Seconds Skin: No rashes, No breakdown Musculoskeletal: No Tenderness to Palpation of Joints or Extremities Neurological: Cranial nerves II-XII grossly intact, Neuro grossly intact, Sensory exam intact to light touch and pain Psych/Mental Status: Appropriate, Flat Affect, - - Patient is lethargic, she responds appropriately to questions however, she is oriented x3 Laboratory Results 10/03/19 13:10: Urine Color Yellow, Urine Clarity Sl. Cloudy, Urine pH 5.0, Ur Specific [place] 1.020, Urine Protein Negative, Urine Glucose (UA) Normal, Urine Ketones Negative, Urine Occult Blood Negative, Urine Nitrite Negative, Urine Bilirubin Negative, Urine Urobilinogen Normal, Ur Leukocyte Esterase 25 H, Urine RBC 0-5 SEEN, Urine WBC 0-5 SEEN, Ur Squamous Epith Cells 5-10 SEEN, Urine Bacteria 1+, Urine Mucus 1+ 10/03/19 14:05: WBC 12.9 H, RBC 4.14 L, Hgb 11.1 L, Hct 36.9 L, MCV 89.1, MCH 26.8 L, MCHC 30.1 L, RDW Std Deviation 51.8 H, RDW Coeff of Liset 15.7 H, Plt Count 295, MPV 10.9, Immature Gran % (Auto) 1.300 H, Neut % (Auto) 57.6, Lymph % (Auto) 33.9, [place] % (Auto) 5.6, Eos % (Auto) 1.4, Baso % (Auto) 0.2, Absolute Neuts (auto) 7.4, Absolute Lymphs (auto) 4.37, Nucleated RBC % 0, Differential Comment Not Reportable 10/03/19 14:05: PT 15.6 H, INR 1.3, APTT 26.5 10/03/19 14:05: Sodium 136, Potassium 4.3, Chloride 100, Carbon Dioxide 27.0, Anion Gap 9, BUN 90 H, Creatinine 2.63 H, Estim Creat Clear Calc 26.80, Est GFR (MDRD) Af Amer 23 L, Est GFR (MDRD) Non-Af 19 L, BUN/Creatinine Ratio 34.2 H, Glucose 117 H, Calcium 8.0 L, Total Bilirubin 0.40, AST 8 L, ALT 12 L, Alkaline Phosphatase 159 H, Troponin I < 0.015, Total Protein 6.5, Albumin 3.1 L, Globulin 3.4, Albumin/Globulin Ratio 0.9 10/03/19 14:05: Lactic Acid 1.1 Assessment/Plan All Active Problems (Last Reviewed 09/28/19 @ 01:30 by Fam Krishnamurthy MD) Shock (Acute) Constipation (Acute) Acute hypercapnic respiratory failure (Acute) Generalized weakness (Acute) Shortness of breath (Acute) COPD with exacerbation (Resolved) Dyspnea (Acute) #1 profound hypotension-etiology unclear at this point, this may be due to acute renal failure and hypovolemia-patient will be admitted to ICU, she will be given vigorous IV fluids, labs will be monitored, blood pressure will be monitored. I have decided to place the patient on IV antibiotics until we are sure she does not have an active infection (UTI). It does not appear at this point that the patient will require pressor administration. #2 acute renal failure-etiology unclear, patient will be given IV fluids and labs will be monitored #3 leukocytosis-etiology unclear, patient had been on prednisone recently for a COPD flareup, the leukocytosis may be due to this or it could be due to an unknown infection. Labs will be monitored #4 urine positive for leukocyte esterase and bacteria-possible acute cystitis, patient will be treated with IV Rocephin #5 combined respiratory failure-patient currently is on 4 L of oxygen, she is normally on 2 L at home, the emergency room physician placed the patient on BiPAP, patient will be observed on BiPAP to see if she responds #6 chronic chest pain-patient underwent a cardiac catheterization on 09/28/2019 which showed normal coronary arteries and normal LV function, etiology of the patient's chronic chest pain is unknown #7 chronic low back pain-due to the patient's somnolence, I have decided to reduce the patient's Lyrica dosage to twice daily #8 anxiety/depression-due to the patient's somnolence, I have elected to reduce the patient's Xanax dosage #9 hyperlipidemia I have decided to hold the patient's Imdur-she has no coronary artery disease per her recent cardiac catheterization. Code Visit Inpatient E&M: 80272 Init Hosp L3
[2019-10-03 18:45] LABS: Bedside Glucose 144 mg/dL (70-110)
[2019-10-03] MEDS: 0.9% Normal Saline 1,000 ML 150 ML IV (19:39)
--- NOTE | 2019-10-03 20:15 | CPS ---
Dr. Hirsch was informed of critical ABG results
--- NOTE | 2019-10-03 21:00 | NURSING ---
Dr Hirsch in the room at this time, will attempt to pull the central line in his right subclavian back 7cm and will resuture. This was done successfully and a chest x-ray was ordered to confirm, the placement.
[2019-10-03] MEDS: Naloxone 2 MG/2 ML Syringe 1 MG IV (21:02)
[2019-10-03] MEDS: 0.9% Saline Lock 10 ML Syringe IV (21:05)
[2019-10-03] MEDS: Heparin Injection (Vial) 5,000 UNIT/ML VIAL 5000 UNIT SC (21:15)
--- NOTE | 2019-10-03 21:15 | RAD_ITS ---
STUDY: X-RAY CHEST REASON FOR EXAM: Female, 64 years old. Central line adjustment. TECHNIQUE: Single frontal view of the chest. COMPARISON: October 03, 2019 FINDINGS: The right central central venous catheter has been retracted in the interim since the prior examination now terminating within the expected region of the superior vena cava. There is no new focal consolidation. Normal size heart. Normal mediastinum and zion. Normal visualized pulmonary arteries. Normal visualized aortic arch and descending thoracic aorta. Normal visualized thoracic spine. There is a right shoulder arthroplasty. There is no demonstrated abnormality of the visualized soft tissue structures of the upper abdomen. RAD/CXR for Line Placement IMPRESSION: Central venous catheter in a satisfactory position. Electronically Signed: Susan Dunbar MD at 21:28 EST Tel , Service support ,
--- NOTE | 2019-10-03 21:18 | PCM.HOSP.N ---
Hospitalist Note Notified by nursing staff that patient was very somnolent and difficult to arouse. Went to evaluate the patient and patient would not respond to any kind of verbal or noxious stimuli. Patient did receive 1 mg of Narcan and her mental status improved. Earlier in the emergency room, patient had received fentanyl for what I presume was for the central line that she had received. I will discontinue her morphine, alprazolam and as well as pregabalin. If patient can maintain appropriate mental status then it may be appropriate to resume her alprazolam. Additionally: Reviewed the patient's chest x-ray shows that her central line was all the way clearly into the atrium. Went to evaluate the central line itself and it was actually the 20cm kit that was sutured all the way into the from a subclavian approach. I sterilize the site and put it back 4 cm and then sutured it back in place. I did this before the patient received the Narcan and the patient did not require any local anesthetic for the needle sticks. Review the follow-up x-ray shows that the true lumen catheter is above the atrium and in appropriate position.
[2019-10-03] MEDS: Ondansetron 4 MG/2 ML Vial IV (21:56)
--- NOTE | 2019-10-03 23:43 | CPS ---
Addendum entered by Shena Joseph 10/05/19 07:12: Original Note: Pt.'s IPAP titrated from 12 - 16; help blow off excessive build-up of CO2. Pt.'s FiO2 titrated from 30%-24%; avoiding over oxygenating pt. due to COPD
[2019-10-04] VITALS (20 sets, daily range): BP systolic 90–129; BP diastolic 53–76; PULSE 68–88; RESP 11–21; TEMP 37–37.7; O2SAT 92–100
[2019-10-04] MEDS: 0.9% Normal Saline 1,000 ML 150 ML IV ×4 (02:22→21:17)
[2019-10-04 04:57] LABS: Absolute Lymphocyte Count 2.06 X10^3/uL (0.83-4.51); Absolute Neutrophil Count 6.8 X10^3/uL (2.0-7.7); Basophil# 0.05 X10^3/uL; Basophil% 0.5 % (0-1); Eosinophil# 0.09 X10^3/uL; Eosinophils% 0.9 % (0-5); Hematocrit 38.5 % (37-47); Hemoglobin 11.3 g/dL (12.0-15.0); Lymphocyte # 2.06 X10^3/ul (4.0); Lymphocyte % 21.2 % (19-41); Mean Corp Hgb Conc 29.4 g/dL (32-36); Mean Corpuscular Hgb 26.8 pg (27.0-32.0); Mean Corpuscular Volume 91.4 fL (81-99); Mean Platelet Vol. 10.4 fl (6.2-12.0); Monocyte% 5.1 % (0-10); NRBC Flagged by Analyzer 0 % (0-5); Neutrophil # 6.76 X10^3/uL (2.7-7.7); Neutrophil % 69.6 % (47-70); Platelet Count 267 K/mm3 (150-450); RBC Distribution Width CV 15.9 % (11.6-14.6); RBC Distribution Width SD 53.3 fl (35.1-43.9); Red Blood Count 4.21 M/mm3 (4.2-5.4); White Blood Count 9.7 K/mm3 (4.4-11.0)
[2019-10-04 05:33] LABS: AST(SGOT) 16 U/L (15-37); Alanine Aminotransfer ALT/SGPT 17 U/L (13-56); Albumin, Serum 2.6 g/dL (3.2-5.0); Alkaline Phosphatase 173 U/L (45-117); Anion Gap 6 (5-15); BUN 68 mg/dL (7-18); BUN/Creat Ratio 47.9 RATIO (10-20); Bilirubin, Direct 0.09 mg/dL (0.00-0.30); Calcium,Total 7.5 mg/dL (8.5-10.1); Chloride 114 mmol/L (98-107); Creatinine, Serum 1.42 mg/dL (0.55-1.02); EST Glomerular Filtration Rate 39 mL/min (>60); Est Glom Filt Rate - Afr Amer 48 mL/min (>60); Estimated Creatinine Clearance 48.07 ml/min; Globulin 3.2 g/dL (2.2-4.2); Glucose 103 mg/dL (74-106); Potassium 4.4 mmol/L (3.5-5.1); Protein, Total 5.8 g/dL (6.4-8.2); Sodium Level 145 mmol/L (136-145)
--- NOTE | 2019-10-04 06:16 | CPS ---
ABG results (10/03/19; 13:33 & 20:15) noted not to be in [facility]. Dr Thompson sent results via [employer]
[2019-10-04 07:01] LABS: Allen Test POS; Base Excess -7 mmol/L (-2 to +2); Bicarbonate 22.6 mmol/L (22-26); Blood Gas Specimen Type ART; EPAP 6; FI02 24; IPAP 12; PO2 67 mmHG (75-100); RR 12; SITE L Radial; SO2 85 % (95-99); Time Given 2010; Total Carbon Dioxide 25 mmol/L; pCO2 68.1 mmHg (35-45); pH 7.13 (7.35-7.45)
[2019-10-04 07:25] LABS: Base Excess -2 mmol/L (-2 to +2); Bicarbonate 26.3 mmol/L (22-26); Blood Gas Specimen Type ART; O2 Delivery Device Nasal Can; PO2 91 mmHG (75-100); SITE L Radial; SO2 94 % (95-99); Time Given 1330; Total Carbon Dioxide 28 mmol/L; pCO2 66.3 mmHg (35-45); pH 7.21 (7.35-7.45)
--- NOTE | 2019-10-04 07:29 | PCM.CON.CC ---
Problem List (1) Chronic pain syndrome Status: Chronic (2) COPD (chronic obstructive pulmonary disease) Status: Chronic Qualifiers: COPD type: emphysema Emphysema type: centrilobular Qualified Code(s): J43.2 - Centrilobular emphysema (3) Shock Status: Acute (4) Acute hypercapnic respiratory failure Status: Acute (5) Essential (primary) hypertension Status: Chronic (6) Dyslipidemia Status: Chronic Reason for Consult Date of Consultation: 10/04/19 Reason for Consultation: Respiratory failure History of Present Illness: The patient is a 64 year old F, with past medical history listed below, who presented to [facility] on 10/03/2019 secondary to progressive weakness. Patient reportedly had recently had a COPD flare along with a heart catheterization. Patient stated that she started to have more coughing, shortness of breath and felt very fatigued and tired. Patient has had complaints of chest pain for several ER visits and is not a very good historian. In the ER, patient was noted to be hypotensive. Patient did receive a 30 cc/kg IV bolus. Laboratory work-up showed significant acute kidney injury of unclear etiology. CT scan of the abdomen showed some constipation. Patient reportedly had been getting narcotics recently secondary to her chest pain. Patient was given a 25 mcg fentanyl dose in the ER. Patient was on prednisone therapy. Given patient's hypotension, a central line was placed. Patient was transferred to the intensive care unit for further monitoring. While in the intensive care unit, patient's x-ray was noted to have a central line that was in the right atrium. This was removed 7 cm by hospitalist overnight. Patient also had significant respiratory failure by ABG results. There was some consideration for possible intubation, but a trial of Narcan was attempted given patient's renal failure and multiple narcotics. Patient responded abruptly and did not require intubation. Patient is currently on 2 L nasal cannula to maintain saturations. Blood pressure is much improved. Patient has had good urine output. Review of systems otherwise negative from a constitutional, HEENT, respiratory, cardiovascular, GI, genitourinary, musculoskeletal, skin, neurologic, psychiatric and hematologic system unless stated above. Past Medical History Past Medical History (Chronic Problems): Chronic Problems (Last Reviewed 09/28/19 @ 01:30 by Fam Krishnamurthy MD) Chronic pain syndrome (Chronic) COPD (chronic obstructive pulmonary disease) (Chronic) Chronic low back pain (Chronic) Chest pain, unspecified (Chronic) Polypharmacy (Chronic) Essential (primary) hypertension (Chronic) Dyslipidemia (Chronic) Medical History: Medical History (Last Reviewed 09/28/19 @ 01:30 by Fam Krishnamurthy MD) Polypharmacy (Chronic) Z79.899 Essential (primary) hypertension (Chronic) I10 Dyslipidemia (Chronic) E78.5 Anxiety and depression F41.9, F32.9 COPD (chronic obstructive pulmonary disease) J44.9 Chronic kidney disease, stage 3 N18.3 Chronic pain syndrome G89.4 Frequent falls R29.6 GERD (gastroesophageal reflux disease) K21.9 Obesity E66.9 Type 2 diabetes mellitus E11.9 Rhabdomyolysis M62.82 Allergies Penicillins Allergy (Verified 10/03/19 12:38) Rash Sulfa (Sulfonamide Antibiotics) Allergy (Verified 10/03/19 12:38) Rash Home Medications: Ambulatory Orders Medication Instructions Recorded Pantoprazole Sodium [Protonix] 40 mg PO DAILY 05/03/19 Pregabalin [Lyrica] 100 mg PO TID 05/03/19 Ropinirole HCl 1 mg PO QHS 05/03/19 Atorvastatin Calcium [Lipitor] 20 mg PO QHS 06/03/19 Furosemide [Lasix] 20 mg PO DAILY 06/03/19 Prazosin HCl 2 mg PO QHS 06/05/19 Topiramate [Topamax] 50 mg PO QHS 06/05/19 Cetirizine HCl 10 mg PO DAILY 06/26/19 ALPRAZolam [Xanax] 0.25 mg PO BID 09/27/19 Mirtazapine 15 mg PO QHS 09/27/19 Morphine Sulfate [Morphabond ER] 15 mg PO BID 09/27/19 Sodium Chloride 0.65% [[place] Nasal 2 spr NASAL BID 09/27/19 [place]] Dicyclomine HCl 10 mg PO BID PRN PRN 10/03/19 Guaifenesin [Tussin] 1 dose PO Q4H PRN PRN 10/03/19 Ibuprofen [Motrin] 400 mg PO BID PRN PRN 10/03/19 Isosorbide Mononitrate [Imdur] 60 mg PO DAILY 10/03/19 Ondansetron HCl 4 mg PO Q8H PRN PRN 10/03/19 Sertraline HCl [Zoloft] 100 mg PO DAILY 10/03/19 Surgical History: Surgical History (Last Updated 09/28/19 @ 13:47 by Lacy Fisher) History of appendectomy Z90.49 History of hysterectomy Z90.710 History of left heart catheterization Onset Date: 09/28/19 Z98.890 04/2009, 09/28/19 Surgical History: - - Right shoulder surgery, hysterectomy, appendectomy. Psychiatric History: No pertinent psych hx ANIMATOR History: No pertinent ANIMATOR history Lives: Alone Smoking Status: Never smoker Tobacco Use: Non-smoker Alcohol: None Drugs: None - *Family History Paternal History Items: - - Denies known paternal medical history including cardiac history. Maternal History Items: - - Denies known maternal medical history including cardiac history. Review of Systems Unable to obtain accurate/complete ROS d/t: Poor historian see HPI Patient Problems: Active and Suspected Problems (Last Reviewed 09/28/19 @ 01:30 by Fam Krishnamurthy MD) Shock (Acute) Constipation (Acute) Acute hypercapnic respiratory failure (Acute) Generalized weakness (Acute) Shortness of breath (Acute) Objective: All imaging was personally reviewed. Chest x-ray showed no significant infiltration. CT of the abdomen showed some constipation. - Physical Exam Vitals/I&O's: Vital Signs Temp Pulse Resp BP Pulse Ox 37.2 C 85 20 H 90/76 96 10/04/19 06:00 10/04/19 06:00 10/04/19 06:00 10/04/19 06:00 10/04/19 06:00 Oxygen Flow Rate (L/min) 2 Oxygen Delivery Method Room Air Weight: 77.3 kg Body Mass Index (BMI) 35.5 Finger Stick Blood Glucose 144 Intake and Output for Last 24 Hours 10/02/19 10/03/19 10/04/19 23:59 23:59 23:59 Intake Total 2566.65 / 2566.65 1969.5 / 1969.5 Output Total 1450 / 1450 Balance 2566.65 / 2316.65 519.5 / 519.5 General: Alert, Oriented x3, Cooperative, No apparent distress, Well developed, Well nourished, - - Appears older than stated age. Speaking in full sentences. HEENT: Atraumatic, PERRLA, EOMI, Normocephalic, - - Slight scleral injection without icterus Oral: Moist Mucosa, No Gingival or Mucosal Lesions/ Ulcerations Neck: Supple, No JVD, No Nodes, Trachea Midline Lungs: No rhonchi, No wheeze, No rales, Diminished, - - Symmetric expansion. Cardiovascular: Regular rate, Regular Rhythm, Normal S1, Normal S2, No murmurs, No rub noted, No Gallop Abdomen: Bowel Sounds Present, Soft, Non Tender, Non-Distended Extremities: No clubbing, No cyanosis, No edema, Capillary Refill Less than 3 Seconds Skin: No rashes, No breakdown Musculoskeletal: No Tenderness to Palpation of Joints or Extremities Lymphatic: No Cervical, Supraclavicular, or Inguinal Adenopathy Neurological: Cranial nerves II-XII grossly intact, Neuro grossly intact, Motor Exam 5/5 strength throughout Psych/Mental Status: Appropriate, Anxious Laboratory Results 10/03/19 13:10: Urine Color Yellow, Urine Clarity Sl. Cloudy, Urine pH 5.0, Ur Specific [place] 1.020, Urine Protein Negative, Urine Glucose (UA) Normal, Urine Ketones Negative, Urine Occult Blood Negative, Urine Nitrite Negative, Urine Bilirubin Negative, Urine Urobilinogen Normal, Ur Leukocyte Esterase 25 H, Urine RBC 0-5 SEEN, Urine WBC 0-5 SEEN, Ur Squamous Epith Cells 5-10 SEEN, Urine Bacteria 1+, Urine Mucus 1+ 10/03/19 13:33: Specimen Type ART, Sample Site L Radial, pH 7.21 L, Bicarbonate Actual 26.3 H, POC Total CO2 28, Base Excess -2, O2 Saturation 94 L, ABG pCO2 66.3 H, ABG pO2 91, O2 Delivery Device Nasal Can, Liter Flow 4.0, Blood Gas Notified Whom ED MD, Blood Gas Notified Time 1330 10/03/19 14:05: WBC 12.9 H, RBC 4.14 L, Hgb 11.1 L, Hct 36.9 L, MCV 89.1, MCH 26.8 L, MCHC 30.1 L, RDW Std Deviation 51.8 H, RDW Coeff of Liset 15.7 H, Plt Count 295, MPV 10.9, Immature Gran % (Auto) 1.300 H, Neut % (Auto) 57.6, Lymph % (Auto) 33.9, [place] % (Auto) 5.6, Eos % (Auto) 1.4, Baso % (Auto) 0.2, Absolute Neuts (auto) 7.4, Absolute Lymphs (auto) 4.37, Nucleated RBC % 0, Differential Comment Not Reportable 10/03/19 14:05: PT 15.6 H, INR 1.3, APTT 26.5 10/03/19 14:05: Sodium 136, Potassium 4.3, Chloride 100, Carbon Dioxide 27.0, Anion Gap 9, BUN 90 H, Creatinine 2.63 H, Estim Creat Clear Calc 26.80, Est GFR (MDRD) Af Amer 23 L, Est GFR (MDRD) Non-Af 19 L, BUN/Creatinine Ratio 34.2 H, Glucose 117 H, Calcium 8.0 L, Total Bilirubin 0.40, AST 8 L, ALT 12 L, Alkaline Phosphatase 159 H, Troponin I < 0.015, Total Protein 6.5, Albumin 3.1 L, Globulin 3.4, Albumin/Globulin Ratio 0.9 10/03/19 14:05: Lactic Acid 1.1 10/03/19 18:06: POC Glucose 144 H 10/03/19 20:16: Specimen Type ART, Sample Site L Radial, pH 7.13 L*, Bicarbonate Actual 22.6, POC Total CO2 25, Base Excess -7 L, O2 Saturation 85 L, O2 % 24, ABG pCO2 68.1 H*, ABG pO2 67 L, Vipul Test POS, Respiration Rate 12, O2 Delivery Device Bi / C PAP, EPAP 6, IPAP 12, Blood Gas Notified Whom ICU , Blood Gas Notified Time 200910/04/19 04:40: WBC 9.7, RBC 4.21, Hgb 11.3 L, Hct 38.5, MCV 91.4, MCH 26.8 L, MCHC 29.4 L, RDW Std Deviation 53.3 H, RDW Coeff of Liset 15.9 H, Plt Count 267, MPV 10.4, Immature Gran % (Auto) 2.700 H, Neut % (Auto) 69.6, Lymph % (Auto) 21.2, [place] % (Auto) 5.1, Eos % (Auto) 0.9, Baso % (Auto) 0.5, Absolute Neuts (auto) 6.8, Absolute Lymphs (auto) 2.06, Nucleated RBC % 0 10/04/19 04:40: Sodium 145, Potassium 4.4, Chloride 114 H, Carbon Dioxide 25.0, Anion Gap 6, BUN 68 H, Creatinine 1.42 H, Estim Creat Clear Calc 48.07, Est GFR (MDRD) Af Amer 48 L, Est GFR (MDRD) Non-Af 39 L, BUN/Creatinine Ratio 47.9 H, Glucose 103, Calcium 7.5 L, Total Bilirubin 0.30, Direct Bilirubin 0.09, AST 16, ALT 17, Alkaline Phosphatase 173 H, Total Protein 5.8 L, Albumin 2.6 L, Globulin 3.2 Clinical Impression(s) from Imaging Studies Chest X-Ray 10/03/19 12:55 IMPRESSION: No acute abnormality is seen. Electronically Signed: Royer Yan, at 15:16 EST , Service support , Abdomen/Pelvis CT 10/03/19 12:57 IMPRESSION: Moderate amount of fecal material is seen in the colon. No acute abnormality is seen. Electronically Signed: Royer Yan, at 15:21 EST , Service support , Chest X-Ray 10/03/19 18:15 IMPRESSION: Right central venous catheter terminating within the expected region of the right atrium, recommend retracting the catheter by approximately 3 cm. Electronically Signed: Susan Dunbar MD at 18:35 EST Tel , Service support , Chest X-Ray 10/03/19 21:15 IMPRESSION: Central venous catheter in a satisfactory position. Electronically Signed: Susan Dunbar MD at 21:28 EST Tel , Service support , Current Medications Acetaminophen (Tylenol) 650 mg PO Q6H PRN PRN PRN Reason: Pain Score 1-3/Temp > 100.7 F Albuterol Sulfate (Ventolin Aerosols) 2.5 mg INHALATION Q2H PRN PRN PRN Reason: SOB/Wheezing Atorvastatin Calcium (Lipitor) 20 mg PO QHS [facility] Last Admin: 10/03/19 21:49 Dose: Not Given Documented by: Guaifenesin (Robitussin) 10 ml PO Q4H PRN PRN PRN Reason: COUGH Heparin Sodium (Porcine) (Heparin Na) 5,000 unit SC Q12 [facility] Last Admin: 10/03/19 21:15 Dose: 5,000 unit Documented by: Sodium Chloride () 1,000 mls @ 150 mls/hr IV .Q6H40M [facility] Last Infusion: 10/04/19 05:40 Dose: 150 mls/hr Documented by: Ceftriaxone Sodium 2 gm/ (Sodium Chloride) 50 mls @ 100 mls/hr IV Q24 [facility] Sodium Chloride () 250 mls @ 15 mls/hr IV .[id number] PRN PRN Reason: Saline Flush Last Infusion: 10/04/19 05:41 Dose: 15 mls/hr Documented by: Mirtazapine (Remeron) 15 mg PO QHS [facility] Last Admin: 10/03/19 21:49 Dose: Not Given Documented by: Ondansetron HCl (Zofran) 4 mg IV Q8H PRN PRN PRN Reason: NAUSEA/VOMITING Last Admin: 10/03/19 21:56 Dose: 4 mg Documented by: Pantoprazole Sodium (Protonix) 40 mg PO DAILY [facility] Pramipexole Dihydrochloride (Mirapex) 0.5 mg PO QHS [facility] Last Admin: 10/03/19 21:49 Dose: Not Given Documented by: Senna/Docusate Sodium (Senokot-S, [place]-Colace) 2 tablet PO BID [facility] Sertraline HCl (Zoloft) 100 mg PO DAILY [facility] Sodium Chloride ([place] Nasal [place]) 2 spray NASAL BID [facility] Last Admin: 10/03/19 21:49 Dose: Not Given Documented by: Sodium Chloride () 10 - 40 ml IV UD PRN PRN Reason: Multilumen/Reed Flush Last Admin: 10/03/19 21:05 Dose: 10 ml Documented by: Sodium Chloride (0.9% Nacl (Sterile) Posiflush) 10 - 40 ml IV UD PRN PRN Reason: Port access or dressing change Topiramate (Topamax) 50 mg PO QHS [facility] Last Admin: 10/03/19 21:49 Dose: Not Given Documented by: Assessment/Plan Active and Suspected Problems (Last Reviewed 09/28/19 @ 01:30 by Fam Krishnamurthy MD) Shock (Acute) Constipation (Acute) Acute hypercapnic respiratory failure (Acute) Generalized weakness (Acute) Shortness of breath (Acute) RECOMMENDATIONS: 1. Continue aggressive hydration 2. Wean oxygen as tolerated 3. Increase activity as tolerated 4. Continue empiric antibiotics 5. Okay to leave the intensive care unit from my perspective IMPRESSIONS: 1. Distributive shock Multiple possible etiologies. Clinical consideration for acidosis secondary to narcotic metabolite retention secondary to renal failure versus acute UTI. Patient has responded well to the Narcan and fluid hydration. Renal function is much improved and patient is hemodynamically stable at this time. Continue with aggressive hydration. Monitor electrolytes and replete as necessary. Agree with empiric antibiotics pending culture results. 2. Acute on chronic combined respiratory failure Clinical suspicion for worsening respiratory status secondary to retained metabolites with renal failure. Patient has responded well to Narcan therapy. Wean oxygen as tolerated. Patient should have a walking oximetry prior to discharge. We will continue with prednisone as previously ordered to taper off over the next 8 to 10 days. Continue with bronchodilators. 3. Possible UTI/acute kidney injury Patient with leukocyte esterase and bacteria noted on initial urinalysis. Patient will be continued on IV Rocephin. Renal function appears to be improving. No signs of postobstructive acute kidney injury. Continue to monitor closely and replete electrolytes as indicated 4. Chronic pain syndrome/anxiety/depression/hyperlipidemia/poor historian Complicates care, management, recovery and prognosis. Likely okay to reinitiate baseline medications. Would be cautious with narcotics until renal function is back to baseline. Code Visit Inpatient E&M: 11003 Init Hosp L3
--- NOTE | 2019-10-04 09:24 | PCM.PN.HOSP ---
Patient Problems: Active and Suspected Problems (Last Reviewed 09/28/19 @ 01:30 by Fam Krishnamurthy MD) Shock (Acute) Constipation (Acute) Acute hypercapnic respiratory failure (Acute) Generalized weakness (Acute) Shortness of breath (Acute) Subjective: Much more alert compared to last night, no issues overnight. Creatinine has improved today with IV fluids Vitals/I&O's: Vital Signs Temp Pulse Resp BP Pulse Ox 98.9 F 85 20 H 90/76 96 10/04/19 06:00 10/04/19 06:00 10/04/19 06:00 10/04/19 06:00 10/04/19 06:52 Oxygen Flow Rate (L/min) 2 Oxygen Delivery Method Nasal Cannula Weight: 170 lb 6.677 oz Body Mass Index (BMI) 35.5 Finger Stick Blood Glucose 144 Intake and Output for Last 24 Hours 10/02/19 10/03/19 10/04/19 23:59 23:59 23:59 Intake Total 2566.65 / 2566.65 2367.0 / 2367.0 Output Total 1450 / 1450 Balance 2566.65 / 2316.65 917.0 / 917.0 General: Alert, Oriented x3, Cooperative, No apparent distress HEENT: Atraumatic, PERRLA, EOMI, Normocephalic Oral: Moist Mucosa Neck: Supple, No JVD Lungs: Clear to auscultation, Normal air movement, No rhonchi, No wheeze, No rales, Diminished Cardiovascular: Regular rate, Regular Rhythm, Normal S1, Normal S2, No murmurs Abdomen: Soft, Non Tender, Non-Distended, No Hepato-splenomegaly Extremities: No edema, Capillary Refill Less than 3 Seconds Skin: No rashes, No breakdown Neurological: Neuro grossly intact, Sensory exam intact to light touch and pain Psych/Mental Status: Normal Affect, Appropriate Laboratory Results 10/03/19 13:10: Urine Color Yellow, Urine Clarity Sl. Cloudy, Urine pH 5.0, Ur Specific [place] 1.020, Urine Protein Negative, Urine Glucose (UA) Normal, Urine Ketones Negative, Urine Occult Blood Negative, Urine Nitrite Negative, Urine Bilirubin Negative, Urine Urobilinogen Normal, Ur Leukocyte Esterase 25 H, Urine RBC 0-5 SEEN, Urine WBC 0-5 SEEN, Ur Squamous Epith Cells 5-10 SEEN, Urine Bacteria 1+, Urine Mucus 1+ 10/03/19 13:33: Specimen Type ART, Sample Site L Radial, pH 7.21 L, Bicarbonate Actual 26.3 H, POC Total CO2 28, Base Excess -2, O2 Saturation 94 L, ABG pCO2 66.3 H, ABG pO2 91, O2 Delivery Device Nasal Can, Liter Flow 4.0, Blood Gas Notified Whom ED , Blood Gas Notified Time 1330 10/03/19 14:05: WBC 12.9 H, RBC 4.14 L, Hgb 11.1 L, Hct 36.9 L, MCV 89.1, MCH 26.8 L, MCHC 30.1 L, RDW Std Deviation 51.8 H, RDW Coeff of Liset 15.7 H, Plt Count 295, MPV 10.9, Immature Gran % (Auto) 1.300 H, Neut % (Auto) 57.6, Lymph % (Auto) 33.9, [place] % (Auto) 5.6, Eos % (Auto) 1.4, Baso % (Auto) 0.2, Absolute Neuts (auto) 7.4, Absolute Lymphs (auto) 4.37, Nucleated RBC % 0, Differential Comment Not Reportable 10/03/19 14:05: PT 15.6 H, INR 1.3, APTT 26.5 10/03/19 14:05: Sodium 136, Potassium 4.3, Chloride 100, Carbon Dioxide 27.0, Anion Gap 9, BUN 90 H, Creatinine 2.63 H, Estim Creat Clear Calc 26.80, Est GFR (MDRD) Af Amer 23 L, Est GFR (MDRD) Non-Af 19 L, BUN/Creatinine Ratio 34.2 H, Glucose 117 H, Calcium 8.0 L, Total Bilirubin 0.40, AST 8 L, ALT 12 L, Alkaline Phosphatase 159 H, Troponin I < 0.015, Total Protein 6.5, Albumin 3.1 L, Globulin 3.4, Albumin/Globulin Ratio 0.9 10/03/19 14:05: Lactic Acid 1.1 10/03/19 18:06: POC Glucose 144 H 10/03/19 20:16: Specimen Type ART, Sample Site L Radial, pH 7.13 L*, Bicarbonate Actual 22.6, POC Total CO2 25, Base Excess -7 L, O2 Saturation 85 L, O2 % 24, ABG pCO2 68.1 H*, ABG pO2 67 L, Vipul Test POS, Respiration Rate 12, O2 Delivery Device Bi / C PAP, EPAP 6, IPAP 12, Blood Gas Notified Whom ICU MD, Blood Gas Notified Time 200910/04/19 04:40: WBC 9.7, RBC 4.21, Hgb 11.3 L, Hct 38.5, MCV 91.4, MCH 26.8 L, MCHC 29.4 L, RDW Std Deviation 53.3 H, RDW Coeff of Liset 15.9 H, Plt Count 267, MPV 10.4, Immature Gran % (Auto) 2.700 H, Neut % (Auto) 69.6, Lymph % (Auto) 21.2, [place] % (Auto) 5.1, Eos % (Auto) 0.9, Baso % (Auto) 0.5, Absolute Neuts (auto) 6.8, Absolute Lymphs (auto) 2.06, Nucleated RBC % 0 10/04/19 04:40: Sodium 145, Potassium 4.4, Chloride 114 H, Carbon Dioxide 25.0, Anion Gap 6, BUN 68 H, Creatinine 1.42 H, Estim Creat Clear Calc 48.07, Est GFR (MDRD) Af Amer 48 L, Est GFR (MDRD) Non-Af 39 L, BUN/Creatinine Ratio 47.9 H, Glucose 103, Calcium 7.5 L, Total Bilirubin 0.30, Direct Bilirubin 0.09, AST 16, ALT 17, Alkaline Phosphatase 173 H, Total Protein 5.8 L, Albumin 2.6 L, Globulin 3.2 Current Medications Acetaminophen (Tylenol) 650 mg PO Q6H PRN PRN PRN Reason: Pain Score 1-3/Temp > 100.7 F Albuterol Sulfate (Ventolin Aerosols) 2.5 mg INHALATION Q2H PRN PRN PRN Reason: SOB/Wheezing Atorvastatin Calcium (Lipitor) 20 mg PO QHS [facility] Last Admin: 10/03/19 21:49 Dose: Not Given Documented by: Guaifenesin (Robitussin) 10 ml PO Q4H PRN PRN PRN Reason: COUGH Heparin Sodium (Porcine) (Heparin Na) 5,000 unit SC Q12 [facility] Last Admin: 10/03/19 21:15 Dose: 5,000 unit Documented by: Sodium Chloride () 1,000 mls @ 150 mls/hr IV .Q6H40M [facility] Last Admin: 10/04/19 08:20 Dose: 150 mls/hr Documented by: Ceftriaxone Sodium 2 gm/ (Sodium Chloride) 50 mls @ 100 mls/hr IV Q24 [facility] Sodium Chloride () 250 mls @ 15 mls/hr IV .[id number] PRN PRN Reason: Saline Flush Last Infusion: 10/04/19 05:41 Dose: 15 mls/hr Documented by: Mirtazapine (Remeron) 15 mg PO QHS [facility] Last Admin: 10/03/19 21:49 Dose: Not Given Documented by: Ondansetron HCl (Zofran) 4 mg IV Q8H PRN PRN PRN Reason: NAUSEA/VOMITING Last Admin: 10/03/19 21:56 Dose: 4 mg Documented by: Pantoprazole Sodium (Protonix) 40 mg PO DAILY [facility] Pramipexole Dihydrochloride (Mirapex) 0.5 mg PO QHS [facility] Last Admin: 10/03/19 21:49 Dose: Not Given Documented by: Senna/Docusate Sodium (Senokot-S, [place]-Colace) 2 tablet PO BID [facility] Sertraline HCl (Zoloft) 100 mg PO DAILY [facility] Sodium Chloride ([place] Nasal [place]) 2 spray NASAL BID [facility] Last Admin: 10/03/19 21:49 Dose: Not Given Documented by: Sodium Chloride () 10 - 40 ml IV UD PRN PRN Reason: Multilumen/Reed Flush Last Admin: 10/03/19 21:05 Dose: 10 ml Documented by: Sodium Chloride (0.9% Nacl (Sterile) Posiflush) 10 - 40 ml IV UD PRN PRN Reason: Port access or dressing change Topiramate (Topamax) 50 mg PO QHS [facility] Last Admin: 10/03/19 21:49 Dose: Not Given Documented by: STROKE Vital Signs/Narrative: Vital Signs Temp Pulse Resp BP Pulse Ox 10/04/19 06:52 96 10/04/19 06:00 98.9 F 85 20 H 90/76 96 10/04/19 05:37 100 Medical Necessity - Tobacco Use Smoking Status: Never smoker Tobacco Use: Non-smoker Assessment/Plan All Active Problems (Last Reviewed 09/28/19 @ 01:30 by Fam Krishnamurthy MD) Shock (Acute) Constipation (Acute) Acute hypercapnic respiratory failure (Acute) Generalized weakness (Acute) Shortness of breath (Acute) COPD with exacerbation (Resolved) Dyspnea (Acute) 1. Profound hypotension/acute renal failure/leukocytosis/acute on chronic combined respiratory failure -Central line has been placed and she was aggressively rehydrated. -Given Narcan in all of her sedating medications were held -Now that her creatinine has improved back to 1.42 from 2.63 with a baseline of 0.9, can likely restart some of her home medications -Unsure as to the origin of the leukocytosis, urine is unremarkable, but will continue with antibiotics pending resolution of her cultures -She is back to her home baseline of 2 L nasal cannula 2. Chronic chest pain/HTN/HLD -Recently had a cardiac cath on the eighth of this year with normal arteries and normal left ventricle -Hold off on restarting her Lasix as she still getting IV fluids, will decrease rate to 100 cc/h -Continue with statin -Hold BP medications 3. Anxiety/depression/chronic pain -It is likely that with her dehydration and her worsening renal function she had increased sedating tablets from her medications -We will restart her Zoloft and her Topamax as well as her ropinirole -We will continue to hold off on restarting her Lyrica. No more narcotics DVT: Heparin Code Visit Inpatient E&M: 58054 Subs Hosp L2
[2019-10-04] MEDS: Heparin Injection (Vial) 5,000 UNIT/ML VIAL 5000 UNIT SC ×2 (09:42→21:21)
[2019-10-04] MEDS: Sodium Chloride 0.65% 1 SPRAY SPRAY.BTL 2 SPRAY NASAL ×2 (09:42→21:21)
[2019-10-04] MEDS: Sertraline 100 MG Tablet PO (09:45)
[2019-10-04] MEDS: Pantoprazole Sodium 40 MG Tablet PO (09:45)
[2019-10-04] MEDS: Senna/Docusate Sodium 1 Tablet 2 TABLET PO ×2 (09:49→21:20)
--- NOTE | 2019-10-04 10:14 | CASEMGMT ---
LATOSHA reviewed chart, pt is here from [facility]. Pt was just here 09/28-09/29 and at that time did not qualify for a longterm. LATOSHA called pt's Ashley DUARTE, and left a message inquiring if she is working on an alternate placement. SW spoke w/pt in the room, she states that she plans to return to [facility] at discharge, is managing okay there. LATOSHA also called [facility], spoke w/Brandy, the director biomedical engineering. She explained pt came here for a test and ended up in the ED. LATOSHA reviewed the chart further. Pt was here on 10/01/19 for an oxygen walking test and qualified for home oxygen. She was also to have an MRI but then felt ill and short of breath and was taken to the ED. She was discharged back to [facility] on O2 from [facility]. As per Brandy, pt is having intermittent confusion and does not know how to use the oxygen. She states pt has been throwing the oxygen tank on the floor. She states pt really needs to go to a SNF. They have gotten pt accepted at both [facility] and [facility], had been working w/her field case manager to get her into one of these places. She states pt is also active with [facility] due to her mental illness. Pt's daughter is intermittently involved, they have not been able to get a hold of her as her voice mail is full. LATOSHA spoke w/pt again, and at this time she does confirm she is struggling with the oxygen and is agreeable to a longterm placement. She states that the SW said last time she did not qualify for a level of care. LATOSHA explained that now that she is on oxygen we may be able to qualify her. LATOSHA inquired where she would like to go, told her about [place] and [facility]. Pt does not want to go to either of those places. LATOSHA asked about [facility] where the previous SW was trying for, pt is agreeable to a referral there. LATOSHA called [facility], spoke dilcia/Majo and faxed a referral. LATOSHA called Brandy back at [facility], explained working on referral to [facility]. LATOSHA reviewed how pt performs her ADL's. Pt at times needs hands, on, and often needs redirection and reminders to completed ADL's. LATOSHA also asked about any recent hospitalization for psych issues, she states pt was hospitalized 1 or 2 times in August for comments of wanting to harm herself. LATOSHA will clarify this information if needed, should [facility] take pt and need a PAS/RR rather than a hospital exemption form. LATOSHA also did try to call daughter Shena. Her voicemail is full so LATOSHA could not leave a message. LATOSHA will continue to follow, await call back from Majo at [facility]. If they can take pt LATOSHA will submit for level of care. RONNIE Jasso
[2019-10-04] MEDS: Acetaminophen 325 MG Tablet 650 MG PO (11:32)
[2019-10-04 12:56] LABS: Bedside Glucose 108 mg/dL (70-110)
--- NOTE | 2019-10-04 13:31 | CASEMGMT ---
[facility] can take pt as per Majo, as long as we are able to attain a level of care. SW will submit for level of care once physician completes the transfer to extended care; SW texted physician to let him know transfer to extended care is needed for level of care. RONNIE Jasso
--- NOTE | 2019-10-04 14:21 | PCM.TXEXTCAR ---
- Diet 10/03/19 19:18 Diet: Clear Liquid Food consistency:: N/A - Liquid only Liquid Consistency:: Regular/Thin - Routine Orders/Code Status Routine Lab Work: BMP - Therapies Physical Therapy: Eval and Treat Occupational Therapy: Eval and Treat - Allergies/Procedures Done in Hospital Allergies/Adverse Reactions: Allergies Penicillins Allergy (Verified 10/03/19 12:38) Rash Sulfa (Sulfonamide Antibiotics) Allergy (Verified 10/03/19 12:38) Rash - Type of Care/Length of Stay Estimated LOS: Convalescent Care Less Than 30 days Type of Care Needed: Intermediate Rehab Potential: Fair Prognosis: Fair - Additional Orders/Day of Discharge Day of Discharge: 10/05/19 - \ - Dietary and Speech Recommendations Dietitian Recommendations/Changes: Recommend advance diet as tolerated to cardiac, low sodium. - Follow Up Care Primary Care Physician: Madisyn Perez NP-C [Primary Care Provider] - Please follow up with your Primary Care Physician in: 3-5 days
[2019-10-04] MEDS: Menthol/Lanolin/Calamine/Znox 113 GM Tube 1 APPLIC TOPICAL ×2 (15:37→21:25)
--- NOTE | 2019-10-04 15:46 | CASEMGMT ---
Social Work Note SW faxed Level of Care to [facility]. Paula Stoll MANAGER PHARMACY, SWIMMING INSTRUCTOR
[2019-10-04] MEDS: Albuterol 2.5 MG/3 ML VIAL.NEB. INHALATION (21:02)
[2019-10-04] MEDS: Topiramate 50 MG Tablet PO (21:19)
[2019-10-04] MEDS: Pramipexole Di-HCl 0.5 MG Tablet PO (21:19)
[2019-10-04] MEDS: Mirtazapine 15 MG Tablet PO (21:20)
[2019-10-04] MEDS: Atorvastatin Calcium 20 MG Tablet PO (21:21)
--- NOTE | 2019-10-04 21:31 | NURSING ---
PT REFUSES TO GET UP AND USE THE BSC. PT ONLY WANTS THE BEDPAN. INFORMED PT THAT SHE NEEDS TO USE THE BSC. WALKER HERE THERE AND 2 TO HELP GET HER UP TO BSC BUT PT REFUSES. INFORMED PT THAT WE NEED HER TO USE BSC AND NO MORE BEDPAN.
--- NOTE | 2019-10-04 21:55 | NURSING ---
PT GOT UP TO BSC WITH MIN ASST. PT USED WALKER. PT VOIDED AND HAD A HARD BOWEL MOVEMENT
--- NOTE | 2019-10-04 22:21 | NURSING ---
PT REFUSES THE BIPAP. 02 AT 2LNC APPLIED FOR SLEEP
[2019-10-05 03:00] VITALS: BP 119/74; PULSE 72; RESP 18; TEMP 36.7; O2SAT 99
[2019-10-05 03:07] VITALS: PULSE 67
[2019-10-05] MEDS: 0.9% Normal Saline 1,000 ML 150 ML IV (04:01)
[2019-10-05] MEDS: 0.9% Saline Lock 10 ML Syringe IV (05:47)
[2019-10-05 06:11] LABS: Anion Gap 6 (5-15); BUN 29 mg/dL (7-18); BUN/Creat Ratio 39.3 RATIO (10-20); Calcium,Total 8.3 mg/dL (8.5-10.1); Chloride 115 mmol/L (98-107); Creatinine, Serum 0.74 mg/dL (0.55-1.02); EST Glomerular Filtration Rate 84 mL/min (>60); Est Glom Filt Rate - Afr Amer 102 mL/min (>60); Estimated Creatinine Clearance 93.21 ml/min; Glucose 109 mg/dL (74-106); Potassium 4.2 mmol/L (3.5-5.1); Sodium Level 147 mmol/L (136-145)
--- NOTE | 2019-10-05 06:22 | PCM.PN.INT ---
Subjective: The patient was seen and examined at the bedside this morning. Events from the last 24 hours have been reviewed. The patient is currently afebrile, hemodynamically stable and maintaining appropriate oxygen saturations on 2 L/min via nasal cannula. The patient appears to be at her baseline from a mentation perspective. Objective: The patient's most recent lab work, culture data and imaging studies have all been personally reviewed. Blood and urine cultures have not demonstrated any growth to date. General: Alert, Cooperative, No apparent distress HEENT: Atraumatic, PERRLA, Normocephalic Oral: No Gingival or Mucosal Lesions/ Ulcerations Neck: Supple, No Nodes, Trachea Midline Lungs: No rhonchi, No wheeze, No rales, Diminished Cardiovascular: Regular rate, Regular Rhythm, Normal S1, Normal S2, No murmurs Abdomen: Bowel Sounds Present, Soft, Non Tender Extremities: No clubbing, No cyanosis, No edema Skin: No breakdown Musculoskeletal: No Tenderness to Palpation of Joints or Extremities Lymphatic: No Cervical, Supraclavicular, or Inguinal Adenopathy Neurological: Cranial nerves II-XII grossly intact, Neuro grossly intact Psych/Mental Status: Anxious, Restless Vital Signs Temp Pulse Resp BP Pulse Ox 98.1 F 67 18 119/74 99 10/05/19 03:00 10/05/19 03:07 10/05/19 03:00 10/05/19 03:00 10/05/19 03:00 Oxygen Flow Rate (L/min) 2 Oxygen Delivery Method Nasal Cannula Weight: 171 lb 11.841 oz Body Mass Index (BMI) 35.5 Finger Stick Blood Glucose 144 Intake and Output for Last 24 Hours 10/03/19 10/04/19 10/05/19 23:59 23:59 23:59 Intake Total 2566.65 / 2566.65 5350.25 / 5350.25 1560 / 1560 Output Total 3150 / 3150 200 / 200 Balance 2566.65 / 2316.65 2200.25 / 2200.25 1360 / 1360 Labs (Last 48 Hours) 10/03/19 10/03/19 10/03/19 13:10 13:33 14:05 WBC 12.9 H RBC 4.14 L Hgb 11.1 L Hct 36.9 L MCV 89.1 MCH 26.8 L MCHC 30.1 L RDW Std Deviation 51.8 H RDW Coeff of Liset 15.7 H Plt Count 295 MPV 10.9 Immature Gran % (Auto) 1.300 H Neut % (Auto) 57.6 Lymph % (Auto) 33.9 [place] % (Auto) 5.6 Eos % (Auto) 1.4 Baso % (Auto) 0.2 Absolute Neuts (auto) 7.4 Absolute Lymphs (auto) 4.37 Nucleated RBC % 0 Differential Comment Not Reportable PT INR APTT Specimen Type ART Sample Site L Radial pH 7.21 L Bicarbonate Actual 26.3 H POC Total CO2 28 Base Excess -2 O2 Saturation 94 L O2 % ABG pCO2 66.3 H ABG pO2 91 Vipul Test Respiration Rate O2 Delivery Device Nasal Can Liter Flow 4.0 EPAP IPAP Blood Gas Notified Whom ED MD Blood Gas Notified Time 1330 Sodium Potassium Chloride Carbon Dioxide Anion Gap BUN Creatinine Estim Creat Clear Calc Est GFR (MDRD) Af Amer Est GFR (MDRD) Non-Af BUN/Creatinine Ratio Glucose Lactic Acid Calcium Total Bilirubin Direct Bilirubin AST ALT Alkaline Phosphatase Troponin I Total Protein Albumin Globulin Albumin/Globulin Ratio Urine Color Yellow Urine Clarity Sl. Cloudy Urine pH 5.0 Ur Specific [place] 1.020 Urine Protein Negative Urine Glucose (UA) Normal Urine Ketones Negative Urine Occult Blood Negative Urine Nitrite Negative Urine Bilirubin Negative Urine Urobilinogen Normal Ur Leukocyte Esterase 25 H Urine RBC 0-5 SEEN Urine WBC 0-5 SEEN Ur Squamous Epith Cells 5-10 SEEN Urine Bacteria 1+ Urine Mucus 1+ POC Glucose 10/03/19 10/03/19 10/03/19 14:05 14:05 14:05 WBC RBC Hgb Hct MCV MCH MCHC RDW Std Deviation RDW Coeff of Liset Plt Count MPV Immature Gran % (Auto) Neut % (Auto) Lymph % (Auto) [place] % (Auto) Eos % (Auto) Baso % (Auto) Absolute Neuts (auto) Absolute Lymphs (auto) Nucleated RBC % Differential Comment PT 15.6 H INR 1.3 APTT 26.5 Specimen Type Sample Site pH Bicarbonate Actual POC Total CO2 Base Excess O2 Saturation O2 % ABG pCO2 ABG pO2 Vipul Test Respiration Rate O2 Delivery Device Liter Flow EPAP IPAP Blood Gas Notified Whom Blood Gas Notified Time Sodium 136 Potassium 4.3 Chloride 100 Carbon Dioxide 27.0 Anion Gap 9 BUN 90 H Creatinine 2.63 H Estim Creat Clear Calc 26.80 Est GFR (MDRD) Af Amer 23 L Est GFR (MDRD) Non-Af 19 L BUN/Creatinine Ratio 34.2 H Glucose 117 H Lactic Acid 1.1 Calcium 8.0 L Total Bilirubin 0.40 Direct Bilirubin AST 8 L ALT 12 L Alkaline Phosphatase 159 H Troponin I < 0.015 Total Protein 6.5 Albumin 3.1 L Globulin 3.4 Albumin/Globulin Ratio 0.9 Urine Color Urine Clarity Urine pH Ur Specific [place] Urine Protein Urine Glucose (UA) Urine Ketones Urine Occult Blood Urine Nitrite Urine Bilirubin Urine Urobilinogen Ur Leukocyte Esterase Urine RBC Urine WBC Ur Squamous Epith Cells Urine Bacteria Urine Mucus POC Glucose 10/03/19 10/03/19 10/04/19 18:06 20:16 04:40 WBC 9.7 RBC 4.21 Hgb 11.3 L Hct 38.5 MCV 91.4 MCH 26.8 L MCHC 29.4 L RDW Std Deviation 53.3 H RDW Coeff of Liset 15.9 H Plt Count 267 MPV 10.4 Immature Gran % (Auto) 2.700 H Neut % (Auto) 69.6 Lymph % (Auto) 21.2 [place] % (Auto) 5.1 Eos % (Auto) 0.9 Baso % (Auto) 0.5 Absolute Neuts (auto) 6.8 Absolute Lymphs (auto) 2.06 Nucleated RBC % 0 Differential Comment PT INR APTT Specimen Type ART Sample Site L Radial pH 7.13 L* Bicarbonate Actual 22.6 POC Total CO2 25 Base Excess -7 L O2 Saturation 85 L O2 % 24 ABG pCO2 68.1 H* ABG pO2 67 L Vipul Test POS Respiration Rate 12 O2 Delivery Device Bi / C PAP Liter Flow EPAP 6 IPAP 12 Blood Gas Notified Whom ICU Blood Gas Notified Time 2009 Sodium Potassium Chloride Carbon Dioxide Anion Gap BUN Creatinine Estim Creat Clear Calc Est GFR (MDRD) Af Amer Est GFR (MDRD) Non-Af BUN/Creatinine Ratio Glucose Lactic Acid Calcium Total Bilirubin Direct Bilirubin AST ALT Alkaline Phosphatase Troponin I Total Protein Albumin Globulin Albumin/Globulin Ratio Urine Color Urine Clarity Urine pH Ur Specific [place] Urine Protein Urine Glucose (UA) Urine Ketones Urine Occult Blood Urine Nitrite Urine Bilirubin Urine Urobilinogen Ur Leukocyte Esterase Urine RBC Urine WBC Ur Squamous Epith Cells Urine Bacteria Urine Mucus POC Glucose 144 H 10/04/19 10/04/19 10/05/19 04:40 12:48 05:45 WBC RBC Hgb Hct MCV MCH MCHC RDW Std Deviation RDW Coeff of Liset Plt Count MPV Immature Gran % (Auto) Neut % (Auto) Lymph % (Auto) [place] % (Auto) Eos % (Auto) Baso % (Auto) Absolute Neuts (auto) Absolute Lymphs (auto) Nucleated RBC % Differential Comment PT INR APTT Specimen Type Sample Site pH Bicarbonate Actual POC Total CO2 Base Excess O2 Saturation O2 % ABG pCO2 ABG pO2 Vipul Test Respiration Rate O2 Delivery Device Liter Flow EPAP IPAP Blood Gas Notified Whom Blood Gas Notified Time Sodium 145 147 H Potassium 4.4 4.2 Chloride 114 H 115 H Carbon Dioxide 25.0 26.0 Anion Gap 6 6 BUN 68 H 29 H Creatinine 1.42 H 0.74 Estim Creat Clear Calc 48.07 93.21 Est GFR (MDRD) Af Amer 48 L 102 Est GFR (MDRD) Non-Af 39 L 84 BUN/Creatinine Ratio 47.9 H 39.3 H Glucose 103 109 H Lactic Acid Calcium 7.5 L 8.3 L Total Bilirubin 0.30 Direct Bilirubin 0.09 AST 16 ALT 17 Alkaline Phosphatase 173 H Troponin I Total Protein 5.8 L Albumin 2.6 L Globulin 3.2 Albumin/Globulin Ratio Urine Color Urine Clarity Urine pH Ur Specific [place] Urine Protein Urine Glucose (UA) Urine Ketones Urine Occult Blood Urine Nitrite Urine Bilirubin Urine Urobilinogen Ur Leukocyte Esterase Urine RBC Urine WBC Ur Squamous Epith Cells Urine Bacteria Urine Mucus POC Glucose 108 Microbiology 10/03/19 13:10 Urine Catheter - Catheter Urine Culture - Preliminary Culture exhibits no growth. Clinical Impression(s) from Imaging Studies Chest X-Ray 10/03/19 12:55 IMPRESSION: No acute abnormality is seen. Electronically Signed: Royer Yan, at 15:16 EST , Service support , Abdomen/Pelvis CT 10/03/19 12:57 IMPRESSION: Moderate amount of fecal material is seen in the colon. No acute abnormality is seen. Electronically Signed: Royer Yan, at 15:21 EST , Service support , Chest X-Ray 10/03/19 18:15 IMPRESSION: Right central venous catheter terminating within the expected region of the right atrium, recommend retracting the catheter by approximately 3 cm. Electronically Signed: Susan Dunbar MD at 18:35 EST Tel , Service support , Chest X-Ray 10/03/19 21:15 IMPRESSION: Central venous catheter in a satisfactory position. Electronically Signed: Susan Dunbar MD at 21:28 EST Tel , Service support , Medical Necessity - Tobacco Use Smoking Status: Never smoker Tobacco Use: Non-smoker Assessment/Plan All Active Problems (Last Reviewed 09/28/19 @ 01:30 by Fam Krishnamurthy MD) Shock (Acute) Constipation (Acute) Acute hypercapnic respiratory failure (Acute) Generalized weakness (Acute) Shortness of breath (Acute) COPD with exacerbation (Resolved) Dyspnea (Acute) RECOMMENDATIONS: 1. Antibiotics can likely be discontinued given negative culture results. 2. Wean supplemental oxygen as tolerated. 3. Encourage incentive spirometer use and mobilize patient as tolerated. 4. Avoid sedating medications. 5. The patient is medically stable for transfer out of the intensive care unit. IMPRESSIONS: 1. Distributive shock Clinical consideration for acidosis secondary to narcotic metabolite retention secondary to renal failure versus acute UTI. However, preliminary urine cultures have not shown any growth. Antibiotics can likely be discontinued. Patient did respond to supplemental IV fluids. She remains hemodynamically stable. 2. Acute on chronic combined respiratory failure Clinical suspicion for worsening respiratory status secondary to retained metabolites with renal failure. Patient has responded well to Narcan therapy. Wean oxygen as tolerated. Patient should have a walking oximetry prior to discharge. Continue bronchodilators. 3. Acute kidney injury Likely prerenal in etiology. The patient has responded appropriately to supplemental IV fluids with improvement in creatinine. Urine output is appropriate. There is no current indication for renal replacement therapy. 4. Chronic pain syndrome/anxiety/depression/hyperlipidemia/poor historian Complicates care, management, recovery and prognosis. Cautious use of narcotics is recommended in the future. This note was generated with [email or web address] software. It may contain incorrect words, spelling, and punctuation that were not noted in checking the note before signing. Code Visit Inpatient E&M: 27931 Subs Hosp L2
[2019-10-05] MEDS: Ondansetron 4 MG/2 ML Vial IV (06:43)
[2019-10-05 07:46] VITALS: PULSE 69
[2019-10-05] MEDS: Menthol/Lanolin/Calamine/Znox 113 GM Tube 1 APPLIC TOPICAL (08:46)
[2019-10-05] MEDS: Heparin Injection (Vial) 5,000 UNIT/ML VIAL 5000 UNIT SC (08:48)
[2019-10-05] MEDS: Sodium Chloride 0.65% 1 SPRAY SPRAY.BTL 2 SPRAY NASAL (08:48)
[2019-10-05] MEDS: Pantoprazole Sodium 40 MG Tablet PO (08:49)
[2019-10-05] MEDS: Sertraline 100 MG Tablet PO (08:50)
[2019-10-05] MEDS: Senna/Docusate Sodium 1 Tablet 2 TABLET PO (08:51)
[2019-10-05 09:00] VITALS: BP 122/68; PULSE 77; RESP 16; TEMP 36.8; O2SAT 98
--- NOTE | 2019-10-05 09:29 | CASEMGMT ---
LATOSHA received a message back from pt's correctional counselor/case manager, Ashley Carranza, in regard to pt. She states that pt has been [facility] a [facility]. Ashley stated in message that [place] and [place] had been agreeable to take pt. LATOSHA Paula Stoll was able to fax paperwork for level of care yesterday at 3:45pm. LATOSHA called Ashley back, message left stating SW is working on placement at [facility], waiting for level of care, and asked if she has any other numbers for daughter as SW was not able to reach her yesterday. LATOSHA will continue to follow, awaiting level of care. RONNIE Jasso
--- NOTE | 2019-10-05 09:36 | DS.PCM_ITS ---
Discharge Date and Diagnosis - Problem List Patient Problems: Active and Suspected Problems (Last Reviewed 09/28/19 @ 01:30 by Fam Krishnamurthy MD) Shock (Acute) Constipation (Acute) Acute hypercapnic respiratory failure (Acute) Generalized weakness (Acute) Shortness of breath (Acute) Date of Admission: 10/03/19 Date of Discharge: 10/05/19 - Primary Discharge Diagnosis Active and Suspected Problems (Last Reviewed 09/28/19 @ 01:30 by Fam Krishnamurthy MD) Shock (Acute) Constipation (Acute) Acute hypercapnic respiratory failure (Acute) Generalized weakness (Acute) Shortness of breath (Acute) - Secondary Discharge Diagnosis Chronic Problems (Last Reviewed 09/28/19 @ 01:30 by Fam Krishnamurthy MD) Chronic pain syndrome (Chronic) COPD (chronic obstructive pulmonary disease) (Chronic) Chronic low back pain (Chronic) Chest pain, unspecified (Chronic) Polypharmacy (Chronic) Essential (primary) hypertension (Chronic) Dyslipidemia (Chronic) Hospital Course and Treatment Imaging Results: CXR: IMPRESSION: No acute abnormality is seen. CT Abd/Pelvis: IMPRESSION: Moderate amount of fecal material is seen in the colon. No acute abnormality is seen. Consults: ICU Operations: None Procedures: None Summary of Care Provided: PEr HPI: The patient is a 64 year old F who was seen in the emergency room at [facility] after being transported in by squad for evaluation of generalized weakness and shortness of breath. Patient has a history of COPD and is on chronic oxygen at 2 L/min via nasal cannula at [facility] living where she resides. Patient denied any fever or chills, she denied any diaphoresis. Also denied any dysuria. Patient complained of intermittent chest pain-this is been a chronic complaint according to the emergency room physician and the patient recently underwent a cardiac catheterization for [id number] catheterization showed normal left ventricular ejection fraction at 65%, normal wall motion, and all coronary arteries were angiographically normal. The date of this study was 09/28/2019. Evaluation in the emergency room today revealed the patient to be hypotensive- her blood pressure initially was 82/70, patient required 4 L of oxygen via nasal cannula to maintain her pulse ox above 90%. Labs were obtained: Her creatinine was elevated at 2.63, BUN was 90, glucose was 117, troponin was unremarkable, patient's alkaline phosphatase was elevated at 159, and her lactic acid was normal at 1.1. Patient's white blood cell count was elevated at 12.9, hemoglobin was 11.1. Patient's chest x-ray was unremarkable, urinalysis revealed +1 bacteria, 0-5 RBCs, 0-5 WBCs, and 25 leukocyte Estrace. Arterial blood gases were obtained, patient's pH was 7.26 with an elevated PCO2. Patient was placed on BiPAP due to some lethargy. Patient underwent administration of several fluid boluses with minimal effect on the patient's blood pressure, the emergency room physician inserted a central IV for further care of the patient. Pulmonary medicine was contacted, patient will be admitted to ICU for hypotension-etiology unclear, renal failure, and combined respiratory failure. Hospital Course: 1. Profound hypotension/acute renal failure/leukocytosis/acute on chronic combined respiratory [id number] female presenting from home with altered mental status, weakness and shortness of breath. She is on 2 L nasal cannula at home which she is back down to today on discharge. On admission she was found to have an elevated creatinine to 2.63 and it ultimately returned to baseline of 0.74 on the day of discharge. It was felt that her profound hypotension and altered mental status was likely related to increased metabolites from her narcotic medication as well as Lyrica and Xanax in the setting of acute renal failure. These were withheld and she was given IV fluids and she responded and recovered very quickly. She will need an outpatient BMP after discharge for evaluation of her renal function prior to reinstituting her Lasix. Would also recommend closer monitoring of mental status with her medications as well as p.o. intake. Plan will be for discharge to [facility]. Also she had a leukocytosis which resolved, initially she was started on Rocephin however urine culture came back negative therefore she does not need any antibiotics on discharge. 2. Her other medical diagnoses were evaluated and her home medications were continued where appropriate Patient Problems: Active and Suspected Problems (Last Reviewed 09/28/19 @ 01:30 by Fam Krishnamurthy MD) Shock (Acute) Constipation (Acute) Acute hypercapnic respiratory failure (Acute) Generalized weakness (Acute) Shortness of breath (Acute) - Physical Exam Vitals/I&O's: Vital Signs Temp Pulse Resp BP Pulse Ox 98.1 F 69 18 119/74 99 10/05/19 03:00 10/05/19 07:46 10/05/19 03:00 10/05/19 03:00 10/05/19 03:00 Oxygen Flow Rate (L/min) 2 Oxygen Delivery Method Nasal Cannula Weight: 171 lb 11.841 oz Body Mass Index (BMI) 35.5 Finger Stick Blood Glucose 144 Intake and Output for Last 24 Hours 10/03/19 10/04/19 10/05/19 23:59 23:59 23:59 Intake Total 2566.65 / 2566.65 5350.25 / 5350.25 1560 / 1560 Output Total 3150 / 3150 200 / 200 Balance 2566.65 / 2316.65 2200.25 / 2200.25 1360 / 1360 General: Alert, Oriented x3, Cooperative, No apparent distress HEENT: Atraumatic, PERRLA, EOMI, Normocephalic Oral: Moist Mucosa Neck: Supple, No JVD Lungs: Clear to auscultation, Normal air movement, No rhonchi, No wheeze, No rales, Diminished Cardiovascular: Regular rate, Regular Rhythm, Normal S1, Normal S2, No murmurs Abdomen: Soft, Non Tender, Non-Distended, No Hepato-splenomegaly Extremities: No edema, Capillary Refill Less than 3 Seconds Skin: No rashes, No breakdown Neurological: Neuro grossly intact, Sensory exam intact to light touch and pain Psych/Mental Status: Normal Affect, Appropriate Microbiology Past 72 Hours 10/03/19 13:10 Urine Catheter - Catheter Urine Culture - Preliminary Culture exhibits no growth. Laboratory Results 10/04/19 12:48: POC Glucose 108 10/05/19 05:45: Sodium 147 H, Potassium 4.2, Chloride 115 H, Carbon Dioxide 26.0, Anion Gap 6, BUN 29 H, Creatinine 0.74, Estim Creat Clear Calc 93.21, Est GFR (MDRD) Af Amer 102, Est GFR (MDRD) Non-Af 84, BUN/Creatinine Ratio 39.3 H, Glucose 109 H, Calcium 8.3 L Current Medications Acetaminophen (Tylenol) 650 mg PO Q6H PRN PRN PRN Reason: Pain Score 1-3/Temp > 100.7 F Last Admin: 10/04/19 11:32 Dose: 650 mg Documented by: Albuterol Sulfate (Ventolin Aerosols) 2.5 mg INHALATION Q2H PRN PRN PRN Reason: SOB/Wheezing Last Admin: 10/04/19 21:02 Dose: 2.5 mg Documented by: Atorvastatin Calcium (Lipitor) 20 mg PO QHS [facility] Last Admin: 10/04/19 21:21 Dose: 20 mg Documented by: Calamine/Phenol (Calmoseptine Ointment) 1 applic TOPICAL BID [facility]; Protocol Last Admin: 10/05/19 08:46 Dose: 1 applicatio Documented by: Guaifenesin (Robitussin) 10 ml PO Q4H PRN PRN PRN Reason: COUGH Heparin Sodium (Porcine) (Heparin Na) 5,000 unit SC Q12 [facility] Last Admin: 10/05/19 08:48 Dose: 5,000 unit Documented by: Sodium Chloride () 1,000 mls @ 150 mls/hr IV .Q6H40M [facility] Last Admin: 10/05/19 04:01 Dose: 150 mls/hr Documented by: Sodium Chloride () 250 mls @ 15 mls/hr IV .[id number] PRN PRN Reason: Saline Flush Last Infusion: 10/04/19 12:45 Dose: 0 mls/hr Documented by: Mirtazapine (Remeron) 15 mg PO QHS [facility] Last Admin: 10/04/19 21:20 Dose: 15 mg Documented by: Ondansetron HCl (Zofran) 4 mg IV Q8H PRN PRN PRN Reason: NAUSEA/VOMITING Last Admin: 10/05/19 06:43 Dose: 4 mg Documented by: Pantoprazole Sodium (Protonix) 40 mg PO DAILY [facility] Last Admin: 10/05/19 08:49 Dose: 40 mg Documented by: Pramipexole Dihydrochloride (Mirapex) 0.5 mg PO QHS [facility] Last Admin: 10/04/19 21:19 Dose: 0.5 mg Documented by: Senna/Docusate Sodium (Senokot-S, Susannah-Colace) 2 tablet PO BID [facility] Last Admin: 10/05/19 08:51 Dose: 2 tablet Documented by: Sertraline HCl (Zoloft) 100 mg PO DAILY [facility] Last Admin: 10/05/19 08:50 Dose: 100 mg Documented by: Sodium Chloride ([place] Nasal [place]) 2 spray NASAL BID [facility] Last Admin: 10/05/19 08:48 Dose: 2 spray Documented by: Sodium Chloride () 10 - 40 ml IV UD PRN PRN Reason: Multilumen/Reed Flush Last Admin: 10/05/19 05:47 Dose: 10 ml Documented by: Sodium Chloride (0.9% Nacl (Sterile) Posiflush) 10 - 40 ml IV UD PRN PRN Reason: Port access or dressing change Topiramate (Topamax) 50 mg PO QHS [facility] Last Admin: 10/04/19 21:19 Dose: 50 mg Documented by: Home Medications: Medications to take at Discharge Pantoprazole Sodium [Protonix] 40 mg PO DAILY 05/03/19 Pregabalin [Lyrica] 100 mg PO TID 05/03/19 Ropinirole HCl 1 mg PO QHS 05/03/19 Atorvastatin Calcium [Lipitor] 20 mg PO QHS 06/03/19 Prazosin HCl 2 mg PO QHS 06/05/19 Topiramate [Topamax] 50 mg PO QHS 06/05/19 Cetirizine HCl 10 mg PO DAILY 06/26/19 ALPRAZolam [Xanax] 0.25 mg PO BID 09/27/19 Mirtazapine 15 mg PO QHS 09/27/19 Morphine Sulfate [Morphabond ER] 15 mg PO BID 09/27/19 Sodium Chloride 0.65% [[place] Nasal [place]] 2 spr NASAL BID 09/27/19 Dicyclomine HCl 10 mg PO BID PRN PRN 10/03/19 Guaifenesin [Tussin] 1 dose PO Q4H PRN PRN 10/03/19 Isosorbide Mononitrate [Imdur] 60 mg PO DAILY 10/03/19 Ondansetron HCl 4 mg PO Q8H PRN PRN 10/03/19 Sertraline HCl [Zoloft] 100 mg PO DAILY 10/03/19 Furosemide [Lasix] 20 mg PO DAILY #0 10/05/19 Primary Care Physician: Madisyn Perez NP-C [Primary Care Provider] - Please follow up with your Primary Care Physician in: 3-5 days Disposition: Intermediate facility Minutes spent on discharge:: 35 Patient Condition:: Stable Medical Necessity - Tobacco Use Smoking Status: Never smoker Tobacco Use: Non-smoker Meaningful Use Info Meaningful Use Diagnoses (Choose all that apply): None applicable Code Visit Inpatient E&M: 48248 Disch Hosp
[2019-10-05 10:44] VITALS: BP 122/81; PULSE 72; RESP 10; O2SAT 98
--- NOTE | 2019-10-05 11:55 | CASEMGMT ---
Level of care received from [facility]. LATOSHA faxed convalescent form completed in [facility], level of care information(intermediate), discharge instructions and med list to [facility]. SW spoke w/pt, let her know that [facility] can take her today and SW will set her up to go today. Pt states understanding and is in agreement. SW explained will set up an ambulance so they can help her with the oxygen since this has been difficult for her, pt states understanding and is in agreement. She is fine with a 2pm pickup time. SW called [facility], set up 2pm ambulance. SW called [facility] and let them know pt is going to [facility] today. LATOSHA called FELICIA Carranza([phone]), message left letting her know pt is going to [facility] today. LATOSHA again attempted to call daughter, the [phone] number has a full mailbox. LATOSHA tried another number, , this number directs caller to other number. I did leave a message at this number to call this SW, though daughter may not get the message. LATOSHA let Majo at [facility] know pickup time is 2pm. No further needs anticipated at this time. RONNIE Jasso
== END 2019-10-05 14:05 | disposition skilled nursing facility (03) | DRG 469 ==
LOC: ED 17:40 → ICU 19:03
PROVIDERS: Admitting Provider Internal Medicine; Emergency Provider Emergency Medicine; Family Provider Nurse Practitioner Adult Health; PCP Nurse Practitioner Adult Health; Visit Provider Family Medicine
DX: N17.9 Acute kidney failure, unspecified (principal); R57.8 Other shock; J44.1 Chronic obstructive pulmonary disease with (acute) exacerbation; J96.22 Acute and chronic respiratory failure with hypercapnia; G89.4 Chronic pain syndrome; N18.3 Chronic kidney disease, stage 3 (moderate); I12.9 Hypertensive chronic kidney disease with stage 1 through stage 4 chronic kidney disease, or unspecified chronic kidney disease; E78.5 Hyperlipidemia, unspecified; K59.00 Constipation, unspecified; Z99.81 Dependence on supplemental oxygen; K21.9 Gastro-esophageal reflux disease without esophagitis; E11.22 Type 2 diabetes mellitus with diabetic chronic kidney disease; F32.9 Major depressive disorder, single episode, unspecified; F41.9 Anxiety disorder, unspecified; E66.9 Obesity, unspecified; Z71.3 Dietary counseling and surveillance; Z68.36 Body mass index [BMI] 36.0-36.9, adult; D72.829 Elevated white blood cell count, unspecified; E86.0 Dehydration; R53.1 Weakness; R20.2 Paresthesia of skin; M54.9 Dorsalgia, unspecified; R55 Syncope and collapse; Z86.73 Personal history of transient ischemic attack (TIA), and cerebral infarction without residual deficits; M25.562 Pain in left knee
CPT/HCPCS: 36556; 36600; 71045; 72141; 72148; 74176; 80048; 80053; 80076; 81001; 82803; 82962; 83605; 84484; 85025; 85610; 85730; 87040; 87086; 93005; 94002; 94003; 94618; 94640; 97161; 97162; 99282; 99285; J7030; J7040; J7050; A4216; J0696; J2405

== ENCOUNTER 2019-11-09 09:30 | Outpatient (RCR) | payer MEDICARE, MEDICAID, SELFPAY ==
[2019-09-12 06:11] VITALS: BMI 36.8
--- NOTE | 2019-10-26 07:27 | HP.PTEVAL ---
Patient's Visit Information DEREK WRIGHT is a 64 year old F referred to Physical Therapy by Gregorio Ferguson PA-C with a diagnosis of L knee Pain. Date of Evaluation: 10/02/19 Physical Therapist: Kike Stewart DPT - Visit Plan Frequency: 2x /Week Duration: 4-6 Weeks Plan: Start with general ROM of LLE progressing knee ROM as able. Add in isometrics of LLE progressing strengthening as tolerated. - Subjective Findings: Pt. is here today for her initial evaluation with diagnosis of L knee pain. Pt. reports having increased L knee pain for the last few months. She currently lives in assisted living at [facility]. Pt. walks with walker without LOB. Pt. reports increased L knee pain with all activities including walking, standing, and all ADLs. Pt. denies N/T. Pt. reprots previously doing exercises, but has not been doing anything recently due to increased pain. Pt. reports only walking short distances at home. Pt. recently recieved supplemental O2, arrives today with small canister and was partially full. Pt. reports this is her only canister, but can get more at home. I talked to her about using O2 as prescribed at prescribed dosage. Pt. reports knee pain is diffuse throughout L knee. Pt. is hopeful to reduce symptoms in order to get back to walking without increase in symptoms. - Pain L knee Pain Intensity (Out of 10): 6 Pain Intensity Range: 2, 8 - Objective POSTURE: Pt. has generalized flexed posture. Heavy use of AD in stance with R lateral lean. Pt. has difficulty achieving TKE on LLE. PALPATION: Pt. is generally painful throughout LLE. Pt. reports increased pain at medial and lateral joint lines and increased pain at poplieteal fossa. NEURO: normal thorughout. ROM: L knee 0-10-98deg. incraesed pain at end ranges of motion. MMT: ankle 5/5 throhgout; knee: ext 4/5, flexion 4-/5; hip- flexion 4/5, abd 4/5, ext 4/5. Core strength- poor. GAIT: Pt. ambulates with rollator. Pt. has generalized flexed posture with decreased step length bilat. Pt. has increased R wt. shift with alck of TKE on LLE. Pt. unwilling to attempt stairs this date. - Goals Goal 1:: Pt. to be I with HEP. Goal Time Frame: 4-6 Weeks Goal 2:: Pt. to have increaed L knee ROM to 0-0-120deg withuot incerase in symptoms. Goal Time Frame: 4-6 Weeks Goal 3:: Pt. to have increased LLE strength by 1/2 grade of all effected musculature. Goal Time Frame: 4-6 Weeks Goal 4:: Pt. to ambulate uptp 300+ with rollator withotu increase in L knee pain. Goal Time Frame: 4-6 Weeks Goal 5:: Pt. to sleep throughout the night withotu increase in symptoms. Goal Time Frame: 4-6 Weeks - Rehabilitation Potential Physical Therapy Diagnosis: Pt. has signs and syptoms consistent with L knee pain. Pt. has hypombility and weakness throughout L LE. PT. would benefit from PT to increase strength and mobility of her LLE to increase proper gait mechanics and walking tolerance. Rehabilitation Potential: Fair - Anticipated Interventions Patient/Client Instruction: Educate patient on: Condition, Plan of Care, Risk Factors, Benefits of Fitness Program For the Purpose of:: To improve decision making, To facilitate caregiver knowledge, To improve self management, To prevent re-injury, To improve ability to perform tasks related to life management, To improve tolerance to ADL's Therapeutic Exercise to Include: Strength training, Power training, Endurance training, Balance training, Postural training, Flexibilty training, Gait and locomotor training, Passive ROM, Active ROM For the Purpose of:: To decrease pain, To decrease swelling/inflammation, To increase ROM, To improve nutrient delivery to tissue, To increase oxygenation perfusion, To improve muscle performance and motor function, To improve gait and locomotor functions, To improve health of tissue, To decrease soft tissue restriction, To increase flexibility/ROM Cryotherapy (ice pack, ice massage): Yes Thermo therapy (hot pack): Yes For the Purpose of:: To decrease pain, To decrease swelling/inflammation, To increase ROM Thank you for the opportunity to evaluate your patient. For Medicare and Medicare HMO plans, please review the plan of care and approve it. It will need to be FAXED BACK to us at [phone] for Medicare purposes. For Medicare only, by signing this I certify the plan of care. Please let me know if there are questions or concerns regarding this plan of care. Physician Signature: Date:
--- NOTE | 2020-03-11 08:17 | HP.PT.NRP ---
DEREK WRIGHT was seen in my office for initial evaluation on 10/02/19. The following Plan of Care was established for this patient: Initial Frequency: 2x /Week Initial Duration: 4-6 Weeks Patient/Client Instruction: Educate patient on: Condition, Plan of Care, Risk Factors, Benefits of Fitness Program For the Purpose of:: To improve decision making, To facilitate caregiver knowledge, To improve self management, To prevent re-injury, To improve ability to perform tasks related to life management, To improve tolerance to ADL's Therapeutic Exercise to Include: Strength training, Power training, Endurance training, Balance training, Postural training, Flexibilty training, Gait and locomotor training, Passive ROM, Active ROM For the Purpose of:: To decrease pain, To decrease swelling/inflammation, To increase ROM, To improve nutrient delivery to tissue, To increase oxygenation perfusion, To improve muscle performance and motor function, To improve gait and locomotor functions, To improve health of tissue, To decrease soft tissue restriction, To increase flexibility/ROM Cryotherapy (ice pack, ice massage): Yes Thermo therapy (hot pack): Yes For the Purpose of:: To decrease pain, To decrease swelling/inflammation, To increase ROM This patient was last seen in our office 11/09/19. Pertinent comments regarding their Physical therapy will appear below: Pt. was seen for her bilateral knees. Pt. cancelled many appoitments and has not been seen for several months and will be DC from PT at this point in time. At this point I will be discontinuing this patient from physical therapy. I would be happy to see this patient again in the future if found appropriate by the physician. Thank you! Kike Stewart DPT
== END 2019-11-09 19:00 | disposition home or self-care (01) ==
LOC: PT 09:30
PROVIDERS: Referring Provider Physician Assistant; Visit Provider Physician Assistant
DX: M25.562 Pain in left knee (principal)
CPT/HCPCS: 97110; 97161

== ENCOUNTER 2019-11-20 14:06 | Inpatient (IN) | payer MEDICARE, MEDICAID, SELFPAY ==
[2019-11-20] VITALS (8 sets, daily range): BP systolic 102–124; BP diastolic 55–80; PULSE 73–86; RESP 16–18; TEMP 36.4–36.9; O2SAT 89–98; BMI 36.8; BMI 43.7; BMI 39.5
[2019-11-20 14:58] LABS: Bacteria 0 SEEN /hpf (None Seen); Mucous, Urine 0 SEEN /hpf (<or=2+); Red Blood Cells-Urine 0 SEEN /hpf (0-5); White Blood Cells 0 SEEN /hpf (0-5)
[2019-11-20 15:07] LABS: Color, Urine Yellow (Yellow); Glucose, Dipstick Normal (Normal); Ketone-Dipstick Negative (Negative); Leukocyte Esterase-Dipstick Negative /ul (Negative); Nitrite-Dipstick Negative (Negative); Occult Blood-Urine Negative /ul (Negative); Protein-Dipstick Negative (Negative); Urine Bilirubin Dipstick Negative (Negative); Urine Clarity Sl. Cloudy (Clear); Urine Urobilinogen Normal (Normal)
[2019-11-20 15:14] LABS: Squamous Epithelial Cells - UA 0-5 SEEN /hpf (5-10)
[2019-11-20] MEDS: 0.9% Normal Saline 1,000 ML 150 ML IV (15:25)
[2019-11-20] MEDS: Ondansetron 4 MG/2 ML Vial IV (15:26)
[2019-11-20] MEDS: Morphine 4 MG/ML Syringe IV ×2 (15:26→16:35)
[2019-11-20 15:53] LABS: Absolute Lymphocyte Count 1.89 X10^3/uL (0.83-4.51); Basophil# 0.02 X10^3/uL; Basophil% 0.3 % (0-1); Eosinophil# 0.17 X10^3/uL; Eosinophils% 2.2 % (0-5); Hematocrit 36.1 % (37-47); Hemoglobin 10.6 g/dL (12.0-15.0); Lymphocyte # 1.89 X10^3/ul (4.0); Lymphocyte % 24.5 % (19-41); Mean Corp Hgb Conc 29.4 g/dL (32-36); Mean Corpuscular Volume 88.5 fL (81-99); Mean Platelet Vol. 10.2 fl (6.2-12.0); Monocyte# 0.56 X10^3/uL; Monocyte% 7.3 % (0-10); NRBC Flagged by Analyzer 0 % (0-5); Neutrophil # 5.02 X10^3/uL (2.7-7.7); Neutrophil % 65.2 % (47-70); Platelet Count 268 K/mm3 (150-450); RBC Distribution Width CV 17.1 % (11.6-14.6); RBC Distribution Width SD 55.9 fl (35.1-43.9); Red Blood Count 4.08 M/mm3 (4.2-5.4); White Blood Count 7.7 K/mm3 (4.4-11.0)
--- NOTE | 2019-11-20 15:59 | ED.DCSUM_ITS ---
- ER Visit Summary Date of Service: 11/20/19 Chief Complaint: [Redness and swelling to right leg] History of Present Illness: The patient is a 64 F [presents to the emergency department complaint redness and swelling to the right leg that she has had for over a week. She states that she has had several rounds of antibiotics and she does not seem to be improving. Patient complains of pain to the right leg especially the right foot. Patient's had nausea. Patient states she has had low-grade fever up to 99 at home. Patient is currently in an assisted living facility. Patient also complains that she think she has yeast infection to the lower abdomen and her skin folds. Patient also complains of nausea. Patient has history of diabetes, hypertension, IBS, migraines, and history of bronchitis.] Physical Examination: [HEENT-PERRLA, EOMI. Cranial nerves II through XII gross ly intact. TMs clear. Mucous membranes moist. No adenopathy. Cardiovascular-regular rate and rhythm without murmur or ectopy Lungs-clear to auscultation, chest wall stable without crepitus or subcu emphysema Abdomen-normoactive bowel sounds, soft, nontender, no rebound or rigidity, no peritoneal signs. Patient has diffuse erythematous changes of the skin of the lower abdomen and pannus. Patient has some whitish discharge in the skin folds consistent with Alivia. Extremities-intact ?4, normal range of motion, normal pulses, atraumatic. Right lower extremity-patient does have some breaks in the skin in the anterior aspect of the right garner. Patient has some diffuse erythema and cellulitic changes. Foot is slightly erythematous and mildly tender to palpation. There is no crepitus or subcu gas palpated.] Test Results: [CBC with differential obtained showed a normal white count of 7.7, hemoglobin 10.6, hematocrit 36, platelets 268. Urinalysis was normal. Chemistries pending.] Emergency Department Course and Treatment: [Given patient's allergies of penicillin and sulfa patient was started on clindamycin. Given 600 mg of clindamycin IV] Treatment Plan: [Admit] Disposition: [Admit] Impression: [Cellulitis right lower extremity with failed outpatient therapy Candidal skin infection] This note was generated with MOV[employer] dictation software. It may contain incorrect words, spelling, and punctuation that were not noted in review of the chart prior to signing ED Disposition - Plan for ED Patient: Referrals: Madisyn Perez, LOAN ADMINISTRATOR-C [Primary Care Provider] -
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
[2019-11-20 16:10] LABS: ALB/GLOB Ratio 0.8 RATIO (0.9-2.4); AST(SGOT) 15 U/L (15-37); Alanine Aminotransfer ALT/SGPT 17 U/L (13-56); Albumin, Serum 3.3 g/dL (3.2-5.0); Alkaline Phosphatase 152 U/L (45-117); Anion Gap 6 (5-15); BUN 20 mg/dL (7-18); Calcium,Total 8.6 mg/dL (8.5-10.1); Chloride 107 mmol/L (98-107); Creatinine, Serum 1.11 mg/dL (0.55-1.02); EST Glomerular Filtration Rate 52 mL/min (>60); Est Glom Filt Rate - Afr Amer 63 mL/min (>60); Globulin 4.2 g/dL (2.2-4.2); Glucose 94 mg/dL (74-106); Potassium 3.3 mmol/L (3.5-5.1); Protein, Total 7.5 g/dL (6.4-8.2); Sodium Level 139 mmol/L (136-145)
--- NOTE | 2019-11-20 16:17 | RAD_ITS ---
STUDY: X-RAY - RIGHT FOOT CLINICAL: Female, 64 years old. CELLULITIS -- FOOT PAIN TECHNIQUE: 3 view(s) of the foot. COMPARISON: None. FINDINGS: Normal talus, calcaneus, and tarsal bones. Small posterior calcaneal enthesophyte. Normal visualized subtalar, talonavicular, calcaneocuboid, tarsal and tarsometatarsal articulations. Normal metatarsi. Normal metatarsophalangeal joint of the great toe. Normal tibial and fibular sesamoid bones. Normal interphalangeal joint of the great toe. Normal phalanges of the great toe. Normal second through fifth metatarsophalangeal joints. Normal interphalangeal joints and phalanges of the lesser toes. The soft tissue structures are unremarkable. RAD/Foot min 3 Views IMPRESSION: Normal x-ray examination of the foot. No radiographic evidence of osteomyelitis per Electronically Signed: Isidoro Manrique MD at 16:41 EST Tel , Service support ,
[2019-11-20 16:30] LABS: Lactic Acid 1.3 mmol/L (0.4-1.9)
[2019-11-20] MEDS: Metoclopramide 10 MG/2 ML Vial IV (16:35)
--- NOTE | 2019-11-20 17:35 | VDLE_ITS ---
Reason For Study: pain RIGHT GSV is normal. POP V is compressible, spontaneous, phasic, competent and demonstrates normal augmentation. T/P Trunk is compressible. PTV is compressible. RT PerV is compressible. Pt was unable to tolerate compression of CFV and FV. Spontaneous and phasic flow noted. Procedure Exam performed portable in patient room. The exam was of fair technical quality due to pain.. A preliminary report was called and/or faxed to the pt's RN. Interpretation Summary There is no evidence of right lower extremity deep vein thrombosis. Right great saphenous vein appears patent and compressible segmentally. Technically limited examinations with restrictions as noted Ordering Physician: Audrey Lockhart Performed By: Chong De Oliveira RVLuis
[2019-11-20 18:27] LABS: Magnesium 2.2 mg/dL (1.6-2.6)
[2019-11-20] MEDS: proMETHazine 25 MG/ML Syringe 6.25 MG IV (18:54)
[2019-11-20] MEDS: Enoxaparin 40 MG/0.4 ML Syringe SC (18:54)
[2019-11-20] MEDS: HYDROmorphone 0.5 MG/0.5 ML SYRINGE IV (18:55)
[2019-11-20 18:57] LABS: Hemoglobin A1c 6.6 % (4.2-6.3)
--- NOTE | 2019-11-20 20:17 | PCM.RX.CS ---
Consult Pharmacy has been consulted to manage selected antiobiotic: Vancomycin Type of Consult: New start Suspected Infection: Skin/Soft tissue Prior Doses of Antibiotics Received/Current Regimen: NONE Labs: Sodium 139 mmol/L (136-145) 11/20/19 15:40 Potassium 3.3 mmol/L (3.5-5.1) L 11/20/19 15:40 Chloride 107 mmol/L (98-107) 11/20/19 15:40 Carbon Dioxide 26.0 mmol/L (21.0-32.0) 11/20/19 15:40 Anion Gap 6 (5-15) 11/20/19 15:40 BUN 20 mg/dL (7-18) H 11/20/19 15:40 Creatinine 1.11 mg/dL (0.55-1.02) H 11/20/19 15:40 Est GFR (MDRD) Af Amer 63 mL/min (>60) 11/20/19 15:40 Est GFR (MDRD) Non-Af 52 mL/min (>60) L 11/20/19 15:40 BUN/Creatinine Ratio 18.0 RATIO (10-20) 11/20/19 15:40 Glucose 94 mg/dL (74-106) 11/20/19 15:40 Weight used for dosin.8 kg Estimated Creatinine Clearance: 40 ML/MIN Goal Trough: 15-20 mcg/mL Pharmacy Plan for Drug Dosing: PLAN/RECOMMENDATIONS 1. Vancomycin loading dose 2000mg IV x1 11/20/19 @1900 2. Vancomycin 750mg IV Q12hrs to start 11/21/19 @0700 3. Trough prior to the 4th total dose 11/22/19 @0630 4. Pharmacy Service will continue to monitor and adjust dosing as required.
[2019-11-20] MEDS: Topiramate 50 MG Tablet PO (22:33)
[2019-11-20] MEDS: Pramipexole Di-HCl 0.5 MG Tablet PO (22:33)
[2019-11-20] MEDS: Nystatin Powder 15gm Bottle 1 APPLIC TOPICAL (22:34)
[2019-11-20] MEDS: Atorvastatin Calcium 20 MG Tablet PO (22:34)
[2019-11-20] MEDS: Mirtazapine 15 MG Tablet PO (22:34)
[2019-11-20] MEDS: Doxazosin 1 MG Tablet 2 MG PO (22:34)
[2019-11-20] MEDS: Pregabalin 50 MG Capsule 100 MG PO (22:44)
[2019-11-20] MEDS: ALPRAZolam 0.25 MG Tablet PO (22:45)
[2019-11-20] MEDS: morphine SR 15 MG Tablet PO (22:45)
[2019-11-20 23:01] LABS: Bedside Glucose 137 mg/dL (70-110)
[2019-11-21] VITALS (8 sets, daily range): BP systolic 93–108; BP diastolic 56–69; PULSE 78–95; RESP 16–18; TEMP 36.4–37.1; O2SAT 93–97
[2019-11-21] MEDS: proMETHazine 25 MG/ML Syringe 6.25 MG IV ×3 (00:23→16:57)
[2019-11-21] MEDS: 0.9% Saline Lock 10 ML Syringe IV ×5 (00:23→22:08)
--- NOTE | 2019-11-21 01:22 | NURSING ---
staff attempted to put scds on ;pt and refused stating that she already getting the shot for blood clots. staff tried to continue to edeucated pt on the importance of wearing scds pt became very adamant that she was not wearing the scds stating that she doesn't like them
--- NOTE | 2019-11-21 04:36 | NURSING ---
THIS RN AGREES WITH DAY CARE DIRECTOR CHARTING
[2019-11-21] MEDS: Pregabalin 50 MG Capsule 100 MG PO ×3 (06:23→22:58)
[2019-11-21] MEDS: Nystatin Powder 15gm Bottle 1 APPLIC TOPICAL ×3 (06:24→22:06)
[2019-11-21 06:32] LABS: Absolute Lymphocyte Count 0.95 X10^3/uL (0.83-4.51); Absolute Neutrophil Count 4.5 X10^3/uL (2.0-7.7); Basophil# 0.03 X10^3/uL; Basophil% 0.5 % (0-1); Eosinophil# 0.16 X10^3/uL; Eosinophils% 2.6 % (0-5); Hematocrit 34.3 % (37-47); Hemoglobin 10.3 g/dL (12.0-15.0); Lymphocyte # 0.95 X10^3/ul (4.0); Lymphocyte % 15.4 % (19-41); Mean Corpuscular Hgb 26.6 pg (27.0-32.0); Mean Corpuscular Volume 88.6 fL (81-99); Mean Platelet Vol. 10.2 fl (6.2-12.0); Monocyte% 8.1 % (0-10); NRBC Flagged by Analyzer 0 % (0-5); Neutrophil # 4.47 X10^3/uL (2.7-7.7); Neutrophil % 72.4 % (47-70); Platelet Count 237 K/mm3 (150-450); RBC Distribution Width CV 17.2 % (11.6-14.6); RBC Distribution Width SD 55.5 fl (35.1-43.9); Red Blood Count 3.87 M/mm3 (4.2-5.4); White Blood Count 6.2 K/mm3 (4.4-11.0)
[2019-11-21 06:45] LABS: Bedside Glucose 97 mg/dL (70-110)
[2019-11-21 07:04] LABS: Anion Gap 6 (5-15); BUN 21 mg/dL (7-18); Calcium,Total 8.2 mg/dL (8.5-10.1); Chloride 109 mmol/L (98-107); EST Glomerular Filtration Rate 59 mL/min (>60); Est Glom Filt Rate - Afr Amer 72 mL/min (>60); Estimated Creatinine Clearance 75.97 ml/min; Glucose 105 mg/dL (74-106); Sodium Level 144 mmol/L (136-145)
--- NOTE | 2019-11-21 07:23 | NURSING ---
0530 staff into do secondary assessment and pt awakens easily. staff asked pt about her pain and pt stated it was an 8/10 on the pain scale. staff offered oxyir as per order and pt refused stating that she wanted dilaudid, when this worker stated she couldn't give it to her, the pt became agitated and interrupt this worker statingwhat! i can have it ! I continued on to say to the pt that i could not given it because it was an IV medication and i couldn't do IV meds only the rn could. pt continued to be agitated, and raised her voice well were is the rn then i need the dilaudid . get the rn in here I stated to the pt that i would get the rn and needed to given her other medications as well , pt responded what other medications , what you giving . I told the pt what she was getting and pt stated I don't need those I need the dilaudid. I asked the pt if she was refusing her am medications, pt stated no but she wanted the dilaudid. I affirmed that I would tell the rn as soon as possible. pt looked at me and stated in an angry tone your are really aggravating me what kind of nurse are you? 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 pt is to also have accuchecks and pt became upse over this stating that she doesn't do this at home. I told the pt she had the right to refuse any tx and that she could talk to the doctor as well and responded that she would. pt also refused her scds earlier in the shift stating that she didn't like them and that she was getting lovenox and that was enough. rn made aware of the conversation with pt and her request for dilaudid and the rn to give it to her. in between periods of conversation with pt, staff noted pt nodding off, would awaken easily.
[2019-11-21] MEDS: HYDROmorphone 0.5 MG/0.5 ML SYRINGE IV ×3 (08:13→22:07)
--- NOTE | 2019-11-21 09:16 | NURSING ---
Patient upset regarding not being given Dilaudid early this morning. Daron KING, Brooke De La Fuente RN and myself rounded on the patient to discuss pain medication options. Instructed patient that if BP is low, Dilaudid will not be given until BP is within an acceptable level. Instructed that other options such as lidocaine patch, or heating pad can be utilized. Patient agreeable to plan of care.
[2019-11-21] MEDS: Loratadine 10 MG Tablet PO (10:41)
[2019-11-21] MEDS: Furosemide 20 MG Tablet PO (10:41)
[2019-11-21] MEDS: Enoxaparin 40 MG/0.4 ML Syringe SC (10:41)
[2019-11-21] MEDS: Isosorbide Mononitrate 60 MG Tablet PO (10:41)
[2019-11-21] MEDS: Glucerna Shake 120 ML LIQUID PO ×2 (10:41→14:38)
[2019-11-21] MEDS: ALPRAZolam 0.25 MG Tablet PO ×2 (10:42→22:58)
[2019-11-21] MEDS: Pantoprazole Sodium 40 MG Tablet PO (10:42)
[2019-11-21] MEDS: Sertraline 100 MG Tablet PO (10:42)
[2019-11-21] MEDS: morphine SR 15 MG Tablet PO ×2 (10:42→22:58)
[2019-11-21] MEDS: Sodium Chloride 0.65% 1 SPRAY SPRAY.BTL 2 SPRAY NASAL ×2 (10:42→22:07)
[2019-11-21] MEDS: guaiFENesin 10 ML UDC (200MG/10ML) 20 ML PO ×2 (11:50→17:04)
[2019-11-21] MEDS: BENZOCAINE/MENTHOL 1 LOZENGE MUCOUS MEM ×2 (11:50→17:46)
[2019-11-21] MEDS: oxyCODONE 5 MG Tablet 10 MG PO (12:33)
--- NOTE | 2019-11-21 12:48 | PN_ITS ---
<Daron Laboy - Last Filed: 11/21/19 12:48> Patient Problems: Active and Suspected Problems (Last Reviewed 09/28/19 @ 01:30 by Fam Krishnamurthy MD) Cellulitis of right lower extremity (Acute) Intertrigo (Acute) Reason for Visit: RLE pain Subjective: Patient was angry that last night nursing would not give her Dilaudid as her blood pressure was low. She complains of leg pain, chronic abdominal pain, chronic neck and back pain. She is in pain management with . She failed Keflex and doxy as an outpatient. She complains of chills overnight. She has some ongoing nausea for which she feels Zofran does not do anything, desires Phenergan instead. She also complains of itching in her abdominal folds. She has no shortness of breath. No new cough. No lower extremity edema. The patient also refused Accu-Cheks. Vitals/I&O's: Vital Signs Temp Pulse Resp BP Pulse Ox 98.0 F 88 18 103/56 L 94 11/21/19 10:35 11/21/19 10:35 11/21/19 10:35 11/21/19 10:35 11/21/19 10:35 Oxygen Flow Rate (L/min) 2 Oxygen Delivery Method Nasal Cannula Weight: 189 lb 2.506 oz Body Mass Index (BMI) 39.5 Finger Stick Blood Glucose 144 Intake and Output for Last 24 Hours 11/19/19 11/20/19 11/21/19 23:59 23:59 23:59 Intake Total 738.17 / 978.17 1050.83 / 1050.83 Output Total 1150 / 1150 Balance 738.17 / 778.17 -99.17 / -99.17 General: Alert, Oriented x3, Cooperative HEENT: Atraumatic, PERRLA, EOMI, Normocephalic Neck: Supple, No JVD, Negative Carotid Bruits Lungs: Clear to auscultation, Normal air movement Cardiovascular: Regular rate, No murmurs Abdomen: Bowel Sounds Present, Soft, Non Tender, Obese, - - abd pannus with intertrigo, no open wounds or seeping. erythematous changes. Extremities: No edema, Capillary Refill Less than 3 Seconds Skin: No rashes, No breakdown, Rash Present - Right lower extremity cellulitic changes-warmth, mild edema, erythematous Musculoskeletal: No Tenderness to Palpation of Joints or Extremities Neurological: Cranial nerves II-XII grossly intact Psych/Mental Status: Normal Affect, Appropriate, Alert and oriented to time, place, person, mood and affect Laboratory Results 11/20/19 14:52: Urine Color Yellow, Urine Clarity Sl. Cloudy, Urine pH 5.0, Ur Specific [place] 1.010, Urine Protein Negative, Urine Glucose (UA) Normal, Urine Ketones Negative, Urine Occult Blood Negative, Urine Nitrite Negative, Urine Bilirubin Negative, Urine Urobilinogen Normal, Ur Leukocyte Esterase Negative, Urine RBC 0 SEEN, Urine WBC 0 SEEN, Ur Squamous Epith Cells 0-5 SEEN, Urine Bacteria 0 SEEN, Urine Mucus 0 SEEN 11/20/19 15:40: WBC 7.7, RBC 4.08 L, Hgb 10.6 L, Hct 36.1 L, MCV 88.5, MCH 26.0 L, MCHC 29.4 L, RDW Std Deviation 55.9 H, RDW Coeff of Liset 17.1 H, Plt Count 268, MPV 10.2, Immature Gran % (Auto) 0.500, Neut % (Auto) 65.2, Lymph % (Auto) 24.5, Hamilton % (Auto) 7.3, Eos % (Auto) 2.2, Baso % (Auto) 0.3, Absolute Neuts (auto) 5.0, Absolute Lymphs (auto) 1.89, Nucleated RBC % 0 11/20/19 15:40: Sodium 139, Potassium 3.3 L, Chloride 107, Carbon Dioxide 26.0, Anion Gap 6, BUN 20 H, Creatinine 1.11 H, Estim Creat Clear Calc 75.70, Est GFR (MDRD) Af Amer 63, Est GFR (MDRD) Non-Af 52 L, BUN/Creatinine Ratio 18.0, Glucose 94, Calcium 8.6, Total Bilirubin 0.40, AST 15, ALT 17, Alkaline Phosphatase 152 H, Total Protein 7.5, Albumin 3.3, Globulin 4.2, Albumin/Globulin Ratio 0.8 L 11/20/19 15:40: Lactic Acid 1.3 11/20/19 15:40: Magnesium 2.2 11/20/19 15:40: Hemoglobin A1c 6.6 H 11/20/19 22:49: POC Glucose 137 H 11/21/19 06:05: WBC 6.2, RBC 3.87 L, Hgb 10.3 L, Hct 34.3 L, MCV 88.6, MCH 26.6 L, MCHC 30.0 L, RDW Std Deviation 55.5 H, RDW Coeff of Liset 17.2 H, Plt Count 237, MPV 10.2, Immature Gran % (Auto) 1.000 H, Neut % (Auto) 72.4 H, Lymph % (Auto) 15.4 L, [place] % (Auto) 8.1, Eos % (Auto) 2.6, Baso % (Auto) 0.5, Absolute Neuts (auto) 4.5, Absolute Lymphs (auto) 0.95, Nucleated RBC % 0 11/21/19 06:05: Sodium 144, Potassium 4.0, Chloride 109 H, Carbon Dioxide 29.0, Anion Gap 6, BUN 21 H, Creatinine 1.00, Estim Creat Clear Calc 75.97, Est GFR (MDRD) Af Amer 72, Est GFR (MDRD) Non-Af 59 L, BUN/Creatinine Ratio 21.0 H, Glucose 105, Calcium 8.2 L 11/21/19 06:27: POC Glucose 97 Current Medications Acetaminophen (Tylenol) 650 mg PO Q6H PRN PRN PRN Reason: Non-cardiac pain (-08/30) Al Hydroxide/Mg Hydroxide (Mylanta Ii) 15 - 30 ml PO Q4H PRN PRN PRN Reason: INDIGESTION Albuterol Sulfate (Ventolin Aerosols) 2.5 mg INHALATION Q2H PRN PRN PRN Reason: dyspnea, wheezing Alprazolam (Xanax) 0.25 mg PO BID [facility] Last Admin: 11/21/19 10:42 Dose: 0.25 mg Documented by: Atorvastatin Calcium (Lipitor) 20 mg PO QHS [facility] Last Admin: 11/20/19 22:34 Dose: 20 mg Documented by: Benzonatate (Tessalon Perle) 100 mg PO TID PRN PRN PRN Reason: COUGH Dicyclomine HCl (Bentyl) 10 mg PO BID PRN PRN PRN Reason: IRRITABLE BOWEL Doxazosin Mesylate (Cardura) 2 mg PO QHS [facility] Last Admin: 11/20/19 22:34 Dose: 2 mg Documented by: Enoxaparin Sodium (Lovenox) 40 mg SC DAILY [facility] Last Admin: 11/21/19 10:41 Dose: 40 mg Documented by: Fluticasone Propionate (Flonase Nasal [place]) 1 spray NASAL BID [facility] Furosemide (Lasix) 20 mg PO DAILY [facility] Last Admin: 11/21/19 10:41 Dose: 20 mg Documented by: Glucagon () 1 mg IM .X1 PRN PRN Reason: Hypoglycemia Guaifenesin (Robitussin) 20 ml PO Q4H PRN PRN PRN Reason: COUGH Last Admin: 11/21/19 11:50 Dose: 20 ml Documented by: Hydralazine HCl (Apresoline Iv) 10 mg IV Q4H PRN PRN PRN Reason: SBP > 160 Hydromorphone HCl (Dilaudid Inj) 0.5 mg IV Q4H PRN PRN PRN Reason: Pain Score 6-10/10 Last Admin: 11/21/19 08:13 Dose: 0.5 mg Documented by: Vancomycin IV Pharmacy to Dose (1 ea/ Sodium Chloride) 500 mls @ 250 mls/hr IV PRN PRN; Protocol PRN Reason: Rx to Dose Fluconazole (Diflucan) 100 mg in 50 mls @ 50 mls/hr IV Q24 [facility] Last Infusion: 11/21/19 11:41 Dose: Infused Documented by: Dextrose (Dextrose 10%-Water) 250 mls @ 999 mls/hr IV .Q16M PRN; Protocol PRN Reason: HYPOGLYCEMIA Vancomycin HCl 750 mg/ Sodium (Chloride) 265 mls @ 250 mls/hr IV Q12H [facility] Last Infusion: 11/21/19 07:47 Dose: Infused Documented by: Ibuprofen (Motrin) 400 mg PO Q4H PRN PRN PRN Reason: Pain Score 1-3/Temp > 100.7 F Isosorbide Mononitrate (Imdur) 60 mg PO DAILY [facility] Last Admin: 11/21/19 10:41 Dose: 60 mg Documented by: Loratadine (Claritin) 10 mg PO DAILY [facility] Last Admin: 11/21/19 10:41 Dose: 10 mg Documented by: Magnesium Hydroxide (Milk Of Magnesia) 30 ml PO DAILY PRN PRN Reason: Constipation Melatonin (Melatonin) 3 mg PO QHS PRN PRN PRN Reason: INSOMNIA Mirtazapine (Remeron) 15 mg PO QHS [facility] Last Admin: 11/20/19 22:34 Dose: 15 mg Documented by: Morphine Sulfate (Ms Contin) 15 mg PO BID [facility] Last Admin: 11/21/19 10:42 Dose: 15 mg Documented by: Nitroglycerin (Nitrostat) 0.4 mg SUBLINGUAL Q5M PRN PRN Reason: CARDIAC/CHEST PAIN Nutritional Formula (Lactose Free) (Glucerna Shake) 120 ml PO 4X/DAY [facility] Last Admin: 11/21/19 10:41 Dose: 120 ml Documented by: Nystatin (Mycostatin Powder) 1 applic TOPICAL TID [facility]; Protocol Last Admin: 11/21/19 06:24 Dose: 1 applicatio Documented by: Ondansetron HCl (Zofran) 4 mg IV Q8H PRN PRN PRN Reason: NAUSEA/VOMITING Oxycodone HCl (Oxyir) 10 mg PO Q4H PRN PRN PRN Reason: Pain Score 4-10/10 Last Admin: 11/21/19 12:33 Dose: 10 mg Documented by: Pantoprazole Sodium (Protonix) 40 mg PO DAILY [facility] Last Admin: 11/21/19 10:42 Dose: 40 mg Documented by: Pramipexole Dihydrochloride (Mirapex) 0.5 mg PO QHS [facility] Last Admin: 11/20/19 22:33 Dose: 0.5 mg Documented by: Pregabalin (Lyrica) 100 mg PO TID [facility] Last Admin: 11/21/19 06:23 Dose: 100 mg Documented by: Promethazine HCl (Phenergan) 6.25 mg IV Q4H PRN PRN PRN Reason: NAUSEA/VOMITING Last Admin: 11/21/19 09:11 Dose: 6.25 mg Documented by: Psyllium Hydrophilic Mucilloid (Metamucil) 1 packet PO DAILY PRN PRN PRN Reason: Constipation Senna/Docusate Sodium (Senokot-S, Susannah-Colace) 2 tablet PO BID PRN PRN PRN Reason: Constipation Sertraline HCl (Zoloft) 100 mg PO DAILY [facility] Last Admin: 11/21/19 10:42 Dose: 100 mg Documented by: Sodium Chloride (Ralls Nasal [place]) 2 spray NASAL BID [facility] Last Admin: 11/21/19 10:42 Dose: 2 spray Documented by: Sodium Chloride () 10 - 40 ml IV UD PRN PRN Reason: SALINE FLUSH Last Admin: 11/21/19 08:13 Dose: 10 ml Documented by: Temazepam (Restoril) 15 mg PO QHS PRN PRN PRN Reason: INSOMNIA Throat Lozenges (Cepacol Sore Throat Lozenge) 1 lozenge MUCOUS MEM Q2H PRN PRN PRN Reason: Sore throat or cough Last Admin: 11/21/19 11:50 Dose: 1 lozenge Documented by: Topiramate (Topamax) 50 mg PO QHS [facility] Last Admin: 11/20/19 22:33 Dose: 50 mg Documented by: STROKE Vital Signs/Narrative: Vital Signs Temp Pulse Resp BP Pulse Ox 11/21/19 10:35 98.0 F 88 18 103/56 L 94 Medical Necessity - Tobacco Use Smoking Status: Never smoker Tobacco Use: Non-smoker Assessment/Plan All Active Problems (Last Reviewed 09/28/19 @ 01:30 by Fam Krishnamurthy MD) Cellulitis of right lower extremity (Acute) Intertrigo (Acute) Shock (Acute) Constipation (Acute) Acute hypercapnic respiratory failure (Acute) Generalized weakness (Acute) Shortness of breath (Acute) COPD with exacerbation (Resolved) Dyspnea (Acute) 1. Acute RLE cellulitis - compliacted by DMt2. continue vanc. No leukocytosis. No fever. blood cx pending. ua negative. xray foot negative. 2. Intertrigo - abdominal folds - continue diflucan and antifungal powder. No open areas or drainage. c/s wound nurse 3. Chronic neck, back, and abdominal pain - pt of dr. griffin, on po morphine chronically, continue lyrica. Chronic pain is at baseline today per patient. She had a spinal procedure last week. 4. CKDIII - stable . recheck in am with nsaid use, if worsens dc nsaids. 5. DMt2 with obesity 6. Anx/Depression - xanax, remeron, zoloft 7. Hx diastolic CHF - no exacerbation. last EF 65%. Lasix at lower dose than home, may need increased if she starts to develop edema. 8. HLD - statin 9. COPD - no exacerbation - prn aerosols. 10. GERD - protonix 11. IBS - improved after recently restarted on bentyl. DVT ppx: lovenox DC planning: debility, cant walk on RLE due to pain. SNF placement. This patient was seen by Daron Laboy PA-C under the supervision of Dr. Sebastian. <RomuloBlake - Last Filed: 11/21/19 15:01> Reason for Visit: Right lower extremity cellulitis with a scab. Subjective: Patient has chronic back pain, leg pain and abdominal pain and is on oxycodone and Dilaudid. Patient had chills overnight. Right lower leg cellulitis. No leukocytosis. Vitals/I&O's: Vital Signs Temp Pulse Resp BP Pulse Ox 98.0 F 88 18 103/56 L 94 11/21/19 10:35 11/21/19 10:35 11/21/19 10:35 11/21/19 10:35 11/21/19 10:35 Oxygen Flow Rate (L/min) 2 Oxygen Delivery Method Nasal Cannula Weight: 189 lb 2.506 oz Body Mass Index (BMI) 39.5 Finger Stick Blood Glucose 144 Intake and Output for Last 24 Hours 11/19/19 11/20/19 11/21/19 23:59 23:59 23:59 Intake Total 738.17 / 978.17 1050.83 / 1050.83 Output Total 1150 / 1150 Balance 738.17 / 778.17 -99.17 / -99.17 General: Alert, Oriented x3, Cooperative HEENT: Atraumatic, PERRLA, EOMI, Normocephalic Neck: Supple, No JVD, Negative Carotid Bruits Lungs: Clear to auscultation, No rhonchi, No wheeze, No rales, Diminished Cardiovascular: Regular rate, Regular Rhythm, Normal S1, Normal S2, No murmurs Abdomen: Bowel Sounds Present, Soft, Non Tender, Obese, Hernia - Hiatus, - - abd pannus with intertrigo, no open wounds or seeping. erythematous changes. She is also complaining of upper abdominal pain, dyspeptic syndrome and said she has hiatus hernia. Extremities: No edema, Capillary Refill Less than 3 Seconds Skin: No rashes, No breakdown Musculoskeletal: Arthritic Changes, Tenderness - Over legs and lower lumbar back Neurological: Cranial nerves II-XII grossly intact, Deep Tendon Reflexes 2+/4 and Symmetrical, Neuro grossly intact Psych/Mental Status: Normal Affect, Appropriate Laboratory Results 11/20/19 14:52: Urine Color Yellow, Urine Clarity Sl. Cloudy, Urine pH 5.0, Ur Specific [place] 1.010, Urine Protein Negative, Urine Glucose (UA) Normal, Urine Ketones Negative, Urine Occult Blood Negative, Urine Nitrite Negative, Urine Bilirubin Negative, Urine Urobilinogen Normal, Ur Leukocyte Esterase Negative, Urine RBC 0 SEEN, Urine WBC 0 SEEN, Ur Squamous Epith Cells 0-5 SEEN, Urine Bacteria 0 SEEN, Urine Mucus 0 SEEN 11/20/19 15:40: WBC 7.7, RBC 4.08 L, Hgb 10.6 L, Hct 36.1 L, MCV 88.5, MCH 26.0 L, MCHC 29.4 L, RDW Std Deviation 55.9 H, RDW Coeff of Liset 17.1 H, Plt Count 268, MPV 10.2, Immature Gran % (Auto) 0.500, Neut % (Auto) 65.2, Lymph % (Auto) 24.5, [place] % (Auto) 7.3, Eos % (Auto) 2.2, Baso % (Auto) 0.3, Absolute Neuts (auto) 5.0, Absolute Lymphs (auto) 1.89, Nucleated RBC % 0 11/20/19 15:40: Sodium 139, Potassium 3.3 L, Chloride 107, Carbon Dioxide 26.0, Anion Gap 6, BUN 20 H, Creatinine 1.11 H, Estim Creat Clear Calc 75.70, Est GFR (MDRD) Af Amer 63, Est GFR (MDRD) Non-Af 52 L, BUN/Creatinine Ratio 18.0, Glucose 94, Calcium 8.6, Total Bilirubin 0.40, AST 15, ALT 17, Alkaline Phosphatase 152 H, Total Protein 7.5, Albumin 3.3, Globulin 4.2, Albumin/Globulin Ratio 0.8 L 11/20/19 15:40: Lactic Acid 1.3 11/20/19 15:40: Magnesium 2.2 11/20/19 15:40: Hemoglobin A1c 6.6 H 11/20/19 22:49: POC Glucose 137 H 11/21/19 06:05: WBC 6.2, RBC 3.87 L, Hgb 10.3 L, Hct 34.3 L, MCV 88.6, MCH 26.6 L, MCHC 30.0 L, RDW Std Deviation 55.5 H, RDW Coeff of Liset 17.2 H, Plt Count 237, MPV 10.2, Immature Gran % (Auto) 1.000 H, Neut % (Auto) 72.4 H, Lymph % (Auto) 15.4 L, [place] % (Auto) 8.1, Eos % (Auto) 2.6, Baso % (Auto) 0.5, Absolute Neuts (auto) 4.5, Absolute Lymphs (auto) 0.95, Nucleated RBC % 0 11/21/19 06:05: Sodium 144, Potassium 4.0, Chloride 109 H, Carbon Dioxide 29.0, Anion Gap 6, BUN 21 H, Creatinine 1.00, Estim Creat Clear Calc 75.97, Est GFR (MDRD) Af Amer 72, Est GFR (MDRD) Non-Af 59 L, BUN/Creatinine Ratio 21.0 H, Glucose 105, Calcium 8.2 L 11/21/19 06:27: POC Glucose 97 Current Medications Acetaminophen (Tylenol) 650 mg PO Q6H PRN PRN PRN Reason: Non-cardiac pain (-08/30) Al Hydroxide/Mg Hydroxide (Mylanta Ii) 15 - 30 ml PO Q4H PRN PRN PRN Reason: INDIGESTION Albuterol Sulfate (Ventolin Aerosols) 2.5 mg INHALATION Q2H PRN PRN PRN Reason: dyspnea, wheezing Alprazolam (Xanax) 0.25 mg PO BID [facility] Last Admin: 11/21/19 10:42 Dose: 0.25 mg Documented by: Atorvastatin Calcium (Lipitor) 20 mg PO QHS [facility] Last Admin: 11/20/19 22:34 Dose: 20 mg Documented by: Benzonatate (Tessalon Perle) 100 mg PO TID PRN PRN PRN Reason: COUGH Dicyclomine HCl (Bentyl) 10 mg PO BID PRN PRN PRN Reason: IRRITABLE BOWEL Doxazosin Mesylate (Cardura) 2 mg PO QHS [facility] Last Admin: 11/20/19 22:34 Dose: 2 mg Documented by: Enoxaparin Sodium (Lovenox) 40 mg SC DAILY [facility] Last Admin: 11/21/19 10:41 Dose: 40 mg Documented by: Fluticasone Propionate (Flonase Nasal [place]) 1 spray NASAL BID [facility] Furosemide (Lasix) 20 mg PO DAILY [facility] Last Admin: 11/21/19 10:41 Dose: 20 mg Documented by: Glucagon () 1 mg IM .X1 PRN PRN Reason: Hypoglycemia Guaifenesin (Robitussin) 20 ml PO Q4H PRN PRN PRN Reason: COUGH Last Admin: 11/21/19 11:50 Dose: 20 ml Documented by: Hydralazine HCl (Apresoline Iv) 10 mg IV Q4H PRN PRN PRN Reason: SBP > 160 Hydromorphone HCl (Dilaudid Inj) 0.5 mg IV Q3H PRN PRN PRN Reason: Pain Score 6-10/10 Vancomycin IV Pharmacy to Dose (1 ea/ Sodium Chloride) 500 mls @ 250 mls/hr IV PRN PRN; Protocol PRN Reason: Rx to Dose Fluconazole (Diflucan) 100 mg in 50 mls @ 50 mls/hr IV Q24 [facility] Last Infusion: 11/21/19 11:41 Dose: Infused Documented by: Dextrose (Dextrose 10%-Water) 250 mls @ 999 mls/hr IV .Q16M PRN; Protocol PRN Reason: HYPOGLYCEMIA Vancomycin HCl 750 mg/ Sodium (Chloride) 265 mls @ 250 mls/hr IV Q12H [facility] Last Infusion: 11/21/19 07:47 Dose: Infused Documented by: Ibuprofen (Motrin) 400 mg PO Q4H PRN PRN PRN Reason: Pain Score 1-3/Temp > 100.7 F Isosorbide Mononitrate (Imdur) 60 mg PO DAILY [facility] Last Admin: 11/21/19 10:41 Dose: 60 mg Documented by: Loratadine (Claritin) 10 mg PO DAILY [facility] Last Admin: 11/21/19 10:41 Dose: 10 mg Documented by: Magnesium Hydroxide (Milk Of Magnesia) 30 ml PO DAILY PRN PRN Reason: Constipation Melatonin (Melatonin) 3 mg PO QHS PRN PRN PRN Reason: INSOMNIA Mirtazapine (Remeron) 15 mg PO QHS [facility] Last Admin: 11/20/19 22:34 Dose: 15 mg Documented by: Morphine Sulfate (Ms Contin) 15 mg PO BID [facility] Last Admin: 11/21/19 10:42 Dose: 15 mg Documented by: Nitroglycerin (Nitrostat) 0.4 mg SUBLINGUAL Q5M PRN PRN Reason: CARDIAC/CHEST PAIN Nutritional Formula (Lactose Free) (Glucerna Shake) 120 ml PO 4X/DAY [facility] Last Admin: 11/21/19 14:38 Dose: 120 ml Documented by: Nystatin (Mycostatin Powder) 1 applic TOPICAL TID [facility]; Protocol Last Admin: 11/21/19 14:39 Dose: 1 applicatio Documented by: Ondansetron HCl (Zofran) 4 mg IV Q8H PRN PRN PRN Reason: NAUSEA/VOMITING Oxycodone HCl (Oxyir) 10 mg PO Q4H PRN PRN PRN Reason: Pain Score 4-10/10 Last Admin: 11/21/19 12:33 Dose: 10 mg Documented by: Pantoprazole Sodium (Protonix) 40 mg PO DAILY [facility] Last Admin: 11/21/19 10:42 Dose: 40 mg Documented by: Pramipexole Dihydrochloride (Mirapex) 0.5 mg PO QHS [facility] Last Admin: 11/20/19 22:33 Dose: 0.5 mg Documented by: Pregabalin (Lyrica) 100 mg PO TID [facility] Last Admin: 11/21/19 14:39 Dose: 100 mg Documented by: Promethazine HCl (Phenergan) 6.25 mg IV Q4H PRN PRN PRN Reason: NAUSEA/VOMITING Last Admin: 11/21/19 09:11 Dose: 6.25 mg Documented by: Psyllium Hydrophilic Mucilloid (Metamucil) 1 packet PO DAILY PRN PRN PRN Reason: Constipation Senna/Docusate Sodium (Senokot-S, [place]-Colace) 2 tablet PO BID PRN PRN PRN Reason: Constipation Sertraline HCl (Zoloft) 100 mg PO DAILY [facility] Last Admin: 11/21/19 10:42 Dose: 100 mg Documented by: Sodium Chloride (Ralls Nasal [place]) 2 spray NASAL BID [facility] Last Admin: 11/21/19 10:42 Dose: 2 spray Documented by: Sodium Chloride () 10 - 40 ml IV UD PRN PRN Reason: SALINE FLUSH Last Admin: 11/21/19 08:13 Dose: 10 ml Documented by: Temazepam (Restoril) 15 mg PO QHS PRN PRN PRN Reason: INSOMNIA Throat Lozenges (Cepacol Sore Throat Lozenge) 1 lozenge MUCOUS MEM Q2H PRN PRN PRN Reason: Sore throat or cough Last Admin: 11/21/19 11:50 Dose: 1 lozenge Documented by: Topiramate (Topamax) 50 mg PO QHS [facility] Last Admin: 11/20/19 22:33 Dose: 50 mg Documented by: Assessment/Plan This patient was seen in conjunction with Daron KING. I have independently interviewed and examined the patient and reviewed pertinent history, examination findings, laboratory and plan of management. I have reviewed the note and agree with the documented findings with the few additional points. In brief, patient is admitted for right lower extremity cellulitis with scab on it. The scab looks old. Patient is on vancomycin. X-ray foot is negative. Patient has chronic neck, back, abdominal pain and lower extremity pain and follows Dr. Griffin. She gets spinal injection. She has also other comorbidities including hiatus hernia, CKD stage III, diabetes mellitus type 2 with obesity, anxiety and depression and chronic heart failure with preserved EF. Last EF 65%. She wants to follow-up with the surgeon for hiatus hernia and advised to follow- up as an outpatient for further evaluation of hiatus area. UA is negative. I have discussed my assessment with aDron KING and orders have been reviewed. Clinical Impression(s) from Imaging Studies Foot X-Ray 11/20/19 16:17 IMPRESSION: Normal x-ray examination of the foot. No radiographic evidence of osteomyelitis per Laboratory Results 11/20/19 14:52: Urine Color Yellow, Urine Clarity Sl. Cloudy, Urine pH 5.0, Ur Specific [place] 1.010, Urine Protein Negative, Urine Glucose (UA) Normal, Urine Ketones Negative, Urine Occult Blood Negative, Urine Nitrite Negative, Urine Bilirubin Negative, Urine Urobilinogen Normal, Ur Leukocyte Esterase Negative, Urine RBC 0 SEEN, Urine WBC 0 SEEN, Ur Squamous Epith Cells 0-5 SEEN, Urine Bacteria 0 SEEN, Urine Mucus 0 SEEN 11/20/19 15:40: WBC 7.7, RBC 4.08 L, Hgb 10.6 L, Hct 36.1 L, MCV 88.5, MCH 26.0 L, MCHC 29.4 L, RDW Std Deviation 55.9 H, RDW Coeff of Liset 17.1 H, Plt Count 268, MPV 10.2, Immature Gran % (Auto) 0.500, Neut % (Auto) 65.2, Lymph % (Auto) 24.5, [place] % (Auto) 7.3, Eos % (Auto) 2.2, Baso % (Auto) 0.3, Absolute Neuts (auto) 5.0, Absolute Lymphs (auto) 1.89, Nucleated RBC % 0 11/20/19 15:40: Sodium 139, Potassium 3.3 L, Chloride 107, Carbon Dioxide 26.0, Anion Gap 6, BUN 20 H, Creatinine 1.11 H, Estim Creat Clear Calc 75.70, Est GFR (MDRD) Af Amer 63, Est GFR (MDRD) Non-Af 52 L, BUN/Creatinine Ratio 18.0, Glucose 94, Calcium 8.6, Total Bilirubin 0.40, AST 15, ALT 17, Alkaline Phosphatase 152 H, Total Protein 7.5, Albumin 3.3, Globulin 4.2, Albumin/Globulin Ratio 0.8 L 11/20/19 15:40: Lactic Acid 1.3 11/20/19 15:40: Magnesium 2.2 11/20/19 15:40: Hemoglobin A1c 6.6 H 11/20/19 22:49: POC Glucose 137 H 11/21/19 06:05: WBC 6.2, RBC 3.87 L, Hgb 10.3 L, Hct 34.3 L, MCV 88.6, MCH 26.6 L, MCHC 30.0 L, RDW Std Deviation 55.5 H, RDW Coeff of Liset 17.2 H, Plt Count 237, MPV 10.2, Immature Gran % (Auto) 1.000 H, Neut % (Auto) 72.4 H, Lymph % (Auto) 15.4 L, [place] % (Auto) 8.1, Eos % (Auto) 2.6, Baso % (Auto) 0.5, Absolute Neuts (auto) 4.5, Absolute Lymphs (auto) 0.95, Nucleated RBC % 0 11/21/19 06:05: Sodium 144, Potassium 4.0, Chloride 109 H, Carbon Dioxide 29.0, Anion Gap 6, BUN 21 H, Creatinine 1.00, Estim Creat Clear Calc 75.97, Est GFR (MDRD) Af Amer 72, Est GFR (MDRD) Non-Af 59 L, BUN/Creatinine Ratio 21.0 H, Glucose 105, Calcium 8.2 L 11/21/19 06:27: POC Glucose 97 Code Visit Inpatient E&M: 53502 Subs Hosp L3
--- NOTE | 2019-11-21 22:00 | NURSING ---
Handoff given to Tony RN at this time she will be resuming care of patient.
[2019-11-21] MEDS: Fluticasone 0.05% 1 SPRAY NASAL.SRY NASAL (22:08)
[2019-11-21] MEDS: Ondansetron 4 MG/2 ML Vial IV (22:08)
[2019-11-21] MEDS: Glycerin/Hypromellose/PEG400 15 ml Bottle 1 DRP EACH EYE (22:08)
[2019-11-21] MEDS: Atorvastatin Calcium 20 MG Tablet PO (22:58)
[2019-11-21] MEDS: Topiramate 50 MG Tablet PO (22:58)
[2019-11-21] MEDS: Doxazosin 1 MG Tablet 2 MG PO (22:58)
[2019-11-21] MEDS: Mirtazapine 15 MG Tablet PO (22:58)
[2019-11-21] MEDS: Pramipexole Di-HCl 0.5 MG Tablet PO (22:58)
[2019-11-22 03:31] VITALS: RESP 16
--- NOTE | 2019-11-22 04:10 | NURSING ---
Will check VS when patient is awake, during rounds patient has been resting comfortably. Will continue to monitor.
[2019-11-22] MEDS: Ondansetron 4 MG/2 ML Vial IV (06:49)
[2019-11-22] MEDS: HYDROmorphone 0.5 MG/0.5 ML SYRINGE IV (06:49)
[2019-11-22] MEDS: Pregabalin 50 MG Capsule 100 MG PO (06:49)
[2019-11-22] MEDS: Nystatin Powder 15gm Bottle 1 APPLIC TOPICAL (06:50)
[2019-11-22 07:00] VITALS: BP 100/61; PULSE 79; RESP 18; TEMP 36.8; O2SAT 94
[2019-11-22 07:00] LABS: Absolute Lymphocyte Count 1.03 X10^3/uL (0.83-4.51); Basophil# 0.02 X10^3/uL; Basophil% 0.4 % (0-1); Eosinophil# 0.25 X10^3/uL; Eosinophils% 5.2 % (0-5); Hematocrit 34.3 % (37-47); Hemoglobin 9.8 g/dL (12.0-15.0); Lymphocyte # 1.03 X10^3/ul (4.0); Lymphocyte % 21.5 % (19-41); Mean Corp Hgb Conc 28.6 g/dL (32-36); Mean Corpuscular Hgb 25.7 pg (27.0-32.0); Mean Corpuscular Volume 89.8 fL (81-99); Mean Platelet Vol. 10.3 fl (6.2-12.0); Monocyte# 0.42 X10^3/uL; Monocyte% 8.8 % (0-10); NRBC Flagged by Analyzer 0 % (0-5); Neutrophil % 62.8 % (47-70); Platelet Count 222 K/mm3 (150-450); RBC Distribution Width CV 17.3 % (11.6-14.6); RBC Distribution Width SD 57.8 fl (35.1-43.9); Red Blood Count 3.82 M/mm3 (4.2-5.4); White Blood Count 4.8 K/mm3 (4.4-11.0)
[2019-11-22 07:23] LABS: Anion Gap 3 (5-15); BUN 21 mg/dL (7-18); BUN/Creat Ratio 22.1 RATIO (10-20); Calcium,Total 8.3 mg/dL (8.5-10.1); Chloride 108 mmol/L (98-107); Creatinine, Serum 0.95 mg/dL (0.55-1.02); EST Glomerular Filtration Rate 63 mL/min (>60); Est Glom Filt Rate - Afr Amer 76 mL/min (>60); Estimated Creatinine Clearance 79.97 ml/min; Glucose 100 mg/dL (74-106); Potassium 3.6 mmol/L (3.5-5.1); Sodium Level 143 mmol/L (136-145)
[2019-11-22 07:30] LABS: Vancomycin, Trough Level 19.1 ug/mL (5.0-15.0)
[2019-11-22] MEDS: proMETHazine 25 MG/ML Syringe 6.25 MG IV (07:39)
[2019-11-22] MEDS: 0.9% Saline Lock 10 ML Syringe IV ×2 (07:39→13:24)
[2019-11-22] MEDS: guaiFENesin 10 ML UDC (200MG/10ML) 20 ML PO (07:47)
--- NOTE | 2019-11-22 07:48 | NURSING ---
pt c/o severe nausea unresolved with zofran previously given. demanding phenergan. rating pain 7/10 to RLE and chronic back pain. pt falls asleep easily during conversation. discussed with pt need to be sitting up for meals and ambulating to bathroom as opposed to using bedpan, pt declines to get up to recliner at this time but did order breakfast. will ask again when meal comes.
[2019-11-22 08:12] VITALS: O2SAT 94
[2019-11-22 09:45] VITALS: BP 103/61; PULSE 86; RESP 16; TEMP 37; O2SAT 95
[2019-11-22] MEDS: ALPRAZolam 0.25 MG Tablet PO (10:16)
[2019-11-22] MEDS: Fluticasone 0.05% 1 SPRAY NASAL.SRY NASAL (10:16)
[2019-11-22] MEDS: morphine SR 15 MG Tablet PO (10:16)
[2019-11-22] MEDS: Loratadine 10 MG Tablet PO (10:17)
[2019-11-22] MEDS: Sertraline 100 MG Tablet PO (10:17)
[2019-11-22] MEDS: Enoxaparin 40 MG/0.4 ML Syringe SC (10:17)
[2019-11-22] MEDS: Isosorbide Mononitrate 60 MG Tablet PO (10:17)
[2019-11-22] MEDS: Furosemide 20 MG Tablet PO (10:17)
[2019-11-22] MEDS: Pantoprazole Sodium 40 MG Tablet PO (10:17)
[2019-11-22] MEDS: Glycerin/Hypromellose/PEG400 15 ml Bottle 1 DRP EACH EYE (10:24)
--- NOTE | 2019-11-22 10:39 | CASEMGMT ---
LATOSHA spoke with patient two times today. The first time she said she was thinking of going to [facility] and wanted to know if it was a nice place. SW left as the physician came into the room. SW went back to the room and patient now said she thinks she will be fine with returning to assisted living. LATOSHA called [facility] and spoke with Brandy, the skip locator. She said they have a letter from patient's physician stating she is not appropriate for [place]. She said patient is aware she cannot stay at [facility]. They were under the impression she is going to [facility] and she even called them earlier today stating she is going to [facility]. SW told them she has changed her mine and wants to return to [place]. LATOSHA asked if she can return and they did not know. LATOSHA called [facility] and requested that Ashley Carranza, patient's CM call SW to help figure out this confusion and if AL can refuse to take her back. LATOSHA spoke with Ashley and they cannot refuse to take her back. Ashley said she will call [facility]. LATOSHA notified physician that patient can be discharged. LATOSHA called [facility] and arranged for patient to get picked up at [address] via wc van. Await orders to fax to [facility]. Chela AGUILAR MSW
--- NOTE | 2019-11-22 10:55 | PCM.TXEXTCAR ---
- Diet 11/20/19 17:35 Diet: Calorie Controlled Food consistency:: Regular Liquid Consistency:: Regular/Thin How many daily calories?: 1800 calorie - Routine Orders/Code Status Suppository Type: Dulcolax 10mg Suppository Frequency: Daily PRN Routine Lab Work: CBC - IN 1 WEEK, BMP Code Status: Full Code - Wound(s) RLE AND ABDOMEN Wound Type: REDNESS & EDEMA RL [place] Wound Type: Abrasion - Therapies Weight Bearing: Weight bearing as tolerated Extremity Affected:: Bilateral Lower Physical Therapy: Eval and Treat Occupational Therapy: Eval and Treat Speech Therapy: Eval and Treat - Allergies/Procedures Done in Hospital Allergies/Adverse Reactions: Allergies Penicillins Allergy (Verified 10/03/19 12:38) Rash Sulfa (Sulfonamide Antibiotics) Allergy (Verified 10/03/19 12:38) Rash lactose Adverse Reaction (Verified 11/20/19 17:41) Abd cramps/diarrhea - Type of Care/Length of Stay Estimated LOS: Convalescent Care Less Than 30 days Type of Care Needed: Skilled Rehab Potential: Good Prognosis: Good - Additional Orders/Day of Discharge Day of Discharge: 11/22/19 - Dietary and Speech Recommendations Dietitian Recommendations/Changes: Rec diet change to 1600 Calorie Controlled. - Follow Up Care Primary Care Physician: Madisyn Perez, REFINERY O[employer]ATOR [employer] [Primary Care Provider] - Please follow up with your Primary Care Physician in: IN 1-2 WEEK Please Follow Up With: Symone Griffin MD When: IN 2-3 WEEKS FOR CHRONIC PAIN Please Follow Up With: Galindo Lieberman MD When: As needed for cellulitis if it recurs or nonresolving
--- NOTE | 2019-11-22 11:07 | PCM.DC ---
- Discharge Diagnoses Current Active Problems: Current Active and Chronic Problems (Last Reviewed 09/28/19 @ 01:30 by Fam Krishnamurthy MD) Cellulitis of right lower extremity (Acute) Intertrigo (Acute) Chronic obstructive pulmonary disease (COPD) (Chronic) CKD (chronic kidney disease), stage III (Chronic) Morbid obesity (Chronic) Anxiety and depression (Chronic) RLS (restless legs syndrome) (Chronic) GERD (gastroesophageal reflux disease) (Chronic) Diastolic CHF (Chronic) Diabetes mellitus, type II (Chronic) You will use the following diet at home:: Calorie/Carbohydrate Controlled (specify 1200, 1400, etc) - 1600 ADA diet Your food should be the consistency of: Regular Discharge Activity: May Not Drive Call your doctor if you observe: Fever of 101 or Higher, Coldness, Increased Pain, Change in Color, Inability to urinate, Inability to have a bowel movement, Using more than one pad per hour, Shortness of breath, Dizziness, Fainting spells, Swelling in the ankles, Chest pain, Prolonged hiccoughing, Increased palpitations (irregular heartbeat), Calf discomfort, Uncontrolled pain Allergies/Adverse Reactions: Allergies Penicillins Allergy (Verified 10/03/19 12:38) Rash Sulfa (Sulfonamide Antibiotics) Allergy (Verified 10/03/19 12:38) Rash lactose Adverse Reaction (Verified 11/20/19 17:41) Abd cramps/diarrhea Medications to take at Discharge Pantoprazole Sodium [Protonix] 40 mg PO DAILY 05/03/19 Ropinirole HCl 1 mg PO QHS 05/03/19 Atorvastatin Calcium [Lipitor] 20 mg PO QHS 06/03/19 Topiramate [Topamax] 50 mg PO QHS 06/05/19 Cetirizine HCl 10 mg PO DAILY 06/26/19 Mirtazapine 15 mg PO QHS 09/27/19 Morphine Sulfate [Morphabond ER] 15 mg PO BID 09/27/19 Dicyclomine HCl 10 mg PO BID PRN PRN 10/03/19 Guaifenesin [Tussin] 1 dose PO Q4H PRN PRN 10/03/19 Isosorbide Mononitrate [Imdur] 60 mg PO DAILY 10/03/19 Ondansetron HCl 4 mg PO Q8H PRN PRN 10/03/19 Sertraline HCl [Zoloft] 100 mg PO DAILY 10/03/19 ALPRAZolam [Xanax] 0.25 mg PO BID 11/20/19 Furosemide [Lasix] 40 mg PO DAILY@0800 11/20/19 Lactobacillus Acidophilus [Probiotic] 1 ea PO DAILY@1200 11/20/19 Peg 400/Hypromellose/Glycerin [Artificial Tears Drops] 1 drp EACH EYE BID 11/20/19 Prazosin HCl 2 mg PO QHS 11/20/19 Pregabalin [Lyrica] 100 mg PO BID 11/20/19 Cefadroxil [Duricef] 500 mg PO BID #14 cap 11/22/19 Nystatin Powder [Mycostatin Powder] 1 applic TOPICAL TID bottle 11/22/19 Senna/Docusate Sodium [Senokot-S] 2 tab PO BID PRN PRN tab 11/22/19 Sodium Chloride 0.65% [[place] Nasal [place]] 2 spray NASAL BID spray.btl 11/22/19 The following prescriptions were given: Cefadroxil [Duricef] 500 mg PO BID #14 cap Transmission Status: Received by [facility] Primary Care Physician: Madisyn Perez, OIL HOUSE ATTENDANT-C [Primary Care Provider] - Please follow up with your Primary Care Physician in: IN 1-2 WEEK Test Results: Test results from this visit will be discussed in further detail at your follow-up appointment, if applicable. Please Follow Up With: Symone Griffin MD When: IN 2-3 WEEKS FOR CHRONIC PAIN Please Follow Up With: Galindo Lieberman MD When: As needed for cellulitis if it recurs or nonresolving
--- NOTE | 2019-11-22 11:08 | DS.PCM_ITS ---
Discharge Date and Diagnosis Date of Admission: 11/20/19 Date of Discharge: 11/22/19 - Primary Discharge Diagnosis Active and Suspected Problems (Last Reviewed 09/28/19 @ 01:30 by Fam Krishnamurthy MD) Cellulitis of right lower extremity (Acute) Intertrigo (Acute) - Secondary Discharge Diagnosis Chronic Problems (Last Reviewed 09/28/19 @ 01:30 by Fam Krishnamurthy MD) Chronic pain syndrome (Chronic) Chronic obstructive pulmonary disease (COPD) (Chronic) CKD (chronic kidney disease), stage III (Chronic) Morbid obesity (Chronic) Anxiety and depression (Chronic) RLS (restless legs syndrome) (Chronic) GERD (gastroesophageal reflux disease) (Chronic) Diastolic CHF (Chronic) Diabetes mellitus, type II (Chronic) COPD (chronic obstructive pulmonary disease) (Chronic) Chronic low back pain (Chronic) Chest pain, unspecified (Chronic) Polypharmacy (Chronic) Essential (primary) hypertension (Chronic) Dyslipidemia (Chronic) Hospital Course and Treatment Consultations 11/21/19 13:01 Consult: Onc/Wound/director chemistry Routine Comment: intertrigo Operations: None Summary of Care Provided: The patient is a 64 year old F was admitted for right lower extremity cellulitis with scab on it. The patient's detail evaluation, diagnosis and management as follows 1. Acute RLE cellulitis - compliacted by DMt2. No leukocytosis no fever. Blood culture negative for more than 48 hours. X-ray foot is negative. UA is negative. Venous Doppler negative. Patient was treated with vancomycin. MRSA PCR is negative. It seems most p robably strep cellulitis. Patient is discharged on cefadroxil 500 mg twice daily for 7 more days. 2. Intertrigo - abdominal folds - continue diflucan and antifungal powder. No open areas or drainage. c/s wound nurse 3. Chronic neck, back, and abdominal pain - pt of dr. griffin, on po morphine chronically, continue lyrica. Chronic pain is at baseline today per patient. She had a spinal procedure last week. Patient follows Dr. Griffin. 4. CKDIII - stable . recheck in am with nsaid use, if worsens dc nsaids. 5. DMt2 with obesity 6. Anx/Depression - xanax, remeron, zoloft 7 chronic heart failure with preserved EF- no exacerbation. last EF 65%. Lasix at lower dose than home, may need increased if she starts to develop edema. 8. HLD - statin 9. COPD - no exacerbation - prn aerosols. 10. GERD - protonix 11. IBS - improved after recently restarted on bentyl. DVT ppx: lovenox Discharge medication reconciliation done. Discharge follow-up instructions completed. Discharge process discussed with the patient and all questions were answered to patient's satisfaction. Total time spent, exact 35 minutes on discharge meds reconciliation, examination, review of imaging and blood test and discussion with the patient on follow-up instructions. Subjective: Patient has chronic pain. While doing venous Dopplers use complaining of pain after pressed by venous Doppler probe. Venous Doppler is negative for DVT. Right leg cellulitis is improved. Hemodynamically stable.. Objective: General: Alert, Oriented x3, Cooperative HEENT: Atraumatic, PERRLA, EOMI, Normocephalic Neck: Supple, No JVD, Negative Carotid Bruits Lungs: Clear to auscultation, No rhonchi, No wheeze, No rales, air entry diminished in bilateral lung bases. Cardiovascular: Regular rate, Regular Rhythm, Normal S1, Normal S2, No murmurs Abdomen: Bowel Sounds Present, Soft, Non Tender, Obese, hiatus hernia, abd pannus with intertrigo, no open wounds or seeping. erythematous changes. Extremities: No edema, Capillary Refill Less than 3 Seconds Skin: No rashes, No breakdown Musculoskeletal: Arthritic Changes, Tenderness - Over legs and lower lumbar back Neurological: Cranial nerves II-XII grossly intact, Deep Tendon Reflexes 2+/4 and Symmetrical, Neuro grossly intact Psych/Mental Status: Normal Affect, Appropriate - Physical Exam Vitals/I&O's: Vital Signs Temp Pulse Resp BP Pulse Ox 98.2 F 79 18 100/61 94 11/22/19 07:00 11/22/19 07:00 11/22/19 07:00 11/22/19 07:00 11/22/19 08:12 Oxygen Flow Rate (L/min) 1 Oxygen Delivery Method Nasal Cannula Weight: 189 lb 2.506 oz Body Mass Index (BMI) 39.5 Finger Stick Blood Glucose 144 Intake and Output for Last 24 Hours 11/20/19 11/21/19 11/22/19 23:59 23:59 23:59 Intake Total 738.17 / 978.17 1925.83 / 1925.83 120 / 120 Output Total 1300 / 1300 300 / 300 Balance 738.17 / 778.17 625.83 / 625.83 -180 / -180 Laboratory Results 11/22/19 06:35: Vancomycin Trough 19.1 H 11/22/19 06:35: WBC 4.8, RBC 3.82 L, Hgb 9.8 L, Hct 34.3 L, MCV 89.8, MCH 25.7 L , MCHC 28.6 L, RDW Std Deviation 57.8 H, RDW Coeff of Liset 17.3 H, Plt Count 222, MPV 10.3, Immature Gran % (Auto) 1.300 H, Neut % (Auto) 62.8, Lymph % (Auto) 21.5, [place] % (Auto) 8.8, Eos % (Auto) 5.2 H, Baso % (Auto) 0.4, Absolute Neuts (auto) 3.0, Absolute Lymphs (auto) 1.03, Nucleated RBC % 0 11/22/19 06:35: Sodium 143, Potassium 3.6, Chloride 108 H, Carbon Dioxide 32.0, Anion Gap 3 L, BUN 21 H, Creatinine 0.95, Estim Creat Clear Calc 79.97, Est GFR (MDRD) Af Amer 76, Est GFR (MDRD) Non-Af 63, BUN/Creatinine Ratio 22.1 H, Glucose 100, Calcium 8.3 L 11/22/19 10:30: MRSA (PCR) Pending Current Medications Acetaminophen (Tylenol) 650 mg PO Q6H PRN PRN PRN Reason: Non-cardiac pain () Al Hydroxide/Mg Hydroxide (Mylanta Ii) 15 - 30 ml PO Q4H PRN PRN PRN Reason: INDIGESTION Albuterol Sulfate (Ventolin Aerosols) 2.5 mg INHALATION Q2H PRN PRN PRN Reason: dyspnea, wheezing Alprazolam (Xanax) 0.25 mg PO BID [facility] Last Admin: 11/22/19 10:16 Dose: 0.25 mg Documented by: Atorvastatin Calcium (Lipitor) 20 mg PO QHS [facility] Last Admin: 11/21/19 22:58 Dose: 20 mg Documented by: Benzonatate (Tessalon Perle) 100 mg PO TID PRN PRN PRN Reason: COUGH Dicyclomine HCl (Bentyl) 10 mg PO BID PRN PRN PRN Reason: IRRITABLE BOWEL Doxazosin Mesylate (Cardura) 2 mg PO QHS [facility] Last Admin: 11/21/19 22:58 Dose: 2 mg Documented by: Enoxaparin Sodium (Lovenox) 40 mg SC DAILY [facility] Last Admin: 11/22/19 10:17 Dose: 40 mg Documented by: Fluticasone Propionate (Flonase Nasal [place]) 1 spray NASAL BID [facility] Last Admin: 11/22/19 10:16 Dose: 1 spray Documented by: Furosemide (Lasix) 20 mg PO DAILY [facility] Last Admin: 11/22/19 10:17 Dose: 20 mg Documented by: Glucagon () 1 mg IM .X1 PRN PRN Reason: Hypoglycemia Guaifenesin (Robitussin) 20 ml PO Q4H PRN PRN PRN Reason: COUGH Last Admin: 11/22/19 07:47 Dose: 20 ml Documented by: Hydralazine HCl (Apresoline Iv) 10 mg IV Q4H PRN PRN PRN Reason: SBP > 160 Hydromorphone HCl (Dilaudid Inj) 0.5 mg IV Q3H PRN PRN PRN Reason: Pain Score 6-10/10 Last Admin: 11/22/19 06:49 Dose: 0.5 mg Documented by: Vancomycin IV Pharmacy to Dose (1 ea/ Sodium Chloride) 500 mls @ 250 mls/hr IV PRN PRN; Protocol PRN Reason: Rx to Dose Fluconazole (Diflucan) 100 mg in 50 mls @ 50 mls/hr IV Q24 [facility] Last Infusion: 11/21/19 11:41 Dose: Infused Documented by: Dextrose (Dextrose 10%-Water) 250 mls @ 999 mls/hr IV .Q16M PRN; Protocol PRN Reason: HYPOGLYCEMIA Vancomycin HCl 750 mg/ Sodium (Chloride) 265 mls @ 250 mls/hr IV Q12H [facility] Last Admin: 11/22/19 06:49 Dose: 250 mls/hr Documented by: Ibuprofen (Motrin) 400 mg PO Q4H PRN PRN PRN Reason: Pain Score 1-3/Temp > 100.7 F Isosorbide Mononitrate (Imdur) 60 mg PO DAILY [facility] Last Admin: 11/22/19 10:17 Dose: 60 mg Documented by: Loratadine (Claritin) 10 mg PO DAILY [facility] Last Admin: 11/22/19 10:17 Dose: 10 mg Documented by: Magnesium Hydroxide (Milk Of Magnesia) 30 ml PO DAILY PRN PRN Reason: Constipation Melatonin (Melatonin) 3 mg PO QHS PRN PRN PRN Reason: INSOMNIA Mirtazapine (Remeron) 15 mg PO QHS [facility] Last Admin: 11/21/19 22:58 Dose: 15 mg Documented by: Morphine Sulfate (Ms Contin) 15 mg PO BID [facility] Last Admin: 11/22/19 10:16 Dose: 15 mg Documented by: Nitroglycerin (Nitrostat) 0.4 mg SUBLINGUAL Q5M PRN PRN Reason: CARDIAC/CHEST PAIN Nutritional Formula (Lactose Free) (Glucerna Shake) 120 ml PO 4X/DAY [facility] Last Admin: 11/22/19 10:28 Dose: Not Given Documented by: Nystatin (Mycostatin Powder) 1 applic TOPICAL TID [facility]; Protocol Last Admin: 11/22/19 06:50 Dose: 1 applicatio Documented by: Ondansetron HCl (Zofran) 4 mg IV Q8H PRN PRN PRN Reason: NAUSEA/VOMITING Last Admin: 11/22/19 06:49 Dose: 4 mg Documented by: Oxycodone HCl (Oxyir) 10 mg PO Q4H PRN PRN PRN Reason: Pain Score 4-10/10 Last Admin: 11/21/19 12:33 Dose: 10 mg Documented by: Pantoprazole Sodium (Protonix) 40 mg PO DAILY [facility] Last Admin: 11/22/19 10:17 Dose: 40 mg Documented by: Pramipexole Dihydrochloride (Mirapex) 0.5 mg PO QHS [facility] Last Admin: 11/21/19 22:58 Dose: 0.5 mg Documented by: Pregabalin (Lyrica) 100 mg PO TID [facility] Last Admin: 11/22/19 06:49 Dose: 100 mg Documented by: Promethazine HCl (Phenergan) 6.25 mg IV Q4H PRN PRN PRN Reason: NAUSEA/VOMITING Last Admin: 11/22/19 07:39 Dose: 6.25 mg Documented by: Psyllium Hydrophilic Mucilloid (Metamucil) 1 packet PO DAILY PRN PRN PRN Reason: Constipation Senna/Docusate Sodium (Senokot-S, [place]-Colace) 2 tablet PO BID PRN PRN PRN Reason: Constipation Sertraline HCl (Zoloft) 100 mg PO DAILY [facility] Last Admin: 11/22/19 10:17 Dose: 100 mg Documented by: Sodium Chloride ([place] Nasal [place]) 2 spray NASAL BID [facility] Last Admin: 11/22/19 10:17 Dose: Not Given Documented by: Sodium Chloride () 10 - 40 ml IV UD PRN PRN Reason: SALINE FLUSH Last Admin: 11/22/19 07:39 Dose: 20 ml Documented by: Temazepam (Restoril) 15 mg PO QHS PRN PRN PRN Reason: INSOMNIA Throat Lozenges (Cepacol Sore Throat Lozenge) 1 lozenge MUCOUS MEM Q2H PRN PRN PRN Reason: Sore throat or cough Last Admin: 11/21/19 17:46 Dose: 1 lozenge Documented by: Topiramate (Topamax) 50 mg PO QHS [facility] Last Admin: 11/21/19 22:58 Dose: 50 mg Documented by: Home Medications: Medications to take at Discharge Pantoprazole Sodium [Protonix] 40 mg PO DAILY 05/03/19 Ropinirole HCl 1 mg PO QHS 05/03/19 Atorvastatin Calcium [Lipitor] 20 mg PO QHS 06/03/19 Topiramate [Topamax] 50 mg PO QHS 06/05/19 Cetirizine HCl 10 mg PO DAILY 06/26/19 Mirtazapine 15 mg PO QHS 09/27/19 Morphine Sulfate [Morphabond ER] 15 mg PO BID 09/27/19 Dicyclomine HCl 10 mg PO BID PRN PRN 10/03/19 Guaifenesin [Tussin] 1 dose PO Q4H PRN PRN 10/03/19 Isosorbide Mononitrate [Imdur] 60 mg PO DAILY 10/03/19 Ondansetron HCl 4 mg PO Q8H PRN PRN 10/03/19 Sertraline HCl [Zoloft] 100 mg PO DAILY 10/03/19 ALPRAZolam [Xanax] 0.25 mg PO BID 11/20/19 Furosemide [Lasix] 40 mg PO DAILY@0800 11/20/19 Lactobacillus Acidophilus [Probiotic] 1 ea PO DAILY@1200 11/20/19 Peg 400/Hypromellose/Glycerin [Artificial Tears Drops] 1 drp EACH EYE BID 11/20/19 Prazosin HCl 2 mg PO QHS 11/20/19 Pregabalin [Lyrica] 100 mg PO BID 11/20/19 Cefadroxil [Duricef] 500 mg PO BID #14 cap 11/22/19 Nystatin Powder [Mycostatin Powder] 1 applic TOPICAL TID bottle 11/22/19 Senna/Docusate Sodium [Senokot-S] 2 tab PO BID PRN PRN tab 11/22/19 Sodium Chloride 0.65% [[place] Nasal [place]] 2 spray NASAL BID spray.btl 11/22/19 Following Prescrptions Were Given to Patient: Cefadroxil [Duricef] 500 mg PO BID #14 cap Transmission Status: Received by [facility] Primary Care Physician: Madisyn Perez, CIGAR PACKER-C [Primary Care Provider] - Please follow up with your Primary Care Physician in: IN 1-2 WEEK Please Follow Up With: Symone Griffin MD When: IN 2-3 WEEKS FOR CHRONIC PAIN Please Follow Up With: Galindo Lieberman MD When: As needed for cellulitis if it recurs or nonresolving Medical Necessity - Tobacco Use Smoking Status: Never smoker Tobacco Use: Non-smoker Meaningful Use Info Meaningful Use Diagnoses (Choose all that apply): None applicable Code Visit Inpatient E&M: 42026 Disch Hosp
--- NOTE | 2019-11-22 11:08 | CASEMGMT ---
[facility] LATOSHA was told her PCP is there now and he said she is not appropriate to return to [place]. SW told her that they cannot refuse to take her back. SW told them that they have had this order for at least a week and patient's pillowcase cleaner is the one that should be working on getting patient to another facility. SW was told the primary is there now and they will tell him she is returning. [facility]. Patient had one prescription and physician sent it to [facility]. SW called and there is no co-pay and they will deliver it to patient's room. SW asked [facility] each time called where to send the prescription and they never answered. They also did not give SW a chance to let them know when she is getting picked up. This was written on the fax face sheet. SW also included a prescription for outpatient PT/OT per patient's request. Chela AGUILAR MSW
[2019-11-22] MEDS: oxyCODONE 5 MG Tablet 10 MG PO (11:39)
--- NOTE | 2019-11-22 11:41 | PHA.DC.MC ---
Pharmacy Service has performed discharge medication reconciliation and counseling for this patient. 1. CEFADROXIL 500MG PO BID X 7 DAYS The patient's discharge medication list was reviewed for discrepancies and discrepancies were resolved. Home Medications Pantoprazole Sodium [Protonix] 40 mg PO DAILY 05/03/19 Ropinirole HCl 1 mg PO QHS 05/03/19 Atorvastatin Calcium [Lipitor] 20 mg PO QHS 06/03/19 Topiramate [Topamax] 50 mg PO QHS 06/05/19 Cetirizine HCl 10 mg PO DAILY 06/26/19 Mirtazapine 15 mg PO QHS 09/27/19 Morphine Sulfate [Morphabond ER] 15 mg PO BID 09/27/19 Dicyclomine HCl 10 mg PO BID PRN PRN 10/03/19 Guaifenesin [Tussin] 1 dose PO Q4H PRN PRN 10/03/19 Isosorbide Mononitrate [Imdur] 60 mg PO DAILY 10/03/19 Ondansetron HCl 4 mg PO Q8H PRN PRN 10/03/19 Sertraline HCl [Zoloft] 100 mg PO DAILY 10/03/19 ALPRAZolam [Xanax] 0.25 mg PO BID 11/20/19 Furosemide [Lasix] 40 mg PO DAILY@0800 11/20/19 Lactobacillus Acidophilus [Probiotic] 1 ea PO DAILY@1200 11/20/19 Peg 400/Hypromellose/Glycerin [Artificial Tears Drops] 1 drp EACH EYE BID 11/20/19 Prazosin HCl 2 mg PO QHS 11/20/19 Pregabalin [Lyrica] 100 mg PO BID 11/20/19 Cefadroxil [Duricef] 500 mg PO BID #14 cap 11/22/19 Nystatin Powder [Mycostatin Powder] 1 applic TOPICAL TID bottle 11/22/19 Senna/Docusate Sodium [Senokot-S] 2 tab PO BID PRN PRN tab 11/22/19 Sodium Chloride 0.65% [[place] Nasal [place]] 2 spray NASAL BID spray.btl 11/22/19 The patient was counseled on the following discharge medications and changes in medications for homegoing were reviewed. The Reason for Use, instructions for use, and potential side effects were reviewed for all new medications. The patient's questions regarding all of their medications were answered. The patient was able to verbally demonstrate an understanding of their discharge medications.
--- NOTE | 2019-11-22 12:06 | NURSING ---
attempted to call report to [facility], they report that RN is currently on the unit. left message with direct line for return phone call.
[2019-11-22 12:30] LABS: M R Staph aureus DNA By PCR Negative (Negative); Probe Check PASS; Specimen Processing Control PASS
[2019-11-22 13:20] VITALS: BP 118/88; PULSE 97; RESP 20; TEMP 37.1; O2SAT 93
== END 2019-11-22 13:39 | disposition home or self-care (01) | DRG 383 ==
LOC: ED 14:41 → PCU 16:50
PROVIDERS: Physician Assistant; Admitting Provider Family Medicine; Emergency Provider Emergency Medicine; Family Provider Nurse Practitioner Adult Health; PCP Nurse Practitioner Adult Health; Referring Provider Family Medicine; Visit Provider Internal Medicine
DX: L03.115 Cellulitis of right lower limb (principal); I13.0 Hypertensive heart and chronic kidney disease with heart failure and stage 1 through stage 4 chronic kidney disease, or unspecified chronic kidney disease; L30.4 Erythema intertrigo; G89.4 Chronic pain syndrome; E87.6 Hypokalemia; E11.22 Type 2 diabetes mellitus with diabetic chronic kidney disease; E78.5 Hyperlipidemia, unspecified; D64.9 Anemia, unspecified; N18.3 Chronic kidney disease, stage 3 (moderate); E66.01 Morbid (severe) obesity due to excess calories; G25.81 Restless legs syndrome; K21.9 Gastro-esophageal reflux disease without esophagitis; I50.32 Chronic diastolic (congestive) heart failure; Z68.39 Body mass index [BMI] 39.0-39.9, adult; F32.9 Major depressive disorder, single episode, unspecified; F41.9 Anxiety disorder, unspecified; M54.5 Low back pain; J44.9 Chronic obstructive pulmonary disease, unspecified; M54.2 Cervicalgia; M54.9 Dorsalgia, unspecified; K58.9 Irritable bowel syndrome, unspecified
CPT/HCPCS: 36415; 73630; 80048; 80053; 80202; 81001; 82962; 83036; 83605; 83735; 85025; 87040; 87641; 93971; 97162; 97530; 97802; 99251; 99285; J7040; J7050; A4216; G0463; J2405

== ENCOUNTER 2019-11-23 18:25 | Inpatient (IN) | payer MEDICARE, MEDICAID, SELFPAY ==
[2019-11-20 17:38] VITALS: BMI 39.5
[2019-11-23] VITALS (7 sets, daily range): BP systolic 113–131; BP diastolic 72–87; PULSE 76–84; RESP 16–19; TEMP 36.4–37.1; O2SAT 94–95; BMI 39.6
[2019-11-23] MEDS: Ondansetron 4 MG/2 ML Vial IV (21:27)
[2019-11-23] MEDS: Morphine 4 MG/ML Syringe IV (21:27)
[2019-11-23 21:29] LABS: Absolute Lymphocyte Count 1.24 X10^3/uL (0.83-4.51); Absolute Neutrophil Count 3.6 X10^3/uL (2.0-7.7); Basophil# 0.02 X10^3/uL; Basophil% 0.4 % (0-1); Eosinophil# 0.26 X10^3/uL; Eosinophils% 4.6 % (0-5); Hematocrit 36.5 % (37-47); Hemoglobin 10.7 g/dL (12.0-15.0); Lymphocyte # 1.24 X10^3/ul (4.0); Lymphocyte % 21.9 % (19-41); Mean Corp Hgb Conc 29.3 g/dL (32-36); Mean Corpuscular Hgb 26.4 pg (27.0-32.0); Mean Corpuscular Volume 89.9 fL (81-99); Monocyte# 0.47 X10^3/uL; Monocyte% 8.3 % (0-10); NRBC Flagged by Analyzer 0 % (0-5); Neutrophil # 3.59 X10^3/uL (2.7-7.7); Neutrophil % 63.2 % (47-70); Platelet Count 252 K/mm3 (150-450); RBC Distribution Width CV 16.9 % (11.6-14.6); RBC Distribution Width SD 55.4 fl (35.1-43.9); Red Blood Count 4.06 M/mm3 (4.2-5.4); White Blood Count 5.7 K/mm3 (4.4-11.0)
[2019-11-23 21:36] LABS: Erythrocyte Sedimentation Rate 49 mm/hr (0-30)
[2019-11-23 21:45] LABS: Anion Gap 2 (5-15); BUN 18 mg/dL (7-18); BUN/Creat Ratio 17.6 RATIO (10-20); Calcium,Total 8.4 mg/dL (8.5-10.1); Chloride 102 mmol/L (98-107); Creatinine, Serum 1.02 mg/dL (0.55-1.02); EST Glomerular Filtration Rate 58 mL/min (>60); Est Glom Filt Rate - Afr Amer 70 mL/min (>60); Estimated Creatinine Clearance 74.81 ml/min; Glucose 125 mg/dL (74-106); Potassium 3.2 mmol/L (3.5-5.1); Sodium Level 138 mmol/L (136-145)
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
--- NOTE | 2019-11-23 23:53 | ED.VISSUMM ---
- ER Visit Summary Date of Service: 11/23/19 Chief Complaint: Bilateral lower extremity redness History of Present Illness: The patient is a 64 F presenting with bilateral lower extremity redness. Patient was discharged from the hospital yesterday. She was admitted for right lower extremity cellulitis. She states now she has redness on both legs. She states while in the hospital they recommended that she go to rehab. She stated that she wanted to go home. She now regrets this decision. She states she has been having trouble walking secondary to her leg pain. She states she almost fell twice today. She did not have a fall. She has had temperature up to 100 at home. She has nausea and vomiting. She denies other complaints. Physical Examination: Vitals are stable. Patient is afebrile. Alert no acute distress. HEENT exam is unremarkable. Neck is supple. Lungs are clear and equal bilaterally. Heart is regular rate and rhythm. Abdomen is soft nontender nondistended. Extremities bilateral lower extremity erythema and warmth. Wound to the anterior right lower extremity. Normal distal pulses. Skin is warm and dry. No focal neurologic deficit. Remainder of exam is unremarkable. Emergency Department Course and Treatment: CBC shows normal white count. Chemistries show potassium 3.2, glucose 125. ESR 49, CRP 51.6. Patient was discussed with the hospitalist. She was given Ancef and clindamycin. She will be admitted for placement. Disposition: Admission Impression: Bilateral lower extremity cellulitis This note was generated with [employer] dictation software. It may contain incorrect words, spelling, and punctuation that were not noted in review of the chart prior to signing ED Disposition - Plan for ED Patient: Disposition: Acute Care [facility]
[2019-11-24] VITALS: BP 109/58; PULSE 76; RESP 18; TEMP 37.1; O2SAT 97
[2019-11-24] MEDS: Cefazolin 1 GM/50 ML BAG IV (00:49)
[2019-11-24 01:25] VITALS: BMI 40.3
[2019-11-24 01:39] VITALS: BMI 40.3
[2019-11-24 02:15] VITALS: BP 138/82; PULSE 78; RESP 20; TEMP 36.4; O2SAT 96
[2019-11-24] MEDS: Nystatin Powder 15gm Bottle 1 APPLIC TOPICAL (02:46)
[2019-11-24] MEDS: morphine SR 15 MG Tablet PO ×2 (02:47→09:45)
[2019-11-24] MEDS: Topiramate 50 MG Tablet PO (02:48)
[2019-11-24] MEDS: Pregabalin 50 MG Capsule 100 MG PO ×2 (02:48→09:15)
[2019-11-24] MEDS: Pramipexole Di-HCl 0.5 MG Tablet PO (02:48)
[2019-11-24] MEDS: Atorvastatin Calcium 20 MG Tablet PO (02:48)
[2019-11-24] MEDS: Mirtazapine 15 MG Tablet PO (02:49)
[2019-11-24] MEDS: Ondansetron 4 MG/2 ML Vial IV ×2 (02:57→11:30)
[2019-11-24 06:55] LABS: Absolute Lymphocyte Count 1.22 X10^3/uL (0.83-4.51); Absolute Neutrophil Count 3.4 X10^3/uL (2.0-7.7); Basophil# 0.03 X10^3/uL; Basophil% 0.6 % (0-1); Eosinophil# 0.25 X10^3/uL; Eosinophils% 4.6 % (0-5); Hematocrit 33.4 % (37-47); Hemoglobin 9.7 g/dL (12.0-15.0); Lymphocyte # 1.22 X10^3/ul (4.0); Lymphocyte % 22.6 % (19-41); Mean Corpuscular Hgb 26.1 pg (27.0-32.0); Mean Corpuscular Volume 89.8 fL (81-99); Mean Platelet Vol. 10.7 fl (6.2-12.0); Monocyte# 0.49 X10^3/uL; Monocyte% 9.1 % (0-10); NRBC Flagged by Analyzer 0 % (0-5); Neutrophil # 3.36 X10^3/uL (2.7-7.7); Neutrophil % 62.4 % (47-70); Platelet Count 206 K/mm3 (150-450); RBC Distribution Width SD 56.2 fl (35.1-43.9); Red Blood Count 3.72 M/mm3 (4.2-5.4); White Blood Count 5.4 K/mm3 (4.4-11.0)
[2019-11-24 07:51] LABS: Anion Gap 3 (5-15); BUN 16 mg/dL (7-18); BUN/Creat Ratio 17.9 RATIO (10-20); Calcium,Total 8.2 mg/dL (8.5-10.1); Chloride 106 mmol/L (98-107); EST Glomerular Filtration Rate 67 mL/min (>60); Est Glom Filt Rate - Afr Amer 81 mL/min (>60); Estimated Creatinine Clearance 86.08 ml/min; Glucose 114 mg/dL (74-106); Potassium 3.7 mmol/L (3.5-5.1); Sodium Level 140 mmol/L (136-145)
[2019-11-24 08:44] VITALS: O2SAT 96
[2019-11-24 08:55] VITALS: BP 114/62; PULSE 78; RESP 20; TEMP 36.4; O2SAT 93
[2019-11-24] MEDS: ALPRAZolam 0.25 MG Tablet PO (09:12)
[2019-11-24] MEDS: Sertraline 100 MG Tablet PO (09:12)
[2019-11-24] MEDS: Ketorolac 15 MG/ML Vial IV (09:12)
[2019-11-24] MEDS: Isosorbide Mononitrate 60 MG Tablet PO (09:13)
[2019-11-24] MEDS: Pantoprazole Sodium 40 MG Tablet PO (09:13)
[2019-11-24] MEDS: Glycerin/Hypromellose/PEG400 15 ml Bottle 1 DRP EACH EYE (09:13)
[2019-11-24] MEDS: Furosemide 40 MG Tablet PO (09:13)
[2019-11-24] MEDS: Loratadine 10 MG Tablet PO (09:13)
[2019-11-24] MEDS: Enoxaparin 40 MG/0.4 ML Syringe SC (09:15)
[2019-11-24] MEDS: Sodium Chloride 0.65% 1 SPRAY SPRAY.BTL 2 SPRAY NASAL (09:16)
[2019-11-24] MEDS: oxyCODONE 5 MG Tablet PO (11:33)
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
--- NOTE | 2019-11-24 11:54 | DS.PCM_ITS ---
<Izzy Berman - Last Filed: 11/24/19 12:22> Discharge Date and Diagnosis Date of Admission: 11/23/19 Date of Discharge: 11/24/19 - Primary Discharge Diagnosis Active and Suspected Problems (Last Reviewed 11/24/19 @ 08:37 by Fam Krishnamurthy MD) 1. Bilateral venous stasis dermatitis, chronic venous insufficiency-cellulitis ruled out. 2. COPD with chronic hypoxic respiratory failure 3. Type 2 diabetes mellitus 4. Chronic kidney disease stage III 5. Hypertension 6. Hyperlipidemia 7. Chronic pain syndrome 8. Anxiety 9. Polypharmacy - Secondary Discharge Diagnosis Chronic Problems (Last Reviewed 11/24/19 @ 08:37 by Fam Krishnamurthy MD) Chronic pain syndrome (Chronic) Intertrigo (Chronic) Chronic obstructive pulmonary disease (COPD) (Chronic) CKD (chronic kidney disease), stage III (Chronic) Morbid obesity (Chronic) Anxiety and depression (Chronic) RLS (restless legs syndrome) (Chronic) GERD (gastroesophageal reflux disease) (Chronic) Diastolic CHF (Chronic) Diabetes mellitus, type II (Chronic) COPD (chronic obstructive pulmonary disease) (Chronic) Chronic low back pain (Chronic) Chest pain, unspecified (Chronic) Polypharmacy (Chronic) Essential (primary) hypertension (Chronic) Dyslipidemia (Chronic) Hospital Course and Treatment Operations: None Procedures: None Summary of Care Provided: The patient is a 64 year old F admitted 11/23/19 due to swelling of lower extremities. 1. Bilateral venous stasis dermatitis, chronic venous insufficiency-cellulitis ruled out. Patient recently treated with antibiotics for suspected cellulitis without improvement in symptoms. Lower extremities appear consistent with stasis dermatitis. No leukocytosis. Afebrile. Patient is noncompliant with keeping lower extremities wrapped with Eduar wraps. Recommend using petroleum- based emollient liberally to bilateral lower extremities daily. Keep bilateral lower extremities wrapped tightly with Edura wraps. Follow-up with wound center next week for right garner scabbed area. Follow-up with primary care provider in 3 to 5 days. Follow-up with wound center as noted. Of note, patient also recently had lower extremity Doppler 11/22/19 which showed no evidence of DVT. 2. COPD with chronic hypoxic respiratory failure-no acute exacerbation. As needed albuterol aerosol. Continue supplement oxygen to maintain O2 at or above 90%. 3. Type 2 diabetes mellitus-hemoglobin A1c 11/20/2019 6.6%. Diet controlled. On Lyrica for neuropathy. 4. Chronic kidney disease stage III-stable. 5. Hypertension-stable, continue home isosorbide regimen. 6. Hyperlipidemia-continue statin. 7. Chronic pain syndrome-reports she follows with pain management. Demanding increased narcotics during admission-deferred to pain management. 8. Anxiety-on Xanax, sertraline, mirtazapine. 9. Polypharmacy-patient is on multiple sedating medications including Xanax, dicyclomine, Lyrica, morphine. Recommend evaluation by PCP. Patient seen and examined prior to discharge. Physical assessment as noted below. Patient is stable for discharge with follow up recommendations as noted above. This patient was seen by ARMAAN Alfonso under the supervision of Dr. Santana. - Physical Exam Vitals/I&O's: Vital Signs Temp Pulse Resp BP Pulse Ox 97.6 F L 78 20 H 114/62 93 11/24/19 08:55 11/24/19 08:55 11/24/19 08:55 11/24/19 08:55 11/24/19 08:55 Oxygen Flow Rate (L/min) 2 Oxygen Delivery Method Nasal Cannula Weight: 192 lb 14.472 oz Body Mass Index (BMI) 40.3 Finger Stick Blood Glucose 144 Intake and Output for Last 24 Hours 11/22/19 11/23/19 11/24/19 23:59 23:59 23:59 Intake Total 344 / 344 Balance 344 / 344 General: Alert, Oriented x3, Cooperative HEENT: Atraumatic, PERRLA, EOMI, Normocephalic Neck: Supple, No JVD, Negative Carotid Bruits Lungs: Clear to auscultation, Diminished Cardiovascular: Regular rate, Regular Rhythm, Normal S1, Normal S2, No murmurs Abdomen: Bowel Sounds Present, Soft, Non Tender, Non-Distended Extremities: No clubbing, No cyanosis, Edema - Nonpitting bilateral lower extremities Skin: No rashes, No breakdown, - - Venous stasis dermatitis bilateral lower extremities, right garner abrasion Musculoskeletal: No Tenderness to Palpation of Joints or Extremities Neurological: Cranial nerves II-XII grossly intact, Neuro grossly intact Psych/Mental Status: Normal Affect, Appropriate Laboratory Results 11/23/19 19:20: WBC 5.7, RBC 4.06 L, Hgb 10.7 L, Hct 36.5 L, MCV 89.9, MCH 26.4 L, MCHC 29.3 L, RDW Std Deviation 55.4 H, RDW Coeff of Liset 16.9 H, Plt Count 252, MPV 11.0, Immature Gran % (Auto) 1.600 H, Neut % (Auto) 63.2, Lymph % (Auto) 21.9, [place] % (Auto) 8.3, Eos % (Auto) 4.6, Baso % (Auto) 0.4, Absolute Neuts (auto) 3.6, Absolute Lymphs (auto) 1.24, Nucleated RBC % 0, ESR 49 H 11/23/19 19:20: Sodium 138, Potassium 3.2 L, Chloride 102, Carbon Dioxide 34.0 H , Anion Gap 2 L, BUN 18, Creatinine 1.02, Estim Creat Clear Calc 74.81, Est GFR (MDRD) Af Amer 70, Est GFR (MDRD) Non-Af 58 L, BUN/Creatinine Ratio 17.6, Glucose 125 H, Calcium 8.4 L, C-React Prot Ext Range 51.60 H 11/24/19 06:40: WBC 5.4, RBC 3.72 L, Hgb 9.7 L, Hct 33.4 L, MCV 89.8, MCH 26.1 L , MCHC 29.0 L, RDW Std Deviation 56.2 H, RDW Coeff of Liset 17.0 H, Plt Count 206, MPV 10.7, Immature Gran % (Auto) 0.700, Neut % (Auto) 62.4, Lymph % (Auto) 22.6, [place] % (Auto) 9.1, Eos % (Auto) 4.6, Baso % (Auto) 0.6, Absolute Neuts (auto) 3.4, Absolute Lymphs (auto) 1.22, Nucleated RBC % 0 11/24/19 06:40: Sodium 140, Potassium 3.7, Chloride 106, Carbon Dioxide 31.0, Anion Gap 3 L, BUN 16, Creatinine 0.90, Estim Creat Clear Calc 86.08, Est GFR (MDRD) Af Amer 81, Est GFR (MDRD) Non-Af 67, BUN/Creatinine Ratio 17.9, Glucose 114 H, Calcium 8.2 L Current Medications Acetaminophen (Tylenol) 650 mg PO Q6H PRN PRN PRN Reason: Pain Score 1-3/Temp > 100.7 F Alprazolam (Xanax) 0.25 mg PO BID [facility] Last Admin: 11/24/19 09:12 Dose: 0.25 mg Documented by: Atorvastatin Calcium (Lipitor) 20 mg PO QHS [facility] Last Admin: 11/24/19 02:48 Dose: 20 mg Documented by: Dicyclomine HCl (Bentyl) 10 mg PO BID PRN PRN PRN Reason: bowels Doxazosin Mesylate (Cardura) 1.5 mg PO QHS [facility] Enoxaparin Sodium (Lovenox) 40 mg SC DAILY [facility] Last Admin: 11/24/19 09:15 Dose: 40 mg Documented by: Furosemide (Lasix) 40 mg PO DAILY@0800 [facility] Last Admin: 11/24/19 09:13 Dose: 40 mg Documented by: Glucagon () 1 mg IM .X1 PRN PRN Reason: Hypoglycemia Guaifenesin (Robitussin) 5 ml PO Q4H PRN PRN PRN Reason: COUGH Clindamycin Phosphate 600 mg/ (Dextrose) 54 mls @ 100 mls/hr IV Q8 [facility] Cefazolin Sodium 2 gm/ Sodium (Chloride) 110 mls @ 150 mls/hr IV Q8 [facility] Dextrose (Dextrose 10%-Water) 250 mls @ 999 mls/hr IV .Q16M PRN; Protocol PRN Reason: HYPOGLYCEMIA Sodium Chloride () 250 mls @ 15 mls/hr IV .[id number] PRN PRN Reason: Saline Flush Sodium Chloride () 250 mls @ 15 mls/hr IV .[id number] PRN PRN Reason: Additional IVPB Infusion Isosorbide Mononitrate (Imdur) 60 mg PO DAILY [facility] Last Admin: 11/24/19 09:13 Dose: 60 mg Documented by: Ketorolac Tromethamine (Toradol) 15 mg IV Q6H PRN PRN PRN Reason: Pain Score 1-10/10 Stop: 11/29/19 03:14 Last Admin: 11/24/19 09:12 Dose: 15 mg Documented by: Lactobacillus Acidophilus (Acidophilus) 1 tablet PO DAILY@1200 [facility] Last Admin: 11/24/19 09:46 Dose: 1 tablet Documented by: Loratadine (Claritin) 10 mg PO DAILY [facility] Last Admin: 11/24/19 09:13 Dose: 10 mg Documented by: Mirtazapine (Remeron) 15 mg PO QHS [facility] Last Admin: 11/24/19 02:49 Dose: 15 mg Documented by: Morphine Sulfate (Ms Contin) 15 mg PO BID [facility] Last Admin: 11/24/19 09:45 Dose: 15 mg Documented by: Nystatin (Mycostatin Powder) 1 applic TOPICAL TID [facility]; Protocol Last Admin: 11/24/19 02:46 Dose: 1 applicatio Documented by: Ondansetron HCl (Zofran) 4 mg IV Q8H PRN PRN PRN Reason: NAUSEA/VOMITING Last Admin: 11/24/19 11:30 Dose: 4 mg Documented by: Oxycodone HCl (Oxyir) 5 mg PO Q4H PRN PRN PRN Reason: Pain Score 4-5/10 Last Admin: 11/24/19 11:33 Dose: 5 mg Documented by: Pantoprazole Sodium (Protonix) 40 mg PO DAILY [facility] Last Admin: 11/24/19 09:13 Dose: 40 mg Documented by: Potassium Chloride (K-Dur) [facility] Last Admin: 11/24/19 09:13 Dose: 40 meq Documented by: Pramipexole Dihydrochloride (Mirapex) 0.5 mg PO QHS [facility] Last Admin: 11/24/19 02:48 Dose: 0.5 mg Documented by: Pregabalin (Lyrica) 100 mg PO BID [facility] Last Admin: 11/24/19 09:15 Dose: 100 mg Documented by: Senna/Docusate Sodium (Senokot-S, [place]-Colace) 2 tablet PO BID PRN PRN PRN Reason: Constipation Sertraline HCl (Zoloft) 100 mg PO DAILY [facility] Last Admin: 11/24/19 09:12 Dose: 100 mg Documented by: Sodium Chloride ([place] Nasal [place]) 2 spray NASAL BID [facility] Last Admin: 11/24/19 09:16 Dose: 2 spray Documented by: Sodium Chloride () 10 - 40 ml IV UD PRN PRN Reason: SALINE FLUSH [facility]) [facility] Last Admin: 11/24/19 02:48 Dose: 50 mg Documented by: Discharge Diet: 1800 Calorie Control Diet, Carb Control Diet Discharge Activity: Return to Normal Activity Call your doctor if you observe: Shortness of breath, Dizziness, Fainting spells, Chest pain Home Medications: Medications to take at Discharge Pantoprazole Sodium [Protonix] 40 mg PO DAILY 05/03/19 Ropinirole HCl 1 mg PO QHS 05/03/19 Atorvastatin Calcium [Lipitor] 20 mg PO QHS 06/03/19 Topiramate [Topamax] 50 mg PO QHS 06/05/19 Cetirizine HCl 10 mg PO DAILY 06/26/19 Mirtazapine 15 mg PO QHS 09/27/19 Morphine Sulfate [Morphabond ER] 15 mg PO BID 09/27/19 Dicyclomine HCl 10 mg PO BID PRN PRN 10/03/19 Guaifenesin [Tussin] 1 dose PO Q4H PRN PRN 10/03/19 Isosorbide Mononitrate [Imdur] 60 mg PO DAILY 10/03/19 Ondansetron HCl 4 mg PO Q8H PRN PRN 10/03/19 Sertraline HCl [Zoloft] 100 mg PO DAILY 10/03/19 ALPRAZolam [Xanax] 0.25 mg PO BID 11/20/19 Furosemide [Lasix] 40 mg PO DAILY@0800 11/20/19 Lactobacillus Acidophilus [Probiotic] 1 ea PO DAILY@1200 11/20/19 Peg 400/Hypromellose/Glycerin [Artificial Tears Drops] 1 drp EACH EYE BID 11/20/19 Prazosin HCl 2 mg PO QHS 11/20/19 Pregabalin [Lyrica] 100 mg PO BID 11/20/19 Nystatin Powder [Mycostatin Powder] 1 applic TOPICAL TID bottle 11/22/19 Senna/Docusate Sodium [Senokot-S] 2 tab PO BID PRN PRN tab 11/22/19 Sodium Chloride 0.65% [[place] Nasal [place]] 2 spray NASAL BID spray.btl 11/22/19 proMETHazine tablet [Phenergan tablet] 25 mg PO Q8H PRN PRN #10 tab 11/24/19 Following Prescrptions Were Given to Patient: proMETHazine tablet [Phenergan tablet] 25 mg PO Q8H PRN PRN #10 tab PRN Reason: Nausea Transmission Status: Received by [facility] Primary Care Physician: Madisyn Perez NP-C [Primary Care Provider] - Please follow up with your Primary Care Physician in: 3-5 Days Please Follow Up With: Clinic,Wound When: Call Tuesday for soonest appt. Disposition: Asstd Living/Non-Skill NH Minutes spent on discharge:: 35 Patient Condition:: Stable Medical Necessity - Tobacco Use Smoking Status: Never smoker Meaningful Use Info Meaningful Use Diagnoses (Choose all that apply): None applicable <Barber Santana - Last Filed: 11/24/19 12:47> Discharge Date and Diagnosis - Secondary Discharge Diagnosis Chronic Problems (Last Reviewed 11/24/19 @ 08:37 by Fam rKishnamurthy MD) Chronic pain syndrome (Chronic) Intertrigo (Chronic) Chronic obstructive pulmonary disease (COPD) (Chronic) CKD (chronic kidney disease), stage III (Chronic) Morbid obesity (Chronic) Anxiety and depression (Chronic) RLS (restless legs syndrome) (Chronic) GERD (gastroesophageal reflux disease) (Chronic) Diastolic CHF (Chronic) Diabetes mellitus, type II (Chronic) COPD (chronic obstructive pulmonary disease) (Chronic) Chronic low back pain (Chronic) Chest pain, unspecified (Chronic) Polypharmacy (Chronic) Essential (primary) hypertension (Chronic) Dyslipidemia (Chronic) Hospital Course and Treatment Summary of Care Provided: This patient was seen in conjunction with ARMAAN Alfonso . I have independently interviewed and examined the patient and reviewed pertinent historical, laboratory, and other data. Please refer to ARMAAN Alfonso note for details of this patient's presentation, findings, and recommendations. I have reviewed ARMAAN Alfonso note and concur with documented findings. In brief, patient is a 64-year-old lady with history of chronic venous stasis, chronic pain syndrome with multiple admissions who presented with pain involving both lower extremity there was a suspicion of possible cellulitis patient started on antibiotics admitted to regular nursing floor. Subsequent evaluation did not demonstrate any presence of antibiotics patient was therefore discharged home Patient was expected to stay for at least 2 midnight however given the findings on her subsequent evaluation she was discharged a day after her admission in stable condition Hospital course: As documented above - Physical Exam Vitals/I&O's: Vital Signs Temp Pulse Resp BP Pulse Ox 97.6 F L 78 20 H 114/62 93 11/24/19 08:55 11/24/19 08:55 11/24/19 08:55 11/24/19 08:55 11/24/19 08:55 Oxygen Flow Rate (L/min) 2 Oxygen Delivery Method Nasal Cannula Weight: 87.5 kg Body Mass Index (BMI) 40.3 Finger Stick Blood Glucose 144 Intake and Output for Last 24 Hours 11/22/19 11/23/19 11/24/19 23:59 23:59 23:59 Intake Total 644 / 644 Output Total 100 / 100 Balance 544 / 544 Laboratory Results 11/23/19 19:20: WBC 5.7, RBC 4.06 L, Hgb 10.7 L, Hct 36.5 L, MCV 89.9, MCH 26.4 L, MCHC 29.3 L, RDW Std Deviation 55.4 H, RDW Coeff of Liset 16.9 H, Plt Count 252, MPV 11.0, Immature Gran % (Auto) 1.600 H, Neut % (Auto) 63.2, Lymph % (Auto) 21.9, [place] % (Auto) 8.3, Eos % (Auto) 4.6, Baso % (Auto) 0.4, Absolute Neuts (auto) 3.6, Absolute Lymphs (auto) 1.24, Nucleated RBC % 0, ESR 49 H 11/23/19 19:20: Sodium 138, Potassium 3.2 L, Chloride 102, Carbon Dioxide 34.0 H , Anion Gap 2 L, BUN 18, Creatinine 1.02, Estim Creat Clear Calc 74.81, Est GFR (MDRD) Af Amer 70, Est GFR (MDRD) Non-Af 58 L, BUN/Creatinine Ratio 17.6, Glucose 125 H, Calcium 8.4 L, C-React Prot Ext Range 51.60 H 11/24/19 06:40: WBC 5.4, RBC 3.72 L, Hgb 9.7 L, Hct 33.4 L, MCV 89.8, MCH 26.1 L , MCHC 29.0 L, RDW Std Deviation 56.2 H, RDW Coeff of Liset 17.0 H, Plt Count 206, MPV 10.7, Immature Gran % (Auto) 0.700, Neut % (Auto) 62.4, Lymph % (Auto) 22.6, [place] % (Auto) 9.1, Eos % (Auto) 4.6, Baso % (Auto) 0.6, Absolute Neuts (auto) 3.4, Absolute Lymphs (auto) 1.22, Nucleated RBC % 0 11/24/19 06:40: Sodium 140, Potassium 3.7, Chloride 106, Carbon Dioxide 31.0, Anion Gap 3 L, BUN 16, Creatinine 0.90, Estim Creat Clear Calc 86.08, Est GFR (MDRD) Af Amer 81, Est GFR (MDRD) Non-Af 67, BUN/Creatinine Ratio 17.9, Glucose 114 H, Calcium 8.2 L Current Medications Acetaminophen (Tylenol) 650 mg PO Q6H PRN PRN PRN Reason: Pain Score 1-3/Temp > 100.7 F Alprazolam (Xanax) 0.25 mg PO BID [facility] Last Admin: 11/24/19 09:12 Dose: 0.25 mg Documented by: Atorvastatin Calcium (Lipitor) 20 mg PO QHS [facility] Last Admin: 11/24/19 02:48 Dose: 20 mg Documented by: Dicyclomine HCl (Bentyl) 10 mg PO BID PRN PRN PRN Reason: bowels Doxazosin Mesylate (Cardura) 1.5 mg PO QHS [facility] Enoxaparin Sodium (Lovenox) 40 mg SC DAILY [facility] Last Admin: 11/24/19 09:15 Dose: 40 mg Documented by: Furosemide (Lasix) 40 mg PO DAILY@0800 [facility] Last Admin: 11/24/19 09:13 Dose: 40 mg Documented by: Glucagon () 1 mg IM .X1 PRN PRN Reason: Hypoglycemia Guaifenesin (Robitussin) 5 ml PO Q4H PRN PRN PRN Reason: COUGH Clindamycin Phosphate 600 mg/ (Dextrose) 54 mls @ 100 mls/hr IV Q8 [facility] Cefazolin Sodium 2 gm/ Sodium (Chloride) 110 mls @ 150 mls/hr IV Q8 [facility] Dextrose (Dextrose 10%-Water) 250 mls @ 999 mls/hr IV .Q16M PRN; Protocol PRN Reason: HYPOGLYCEMIA Sodium Chloride () 250 mls @ 15 mls/hr IV .[id number] PRN PRN Reason: Saline Flush Sodium Chloride () 250 mls @ 15 mls/hr IV .[id number] PRN PRN Reason: Additional IVPB Infusion Isosorbide Mononitrate (Imdur) 60 mg PO DAILY [facility] Last Admin: 11/24/19 09:13 Dose: 60 mg Documented by: Ketorolac Tromethamine (Toradol) 15 mg IV Q6H PRN PRN PRN Reason: Pain Score 1-10/10 Stop: 11/29/19 03:14 Last Admin: 11/24/19 09:12 Dose: 15 mg Documented by: Lactobacillus Acidophilus (Acidophilus) 1 tablet PO DAILY@1200 [facility] Last Admin: 11/24/19 09:46 Dose: 1 tablet Documented by: Loratadine (Claritin) 10 mg PO DAILY [facility] Last Admin: 11/24/19 09:13 Dose: 10 mg Documented by: Mirtazapine (Remeron) 15 mg PO QHS [facility] Last Admin: 11/24/19 02:49 Dose: 15 mg Documented by: Morphine Sulfate (Ms Contin) 15 mg PO BID [facility] Last Admin: 11/24/19 09:45 Dose: 15 mg Documented by: Nystatin (Mycostatin Powder) 1 applic TOPICAL TID [facility]; Protocol Last Admin: 11/24/19 02:46 Dose: 1 applicatio Documented by: Ondansetron HCl (Zofran) 4 mg IV Q8H PRN PRN PRN Reason: NAUSEA/VOMITING Last Admin: 11/24/19 11:30 Dose: 4 mg Documented by: Oxycodone HCl (Oxyir) 5 mg PO Q4H PRN PRN PRN Reason: Pain Score 4-5/10 Last Admin: 11/24/19 11:33 Dose: 5 mg Documented by: Pantoprazole Sodium (Protonix) 40 mg PO DAILY [facility] Last Admin: 11/24/19 09:13 Dose: 40 mg Documented by: Potassium Chloride (K-Dur) [facility] Last Admin: 11/24/19 09:13 Dose: 40 meq Documented by: Pramipexole Dihydrochloride (Mirapex) 0.5 mg PO QHS [facility] Last Admin: 11/24/19 02:48 Dose: 0.5 mg Documented by: Pregabalin (Lyrica) 100 mg PO BID [facility] Last Admin: 11/24/19 09:15 Dose: 100 mg Documented by: Senna/Docusate Sodium (Senokot-S, [place]-Colace) 2 tablet PO BID PRN PRN PRN Reason: Constipation Sertraline HCl (Zoloft) 100 mg PO DAILY [facility] Last Admin: 11/24/19 09:12 Dose: 100 mg Documented by: Sodium Chloride ([place] Nasal [place]) 2 spray NASAL BID [facility] Last Admin: 11/24/19 09:16 Dose: 2 spray Documented by: Sodium Chloride () 10 - 40 ml IV UD PRN PRN Reason: SALINE FLUSH Topiramate (Topamax) 50 mg PO QHS [facility] Last Admin: 11/24/19 02:48 Dose: 50 mg Documented by: Code Visit Inpatient E&M: [id number] Disch Hosp
--- NOTE | 2019-11-24 13:43 | NURSING ---
This RN called [facility] to give report, worker said they would call back. No calls back recieved. Multiple attempts to call [facility] following with no answer.
== END 2019-11-24 13:59 | disposition home or self-care (01) | DRG 197 ==
LOC: ED 20:50 → PCU 11-24 01:22
PROVIDERS: Admitting Provider Hospitalist; Emergency Provider Emergency Medicine; Family Provider Nurse Practitioner Adult Health; PCP Nurse Practitioner Adult Health; Visit Provider Internal Medicine
DX: I87.2 Venous insufficiency (chronic) (peripheral) (principal); E66.01 Morbid (severe) obesity due to excess calories; N18.3 Chronic kidney disease, stage 3 (moderate); E11.22 Type 2 diabetes mellitus with diabetic chronic kidney disease; E78.5 Hyperlipidemia, unspecified; J96.11 Chronic respiratory failure with hypoxia; G89.4 Chronic pain syndrome; I13.0 Hypertensive heart and chronic kidney disease with heart failure and stage 1 through stage 4 chronic kidney disease, or unspecified chronic kidney disease; I50.32 Chronic diastolic (congestive) heart failure; L30.4 Erythema intertrigo; K21.9 Gastro-esophageal reflux disease without esophagitis; G25.81 Restless legs syndrome; J44.9 Chronic obstructive pulmonary disease, unspecified; J44.1 Chronic obstructive pulmonary disease with (acute) exacerbation; M54.5 Low back pain; E11.40 Type 2 diabetes mellitus with diabetic neuropathy, unspecified; Z68.41 Body mass index [BMI] 40.0-44.9, adult; F41.9 Anxiety disorder, unspecified
CPT/HCPCS: 36415; 80048; 85025; 85652; 86140; 87040; 97161; 97166; 99285; J7050; A4216; J2405

== ENCOUNTER 2019-12-12 17:53 | Emergency (ER) | payer MEDICARE, MEDICAID, SELFPAY ==
[2019-12-12 17:55] VITALS: BP 162/82; PULSE 83; RESP 14; TEMP 37.1; O2SAT 92; BMI 38.4
[2019-12-12 17:58] VITALS: BP 162/82; PULSE 83; RESP 14; TEMP 37.1; O2SAT 92
--- NOTE | 2019-12-12 18:22 | ED.VISSUMM ---
- ER Visit Summary Date of Service: 12/12/19 Chief Complaint: Cellulitis lower extremities History of Present Illness: The patient is a 64 F who presents with cellulitis to both lower extremities that has been getting worse over the past 2 weeks. Patient describes the pain is itching and burning. Patient states it is over both lower legs. Patient admits to some cough and upper respiratory infection. Patient also admits to some nausea, vomiting, diarrhea. Patient denies any fevers or chills. Patient admits to some drainage from the lower leg. Patient states her primary care physician has done a culture on this but she does not have the results. Physical Examination: Vital signs are stable. Patient is afebrile here. Patient is in no acute distress. Oral mucosa is pink and moist. Neck is supple. Trachea is midline. There is no JVD. Heart was regular rate and rhythm. Lungs were diminished bilaterally but equal. There is adequate respiratory effort. Abdomen is soft and nontender. Cranial nerves II through XII are intact. Strength is 5/5 bilaterally in lower extremities. Sensation was intact to light touch bilaterally in the lower extremities. Skin is warm and dry. There is erythema and warmth over the lower extremities bilaterally, worse on the left. There is no active drainage. There is no abscess formation. Test Results: CBC and basic metabolic profile were obtained and were essentially within normal limits. There is no leukocytosis. Emergency Department Course and Treatment: Patient was started on clindamycin here. Patient was given a prescription for clindamycin. Patient was instructed to follow-up with her primary care physician in 5 to 7 days. Patient understood and was agreeable with the plan. All questions were answered. Disposition: Discharge home Impression: Cellulitis bilateral lower extremities This note was generated with [employer] dictation software. It may contain incorrect words, spelling, and punctuation that were not noted in review of the chart prior to signing ED Disposition - Plan for ED Patient: Disposition: Home or Assisted Living Diagnosis: Cellulitis of both lower extremities Instructions: Cellulitis Prescriptions: Clindamycin HCl [Cleocin] 300 mg PO Q6H #40 cap Prescription Printed Referrals: Madisyn Perez, NATURAL RESOURCES MANAGER-C [Primary Care Provider] - 5-7 Days
[2019-12-12] MEDS: Ondansetron 4 MG/2 ML Vial IV (18:37)
[2019-12-12 19:09] LABS: Absolute Lymphocyte Count 2.05 X10^3/uL (0.83-4.51); Basophil# 0.05 X10^3/uL; Basophil% 0.6 % (0-1); Eosinophil# 0.29 X10^3/uL; Eosinophils% 3.6 % (0-5); Hematocrit 40.6 % (37-47); Hemoglobin 11.9 g/dL (12.0-15.0); Lymphocyte # 2.05 X10^3/ul (4.0); Lymphocyte % 25.5 % (19-41); Mean Corp Hgb Conc 29.3 g/dL (32-36); Mean Corpuscular Hgb 25.4 pg (27.0-32.0); Mean Corpuscular Volume 86.8 fL (81-99); Mean Platelet Vol. 10.1 fl (6.2-12.0); Monocyte# 0.56 X10^3/uL; NRBC Flagged by Analyzer 0 % (0-5); Neutrophil # 5.04 X10^3/uL (2.7-7.7); Neutrophil % 62.6 % (47-70); Platelet Count 367 K/mm3 (150-450); RBC Distribution Width CV 16.5 % (11.6-14.6); RBC Distribution Width SD 52.7 fl (35.1-43.9); Red Blood Count 4.68 M/mm3 (4.2-5.4); White Blood Count 8.1 K/mm3 (4.4-11.0)
[2019-12-12 19:15] LABS: ALB/GLOB Ratio 0.8 RATIO (0.9-2.4); AST(SGOT) 18 U/L (15-37); Alanine Aminotransfer ALT/SGPT 18 U/L (13-56); Albumin, Serum 3.7 g/dL (3.2-5.0); Alkaline Phosphatase 154 U/L (45-117); Anion Gap 3 (5-15); BUN 20 mg/dL (7-18); BUN/Creat Ratio 15.9 RATIO (10-20); Calcium,Total 9.5 mg/dL (8.5-10.1); Chloride 99 mmol/L (98-107); Creatinine, Serum 1.26 mg/dL (0.55-1.02); EST Glomerular Filtration Rate 45 mL/min (>60); Est Glom Filt Rate - Afr Amer 55 mL/min (>60); Estimated Creatinine Clearance 58.61 ml/min; Globulin 4.5 g/dL (2.2-4.2); Glucose 113 mg/dL (74-106); Protein, Total 8.2 g/dL (6.4-8.2); Sodium Level 138 mmol/L (136-145)
[2019-12-12] MEDS: Ibuprofen 600 MG Tablet PO (19:24)
--- NOTE | 2019-12-12 20:00 | CM.ED ---
SOCIAL WORK INFORMANT: NURSE REASON FOR REFERRAL: ED CARE PLAN/REQUEST OF PATIENT UPDATED BY NURSING PATIENT REQUESTED TO SPEAK WITH THIS WORKER. MET WITH PATIENT IN ROOM. PATIENT STATING WANTING SOMETHING FOR PAIN AND ITCHING IN LEGS. PATIENT STATES HASN'T SLEPT IN DAYS AND WOULD LIKE SOMETHING TO HELP WITH SLEEP. EXPLAINED THIS WORKER'S ROLE AND DISCUSSED ED CARE PLAN. PATIENT PROVIDED WITH COPY OF ED CARE PLAN AND RESOURCES. PATIENT STILL REQUESTING THIS WORKER UPDATE DOCTOR ON REQUESTS. DISCUSSED CASE/ED CARE PLAN WITH NURSE AND DR. ORTEGA. ANTICIPATE D/C BACK TO [facility]. Aly SLAUGHTER, MOLDING UTILITY WORKER, PROGRAM EVALUATOR.
[2019-12-12 20:01] VITALS: BP 111/67; PULSE 80; RESP 16; TEMP 36.9; O2SAT 98
--- NOTE | 2019-12-12 20:27 | CM.ED ---
SOCIAL WORK UPDATED BY DR. ORTEGA PATIENT WANTING ASSISTED PLACEMENT. DR. ORTEGA REPORTS NO MEDICAL REASON FOR ADMISSION. MET WITH PATIENT IN ROOM. DISCUSSED D/C PLANNING. PATIENT STATES, THEY AREN'T TAKING CARE OF ME THERE. I NEED MORE HELP WHEN DISCUSSING [facility]. PATIENT'S CHART REVIEWED FROM LAST ADMISSION THIS MONTH. INFORMED PATIENT THIS WORKER WILL FOLLOW UP WITH HOTEL NIGHT AUDITOR THROUGH [facility] TOMORROW MORNING. PATIENT IN AGREEMENT WITH PLAN. PATIENT REPORTS DOES NOT HAVE TRANSPORTATION HOME. CHARGE NURSE UPDATED AND WILL LOOK INTO TRANSPORT. PLAN: RETURN TO [facility]. LOW PRESSURE BOILER OPERATOR TO FOLLOW UP WITH PATIENT'S CASE MANGER TOMORROW. Aly SLAUGHTER, AUTOMATIC WASHER MECHANIC, AUTOMOTIVE PARTS COUNTER ASSISTANT.
--- NOTE | 2019-12-12 20:40 | ED.RN ---
Answered call light. PT wanted more blankets. there were four blankets on bed but not on patient. These blankets were rearranged and placed on pt. She is nauseous and making gaging noises. States Louis doesn't work, it's in my chart, I told them that. Pt has asked previously for medications to help her sleep.
[2019-12-12 22:37] VITALS: BP 95/56; PULSE 82; RESP 17; O2SAT 94
--- NOTE | 2019-12-12 22:41 | ED.RN ---
REPORT CALLED TO KAUR MONIQUE
--- NOTE | 2019-12-13 14:13 | CM.ED ---
SOCIAL WORK CALL TO PATIENT'S LETTERSET PRESS SET UP OPERATOR [facility]. LEFT MESSAGE, AWAITING CALL BACK. Aly SLAUGHTER, INVENTORY CONTROLLER, MANAGER REHAB.
== END 2019-12-12 22:43 | disposition home or self-care (01) ==
PROVIDERS: Emergency Provider Emergency Medicine; PCP Nurse Practitioner Adult Health
DX: L03.115 Cellulitis of right lower limb (principal); L03.116 Cellulitis of left lower limb; E11.9 Type 2 diabetes mellitus without complications; I25.10 Atherosclerotic heart disease of native coronary artery without angina pectoris; E78.00 Pure hypercholesterolemia, unspecified; Z79.899 Other long term (current) drug therapy
CPT/HCPCS: 80053; 85025; 87040; 96365; 96375; 99285; J7050; A4216; J2405

== ENCOUNTER → 2019-12-20 07:50 | Outpatient (CLI) | payer MEDICARE, MEDICAID, SELFPAY ==
[2019-06-22 12:27] VITALS: BMI 38.9
[2019-12-12 17:55] VITALS: BMI 38.4
--- NOTE | 2019-12-21 10:27 | PFT ---
INTRODUCTION: The patient is a 64-year-old female who presents for pulmonary function studies secondary to a diagnosis of shortness of breath. Bronchodilators were used during testing. INTERPRETATION: Forced expiration spirometry demonstrates no evidence of a large airways obstructive ventilatory defect. The patient did have a notable bronchodilator response, nonetheless. Spirograms are of good quality and plateau normally. Body plethysmography was performed and reveals a mild degree of air trapping. Diffusing capacity by single breath CO is within normal limits. IMPRESSION: Findings suggestive of small airways disease with notable bronchodilator response and a mild degree of air trapping.
== END ==
PROVIDERS: PCP Nurse Practitioner Adult Health; Referring Provider Internal Medicine Critical Care Medicine; Visit Provider Internal Medicine Critical Care Medicine
DX: R06.09 Other forms of dyspnea (principal); R05 Cough
CPT/HCPCS: 94060; 94726; 94729

== ENCOUNTER 2020-01-05 17:58 | Emergency (ER) | payer MEDICARE, MEDICAID, SELFPAY ==
[2020-01-05 18:00] VITALS: BP 120/77; PULSE 86; RESP 18; TEMP 37.1; O2SAT 95; BMI 37.9
--- NOTE | 2020-01-05 18:00 | ED.RN ---
PT VOICES SUICIDAL IDEATIONS, STATES SHE DOESN'T WANT TO WAKE UP ANYMORE, PLANS OF CUTTING WRISTS. PT UNDER 1:1 OBSERVATION IMMEDIATELY UPON ARRIVAL.
--- NOTE | 2020-01-05 18:23 | EKG12_ITS ---
Test Reason : PSYCH EVAL Blood Pressure : / mmHG Vent. Rate : 080 BPM Atrial Rate : 080 BPM P-R Int : 152 ms QRS Dur : 092 ms QT Int : 416 ms P-R-T Axes : 067 034 015 degrees QTc Int : 479 ms Normal sinus rhythm Normal ECG Confirmed by IRENA GRUBER, KINGS ([id number]), editor trade journal MANISHA VELASCO ([id number]) on 01/09/2020 8:50:44 AM Referred By: ANUEL Confirmed By:KINGS OSBORN MD
--- NOTE | 2020-01-05 18:30 | RAD_ITS ---
STUDY: X-RAY CHEST REASON FOR EXAM: Female, 64 years old. WEAKNESS TECHNIQUE: Portable chest. COMPARISON: 10/03/2019. FINDINGS: The lungs are clear and expanded. There is no demonstrated pleural abnormality. Normal size heart. Normal mediastinum and zion. Normal visualized pulmonary arteries. Normal visualized aortic arch and descending thoracic aorta. Reverse right shoulder arthroplasty. Soft tissues and bony structures are otherwise unremarkable. There is no demonstrated abnormality of the visualized soft tissue structures of the upper abdomen. RAD/Chest 1 View (Portable) IMPRESSION: No acute findings. Electronically Signed: Grecia Benjamin MD at 18:46 EST Tel , Service support ,
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
[2020-01-05 19:17] LABS: Absolute Lymphocyte Count 1.87 X10^3/uL (0.83-4.51); Absolute Neutrophil Count 6.2 X10^3/uL (2.0-7.7); Basophil# 0.03 X10^3/uL; Basophil% 0.3 % (0-1); Eosinophil# 0.23 X10^3/uL; Eosinophils% 2.6 % (0-5); Hematocrit 36.9 % (37-47); Lymphocyte # 1.87 X10^3/ul (4.0); Mean Corp Hgb Conc 29.8 g/dL (32-36); Mean Corpuscular Hgb 25.8 pg (27.0-32.0); Mean Corpuscular Volume 86.4 fL (81-99); Mean Platelet Vol. 10.6 fl (6.2-12.0); Monocyte# 0.53 X10^3/uL; NRBC Flagged by Analyzer 0 % (0-5); Neutrophil # 6.17 X10^3/uL (2.7-7.7); Neutrophil % 69.4 % (47-70); Platelet Count 212 K/mm3 (150-450); RBC Distribution Width CV 17.1 % (11.6-14.6); Red Blood Count 4.27 M/mm3 (4.2-5.4); White Blood Count 8.9 K/mm3 (4.4-11.0)
[2020-01-05 19:27] LABS: Internal QC Validated? YES +Cl - CLEAR BKGD; Pregnancy, Serum, hCG Quali. NEGATIVE Negative
[2020-01-05 19:32] LABS: Anion Gap 5 (5-15); BUN 23 mg/dL (7-18); BUN/Creat Ratio 19.7 RATIO (10-20); Calcium,Total 8.4 mg/dL (8.5-10.1); Chloride 106 mmol/L (98-107); Creatinine, Serum 1.17 mg/dL (0.55-1.02); EST Glomerular Filtration Rate 49 mL/min (>60); Est Glom Filt Rate - Afr Amer 60 mL/min (>60); Estimated Creatinine Clearance 62.34 ml/min; Glucose 160 mg/dL (74-106); Potassium 3.4 mmol/L (3.5-5.1); Sodium Level 141 mmol/L (136-145)
[2020-01-05 19:58] LABS: Alcohol, Blood (Medical)-Serum < 3.0 mg/dL
[2020-01-05 20:03] LABS: Amphetamine Urine VISTA NEGATIVE (<1000 ng/mL); Barbiturate Urine VISTA NEGATIVE (< 200 ng/mL); Benzodiazepine Urine VISTA POSITIVE (< 200 ng/mL); Cocaine Urine VISTA NEGATIVE (< 300 ng/mL); Ecstacy Urine VISTA NEGATIVE (< 500 ng/mL); Methadone Urine VISTA NEGATIVE (< 300 ng/mL); PCP Urine VISTA NEGATIVE (< 25 ng/mL); THC Urine VISTA NEGATIVE (< 50 ng/mL); Vista UDS pH Range 5
--- NOTE | 2020-01-05 20:08 | NURSING ---
CRISIS CALLED AT 2008
[2020-01-05 22:11] VITALS: BP 123/78; PULSE 79; RESP 18; O2SAT 96
[2020-01-05] MEDS: Acetaminophen 500 MG Tablet 1000 MG PO (22:17)
[2020-01-05] MEDS: hydrOXYzine PAM 25 MG Capsule 50 MG PO (22:18)
[2020-01-05] MEDS: Pregabalin 50 MG Capsule 100 MG PO (22:44)
[2020-01-05] MEDS: MELATONIN 10 MG TABLET 5 MG PO (22:45)
[2020-01-05] MEDS: Pramipexole Di-HCl 0.5 MG Tablet PO (22:45)
[2020-01-05] MEDS: Topiramate 50 MG Tablet PO (22:46)
[2020-01-06] VITALS: RESP 18
--- NOTE | 2020-01-06 00:58 | NURSING ---
ACCEPTED TO GENERATIONS BY DR. HAMPTON [id number] [phone] REPORT
[2020-01-06 01:00] VITALS: RESP 20
[2020-01-06 02:00] VITALS: RESP 18
[2020-01-06 02:25] VITALS: BP 111/72; PULSE 84; RESP 20; TEMP 37.1; O2SAT 97
== END 2020-01-06 02:25 | disposition short-term general hospital (02) ==
PROVIDERS: Emergency Provider Emergency Medicine; PCP Nurse Practitioner Adult Health
DX: R45.851 Suicidal ideations (principal); E11.9 Type 2 diabetes mellitus without complications; I10 Essential (primary) hypertension; E78.00 Pure hypercholesterolemia, unspecified; Z79.899 Other long term (current) drug therapy
CPT/HCPCS: 71045; 80048; 80307; 80320; 84703; 85025; 93005; 99285; G0480

== ENCOUNTER 2020-01-17 13:24 | Emergency (ER) | payer MEDICARE, MEDICAID, SELFPAY ==
[2020-01-17 12:24] VITALS: BMI 37.6
[2020-01-17 13:25] VITALS: BP 135/88; PULSE 74; RESP 18; TEMP 37.1; O2SAT 92; BMI 37.7
--- NOTE | 2020-01-17 13:28 | EKG12_ITS ---
Test Reason : CP Blood Pressure : / mmHG Vent. Rate : 072 BPM Atrial Rate : 072 BPM P-R Int : 156 ms QRS Dur : 096 ms QT Int : 424 ms P-R-T Axes : 058 021 023 degrees QTc Int : 464 ms Normal sinus rhythm Normal ECG Confirmed by SALOMÓN GRUBER, ZULEIKA ([id number]), graphics editor TISHA SHIPMAN ([id number]) on 01/21/2020 10:29:34 AM Referred By: MARY Confirmed By:ANNALEE LORENZANA MD
[2020-01-17 14:21] LABS: Hematocrit 40.7 % (37-47); Hemoglobin 11.9 g/dL (12.0-15.0); Mean Corp Hgb Conc 29.2 g/dL (32-36); Mean Corpuscular Hgb 24.7 pg (27.0-32.0); Mean Corpuscular Volume 84.6 fL (81-99); Mean Platelet Vol. 10.1 fl (6.2-12.0); Platelet Count 273 K/mm3 (150-450); RBC Distribution Width CV 16.8 % (11.6-14.6); RBC Distribution Width SD 51.8 fl (35.1-43.9); Red Blood Count 4.81 M/mm3 (4.2-5.4); White Blood Count 6.9 K/mm3 (4.4-11.0)
--- NOTE | 2020-01-17 14:30 | RAD_ITS ---
EXAM DESCRIPTION: AP and lateral chest CLINICAL HISTORY: 64 years Female, CP, COPD CP, COPD COMPARISON: Previous chest obtained on 01/05/2020, previous PA and lateral chest obtained on 09/09/2019 FINDINGS: There is loss of vertebral body height involving T11 and T12 due to old vertebral body compression fractures which were previously identified and are unchanged.. A reverse right shoulder hemiarthroplasty is identified. The rest of the thorax is intact.The heart and mediastinum appear to be within normal limits. The lungs appear to be well areated without evidence of pneumonic consolidation or pleural effusion. RAD/Chest PA and Lateral IMPRESSION: 1. Old vertebral body compression fractures are noted involving T12 and L1 which are unchanged. 2. Otherwise the chest shows no acute pathology. Electronically Signed: Ben Anderson, at 14:50 EST Tel , Service support ,
[2020-01-17 14:38] LABS: Anion Gap 3 (5-15); BUN 19 mg/dL (7-18); BUN/Creat Ratio 18.6 RATIO (10-20); Calcium,Total 8.8 mg/dL (8.5-10.1); Chloride 101 mmol/L (98-107); Creatinine, Serum 1.02 mg/dL (0.55-1.02); EST Glomerular Filtration Rate 58 mL/min (>60); Est Glom Filt Rate - Afr Amer 70 mL/min (>60); Estimated Creatinine Clearance 71.09 ml/min; Glucose 108 mg/dL (74-106); Potassium 2.9 mmol/L (3.5-5.1); Sodium Level 140 mmol/L (136-145)
[2020-01-17 15:06] VITALS: BP 90/60; PULSE 66; RESP 12; O2SAT 98
[2020-01-17] MEDS: Acetaminophen 500 MG Tablet PO (15:10)
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
--- NOTE | 2020-01-17 15:47 | CM.ED ---
Social Work Consult: ED Care Plan Met with patient in room. Patient stating to not want to live at [facility] anymore. This health social work professor asking if patient medical case manager has called patient in regards to transitioning to another assisted living. Patient stating to have met with medical case manager today. Patient stating to be on waiting list [facility]. Patient stating to be frustrated with process. This health social work professor encouraging patient to keep speaking with medical case manager as medical case manager will be the individual that will be able to assist patient with this and approve the transition for patient. Patient voicing understanding with this. Patient voicing no further concerns at this time. Amy Bailey MSW, JEFF
--- NOTE | 2020-01-17 15:49 | ED.RN ---
informed [facility] of pt's discharge. Called hospital van for transportation.
== END 2020-01-17 15:50 | disposition home or self-care (01) ==
PROVIDERS: Emergency Provider Emergency Medicine; PCP Nurse Practitioner Adult Health
DX: R07.89 Other chest pain (principal); G89.4 Chronic pain syndrome; I13.0 Hypertensive heart and chronic kidney disease with heart failure and stage 1 through stage 4 chronic kidney disease, or unspecified chronic kidney disease; I50.32 Chronic diastolic (congestive) heart failure; N18.3 Chronic kidney disease, stage 3 (moderate); E11.22 Type 2 diabetes mellitus with diabetic chronic kidney disease; J44.9 Chronic obstructive pulmonary disease, unspecified; K21.9 Gastro-esophageal reflux disease without esophagitis; E66.01 Morbid (severe) obesity due to excess calories
CPT/HCPCS: 71046; 80048; 84484; 85027; 93005; 99285; A4216

== ENCOUNTER 2020-02-05 16:02 | Emergency (ER) | payer MEDICARE, MEDICAID, SELFPAY ==
[2020-02-05 16:02] VITALS: BP 147/82; PULSE 79; RESP 18; TEMP 37.7; O2SAT 93; BMI 41.9
--- NOTE | 2020-02-05 16:11 | ED.VISSUMM ---
- ER Visit Summary Date of Service: 02/05/20 Chief Complaint: Cellulitis History of Present Illness: The patient is a 64 F with cellulitis to both legs. This started yesterday. She had this before and required admission for IV antibiotics. She reports skin changes but denies fevers or systemic symptoms. She does have some pain to the area. She has a history of diabetes, CHF, cellulitis, and others. Physical Examination: Afebrile and vital signs unremarkable. Bilateral lower extremity erythema with mild edema. Neurovascular intact distally. No necrosis. Test Results: Basic labs, cultures, lactate pending. Emergency Department Course and Treatment: Patient has bilateral lower extremity redness involving the entirety of her lower legs. She was treated with clindamycin. Septic work-up was initiated. She received morphine for pain and Zofran for nausea. Patient had a normal white count. She was not septic. Lactate normal. Other labs unremarkable. Patient was mentioned to the hospitalist. He was not formally consulted, but he did bring to my attention that since this is bilateral, it is unlikely to be cellulitis. I reviewed the patient's previous visits. She has multiple visits for lower extremity redness including previously this year. She was even admitted and cellulitis was ruled out. I expressed to the patient that I do not believe the antibiotics are working because this is not truly cellulitis. This is likely venous stasis changes. She is not septic. Patient was evasive about her prior visits and evaluation for this. She was asking to be admitted. I voiced that the risks to admission. Then she told me she was having chest pain radiating down her left arm. I noted to her that she was in the ED less than a month ago for chest pain, and she denied this. I checked an EKG. This was unremarkable. I do not believe the patient is having ACS or any cardiovascular or pulmonary emergency. Patient was advised to follow-up as an outpatient. She continue her outpatient medications. Treatment Plan: As above Disposition: Discharge Impression: Chronic venous stasis bilateral legs This note was generated with [employer] dictation software. It may contain incorrect words, spelling, and punctuation that were not noted in review of the chart prior to signing ED Disposition - Plan for ED Patient: Referrals: Madisyn Perez, TEXTILE MACHINE MECHANIC-C [Primary Care Provider] -
[2020-02-05] MEDS: Morphine 4 MG/ML Syringe IV (16:47)
[2020-02-05 16:50] VITALS: O2SAT 96
[2020-02-05 16:51] LABS: Absolute Lymphocyte Count 1.68 X10^3/uL (0.83-4.51); Absolute Neutrophil Count 3.8 X10^3/uL (2.0-7.7); Basophil# 0.03 X10^3/uL; Basophil% 0.5 % (0-1); Eosinophil# 0.34 X10^3/uL; Eosinophils% 5.3 % (0-5); Hematocrit 39.3 % (37-47); Hemoglobin 11.2 g/dL (12.0-15.0); Lymphocyte # 1.68 X10^3/ul (4.0); Lymphocyte % 26.3 % (19-41); Mean Corp Hgb Conc 28.5 g/dL (32-36); Mean Corpuscular Hgb 24.2 pg (27.0-32.0); Mean Corpuscular Volume 85.1 fL (81-99); Mean Platelet Vol. 10.3 fl (6.2-12.0); Monocyte# 0.49 X10^3/uL; Monocyte% 7.7 % (0-10); NRBC Flagged by Analyzer 0 % (0-5); Neutrophil # 3.78 X10^3/uL (2.7-7.7); Neutrophil % 58.9 % (47-70); Platelet Count 251 K/mm3 (150-450); RBC Distribution Width CV 16.7 % (11.6-14.6); RBC Distribution Width SD 51.6 fl (35.1-43.9); Red Blood Count 4.62 M/mm3 (4.2-5.4); White Blood Count 6.4 K/mm3 (4.4-11.0)
[2020-02-05 16:53] VITALS: BP 107/67; PULSE 71; RESP 12; O2SAT 93
[2020-02-05] MEDS: proMETHazine 25 MG/ML Syringe 6.25 MG IV (17:00)
[2020-02-05 17:09] LABS: International Normalized Ratio 1.2; Prothrombin Time (Protime)PT. 14.7 SECONDS (11.7-14.9)
[2020-02-05 17:10] LABS: ALB/GLOB Ratio 0.7 RATIO (0.9-2.4); AST(SGOT) 60 U/L (15-37); Alanine Aminotransfer ALT/SGPT 46 U/L (13-56); Albumin, Serum 3.1 g/dL (3.2-5.0); Alkaline Phosphatase 162 U/L (45-117); Anion Gap 6 (5-15); BUN 19 mg/dL (7-18); BUN/Creat Ratio 18.6 RATIO (10-20); Calcium,Total 8.4 mg/dL (8.5-10.1); Chloride 104 mmol/L (98-107); Creatinine, Serum 1.02 mg/dL (0.55-1.02); EST Glomerular Filtration Rate 58 mL/min (>60); Est Glom Filt Rate - Afr Amer 70 mL/min (>60); Estimated Creatinine Clearance 78.99 ml/min; Globulin 4.2 g/dL (2.2-4.2); Glucose 94 mg/dL (74-106); Lactic Acid 0.8 mmol/L (0.4-1.9); Partial Thromboplast Time 31.2 Seconds (24.1-36.2); Potassium 4.1 mmol/L (3.5-5.1); Protein, Total 7.3 g/dL (6.4-8.2); Sodium Level 141 mmol/L (136-145)
--- NOTE | 2020-02-05 17:17 | EKG12_ITS ---
Test Reason : CP Blood Pressure : / mmHG Vent. Rate : 075 BPM Atrial Rate : 075 BPM P-R Int : 168 ms QRS Dur : 094 ms QT Int : 430 ms P-R-T Axes : 057 023 018 degrees QTc Int : 480 ms Normal sinus rhythm Normal ECG Confirmed by SALOMÓN GRUBER, ZULEIKA ([id number]), technical editor JANE BURGOS ([id number]) on 02/11/2020 11:17:33 AM Referred By: DC Confirmed By:ANNALEE LORENZANA MD
--- NOTE | 2020-02-05 17:23 | DCINST.ED_ITS ---
ED Disposition - Plan for ED Patient: Instructions: Understanding Chronic Venous Insufficiency Referrals: Madisyn Perez, ESTIMATOR-C [Primary Care Provider] -
--- NOTE | 2020-02-05 17:23 | ED.DEP ---
ED Disposition - Plan for ED Patient: Instructions: Understanding Chronic Venous Insufficiency Referrals: Madisyn Perez, FIELD NURSE-C [Primary Care Provider] -
[2020-02-05 17:41] VITALS: TEMP 36.9
--- NOTE | 2020-02-05 17:58 | NURSING ---
Spoke with nurse Nickolas at [facility]; gave report on pt and that she would be coming back to facility within the hour
== END 2020-02-05 18:33 | disposition home or self-care (01) ==
LOC: ED 16:27
PROVIDERS: Emergency Provider Emergency Medicine; PCP Nurse Practitioner Adult Health
DX: I87.8 Other specified disorders of veins (principal); I13.0 Hypertensive heart and chronic kidney disease with heart failure and stage 1 through stage 4 chronic kidney disease, or unspecified chronic kidney disease; I50.9 Heart failure, unspecified; N18.9 Chronic kidney disease, unspecified; E11.22 Type 2 diabetes mellitus with diabetic chronic kidney disease; J44.9 Chronic obstructive pulmonary disease, unspecified; K21.9 Gastro-esophageal reflux disease without esophagitis
CPT/HCPCS: 80053; 83605; 85025; 85610; 85730; 87040; 93005; 96365; 96375; 99285; A4216; J2405

== ENCOUNTER 2020-02-13 21:47 | Emergency (ER) | payer MEDICARE, MEDICAID, SELFPAY ==
[2020-02-13 21:48] VITALS: BP 90/64; PULSE 69; RESP 13; TEMP 36.4; O2SAT 92; BMI 40.5
--- NOTE | 2020-02-13 22:18 | EKG12_ITS ---
Test Reason : FALL Blood Pressure : / mmHG Vent. Rate : 073 BPM Atrial Rate : 073 BPM P-R Int : 180 ms QRS Dur : 092 ms QT Int : 440 ms P-R-T Axes : 065 025 008 degrees QTc Int : 484 ms Normal sinus rhythm Nonspecific T wave abnormality Prolonged QT Abnormal ECG Confirmed by CESAR GRUBER, SHARAD ([id number]), movie editor ITSHA SHIPMAN ([id number]) on 02/14/2020 1:42:01 PM Referred By: JORDAN Confirmed By:SHARAD GUERRERO MD
--- NOTE | 2020-02-13 22:20 | RAD_ITS ---
STUDY: X-RAY - PELVIS REASON FOR EXAM: Female, 64 years old. fell. left leg pain TECHNIQUE: One view of the pelvis was obtained. COMPARISON: None. FINDINGS: There is a non-specific bowel gas pattern. Normal visualized soft tissue structures. Normal bilateral iliac wings, sacroiliac joints and visualized sacrum. Normal visualized bilateral superior and inferior pubic rami. Normal pubic symphysis. Normal ischial tuberosities. Status post old ORIF changes of the right femur are noted. Normal visualized left femoral head. Normal left acetabulum. Normal left hip joint. RAD/Pelvis 1 or 2 Views IMPRESSION: Status post old ORIF changes of the right femur. The bony pelvis and left hip appear within normal limits. Electronically Signed: Suraj Muniz MD at 23:01 EDT , Service support ,
--- NOTE | 2020-02-13 22:21 | ED.VISSUMM ---
- ER Visit Summary Date of Service: 02/13/20 Chief Complaint: Fall History of Present Illness: The patient is a 64 F who presents after a fall that occurred today. Patient states she got dizzy and fell. Patient complains of pain in her left hip. Patient describes the pain is dull and aching. Patient states pain is worse with movement. Patient states she is unable to ambulate since the fall. Patient denies any head injury or loss of consciousness. Patient denies any syncopal episode. Patient denies any paresthesias or weakness. Patient denies any other injuries. Patient states she is currently being treated for cellulitis of her lower extremities with oral antibiotics. Physical Examination: Vital signs are stable except for slightly low blood pressure of 90/64. Patient is afebrile. Patient is in no acute distress. Oral mucosa is pink and moist. Neck is supple. Trachea is midline. There is no JVD. Heart was regular rate and rhythm. Lungs are clear and equal bilaterally. Abdomen is soft. Bowel sounds are normal. There is no tenderness. Musculoskeletal exam reveals shortening and external rotation of the left lower extremity. There is tenderness over the left hip and left femur. There is pain with any motion of the left lower extremity. There is 2+ edema of the lower extremities bilaterally. Pedal pulses are equal bilaterally. Sensation was intact light touch in the lower extremities. There is erythema and warmth over the lower legs bilaterally. Test Results: Portable chest x-ray was obtained. There is no acute cardiopulmonary process. X-rays of the left hip and pelvis were obtained. There is a fracture of the femur. Dedicated femur x-rays were obtained. There is a periprosthetic fracture of the midshaft of the femur. These were interpreted by the radiologist and reviewed by myself. EKG showed normal sinus rhythm with a rate of 73. There are nonspecific ST-T wave changes. These were unchanged compared to previous EKG dated 02/05/2020. Emergency Department Course and Treatment: Patient states her left total knee surgery was several years ago and she does not remember the name of her surgeon. She states it was done in [employer] and thinks it was done at [facility]. Patient is agreeable to be transferred there. Case was discussed with trauma surgeon Dr. Smith. He will accept care of the patient. Patient will be transferred there. Patient understood and was agreeable with the plan. All questions were answered. Disposition: Transfer to [facility] Impression: 1. Periprosthetic fracture left femur This note was generated with [employer] dictation software. It may contain incorrect words, spelling, and punctuation that were not noted in review of the chart prior to signing ED Disposition - Plan for ED Patient: Disposition: [facility] Diagnosis: Fracture of left femur following insertion of orthopedic implant Referrals: Madisyn Perez, DIGITAL CAMERA TECHNICIAN-C [Primary Care Provider] -
[2020-02-13 22:35] LABS: Absolute Lymphocyte Count 2.92 X10^3/uL (0.83-4.51); Absolute Neutrophil Count 3.3 X10^3/uL (2.0-7.7); Basophil# 0.05 X10^3/uL; Basophil% 0.7 % (0-1); Eosinophils% 4.1 % (0-5); Hematocrit 34.5 % (37-47); Hemoglobin 10.4 g/dL (12.0-15.0); Lymphocyte # 2.92 X10^3/ul (4.0); Lymphocyte % 40.2 % (19-41); Mean Corp Hgb Conc 30.1 g/dL (32-36); Mean Corpuscular Hgb 25.6 pg (27.0-32.0); Mean Platelet Vol. 10.4 fl (6.2-12.0); Monocyte# 0.68 X10^3/uL; Monocyte% 9.4 % (0-10); NRBC Flagged by Analyzer 0 % (0-5); Neutrophil # 3.27 X10^3/uL (2.7-7.7); Neutrophil % 44.9 % (47-70); Platelet Count 201 K/mm3 (150-450); RBC Distribution Width CV 17.1 % (11.6-14.6); RBC Distribution Width SD 52.1 fl (35.1-43.9); Red Blood Count 4.06 M/mm3 (4.2-5.4); White Blood Count 7.3 K/mm3 (4.4-11.0)
--- NOTE | 2020-02-13 22:38 | RAD_ITS ---
STUDY: X-RAY CHEST REASON FOR EXAM: Female, 64 years old. fell. left leg pain TECHNIQUE: Single AP portable view of the chest. COMPARISON: Prior study of 01/17/2020 FINDINGS: phototypesetting equipment monitor leads are present. The lungs are clear and expanded. There is no demonstrated pleural abnormality. Normal size heart. Normal mediastinum and zion. Normal visualized pulmonary arteries. Normal visualized aortic arch and descending thoracic aorta. Normal visualized thoracic spine. Status post total right shoulder replacement changes are noted. There is no demonstrated abnormality of the visualized soft tissue structures of the upper abdomen. RAD/Chest 1 View (Portable) IMPRESSION: Status post total right shoulder replacement changes. No acute cardiopulmonary disease process is seen. Electronically Signed: Suraj Muniz MD at 22:57 EDT , Service support ,
[2020-02-13 22:40] LABS: International Normalized Ratio 1.2; Prothrombin Time (Protime)PT. 15.2 SECONDS (11.7-14.9)
[2020-02-13 22:41] LABS: Partial Thromboplast Time 30.4 Seconds (24.1-36.2)
--- NOTE | 2020-02-13 22:42 | RAD_ITS ---
STUDY: X-RAY - LEFT FEMUR REASON FOR STUDY: Female, 64 years old. fell. left leg pain TECHNIQUE: 5 view(s) of the femur. COMPARISON: None. FINDINGS: There is demonstrated a displaced comminuted oblique fracture of the midshaft of the left femur. Status post total left knee replacement changes are seen with a long stem femoral component noted. Normal visualized soft tissue structure. RAD/Femur Min 2 Views IMPRESSION: Comminuted displaced fracture of the mid left femoral shaft. Status post total left knee replacement changes are seen with long stem femoral component noted. The fracture involves the proximal to midportion of the femoral implant component. Electronically Signed: Suraj Muniz MD at 22:59 EDT , Service support ,
[2020-02-13] MEDS: Morphine 4 MG/ML Syringe IV (22:47)
[2020-02-13] MEDS: Ondansetron 4 MG/2 ML Vial IV (22:47)
[2020-02-13 22:52] LABS: ALB/GLOB Ratio 0.8 RATIO (0.9-2.4); AST(SGOT) 52 U/L (15-37); Alanine Aminotransfer ALT/SGPT 45 U/L (13-56); Albumin, Serum 3.2 g/dL (3.2-5.0); Alkaline Phosphatase 161 U/L (45-117); Anion Gap 5 (5-15); BUN 26 mg/dL (7-18); BUN/Creat Ratio 23.2 RATIO (10-20); Calcium,Total 8.5 mg/dL (8.5-10.1); Chloride 103 mmol/L (98-107); Creatinine, Serum 1.12 mg/dL (0.55-1.02); EST Glomerular Filtration Rate 52 mL/min (>60); Est Glom Filt Rate - Afr Amer 63 mL/min (>60); Estimated Creatinine Clearance 69.57 ml/min; Globulin 3.9 g/dL (2.2-4.2); Glucose 114 mg/dL (74-106); Potassium 3.3 mmol/L (3.5-5.1); Protein, Total 7.1 g/dL (6.4-8.2); Sodium Level 140 mmol/L (136-145)
[2020-02-13 23:06] LABS: Bacteria 0 SEEN /hpf (None Seen); Mucous, Urine 0 SEEN /hpf (<or=2+); Red Blood Cells-Urine 0 SEEN /hpf (0-5); White Blood Cells 0 SEEN /hpf (0-5)
[2020-02-13 23:08] LABS: Color, Urine Yellow (Yellow); Glucose, Dipstick Normal (Normal); Ketone-Dipstick Negative (Negative); Leukocyte Esterase-Dipstick 25 /ul (Negative); Nitrite-Dipstick Negative (Negative); Occult Blood-Urine Negative /ul (Negative); Protein-Dipstick Negative (Negative); Specific Gravity, Urine 1.015 (1.002-1.030); Urine Bilirubin Dipstick Negative (Negative); Urine Clarity Clear (Clear); Urine Urobilinogen Normal (Normal)
[2020-02-13 23:14] LABS: Squamous Epithelial Cells - UA 0-5 SEEN /hpf (5-10)
[2020-02-13 23:15] LABS: Hyaline Cast 0-5 SEEN /lpf (0-5)
[2020-02-14 00:06] VITALS: PULSE 72; RESP 12; O2SAT 95
[2020-02-14 00:37] VITALS: BP 110/77; PULSE 75; RESP 12; TEMP 36.7; O2SAT 98
[2020-02-14] MEDS: Ondansetron 4 MG/2 ML Vial IV (00:45)
[2020-02-14] MEDS: Morphine 4 MG/ML Syringe IV (00:46)
== END 2020-02-14 01:02 | disposition short-term general hospital (02) ==
PROVIDERS: Emergency Provider Emergency Medicine; PCP Nurse Practitioner Adult Health
DX: S72.352A Displaced comminuted fracture of shaft of left femur, initial encounter for closed fracture (principal); M97.02XA Periprosthetic fracture around internal prosthetic left hip joint, initial encounter; W19.XXXA Unspecified fall, initial encounter; Y93.89 Activity, other specified; Y92.9 Unspecified place or not applicable; I10 Essential (primary) hypertension; J44.9 Chronic obstructive pulmonary disease, unspecified; E66.9 Obesity, unspecified; Z68.41 Body mass index [BMI] 40.0-44.9, adult
CPT/HCPCS: 51702; 71045; 72170; 73552; 80053; 81001; 84484; 85025; 85610; 85730; 93005; 96361; 96374; 96375; 96376; 99285; J7030; A4216; J2405